=== PATIENT | male | born 1960 ===

== ENCOUNTER 2020-01-15 10:21 | Outpatient (REF) | payer OTHER, SELFPAY ==
[2020-01-15 12:02] LABS: MANUAL DIFF FLAG NO
[2020-01-15 12:10] LABS: Basophils Percent Auto 0.6 % (0-2); Eosinophils Absolute Auto 0.3 X10*3/uL (0.0-0.4); Eosinophils Percent Auto 5.3 % (0-4); Hemoglobin 13.4 g/dl (14.0-18.0); Imm Gran Abs Auto 0.03 X10*3/uL (0.00-0.03); Imm Gran Pct Auto 0.6 % (0.0-0.4); Lymphocytes Absolute Auto 1.5 X10*3/uL (1.2-4.9); Lymphocytes Percent Auto 27.9 % (20-40); Mean Corpuscular HGB Conc 32.7 g/dl (31.0-36.0); Mean Corpuscular Hemoglobin 28.9 pg (27.0-33.0); Mean Corpuscular Volume 88.6 fL (80-98); Mean Platelet Volume 10.5 fL (9.4-12.4); Monocytes Absolute Auto 0.5 X10*3/uL (0.1-1.2); Monocytes Percent Auto 8.5 % (2-11); Neutrophils Absolute Auto 3.1 X10*3/uL (2.0-8.3); Neutrophils Percent Auto 57.1 % (45-73); Platelet Count 284 X10*3/uL (160-400); Red Blood Count 4.63 X10*6/uL (4.60-5.80); Red Cell Distribution Width 12.4 % (11.0-16.0); White Blood Count 5.4 X10*3/uL (4.8-10.8)
[2020-01-15 12:42] LABS: Microalbum/Creatinine Ratio Ur 20.2 ug/mg cr
[2020-01-15 13:37] LABS: Alanine Aminotransferase 22 U/L (0-40); Albumin Level 4.4 g/dL (3.5-5.0); Alkaline Phosphatase 95 U/L (39-117); Anion Gap 14 (12-20); Aspartate Amino Transferase 18 U/L (5-37); Bilirubin Total 0.5 mg/dL (0.0-1.0); Blood Urea Nitrogen 11 mg/dL (9-16); Carbon Dioxide 28 mmol/L (22-29); Chloride 101 mmol/L (96-108); Cholesterol 245 mg/dL; Estimated Glomerular Filt Rate > 60; Glucose Random 254 mg/dL (60-115); HDL Cholesterol 49 mg/dL; LDL Cholesterol Calculated 159 mg/dl; Potassium 4.3 mmol/l (3.3-5.1); Sodium 139 mmol/L (135-145); Total Protein 7.4 g/dL (6.5-8.0); Triglycerides 189 mg/dL
[2020-01-15 13:58] LABS: Thyroid Stimulating Hormone 1.32 mIU/mL (0.32-4.0)
== END 2020-01-15 10:22 | disposition home or self-care (01) ==
LOC: HO.LAB 10:21
PROVIDERS: Visit Provider Internal Medicine
DX: E11.65 Type 2 diabetes mellitus with hyperglycemia (principal); E78.00 Pure hypercholesterolemia, unspecified; I10 Essential (primary) hypertension; Z91.14 Patient's other noncompliance with medication regimen
CPT/HCPCS: 36415; 80053; 80061; 82043; 84443; 85025

== ENCOUNTER 2020-04-14 09:43 | Outpatient (REF) | payer OTHER, SELFPAY ==
[2020-04-14 10:34] LABS: Estimated Average Glucose 246 mg/dL; Hemoglobin A1c % 10.2 %
[2020-04-14 10:58] LABS: Alanine Aminotransferase 23 U/L (0-40); Albumin Level 4.5 g/dL (3.5-5.0); Alkaline Phosphatase 93 U/L (39-117); Anion Gap 13 (12-20); Aspartate Amino Transferase 20 U/L (5-37); Bilirubin Total 0.5 mg/dL (0.0-1.0); Blood Urea Nitrogen 12 mg/dL (9-16); Calcium 9.1 mg/dL (8.4-10.2); Carbon Dioxide 30 mmol/L (22-29); Chloride 100 mmol/L (96-108); Cholesterol 189 mg/dL; Estimated Glomerular Filt Rate > 60; Glucose Random 250 mg/dL (60-115); HDL Cholesterol 47 mg/dL; LDL Cholesterol Calculated 89 mg/dl; Potassium 4.3 mmol/L (3.3-5.1); Sodium 139 mmol/L (135-145); Total Protein 7.6 g/dL (6.5-8.0); Triglycerides 266 mg/dL
== END 2020-04-14 09:44 | disposition home or self-care (01) ==
LOC: HO.LAB 09:43
PROVIDERS: PCP Internal Medicine; Visit Provider Internal Medicine
DX: Z00.01 Encounter for general adult medical examination with abnormal findings (principal); E11.65 Type 2 diabetes mellitus with hyperglycemia; E78.00 Pure hypercholesterolemia, unspecified; I10 Essential (primary) hypertension; Z91.14 Patient's other noncompliance with medication regimen
CPT/HCPCS: 36415; 80053; 80061; 83036

== ENCOUNTER 2020-11-18 11:13 | Outpatient (REF) | payer OTHER, SELFPAY ==
[2020-11-18 12:42] LABS: Estimated Average Glucose 232 mg/dL; Hemoglobin A1c % 9.7 %
[2020-11-18 13:17] LABS: Creatinine Urine 169.31 mg/dL
[2020-11-18 13:31] LABS: Alanine Aminotransferase 12 U/L (0-40); Albumin Level 4.4 g/dL (3.5-5.0); Alkaline Phosphatase 86 U/L (39-117); Anion Gap 13 (12-20); Aspartate Amino Transferase 15 U/L (5-37); Bilirubin Total 0.7 mg/dL (0.0-1.0); Blood Urea Nitrogen 18 mg/dL (9-16); Calcium 10.1 mg/dL (8.4-10.2); Carbon Dioxide 28 mmol/L (22-29); Chloride 100 mmol/L (96-108); Cholesterol 252 mg/dL; Estimated Glomerular Filt Rate > 60; Glucose Random 239 mg/dL (60-115); HDL Cholesterol 45 mg/dL; LDL Cholesterol Calculated 134 mg/dl; Potassium 4.7 mmol/L (3.3-5.1); Sodium 136 mmol/L (135-145); Total Protein 7.4 g/dL (6.5-8.0); Triglycerides 369 mg/dL
== END 2020-11-18 11:14 | disposition home or self-care (01) ==
LOC: HO.LAB 11:13
PROVIDERS: PCP Internal Medicine; Visit Provider Internal Medicine
DX: E11.65 Type 2 diabetes mellitus with hyperglycemia (principal); E78.2 Mixed hyperlipidemia; I10 Essential (primary) hypertension
CPT/HCPCS: 36415; 80053; 80061; 82043; 83036

== ENCOUNTER 2021-05-03 08:35 | Outpatient (REF) | payer OTHER, SELFPAY ==
[2021-05-03 10:02] LABS: Estimated Average Glucose 252 mg/dL; Hemoglobin A1c % 10.4 %
[2021-05-03 10:19] LABS: Alanine Aminotransferase 18 U/L (0-40); Albumin Level 4.4 g/dL (3.5-5.0); Alkaline Phosphatase 86 U/L (39-117); Anion Gap 10 (12-20); Aspartate Amino Transferase 15 U/L (5-37); Bilirubin Total 0.9 mg/dL (0.0-1.0); Blood Urea Nitrogen 11 mg/dL (9-16); Calcium 9.8 mg/dL (8.4-10.2); Carbon Dioxide 32 mmol/L (22-29); Chloride 100 mmol/L (96-108); Cholesterol 236 mg/dL; Estimated Glomerular Filt Rate > 60; Glucose Random 235 mg/dL (60-115); HDL Cholesterol 54 mg/dL; LDL Cholesterol Calculated 159 mg/dl; Potassium 4.7 mmol/L (3.3-5.1); Sodium 137 mmol/L (135-145); Total Protein 7.6 g/dL (6.5-8.0); Triglycerides 117 mg/dL
== END 2021-05-03 08:36 | disposition home or self-care (01) ==
LOC: HO.LAB 08:35
PROVIDERS: PCP Internal Medicine; Visit Provider Internal Medicine
DX: E11.65 Type 2 diabetes mellitus with hyperglycemia (principal); I10 Essential (primary) hypertension; E78.2 Mixed hyperlipidemia
CPT/HCPCS: 36415; 80053; 80061; 83036

== ENCOUNTER 2021-08-16 09:40 | Outpatient (REF) | payer OTHER, SELFPAY ==
[2021-08-16 10:39] LABS: Estimated Average Glucose 235 mg/dL; Hemoglobin A1c % 9.8 %
[2021-08-16 10:42] LABS: Alanine Aminotransferase 16 U/L (0-40); Albumin Level 4.5 g/dL (3.5-5.0); Alkaline Phosphatase 72 U/L (39-117); Anion Gap 14 (12-20); Aspartate Amino Transferase 17 U/L (5-37); Bilirubin Total 0.7 mg/dL (0.0-1.0); Blood Urea Nitrogen 17 mg/dL (9-16); Calcium 9.3 mg/dL (8.4-10.2); Carbon Dioxide 28 mmol/L (22-29); Chloride 102 mmol/L (96-108); Cholesterol 179 mg/dL; Estimated Glomerular Filt Rate > 60; Glucose Random 130 mg/dL (60-115); HDL Cholesterol 46 mg/dL; LDL Cholesterol Calculated 113 mg/dl; Potassium 4.5 mmol/L (3.3-5.1); Sodium 139 mmol/L (135-145); Total Protein 7.6 g/dL (6.5-8.0); Triglycerides 103 mg/dL
== END 2021-08-16 09:41 | disposition home or self-care (01) ==
LOC: HO.LAB 09:40
PROVIDERS: PCP Internal Medicine; Visit Provider Internal Medicine
DX: E11.65 Type 2 diabetes mellitus with hyperglycemia (principal); E78.00 Pure hypercholesterolemia, unspecified; I10 Essential (primary) hypertension; Z91.14 Patient's other noncompliance with medication regimen
CPT/HCPCS: 36415; 80053; 80061; 83036

== ENCOUNTER 2021-11-24 10:23 | Outpatient (REF) | payer OTHER, SELFPAY ==
[2021-11-24 11:44] LABS: Estimated Average Glucose 203 mg/dL; Hemoglobin A1c % 8.7 %
[2021-11-24 11:58] LABS: Alanine Aminotransferase 23 U/L (0-40); Albumin Level 4.4 g/dL (3.5-5.0); Alkaline Phosphatase 72 U/L (39-117); Anion Gap 14 (12-20); Aspartate Amino Transferase 19 U/L (5-37); Bilirubin Total 0.5 mg/dL (0.0-1.0); Blood Urea Nitrogen 14 mg/dL (9-16); Calcium 9.5 mg/dL (8.4-10.2); Carbon Dioxide 29 mmol/L (22-29); Chloride 102 mmol/L (96-108); Estimated Glomerular Filt Rate > 60; Glucose Random 190 mg/dL (60-115); Potassium 4.7 mmol/L (3.3-5.1); Sodium 140 mmol/L (135-145); Total Protein 7.5 g/dL (6.5-8.0)
== END 2021-11-24 10:24 | disposition home or self-care (01) ==
LOC: HO.LAB 10:23
PROVIDERS: PCP Internal Medicine; Visit Provider Internal Medicine
DX: E11.9 Type 2 diabetes mellitus without complications (principal); E78.00 Pure hypercholesterolemia, unspecified; I10 Essential (primary) hypertension
CPT/HCPCS: 36415; 80053; 83036

== ENCOUNTER 2022-02-23 10:34 | Outpatient (REF) | payer MEDICAID, SELFPAY ==
[2022-02-23 10:50] LABS: MANUAL DIFF FLAG NO
[2022-02-23 11:49] LABS: Basophils Percent Auto 0.7 % (0-2); Eosinophils Absolute Auto 0.2 X10*3/uL (0.0-0.4); Eosinophils Percent Auto 3.8 % (0-4); Hematocrit 42.9 % (42.0-52.0); Hemoglobin 13.9 g/dl (14.0-18.0); Imm Gran Abs Auto 0.02 X10*3/uL (0.00-0.03); Imm Gran Pct Auto 0.3 % (0.0-0.4); Lymphocytes Absolute Auto 1.4 X10*3/uL (1.2-4.9); Lymphocytes Percent Auto 23.8 % (20-40); Mean Corpuscular HGB Conc 32.4 g/dl (31.0-36.0); Mean Corpuscular Hemoglobin 29.3 pg (27.0-33.0); Mean Corpuscular Volume 90.3 fL (80.0-98.0); Mean Platelet Volume 10.2 fL (9.4-12.4); Monocytes Absolute Auto 0.4 X10*3/uL (0.1-1.2); Monocytes Percent Auto 7.5 % (2-11); Neutrophils Absolute Auto 3.7 x10*3/uL (2.0-8.3); Neutrophils Percent Auto 63.9 % (45-73); Platelet Count 284 X10*3/uL (160-400); Red Blood Count 4.75 X10*6/uL (4.60-5.80); White Blood Count 5.8 X10*3/uL (4.8-10.8)
[2022-02-23 12:05] LABS: Estimated Average Glucose 229 mg/dL; Hemoglobin A1c % 9.6 %
[2022-02-23 12:43] LABS: Creatinine Urine 109.03 mg/dL; Microalbum/Creatinine Ratio Ur 24.7 ug/mg cr
[2022-02-23 14:00] LABS: Alanine Aminotransferase 22 U/L (0-40); Albumin Level 4.5 g/dL (3.5-5.0); Alkaline Phosphatase 77 U/L (39-117); Anion Gap 12 (12-20); Aspartate Amino Transferase 20 U/L (5-37); Bilirubin Total 0.4 mg/dL (0.0-1.0); Blood Urea Nitrogen 9 mg/dL (9-16); Calcium 9.6 mg/dL (8.4-10.2); Carbon Dioxide 30 mmol/L (22-29); Chloride 104 mmol/L (96-108); Cholesterol 174 mg/dL; Estimated Glomerular Filt Rate > 60; Glucose Random 155 mg/dL (60-115); HDL Cholesterol 49 mg/dL; LDL Cholesterol Calculated 88 mg/dl; Potassium 4.6 mmol/L (3.3-5.1); Prostate Specific Antigen Scr 1.35 ng/mL (<0.05-4.0); Sodium 141 mmol/L (135-145); Thyroid Stimulating Hormone 1.78 uIU/mL (0.32-4.0); Total Protein 7.3 g/dL (6.5-8.0); Triglycerides 187 mg/dL
== END 2022-02-23 10:35 | disposition home or self-care (01) ==
LOC: HO.LAB 10:34
PROVIDERS: PCP Internal Medicine; Visit Provider Internal Medicine
DX: Z12.5 Encounter for screening for malignant neoplasm of prostate (principal); E11.65 Type 2 diabetes mellitus with hyperglycemia; E78.00 Pure hypercholesterolemia, unspecified; I10 Essential (primary) hypertension
CPT/HCPCS: 36415; 80053; 80061; 82043; 83036; 84153; 84443; 85025

== ENCOUNTER 2022-06-29 08:32 | Outpatient (REF) | payer MEDICAID, SELFPAY ==
[2022-06-29 09:40] LABS: Estimated Average Glucose 226 mg/dL; Hemoglobin A1c % 9.5 %
== END 2022-06-29 08:33 | disposition home or self-care (01) ==
LOC: HO.LAB 08:32
PROVIDERS: PCP Internal Medicine; Visit Provider Internal Medicine
DX: Z00.00 Encounter for general adult medical examination without abnormal findings (principal); E11.65 Type 2 diabetes mellitus with hyperglycemia; E78.00 Pure hypercholesterolemia, unspecified; I10 Essential (primary) hypertension
CPT/HCPCS: 36415; 83036

== ENCOUNTER 2022-09-28 09:23 | Outpatient (REF) | payer MEDICAID, SELFPAY ==
[2022-09-28 10:55] LABS: Estimated Average Glucose 214 mg/dL; Hemoglobin A1c % 9.1 %
[2022-09-28 11:19] LABS: Alanine Aminotransferase 13 U/L (0-40); Albumin Level 4.4 g/dL (3.5-5.0); Alkaline Phosphatase 72 U/L (39-117); Anion Gap 11 (12-20); Aspartate Amino Transferase 13 U/L (5-37); Bilirubin Total 0.5 mg/dL (0.0-1.0); Blood Urea Nitrogen 12 mg/dL (9-16); Calcium 9.4 mg/dL (8.4-10.2); Carbon Dioxide 27 mmol/L (22-29); Chloride 104 mmol/L (96-108); Estimated Glomerular Filt Rate > 60; Glucose Random 146 mg/dL (60-115); Potassium 3.9 mmol/L (3.3-5.1); Sodium 138 mmol/L (135-145); Total Protein 7.7 g/dL (6.5-8.0)
== END 2022-09-28 09:24 | disposition home or self-care (01) ==
LOC: HO.LAB 09:23
PROVIDERS: PCP Internal Medicine; Visit Provider Internal Medicine
DX: E11.65 Type 2 diabetes mellitus with hyperglycemia (principal); E78.00 Pure hypercholesterolemia, unspecified; I10 Essential (primary) hypertension
CPT/HCPCS: 36415; 80053; 83036

== ENCOUNTER 2022-12-21 10:33 | Outpatient (REF) | payer MEDICAID, SELFPAY ==
[2022-12-21 14:05] LABS: Estimated Average Glucose 186 mg/dL; Hemoglobin A1c % 8.1 % (<6.0)
[2022-12-21 14:11] LABS: Alanine Aminotransferase 14 U/L (0-40); Albumin Level 4.4 g/dL (3.5-5.0); Alkaline Phosphatase 91 U/L (39-117); Anion Gap 14 (12-20); Aspartate Amino Transferase 14 U/L (5-37); Bilirubin Total 0.6 mg/dL (0.0-1.0); Blood Urea Nitrogen 17 mg/dL (9-16); Calcium 9.3 mg/dL (8.4-10.2); Carbon Dioxide 27 mmol/L (22-29); Chloride 103 mmol/L (96-108); Estimated Glomerular Filt Rate > 60; Glucose Random 216 mg/dL (60-115); Potassium 4.3 mmol/L (3.3-5.1); Sodium 140 mmol/L (135-145); Total Protein 7.6 g/dL (6.5-8.0)
== END 2022-12-21 10:34 | disposition home or self-care (01) ==
LOC: HO.10HDL 10:33
PROVIDERS: Visit Provider Internal Medicine
DX: E11.65 Type 2 diabetes mellitus with hyperglycemia (principal); I10 Essential (primary) hypertension
CPT/HCPCS: 36415; 80053; 83036

== ENCOUNTER 2023-04-12 09:08 | Outpatient (REF) | payer MEDICAID, SELFPAY ==
[2023-04-12 10:47] LABS: Estimated Average Glucose 223 mg/dL; Hemoglobin A1c % 9.4 % (<6.0)
[2023-04-12 11:09] LABS: Alanine Aminotransferase 17 U/L (0-40); Albumin Level 4.4 g/dL (3.5-5.0); Alkaline Phosphatase 95 U/L (39-117); Anion Gap 12 (12-20); Aspartate Amino Transferase 13 U/L (5-37); Bilirubin Total 0.4 mg/dL (0.0-1.0); Blood Urea Nitrogen 17 mg/dL (9-16); Carbon Dioxide 29 mmol/L (22-29); Chloride 103 mmol/L (96-108); Cholesterol 257 mg/dL (<200); Estimated Glomerular Filt Rate > 60; Glucose Random 247 mg/dL (60-115); HDL Cholesterol 50 mg/dL (>40); LDL Cholesterol Calculated 155 mg/dL (<100); Potassium 4.2 mmol/L (3.3-5.1); Sodium 140 mmol/L (135-145); Total Protein 7.6 g/dL (6.5-8.0); Triglycerides 263 mg/dL (<150)
[2023-04-12 11:27] LABS: Prostate Specific Antigen Scr 1.79 ng/mL (<0.05-4.0)
[2023-04-12 12:40] LABS: Creatinine Urine 134.74 mg/dL; Microalbum/Creatinine Ratio Ur 107.6 ug/mg cr (<30)
== END 2023-04-12 09:09 | disposition home or self-care (01) ==
LOC: HO.LAB 09:08
PROVIDERS: PCP Internal Medicine; Visit Provider Internal Medicine
DX: Z12.5 Encounter for screening for malignant neoplasm of prostate (principal); E11.65 Type 2 diabetes mellitus with hyperglycemia; E78.2 Mixed hyperlipidemia; I10 Essential (primary) hypertension
CPT/HCPCS: 36415; 80053; 80061; 82043; 82570; 83036; 84153

== ENCOUNTER 2023-07-30 12:47 | Outpatient (REF) | payer MEDICARE, MEDICAID, SELFPAY ==
[2023-07-30 13:43] LABS: Estimated Average Glucose 235 mg/dL; Hemoglobin A1c % 9.8 % (<6.0)
[2023-07-30 14:23] LABS: Alanine Aminotransferase 16 U/L (0-40); Albumin Level 4.4 g/dL (3.5-5.0); Alkaline Phosphatase 75 U/L (39-117); Anion Gap 14 (12-20); Aspartate Amino Transferase 18 U/L (5-37); Bilirubin Total 0.5 mg/dL (0.0-1.0); Blood Urea Nitrogen 14 mg/dL (9-16); Calcium 10.1 mg/dL (8.4-10.2); Carbon Dioxide 29 mmol/L (22-29); Chloride 102 mmol/L (96-108); Cholesterol 231 mg/dL (<200); Estimated Glomerular Filt Rate > 60; Glucose Random 97 mg/dL (60-115); HDL Cholesterol 58 mg/dL (>40); LDL Cholesterol Calculated 148 mg/dL (<100); Potassium 4.3 mmol/L (3.3-5.1); Sodium 141 mmol/L (135-145); Total Protein 7.9 g/dL (6.5-8.0); Triglycerides 128 mg/dL (<150)
== END 2023-07-30 12:48 | disposition home or self-care (01) ==
LOC: HO.LAB 12:47
PROVIDERS: PCP Internal Medicine; Visit Provider Internal Medicine
DX: E11.65 Type 2 diabetes mellitus with hyperglycemia (principal); E78.00 Pure hypercholesterolemia, unspecified; I10 Essential (primary) hypertension; N52.1 Erectile dysfunction due to diseases classified elsewhere
CPT/HCPCS: 36415; 80053; 80061; 83036

== ENCOUNTER 2024-01-15 11:49 | Inpatient (IN) | payer MEDICARE, SELFPAY ==
--- NOTE | ~2024-01-15 | CT_ITS ---
EXAMINATION: CTA NECK WITH CONTRAST (STROKE) CTA BRAIN WITH CONTRAST (STROKE) CLINICAL INFORMATION: Suspect acute stroke. Assess for major vessel occlusion. COMPARISON: None available. TECHNIQUE: CTA of the head and neck was performed in the axial plane from the mediastinum to the skull vertex using 70 mL Omnipaque 350 intravenous contrast. Additional reformatted multiplanar images including maximum intensity projection MIP images are generated on the CT workstation. This CT examination was performed using dose optimization techniques as appropriate, variously including the following: *Automated exposure control *Adjustment of mA and/or kV according to patient size (this includes techniques or standardized protocols for targeted exams where dose is matched to indication/reason for exam; i.e. extremities or head) *Use of iterative reconstruction technique DLP: 1586 mGy-cm FINDINGS: The degree of stenosis determined by criteria similar to NASCET. CTA NECK: Common origin of the innominate and left common carotid artery, normal variant. The innominate and bilateral subclavian arteries are patent. The origins and cervical segments of the common carotid arteries as well as the common carotid artery bifurcations are patent bilaterally. The cervical segments of the internal carotid arteries are also patent bilaterally. The origins and cervical segments of the vertebral arteries are patent bilaterally. No hemodynamically significant stenosis, dissection, or aneurysm. The visualized branches of the external carotid arteries are unremarkable. CTA HEAD: Mild atherosclerotic calcifications of the bilateral carotid siphons. Anterior circulation: The petrous, cavernous, and supraclinoid segments of the internal carotid arteries are patent bilaterally. Severe short segment stenosis of the distal left M1. The remaining major branches of the anterior and middle cerebral arteries as well as anterior communicating artery complex are patent. No large vessel occlusion, saccular aneurysm, or dissection. Posterior circulation: The intracranial vertebral arteries are patent bilaterally. The basilar artery is normal in course and caliber. The posterior cerebral and superior cerebellar arteries arise normally from the basilar summit. There is moderate focal stenosis of the distal left P3. No aneurysm. On delayed imaging, the venous structures demonstrate normal contrast opacification. No filling defect. No abnormal intracranial enhancement. Soft tissues: No suspicious neck mass or cervical adenopathy. Lungs: Clear. Bones: No acute osseous abnormality. No lytic or blastic osseous lesions. Multilevel degenerative changes of the visualized spine. CT/CT angio head neck stroke IMPRESSION: 1. CTA head demonstrates no large vessel occlusion. Severe short segment stenosis of the distal left M1. Moderate focal stenosis of the distal left P3. 2. CTA neck demonstrates no hemodynamically significant stenosis, dissection, or aneurysm. Electronically signed by: Oralia Berry MD 01/15/2024 01:18 PM EST
--- NOTE | ~2024-01-15 | MR_ITS ---
EXAMINATION: MR BRAIN WITHOUT CONTRAST CLINICAL INFORMATION: Left arm numbness COMPARISON: None available. TECHNIQUE: MRI of the brain was obtained using routine sequences without contrast. FINDINGS: Several foci of restricted diffusion involving the right frontal operculum and the right parietal lobe cortices. No hemorrhagic transformation. Scattered and confluent periventricular and deep white matter T2/FLAIR hyperintensities, nonspecific however commonly seen with small vessel ischemic disease. No midline shift or hydrocephalus. No acute extra-axial fluid collections. The osseous structures are unremarkable. The pituitary gland, pineal gland and remaining midline structures are unremarkable. Sequelae of right lens replacement. Otherwise, no acute orbital pathology. Mucous retention cysts in the left greater than right maxillary sinuses. The mastoid air cells are clear. MR/MR head/brain wo con IMPRESSION: 1. Several foci of acute infarcts involving the right frontal operculum and right parietal lobe cortices. No hemorrhagic transformation. 2. Chronic microangiopathy. Electronically signed by: Oralia Berry MD 01/15/2024 05:02 PM [facility]
--- NOTE | ~2024-01-15 | CT_ITS ---
EXAMINATION: CT HEAD WITHOUT CONTRAST (STROKE PROTOCOL) CLINICAL INFORMATION: Stroke protocol. COMPARISON: None available. TECHNIQUE: Contiguous axial imaging was performed from the skull base to vertex without intravenous administration of contrast. This CT examination was performed using dose optimization techniques as appropriate, variously including the following: *Automated exposure control *Adjustment of mA and/or kV according to patient size (this includes techniques or standardized protocols for targeted exams where dose is matched to indication/reason for exam; i.e. extremities or head) *Use of iterative reconstruction technique DLP: 797 mGy-cm FINDINGS: There is a question of loss of escobar-white distinction in the left occipital region posterior medially, in the [employer] distribution, equivocal. Hypodensity in the bifrontal regions is felt more likely to represent artifact than ischemic change, although the latter cannot be excluded entirely. No intracranial hemorrhage or mass lesion is seen. Suspect mild bilateral chronic periventricular white matter ischemic change. No extra-axial collection is appreciated. The ventricles are normal in size and configuration without evidence of hydrocephalus. Mild bilateral maxillary sinus mucosal thickening. Approximately 2.5 cm left maxillary sinus retention cyst versus mucosal polyp. The mastoid air cells are clear. Right lens extraction. CT/CT head for stroke IMPRESSION: Question of loss of escobar-white distinction in the left occipital region posterior medially, in the [employer] distribution, equivocal. Cannot exclude ischemic change. Hypodensity in the bifrontal regions is felt more likely to represent artifact than ischemic change, although the latter cannot be excluded entirely. MRI may be of use for further evaluation if clinically indicated. DEVANG Mark was directly informed of the findings by telephone at approximately 12:45 PM on 01/30/2024. Electronically signed by: Frederick Munguia MD 01/15/2024 12:46 PM [facility]
[2024-01-15 11:55] VITALS: BP 162/86; PULSE 79; RESP 18; TEMP 36.9; O2SAT 98; BMI 26.5
--- NOTE | 2024-01-15 11:58 | ECG_ITS ---
Test Reason : STROKE PROTOCOL Blood Pressure : / mmHG Vent. Rate : 102 BPM Atrial Rate : 102 BPM P-R Int : 170 ms QRS Dur : 092 ms QT Int : 342 ms P-R-T Axes : 067 004 163 degrees QTc Int : 445 ms Sinus tachycardia Septal infarct , age undetermined T wave abnormality, consider lateral ischemia Abnormal ECG When compared with ECG of 26-MAY-2007 17:27, Septal infarct is now Present Nonspecific T wave abnormality, worse in Inferior leads T wave inversion now evident in Anterolateral leads Referred By: Tanya Mark Electronically Signed By:ENMA PERDOMO MD
--- NOTE | 2024-01-15 11:58 | ED.GENADULT ---
HPI - General Adult General Chief complaint: Neuro Symptoms/Deficit Stated complaint: Facial drooping, numbness L side Time Seen by Provider: 01/15/24 12:05 Related Data Home Medications ?Medication ?Instructions ?Recorded ?Confirmed insulin glargine 100 unit/mL (3 60 unit subcut BEDTIME 01/15/24 01/15/24 mL) subcutaneous pen (Lantus Solostar U-100 Insulin) sitagliptin phosphate 100 mg 100 mg PO DAILY 01/15/24 01/15/24 tablet (Januvia) Previous Rx's ?Medication ?Instructions ?Recorded apixaban 5 mg tablet (Eliquis) 5 mg PO BID 90 days #180 tabs 01/17/24 atorvastatin 80 mg tablet 80 mg PO BEDTIME 90 days #90 tabs 01/17/24 carvedilol 6.25 mg tablet 6.25 mg PO BID 90 days #180 tabs 01/17/24 valsartan 40 mg tablet 20 mg PO BID 90 days #90 tabs 01/17/24 Allergies Allergy/AdvReac Type Severity Reaction Status Date / Time clams Allergy Mild RASH, Verified 01/15/24 11:58 WEAKNESS penicillin G [Penicillin G] Allergy Mild RASH Verified 01/15/24 11:58 PMFSH Past Medical History Medical History Hyperlipidemia Diabetes mellitus H/O: HTN (hypertension) Family History Family History Mother Stroke Father Stroke Social History Social History Household Members: Spouse Housing: House Do you presently have visiting nurse or other home services: No Patient Tobacco Use Status: Former Tobacco user Tobacco use type: Cigarette Cigarette Packs Per Day: 1.5 Cigarettes Per Day: 30.0 Second Hand Smoke Exposure: No Substance Use Type: Crack/Cocaine Physical Exam ED Vital Signs: BMI result Body Mass Index 26.5 Course Course Course Narrative: This is a rapid medical exam performed by Manuel Mark NP: Additional HPI, ROS, PE not included below will be deferred to primary provider. Patient is a 63-year-old Peruvian speaking male with history of DM presenting to ED with who report that patient woke this morning and seemed normal. A short time later he had slurred speech, right facial droop, and difficulty holding items in his left hand. Patient feels symptoms have since resolved. 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 PO 81 mg DAILY MILE Administration Atorvastatin Calcium 80 mg 01/15/24 21:00 01/16/24 20:14 Atorvastatin Calcium 80 Mg Tablet PO 80 mg BEDTIME MILE Administration Insulin Glargine 60 unit 01/15/24 21:00 01/16/24 20:14 Insulin Glargine,Hum.Rec.Anlog 100 Unit/Ml 10 Ml Vial SUBCUT 60 unit BEDTIME MILE Administration Insulin Human Lispro 0 unit 01/15/24 16:30 01/17/24 11:49 Insulin Lispro 100 Unit/Ml 3 Ml Vial SUBCUT 2 unit QIDACHS [facility] Administration Protocol Iohexol 100 ml 01/15/24 12:33 01/15/24 12:36 Iohexol 350 Mg/Ml 100 Ml Infus..Btl IV 01/15/24 12:34 70 ml ONCE ONE Administration Lisinopril 5 mg 01/16/24 09:00 01/17/24 09:32 Lisinopril 5 Mg Tablet PO 5 mg DAILY [facility] Administration Protocol Metoprolol Succinate 100 mg 01/16/24 09:00 01/17/24 09:31 Metoprolol Succinate Er 100 Mg Tab.Er.24h PO 100 mg DAILY [facility] Administration Protocol Oxycodone HCl 5 mg 01/16/24 09:18 01/16/24 09:45 Oxycodone Hcl Immed Release 5 Mg Tablet PO 01/16/24 09:19 5 mg ONCE ONE Administration Medical Decision Making Lab Data 01/16/24 05:08 01/16/24 05:08 Labs: Lab Results 01/15/24 01/15/24 01/15/24 Range/Units 12:03 12:10 12:17 WBC 5.6 (4.8-10.8) X10*3/uL RBC 4.68 (4.60-5.80) X10*6/uL Hgb 14.4 (14.0-18.0) g/dl Hct 41.7 L (42.0-52.0) % MCV 89.1 (80.0-98.0) fL MCH 30.8 (27.0-33.0) pg MCHC 34.5 (31.0-36.0) g/dl RDW 12.1 (11.0-16.0) % Plt Count 281 (160-400) X10*3/uL MPV 9.2 L (9.4-12.4) fL Immature Gran % (Auto) 0.5 H (0.0-0.4) % Neut % (Auto) 66.1 (45-73) % Lymph % (Auto) 22.9 (20-40) % [place] % (Auto) 7.2 (2-11) % Eos % (Auto) 2.9 (0-4) % Baso % (Auto) 0.4 (0-2) % Lymph # (Auto) 1.3 (1.2-4.9) X10*3/uL [place] # (Auto) 0.4 (0.1-1.2) X10*3/uL Eos # (Auto) 0.2 (0.0-0.4) X10*3/uL Baso # (Auto) 0.0 (0.0-0.2) X10*3/uL Abs Immat Gran (auto) 0.03 (0.00-0.03) X10*3/uL Absolute Neuts (auto) 3.7 (2.0-8.3) x10*3/uL Absolute Nucleated RBC 0.000 (0.0-0.012) X10*3/uL Nucleated RBC % (auto) 0.0 (0.0-0.2) /100WBC PT 10.8 L (10.9-12.4) SEC Whole Blood PT 11.7 (11.1-13.5) sec INR 0.9 (0.9-1.1) Whole Blood INR 1.0 (0.9-1.1) APTT 29.0 (26.0-36.8) SEC Sodium 136 (135-145) mmol/L Potassium 4.1 (3.3-5.1) mmol/L Chloride 97 (96-108) mmol/L Carbon Dioxide 26 (22-29) mmol/L Anion Gap 17 (12-20) BUN 13 (9-16) mg/dL Creatinine 0.86 (0.5-1.4) mg/dL Estim Creat Clear Calc 96.7 Estimated GFR > 60 POC Glucose 305 H (60-115) mg/dL Random Glucose 325 H (60-115) mg/dL Calcium 10.1 (8.4-10.2) mg/dL Troponin I High Sens 11.5 (<3.5-35.0) ng/L Triglycerides 133 (<150) mg/dL Cholesterol 242 H (<200) mg/dL LDL Cholesterol, Calc 155 H (<100) mg/dL HDL Cholesterol 61 (>40) mg/dL Discharge Plan Discharge Clinical Impression: Cerebrovascular accident Patient Disposition: Admitted As Inpatient Interventions: Admission Worksheet (ED) Last Done: 01/15/24 19:47 Discharge Date/Time: 01/15/24 20:32
[2024-01-15 12:07] LABS: Glucose, Whole Blood 305 mg/dL (60-115)
--- NOTE | 2024-01-15 12:08 | ED.NEUROSD ---
HPI - Neuro Symptoms/Deficit General Chief Complaint: Neuro Symptoms/Deficit Stated Complaint: Facial drooping, numbness L side Time Seen by Provider: 01/15/24 12:05 Source: patient Mode of arrival: ambulatory Limitations: no limitations History of Present Illness HPI Narrative: THIS IS A 63 YEARS OLD THE PATIENT PRESENTED TO THE EMERGENCY DEPARTMENT WITH THE SHE COMPLAINING OF LEFT UPPER EXTREMITY WEAKNESS AND NUMBNESS SINCE ABOUT 10:45. HE WAS ABLE TO AMBULATE TO THE EMERGENCY ROOM HE HAS HISTORY OF DIABETES AND HYPERTENSION. AT THIS TIME THE SYMPTOMS ARE IMPROVING Onset (ago): hour(s) (2) Timing confirmed by: spouse Severity: mild Exacerbating factors: none Context: sudden onset On Anticoagulants: No Associated symptoms: denies other symptoms Related Data Home Medications ?Medication ?Instructions ?Recorded ?Confirmed aspirin 81 mg tablet,delayed 81 mg DAILY 01/15/24 01/15/24 release ezetimibe 10 mg tablet 10 mg DAILY 01/15/24 01/15/24 insulin glargine 100 unit/mL (3 60 unit subcut BEDTIME 01/15/24 01/15/24 mL) subcutaneous pen (Lantus Solostar U-100 Insulin) lisinopril 20 1 tab DAILY 01/15/24 01/15/24 mg-hydrochlorothiazide 25 mg tablet metoprolol succinate 100 mg 100 mg PO DAILY 01/15/24 01/15/24 tablet,extended release 24 hr rosuvastatin 40 mg tablet 40 mg DAILY 01/15/24 01/15/24 sitagliptin phosphate 100 mg 100 mg PO DAILY 01/15/24 01/15/24 tablet (Januvia) Allergies Allergy/AdvReac Type Severity Reaction Status Date / Time clams Allergy Mild RASH, Verified 01/15/24 11:58 WEAKNESS penicillin G [Penicillin G] Allergy Mild RASH Verified 01/15/24 11:58 Review of Systems Constitutional: Constitutional: Reports no additional constitutional complaints ENT: Reports system reviewed and no additional complaints, except as documented [facility] Past Medical History Attestation statement: The following information was validated with the patient. [facility] Narrative: DIABETES AND HYPERTENSION Social History Social History Smoked in Last 30 Days: No Substance Use Type: Crack/Cocaine Substance Use Frequency: Occasionally Advance Directives: No Physical Exam Vital Signs: Vital Signs: Last Vital Signs Temp 99.2 F 01/15/24 12:11 Pulse 102 H 01/15/24 15:28 Resp 16 01/15/24 15:28 BP 155/102 H 01/15/24 15:28 Pulse Ox 95 01/15/24 15:28 O2 Del Method Room Air 01/15/24 15:28 BMI result Body Mass Index 26.5 HE LOOKS WELL IS NOT TOXIC-APPEARING COMFORTABLE IN THE STRETCHER Const: General: cooperative Nutritional Appearance: well nourished Orientation/consciousness: patient oriented x3 Limitations: no limitations HEENT: Head: Yes normal to inspection General nose exam: Normal external nose present Face and sinus: Yes normal facial exam Neck: Neck: Yes normal visual inspection Chest: Chest palpation & inspection: normal inspection of the chest Resp: Effort & Inspection: normal respiratory effort Auscultation: clear to auscultation bilaterally Cardio: Jugular venous distension: no JVD Rate: regular rate Rhythm: regular rhythm GI: Inspection: Yes normal to inspection Palpation (GI): Soft to palpation, not firm and nontender Skin: General skin exam: no rashes or lesions noted and elasticity normal Rashes: no rashes Neuro: Other: PRONATOR DRIFT NEGATIVE, STRENGTH 5/5 UPPER AND LOWER EXTREMITY. MILD DECREASED SENSATION LEFT ARM , STROKE SCALE IS 1 General: patient oriented x3 Cranial nerves: Yes CN's II-XII intact bilaterally and Yes Normal facial strength present Cognition (Neuro): normal cognition Gait exam (Neuro): Normal gait present Motor exam (neuro): 5/5 motor strength present throughout Coordination: [id number] test normal Course Reevaluation(s) Reevaluation #1: On re-examination doing better at this time is stroke scale is 0 CT scan was read as a possible left occipital infarct, at this point we will admit the patient MRI cardiac monitoring, I discussed the case with the neurologist on duty Time: 13:43 Medications Administered Discontinued Medications Generic Name Dose Route Start Last Admin Trade Name Freq PRN Reason Stop Dose Admin Iohexol 100 ml 01/15/24 12:33 01/15/24 12:36 Iohexol 350 Mg/Ml 100 Ml Infus..Btl IV 01/15/24 12:34 70 ml ONCE ONE Administration Medical Decision Making Medical Decision Making MDM Narrative: PATIENT PRESENTED WITH LEFT UPPER EXTREMITY NUMBNESS WE WILL GIVE IMAGING Differential Diagnosis Differential Diagnoses: The differential diagnosis associated with the presentation includes CVA/PARESTHESIA/PERIPHERAL NEUROPATHY Admission/Observation Consideration of admission/observation: Escalation of care including admission/observation considered Consult Healthcare Provider Management of the patient was discussed with: Hospitalist and Astronomy Teacher Lab Data MDM Lab Attestation statement: I reviewed the patient's lab results. 01/15/24 12:10 01/15/24 12:10 Labs: Lab Results 01/15/24 01/15/24 01/15/24 Range/Units 12:03 12:10 12:17 WBC 5.6 (4.8-10.8) X10*3/uL RBC 4.68 (4.60-5.80) X10*6/uL Hgb 14.4 (14.0-18.0) g/dl Hct 41.7 L (42.0-52.0) % MCV 89.1 (80.0-98.0) fL MCH 30.8 (27.0-33.0) pg MCHC 34.5 (31.0-36.0) g/dl RDW 12.1 (11.0-16.0) % Plt Count 281 (160-400) X10*3/uL MPV 9.2 L (9.4-12.4) fL Immature Gran % (Auto) 0.5 H (0.0-0.4) % Neut % (Auto) 66.1 (45-73) % Lymph % (Auto) 22.9 (20-40) % [place] % (Auto) 7.2 (2-11) % Eos % (Auto) 2.9 (0-4) % Baso % (Auto) 0.4 (0-2) % Lymph # (Auto) 1.3 (1.2-4.9) X10*3/uL [place] # (Auto) 0.4 (0.1-1.2) X10*3/uL Eos # (Auto) 0.2 (0.0-0.4) X10*3/uL Baso # (Auto) 0.0 (0.0-0.2) X10*3/uL Abs Immat Gran (auto) 0.03 (0.00-0.03) X10*3/uL Absolute Neuts (auto) 3.7 (2.0-8.3) x10*3/uL Absolute Nucleated RBC 0.000 (0.0-0.012) X10*3/uL Nucleated RBC % (auto) 0.0 (0.0-0.2) /100WBC PT 10.8 L (10.9-12.4) SEC Whole Blood PT 11.7 (11.1-13.5) sec INR 0.9 (0.9-1.1) Whole Blood INR 1.0 (0.9-1.1) APTT 29.0 (26.0-36.8) SEC Sodium 136 (135-145) mmol/L Potassium 4.1 (3.3-5.1) mmol/L Chloride 97 (96-108) mmol/L Carbon Dioxide 26 (22-29) mmol/L Anion Gap 17 (12-20) BUN 13 (9-16) mg/dL Creatinine 0.86 (0.5-1.4) mg/dL Estim Creat Clear Calc 96.7 Estimated GFR > 60 POC Glucose 305 H (60-115) mg/dL Random Glucose 325 H (60-115) mg/dL Calcium 10.1 (8.4-10.2) mg/dL Troponin I High Sens 11.5 (<3.5-35.0) ng/L Triglycerides 133 (<150) mg/dL Cholesterol 242 H (<200) mg/dL LDL Cholesterol, Calc 155 H (<100) mg/dL HDL Cholesterol 61 (>40) mg/dL Independent Interpretation I performed an independent interpretation of an: EKG and CT Scan Radiology Impression Discussion of test interpretation with radiology: I have reviewed the radiologist's reading. Independent Historian Clinical information obtained from an independent historian. History obtained from or confirmed by: Other () Chronic Conditions Patient?s care impacted by: Diabetes Critical Care Time Critical Care Time Critical Care Time: Yes Total Critical Care Time: 60 Attestation: taking care of the pt/speaking with neurologist/family/consideration for TPA (not given) Discharge Plan Discharge Clinical Impression: Cerebrovascular accident Qualifiers: CVA mechanism: unspecified Qualified Code(s): I63.9 - Cerebral infarction, unspecified Patient Disposition: Admitted As Inpatient
[2024-01-15 12:11] VITALS: BP 151/98; PULSE 97; RESP 16; TEMP 37.3; O2SAT 97
[2024-01-15 12:13] LABS: MANUAL DIFF FLAG NO
--- NOTE | 2024-01-15 12:13 | PC.NURSE ---
Labs sent as ordered
--- NOTE | 2024-01-15 12:13 | PC.NURSE ---
18G peripheral IV inserted to pt.'s LAC. Tolerated well. Good blood return and flushes easily without discomfort.
[2024-01-15 12:16] LABS: Basophils Percent Auto 0.4 % (0-2); Eosinophils Absolute Auto 0.2 X10*3/uL (0.0-0.4); Eosinophils Percent Auto 2.9 % (0-4); Hematocrit 41.7 % (42.0-52.0); Hemoglobin 14.4 g/dl (14.0-18.0); Imm Gran Abs Auto 0.03 X10*3/uL (0.00-0.03); Imm Gran Pct Auto 0.5 % (0.0-0.4); Lymphocytes Absolute Auto 1.3 X10*3/uL (1.2-4.9); Lymphocytes Percent Auto 22.9 % (20-40); Mean Corpuscular HGB Conc 34.5 g/dl (31.0-36.0); Mean Corpuscular Hemoglobin 30.8 pg (27.0-33.0); Mean Corpuscular Volume 89.1 fL (80.0-98.0); Mean Platelet Volume 9.2 fL (9.4-12.4); Monocytes Absolute Auto 0.4 X10*3/uL (0.1-1.2); Monocytes Percent Auto 7.2 % (2-11); Neutrophils Absolute Auto 3.7 x10*3/uL (2.0-8.3); Neutrophils Percent Auto 66.1 % (45-73); Platelet Count 281 X10*3/uL (160-400); Red Blood Count 4.68 X10*6/uL (4.60-5.80); Red Cell Distribution Width 12.1 % (11.0-16.0); White Blood Count 5.6 X10*3/uL (4.8-10.8)
[2024-01-15 12:21] LABS: Prothrombin Time Whole Bld POC 11.7 sec (11.1-13.5)
[2024-01-15 12:25] LABS: INTERNATIONAL NORM RATIO 0.9 (0.9-1.1); Prothrombin Time 10.8 SEC (10.9-12.4)
[2024-01-15] MEDS: iohexoL 350 MG/ML 100 ML INFUS..BTL IV (12:36)
[2024-01-15 12:39] LABS: Anion Gap 17 (12-20); Blood Urea Nitrogen 13 mg/dL (9-16); Calcium 10.1 mg/dL (8.4-10.2); Carbon Dioxide 26 mmol/L (22-29); Chloride 97 mmol/L (96-108); Cholesterol 242 mg/dL (<200); Creatinine Clr Calc Pharmacy 96.7; Estimated Glomerular Filt Rate > 60; Glucose Random 325 mg/dL (60-115); HDL Cholesterol 61 mg/dL (>40); LDL Cholesterol Calculated 155 mg/dL (<100); Potassium 4.1 mmol/L (3.3-5.1); Sodium 136 mmol/L (135-145); Triglycerides 133 mg/dL (<150)
[2024-01-15 12:46] LABS: Troponin-I High Sensitivity 11.5 ng/L (<3.5-35.0)
--- NOTE | 2024-01-15 12:59 | MHC.EDTECH ---
late ekg documentation due to pt being in ct scan
[2024-01-15 13:25] VITALS: BP 148/106; PULSE 98; RESP 17; O2SAT 96
--- NOTE | 2024-01-15 13:25 | PC.NURSE ---
Beena Day RN to pt.'s bedside to discuss stroke packet
[2024-01-15 14:06] LABS: Stroke Lab Use COMPLETE
[2024-01-15 14:29] VITALS: BP 148/106; PULSE 98; O2SAT 96
--- NOTE | 2024-01-15 14:33 | PM.IMHP ---
History of Present Illness Date of Service: 01/15/24 Chief Complaint: Stroke 63-year-old man presenting to the ER with left upper extremity weakness and numbness since 1045 this morning. His reported that his speech seemed ?heavy? and he had a facial droop. Patient denied any alcohol or tobacco use. No headaches, visual changes, recent trauma, chest pain, shortness breath, nausea, vomiting, diarrhea. Patient's symptoms resolved while in the ER and therefore patient was not given TNK. In the ER, head CT showed loss of escobar white matter distinction in the left occipital region, Head CTA showing no large vessel occlusion, significant stenosis, dissection or aneurysm. LDL 155, total cholesterol 242. No other significant lab abnormalities noted. Blood pressure mildly elevated with highest reading of 162/86. Plan is for patient to be admitted for further management and treatment of stroke. Review of Systems Review of Systems: Denies any recent fever chills or decrease in appetite respiratory denies any shortness of breath or cough cardiovascular denied chest pain gastrointestinal denies any dysphagia abdominal pain nausea vomiting or diarrhea genitourinary denies any dysuria frequency or hematuria musculoskeletal denies any joint pain or swelling neuropsych denies any weakness or seizures all other systems reviewed are negative [facility] Medical History (Updated 01/15/24 @ 17:29 by Cyndee Landers NP) Hyperlipidemia Diabetes mellitus H/O: HTN (hypertension) Family History (Updated 01/15/24 @ 17:29 by Cyndee Landers NP) Mother Stroke Father Stroke Social History Smoked in Last 30 Days: No Substance Use Type: Crack/Cocaine Substance Use Frequency: Occasionally Advance Directives: No Meds Allergies Allergy/AdvReac Type Severity Reaction Status Date / Time clams Allergy Mild RASH, Verified 01/15/24 11:58 WEAKNESS penicillin G [Penicillin G] Allergy Mild RASH Verified 01/15/24 11:58 Active Medications: Current Medications Acetaminophen (Acetaminophen 325 Mg Tablet) 650 mg PO Q6H PRN PRN Reason: Pain, Mild (Pain Scale 1-3), fever or headache Aspirin (Aspirin Enteric Coated 81 Mg Tablet.Dr) 81 mg PO DAILY MILE Calcium Carbonate (Calcium Carbonate 750 Mg Tab.Chew) 750 mg PO Q4H PRN PRN Reason: Heartburn Glucose (Glucose Gel 15 Gm Gel..Gram.) 15 gm PO Q15M PRN; Protocol PRN Reason: per Hypoglycemia Standing Ord. Dextrose (D10) 250 mls @ 750 mls/hr IV Q15M PRN; Protocol PRN Reason: per Hypoglycemia Standing Ord. Insulin Human Lispro (Insulin Lispro 100 Unit/Ml 3 Ml Vial) 0 unit SUBCUT QIDACHS ON LICENSE OF [facility]; Protocol Magnesium Hydroxide (Milk Of Magnesia 30 Ml Oral.Susp) 30 ml PO DAILY PRN PRN Reason: Constipation Melatonin (Melatonin 3 Mg Tablet) 6 mg PO BEDTIME PRN PRN Reason: Insomnia Ondansetron HCl (Ondansetron Hcl 4 Mg/2 Ml Vial) 4 mg IVPUSH Q8H PRN PRN Reason: Nausea and Vomiting Home Medications ?Medication ?Instructions ?Recorded ?Confirmed ?Last Taken ?Type aspirin 81 mg tablet,delayed 81 mg DAILY 01/15/24 01/15/24 Unknown History release ezetimibe 10 mg tablet 10 mg DAILY 01/15/24 01/15/24 Unknown History insulin glargine 100 unit/mL (3 60 unit subcut BEDTIME 01/15/24 01/15/24 Unknown History mL) subcutaneous pen (Lantus Solostar U-100 Insulin) lisinopril 20 1 tab DAILY 01/15/24 01/15/24 Unknown History mg-hydrochlorothiazide 25 mg tablet metoprolol succinate 100 mg 100 mg PO DAILY 01/15/24 01/15/24 Unknown History tablet,extended release 24 hr rosuvastatin 40 mg tablet 40 mg DAILY 01/15/24 01/15/24 Unknown History sitagliptin phosphate 100 mg 100 mg PO DAILY 01/15/24 01/15/24 Unknown History tablet (Januvia) Physical Exam Vital Signs and Narrative: Vital Signs: Last Vital Signs Temp 99.2 F 01/15/24 12:11 Pulse 98 01/15/24 13:25 Resp 17 01/15/24 13:25 BP 148/106 H 01/15/24 13:25 Pulse Ox 96 01/15/24 13:25 O2 Del Method Room Air 01/15/24 13:25 BMI result Body Mass Index 26.5 Appearing in no acute distress head is normocephalic atraumatic eyes pupils are PERRLA sclera is anicteric mouth throat mucous membranes are intact and moist neck is supple no lymphadenopathy, no JVD noted lung sounds are clear to auscultation heart regular rate rhythm, clear S1, S2 positive bowel sounds, abdomen is soft, nontender neuro patient is alert x3, no focal deficits mild weakness to LUE 4/5, mild facial droop noted Results Labs 01/15/24 12:10 01/15/24 12:10 Labs: Laboratory Results - last 24 hr 01/15/24 01/15/24 01/15/24 12:03 12:10 12:17 MCV 89.1 MCH 30.8 MCHC 34.5 RDW 12.1 Plt Count 281 MPV 9.2 L Immature Gran % (Auto) 0.5 H Neut % (Auto) 66.1 Lymph % (Auto) 22.9 [place] % (Auto) 7.2 Eos % (Auto) 2.9 Baso % (Auto) 0.4 Lymph # (Auto) 1.3 [place] # (Auto) 0.4 Eos # (Auto) 0.2 Baso # (Auto) 0.0 Abs Immat Gran (auto) 0.03 Absolute Neuts (auto) 3.7 Absolute Nucleated RBC 0.000 Nucleated RBC % (auto) 0.0 PT 10.8 L Whole Blood PT 11.7 INR 0.9 Whole Blood INR 1.0 APTT 29.0 Anion Gap 17 Estim Creat Clear Calc 96.7 Estimated GFR > 60 POC Glucose 305 H Random Glucose 325 H Calcium 10.1 Troponin I High Sens 11.5 Triglycerides 133 Cholesterol 242 H LDL Cholesterol, Calc 155 H HDL Cholesterol 61 Imaging Radiologist's Impressions: Impressions Head CT 01/15/24 12:27 IMPRESSION: Question of loss of escobar-white distinction in the left occipital region posterior medially, in the [employer] distribution, equivocal. Cannot exclude ischemic change. Hypodensity in the bifrontal regions is felt more likely to represent artifact than ischemic change, although the latter cannot be excluded entirely. MRI may be of use for further evaluation if clinically indicated. DEVANG Mark was directly informed of the findings by telephone at approximately 12:45 PM on 01/30/2024. Electronically signed by: Frederick Munguia MD 01/15/2024 12:46 PM [facility] [place]Neck [place]A 01/15/24 12:30 IMPRESSION: 1. CTA head demonstrates no large vessel occlusion. Severe short segment stenosis of the distal left M1. Moderate focal stenosis of the distal left P3. 2. CTA neck demonstrates no hemodynamically significant stenosis, dissection, or aneurysm. Electronically signed by: Oralia Berry MD 01/15/2024 01:18 PM [facility] [place] and Plan (1) Cerebrovascular accident: Qualifiers: CVA mechanism: unspecified Qualified Code(s): I63.9 - Cerebral infarction, unspecified Status: Acute Plan 63-year-old man admitted with left upper and lower extremity weakness, facial droop and heavy speech. Stroke Head CT shows a question of loss of escobar/white distinction in the left occipital region Head CTA not showing any large vessel occlusion or stenosis MRI ordered Neurology consultation Aspirin and statin Neuro checks PT/OT Passed swallow eval Hypertension Blood pressure mildly elevated Continue metoprolol and lisinopril Diabetes mellitus type 2 Sliding scale, ADA diet, Lantus last A1C 9.8 DVT prophylaxis with heparin Full code Quality Stroke Does the patient have a stroke diagnosis?: No VTE Prior VTE?: No VTE Risk Level:: Medical - moderate - high VTE Device Contraindication: Treatment Not Indicated VTE Drug Contraindication: N/A - Med Ordered
--- NOTE | 2024-01-15 14:46 | PHA.MEDREC ---
Addendum entered by Chance Lepe RPh 01/15/24 15:41: Pharmacy claims from August were used for med rec. Provider (Oziel Landers) was notified that pt is non compliant and doesn't know what meds or when he last took them. Original Note: Pharmacy Consult ? Medication Reconciliation Pharmacy has completed the medication reconciliation. Spoke to patient and family at bedside. They state he is still taking some medications due to him having an over abundance of some medications at home and he lost his insurance. The patient and family both were confused when he last took his medications, the patient stated he took it about a month ago and family at bedside is stating 3 days. I asked them if they new any of the names of the medications and the patient and family were not able to name any or recognize the meds we have from claims. Family at bedside confirmed he is filling everything at [facility] on [address] I called [facility] and they confirmed she has not filled anything since August of this year for 30 day supplies, they had filled Metoprolol 100mg, Lisionpril 20mg-HCTZ 25mg, Ezetimibe 10mg, Januvia 100mg and Lantus Solostar were all filled 08/20 for 30 days. They also brought up that he had an Aspirin 81mg tab filled 07/31 for 90 days and Rosuvastatin 40mg filled 06/29 for 90 days.
--- NOTE | 2024-01-15 15:08 | PC.NURSE ---
MRI screening form completed with pt.
--- NOTE | 2024-01-15 15:24 | PC.NURSE ---
Pt. down to MRI accompanied by Beena Austin RN
[2024-01-15 15:28] VITALS: BP 155/102; PULSE 102; RESP 16; O2SAT 95
--- NOTE | 2024-01-15 17:30 | PM.NEUROCN ---
History of Present Illness Data of Consult Service Date: 01/15/24 Primary Care Provider: Steffi Gonzales MD [facility] Reason for consult: Stroke This is a 63-year-old man who presented to the ER with left upper extremity weakness and numbness since 1045 this morning. His reported that his speech seemed ?heavy? and he had a facial droop. Patient denied any alcohol or tobacco use. No headaches, visual changes, recent trauma, chest pain, shortness breath, nausea, vomiting, diarrhea. Patient's symptoms resolved while in the ER and therefore patient was not given TNK. In the ER, head CT showed loss of escobar white matter distinction in the left occipital region, Head CTA showing no large vessel occlusion, significant stenosis, dissection or aneurysm. There was stenosis of the left MCA. MRI showed multiple acute small cortical infarcts in the right parietal and temporal regions suggestive of embolic events. LDL 155, total cholesterol 242. No other significant lab abnormalities noted. Blood pressure mildly elevated with highest reading of 162/86. [facility] Past Medical History Medical History (Updated 01/15/24 @ 17:29 by Cyndee Landers NP) Hyperlipidemia Diabetes mellitus H/O: HTN (hypertension) Family History Family History (Updated 01/15/24 @ 17:29 by Cyndee Landers NP) Mother Stroke Father Stroke Social History Social History Smoked in Last 30 Days: No Substance Use Type: Crack/Cocaine Substance Use Frequency: Occasionally Advance Directives: No Meds Allergies Allergy/AdvReac Type Severity Reaction Status Date / Time clams Allergy Mild RASH, Verified 01/15/24 11:58 WEAKNESS penicillin G [Penicillin G] Allergy Mild RASH Verified 01/15/24 11:58 Active Medications: Current Medications Acetaminophen (Acetaminophen 325 Mg Tablet) 650 mg PO Q6H PRN PRN Reason: Pain, Mild (Pain Scale 1-3), fever or headache Aspirin (Aspirin Enteric Coated 81 Mg Tablet.) 81 mg PO DAILY MILE Atorvastatin Calcium (Atorvastatin Calcium 80 Mg Tablet) 80 mg PO BEDTIME MILE Calcium Carbonate (Calcium Carbonate 750 Mg Tab.Chew) 750 mg PO Q4H PRN PRN Reason: Heartburn Glucose (Glucose Gel 15 Gm Gel..Gram.) 15 gm PO Q15M PRN; Protocol PRN Reason: per Hypoglycemia Standing Ord. Dextrose (D10) 250 mls @ 750 mls/hr IV Q15M PRN; Protocol PRN Reason: per Hypoglycemia Standing Ord. Insulin Glargine (Insulin Glargine,Hum.Rec.Anlog 100 Unit/Ml 10 Ml Vial) 60 unit SUBCUT BEDTIME MILE Insulin Human Lispro (Insulin Lispro 100 Unit/Ml 3 Ml Vial) 0 unit SUBCUT QIDACHS MILE; Protocol Lisinopril (Lisinopril 5 Mg Tablet) 5 mg PO DAILY MILE; Protocol Magnesium Hydroxide (Milk Of Magnesia 30 Ml Oral.Susp) 30 ml PO DAILY PRN PRN Reason: Constipation Melatonin (Melatonin 3 Mg Tablet) 6 mg PO BEDTIME PRN PRN Reason: Insomnia Metoprolol Succinate (Metoprolol Succinate Er 100 Mg Tab.Er.24h) 100 mg PO DAILY MILE; Protocol Ondansetron HCl (Ondansetron Hcl 4 Mg/2 Ml Vial) 4 mg IVPUSH Q8H PRN PRN Reason: Nausea and Vomiting Home Medications ?Medication ?Instructions ?Recorded ?Confirmed ?Last Taken ?Type aspirin 81 mg tablet,delayed 81 mg DAILY 01/15/24 01/15/24 Unknown History release ezetimibe 10 mg tablet 10 mg DAILY 01/15/24 01/15/24 Unknown History insulin glargine 100 unit/mL (3 60 unit subcut BEDTIME 01/15/24 01/15/24 Unknown History mL) subcutaneous pen (Lantus Solostar U-100 Insulin) lisinopril 20 1 tab DAILY 01/15/24 01/15/24 Unknown History mg-hydrochlorothiazide 25 mg tablet metoprolol succinate 100 mg 100 mg PO DAILY 01/15/24 01/15/24 Unknown History tablet,extended release 24 hr rosuvastatin 40 mg tablet 40 mg DAILY 01/15/24 01/15/24 Unknown History sitagliptin phosphate 100 mg 100 mg PO DAILY 01/15/24 01/15/24 Unknown History tablet (Januvia) Physical Exam Vital Signs: Vital Signs: Last Vital Signs Temp 99.2 F 01/15/24 12:11 Pulse 102 H 01/15/24 15:28 Resp 16 01/15/24 15:28 BP 155/102 H 01/15/24 15:28 Pulse Ox 95 01/15/24 15:28 O2 Del Method Room Air 01/15/24 15:28 BMI result Body Mass Index 26.5 Neuro: Other: Normal non focal exam. Results Labs 01/15/24 12:10 01/15/24 12:10 Labs: Short CBC 01/15/24 Range/Units 12:10 WBC 5.6 (4.8-10.8) X10*3/uL Hgb 14.4 (14.0-18.0) g/dl Hct 41.7 L (42.0-52.0) % Plt Count 281 (160-400) X10*3/uL BMP 01/15/24 12:10 Sodium 136 Potassium 4.1 Chloride 97 Carbon Dioxide 26 BUN 13 Creatinine 0.86 Calcium 10.1 Assessment and Plan (1) Cerebrovascular accident: Qualifiers: CVA mechanism: unspecified Qualified Code(s): I63.9 - Cerebral infarction, unspecified Status: Acute Multiple acute cortical infarcts in right temporal and parietal regions suggestive of embolization. Recom. Echo with bubble study , Cardiac event monitor for 30 days for paroxysmal A fib. ASA 81mg qd. Procedures Date of Service Date of Service: 01/15/24
[2024-01-15 18:29] LABS: Glucose, Whole Blood 261 mg/dL (60-115)
[2024-01-15 21:04] VITALS: BP 151/95; PULSE 102; RESP 18; TEMP 37.4; O2SAT 97
[2024-01-15 21:14] LABS: Glucose, Whole Blood 389 mg/dL (60-115)
[2024-01-15] MEDS: Insulin Glargine,Hum.rec.anlog 100 UNIT/ML 10 ML VIAL 60 UNIT SUBCUT (21:20)
[2024-01-15] MEDS: Atorvastatin Calcium 80 MG TABLET PO (21:22)
[2024-01-15] MEDS: Insulin Lispro 100 UNIT/ML 3 ML VIAL SUBCUT (21:22)
[2024-01-16] VITALS (7 sets, daily range): BP systolic 111–159; BP diastolic 60–93; PULSE 59–102; RESP 16–20; TEMP 36.2–37.6; O2SAT 94–100
--- NOTE | 2024-01-16 03:59 | PC.ADMIT ---
Patient is Albanian speaking mainly, at beside to interpret. Alert/oriented x4, Perrl, equal strength throughout upper and lower extremities. No facial droop noted or pronator drift. Patient denies numbness/tingling. Endorses right side headache. No issues swallowing, sitting patient in high fowlers d/t aspiration precautions. His skin is intact, NSR on tele. VSS, lungs cta. Abdomen soft, non tender, LBM 11-5. No issues voiding in bedside urinal. No acute events tonight. Will continue to monitor.
[2024-01-16 05:36] LABS: MANUAL DIFF FLAG NO
[2024-01-16 05:42] LABS: Basophils Percent Auto 0.6 % (0-2); Eosinophils Absolute Auto 0.2 X10*3/uL (0.0-0.4); Eosinophils Percent Auto 3.3 % (0-4); Hematocrit 42.2 % (42.0-52.0); Hemoglobin 14.8 g/dl (14.0-18.0); Imm Gran Abs Auto 0.04 X10*3/uL (0.00-0.03); Imm Gran Pct Auto 0.7 % (0.0-0.4); Lymphocytes Absolute Auto 1.4 X10*3/uL (1.2-4.9); Lymphocytes Percent Auto 25.4 % (20-40); Mean Corpuscular HGB Conc 35.1 g/dl (31.0-36.0); Mean Corpuscular Hemoglobin 30.8 pg (27.0-33.0); Mean Corpuscular Volume 87.7 fL (80.0-98.0); Mean Platelet Volume 9.3 fL (9.4-12.4); Monocytes Absolute Auto 0.4 X10*3/uL (0.1-1.2); Monocytes Percent Auto 7.5 % (2-11); Neutrophils Absolute Auto 3.4 x10*3/uL (2.0-8.3); Neutrophils Percent Auto 62.5 % (45-73); Platelet Count 296 X10*3/uL (160-400); Red Blood Count 4.81 X10*6/uL (4.60-5.80); Red Cell Distribution Width 12.2 % (11.0-16.0); White Blood Count 5.4 X10*3/uL (4.8-10.8)
[2024-01-16 05:55] LABS: Anion Gap 14 (12-20); Blood Urea Nitrogen 13 mg/dL (9-16); Calcium 9.7 mg/dL (8.4-10.2); Carbon Dioxide 26 mmol/L (22-29); Chloride 103 mmol/L (96-108); Creatinine Clr Calc Pharmacy 115.5; Estimated Glomerular Filt Rate > 60; Glucose Random 109 mg/dL (60-115); Potassium 3.5 mmol/L (3.3-5.1); Sodium 139 mmol/L (135-145)
--- NOTE | 2024-01-16 07:00 | CA_ITS ---
Transthoracic Echocardiogram Patient (Last, First, Middle): Mega Gtz, Gender: Male Date of : 1960 Age: 63 Procedure Date: 01/16/2024 Procedure Type: Transthoracic Echocardiogram [place] [facility] [place] Height: 185.42 cm Weight: 90.72 kg BSA: 2.15 m2 Heart Rate: bpm BP: 148 / 106 mmHg Employment Program Representative: DANIEL Referring MD: Cyndee Landers NP Maintenance Worker: Winston Hernandez MD Symptoms: stroke, With Bubble used Study Quality: Adequate ECG Rhythm: Sinus Conclusions: - 1. Mildly dilated left ventricle with severely reduced LV ejection fraction 15-20% with impaired relaxation filling pattern 2. Normal cardiac valvular Dopplers 3. Normal RV systolic pressure 4. No gross pericardial effusion 5. No clear evidence of intracardiac shunting noted on this study Findings Procedure Information Contrast agent, definity, is being given per protocol without apparent complications. Left Ventricle Mildly increased left ventricular cavity size. There is normal left ventricular wall thickness. The left ventricular systolic function is severely decreased. The visually estimated ejection fraction is between 15 20%. There is severe global hypokinesis. Spectral Doppler is indicative of an impaired relaxation filling pattern. E/E prime ratio is between 8 and 15 consistent with indeterminate filling pressures. There is no evidence of a thrombus in the left ventricle. Right Ventricle Normal right ventricular cavity size. There is normal right ventricular systolic function. Atria The left atrium is mildly dilated. There is no evidence of interatrial shunt. The right atrium is normal in size. Aortic Valve Normal aortic valve structure and function. There is no aortic valve stenosis. There is no aortic valve regurgitation. Mitral Valve Normal mitral valve structure and function. There is trace mitral valve regurgitation. There is no mitral valve stenosis. Pulmonic Valve The pulmonic valve is likely normal. There is trace pulmonic valve regurgitation. Tricuspid Valve Normal tricuspid valve structure. There is trace tricuspid valve regurgitation. The right ventricular systolic pressure is normal. The right ventricular systolic pressure is 20 mmHg. Normal right atrial pressure. There is no evidence of pulmonary hypertension. Venous The inferior vena cava is normal in size and collapses greater than 50% with inspiration. Pericardium/Pleural There is no evidence of pericardial effusion. Measurements 2D Linear Measurements IVSd: 1.13 0.6-0.9/0.6-1.0 cm LVIDd: 5.74 3.9-5.3/4.2-5.9 cm LVIDd Index: 2.67 2.4-3.2/2.2-3.1 cm/m2 LVIDs: 5.23 2.0-3.6 cm LVPWd: 1.10 0.7-1.1 cm Ao Root: 3.50 2.1-3.5 cm LA Diam: 4.30 2.7-3.8/3.0-4.0 cm LAIDs Index: 2.00 1.5-2.3 cm/m2 LV Mass: 329.83 67-162/88-224 g LV Mass Index: 153.41 43-95/49-115 g/m2 LVOT Diam: 2.40 3.0+(-)1.3 cm 2D Systolic Function EF 4C: 14.20 >55% EF 2C: 18.30 >55% EF BiP: 15.40 >55% Mitral Valve MV Pk E: 0.68 MV PK A: 0.93 MV Decel Time: 85.00 E/A: 0.70 E'Lateral: 6.42 E'Medial: 4.90 E/E' Med: 13.80 E/E' Lat: 10.50 PHT: 25.00 MVA PHT: 8.80 Decel Gilchrist: 7.96 Aortic Valve AoV Pk Ozzy: 1.00 AoV Mn Ozzy: 0.71 AoV VTI: 0.20 AoV Pk Grad: 4.00 Aov Mn Grad: 2.00 FE Cont.VTI: 2.53 LVOT LVOT Pk Ozzy: 0.58 LVOT Mn Ozzy: 0.42 LVOT VTI: 0.11 LVOT Pk Grad: 1.00 LVOT Mn Grad: 1.00 LVOT Diam: 2.40 LVOT Area: 4.52 Diastolic Function MV Pk E: 0.68 MV Pk A: 0.93 E/A: 0.70 E'Medial: 4.90 E/E' Med: 13.80 E' Laterial: 6.42 E/E' Lat: 10.50 Right Ventricle TAPSE (mm): 20.00 TVS' Ozzy: 13.00 Tricuspid Valve TR Pk Ozzy: 2.05 TR Pk Grad: 17.00 RA Press: 3.00 RVSP: 20.00 Great Vessels Aorta Ao Root-2D: 3.50 2.0-3.7 cm Ao Asc: 3.40 2.1-3.4 cm Pulmonary Valve PV Pk Ozzy: 0.75 Peak PV Grad: 2.00 Updated in Other Vendor System with Status of Final Winston Hernandez MD electronically signed on 01/16/2024 12:14:25 PM with status of Final
[2024-01-16 07:12] LABS: Glucose, Whole Blood 96 mg/dL (60-115)
[2024-01-16] MEDS: Acetaminophen 325 MG TABLET 650 MG PO (07:34)
--- NOTE | 2024-01-16 08:20 | MHC.STROKE ---
Met with patient in ED on 01/14 at 1255. Pt reports that he went to bed around 0100 and felt well. Upon waking in the morning around 0830, pt reports speech seemed off and had some weakness to the left side. He reports that he stayed in bed until approx 1030. He was then urged by family to come to the ED for evaluation. Upon my arrival, patient was alert and oriented x 3. Speech clear. Moving all extremities, no drift, no weakness noted. NIH 0 per ED provider. Pt had completed both CT scans. Stroke Education provided to patient and family member at the bedside. Risk factors discussed Stroke/TIA booklet provided. All questions answered. Will continue to assist as needed.
[2024-01-16] MEDS: Aspirin Enteric Coated 81 MG TABLET.DR PO (09:01)
[2024-01-16] MEDS: Metoprolol Succinate ER 100 MG TAB.ER.24H PO (09:01)
[2024-01-16] MEDS: lisinopriL 5 MG TABLET PO (09:01)
[2024-01-16] MEDS: oxyCODONE HCl Immed Release 5 MG TABLET PO (09:45)
[2024-01-16 11:05] LABS: Glucose, Whole Blood 214 mg/dL (60-115)
[2024-01-16] MEDS: Insulin Lispro 100 UNIT/ML 3 ML VIAL SUBCUT ×3 (11:53→20:14)
--- NOTE | 2024-01-16 12:45 | HO.PM.IMPN ---
Subjective Subjective Date of Service: 01/16/24 Review of Systems Follow up stroke, CMP headache Physical Exam Vital Signs: Vital Signs: Last Vital Signs Temp 97.9 F 01/16/24 11:19 Pulse 88 01/16/24 11:19 Resp 18 01/16/24 11:19 BP 159/93 H 01/16/24 11:19 Pulse Ox 100 01/16/24 11:19 O2 Del Method Room Air 01/16/24 11:19 BMI result Body Mass Index 26.5 Appearing in no acute distress lung sounds are clear to auscultation heart regular rate rhythm, clear S1, S2 positive bowel sounds, abdomen is soft, nontender neuro patient is alert x3, no focal deficits Objective Data Active Medications Acetaminophen (Acetaminophen 325 Mg Tablet) 650 mg PO Q6H PRN PRN Reason: Pain, Mild (Pain Scale 1-3), fever or headache Last Admin: 01/16/24 07:34 Dose: 650 mg Documented By: LUCY Aspirin (Aspirin Enteric Coated 81 Mg Tablet.) 81 mg PO DAILY [facility] Last Admin: 01/16/24 09:01 Dose: 81 mg Documented By: LUCY Atorvastatin Calcium (Atorvastatin Calcium 80 Mg Tablet) 80 mg PO BEDTIME [facility] Last Admin: 01/15/24 21:22 Dose: 80 mg Documented By: NIDA Calcium Carbonate (Calcium Carbonate 750 Mg Tab.Chew) 750 mg PO Q4H PRN PRN Reason: Heartburn Glucose (Glucose Gel 15 Gm Gel..Gram.) 15 gm PO Q15M PRN; Protocol PRN Reason: per Hypoglycemia Standing Ord. Dextrose (D10) 250 mls @ 750 mls/hr IV Q15M PRN; Protocol PRN Reason: per Hypoglycemia Standing Ord. Insulin Glargine (Insulin Glargine,Hum.Rec.Anlog 100 Unit/Ml 10 Ml Vial) 60 unit SUBCUT BEDTIME [facility] Last Admin: 01/15/24 21:20 Dose: 60 unit Documented By: NIDA Insulin Human Lispro (Insulin Lispro 100 Unit/Ml 3 Ml Vial) 0 unit SUBCUT QIDACHS [facility]; Protocol Last Admin: 01/16/24 11:53 Dose: 4 unit Documented By: LUCY Lisinopril (Lisinopril 5 Mg Tablet) 5 mg PO DAILY [facility]; Protocol Last Admin: 01/16/24 09:01 Dose: 5 mg Documented By: LUCY Magnesium Hydroxide (Milk Of Magnesia 30 Ml Oral.Susp) 30 ml PO DAILY PRN PRN Reason: Constipation Melatonin (Melatonin 3 Mg Tablet) 6 mg PO BEDTIME PRN PRN Reason: Insomnia Metoprolol Succinate (Metoprolol Succinate Er 100 Mg Tab.Er.24h) 100 mg PO DAILY [facility]; Protocol Last Admin: 01/16/24 09:01 Dose: 100 mg Documented By: LUCY Ondansetron HCl (Ondansetron Hcl 4 Mg/2 Ml Vial) 4 mg IVPUSH Q8H PRN PRN Reason: Nausea and Vomiting Labs 01/16/24 05:08 01/16/24 05:08 Labs: Laboratory Results - last 24 hr 01/15/24 01/15/24 01/15/24 12:10 18:24 20:44 MCV MCH MCHC RDW Plt Count MPV Immature Gran % (Auto) Neut % (Auto) Lymph % (Auto) [place] % (Auto) Eos % (Auto) Baso % (Auto) Lymph # (Auto) [place] # (Auto) Eos # (Auto) Baso # (Auto) Abs Immat Gran (auto) Absolute Neuts (auto) Absolute Nucleated RBC Nucleated RBC % (auto) Anion Gap Estim Creat Clear Calc Estimated GFR POC Glucose 261 H 389 H* Random Glucose Calcium Troponin I High Sens 11.5 01/16/24 01/16/24 01/16/24 05:08 07:09 11:02 MCV 87.7 MCH 30.8 MCHC 35.1 RDW 12.2 Plt Count 296 MPV 9.3 L Immature Gran % (Auto) 0.7 H Neut % (Auto) 62.5 Lymph % (Auto) 25.4 [place] % (Auto) 7.5 Eos % (Auto) 3.3 Baso % (Auto) 0.6 Lymph # (Auto) 1.4 [place] # (Auto) 0.4 Eos # (Auto) 0.2 Baso # (Auto) 0.0 Abs Immat Gran (auto) 0.04 H Absolute Neuts (auto) 3.4 Absolute Nucleated RBC 0.000 Nucleated RBC % (auto) 0.0 Anion Gap 14 Estim Creat Clear Calc 115.5 Estimated GFR > 60 POC Glucose 96 214 H Random Glucose 109 Calcium 9.7 Troponin I High Sens Assessment and Plan (1) Cerebrovascular accident: Status: Acute Plan 63-year-old man admitted with left upper and lower extremity weakness, facial droop and heavy speech. Stroke Head CTA not showing any large vessel occlusion or stenosis MRI showed several foci of acute infarcts involving the right frontal operculum and right parietal lobe Neurology following>rec echo with bubble study, Holter monitor to assess for atrial fibrillation Aspirin and statin Neuro checks PT/OT Acute cardiomyopathy echo showing EF of 15-20% No signs of heart failure Cardiology consultation for further recommendation Hypertension Blood pressure mildly elevated Continue metoprolol and lisinopril Diabetes mellitus type 2 Sliding scale, ADA diet, Lantus last A1C 9.8 DVT prophylaxis with heparin Attending Dr. Osei Full code Quality Stroke Does the patient have a stroke diagnosis?: No VTE Prior VTE?: No VTE Risk Level:: Medical - moderate - high VTE Device Contraindication: Treatment Not Indicated VTE Drug Contraindication: N/A - Med Ordered
--- NOTE | 2024-01-16 13:51 | MHC.CM.PN ---
IMM 01/16/24, Pt is staying with family, no home health services or DME. HCP to be completed here and added to chart. PCP confirmed: Steffi Gonzales. Family to transport home at DC, DCP: home with family support. CM to follow for DC needs.
[2024-01-16 16:18] LABS: Glucose, Whole Blood 257 mg/dL (60-115)
--- NOTE | 2024-01-16 17:28 | PC.NURSE ---
Addendum entered by Jing Ochoa RN 01/16/24 17:30: that he has a difficulties to hold the object in his left hand. BP 122/73 hr 71 , Neuro : alert and oriented x 4 , ANGELA ,no headache , symmetrical smile , no vision problem, equal hand grasp , alicia lower extremities equal strength. Cyndee LandersMANAGER IMAGING was notified and provider stated to continue to monitor, provider stated that pt had this symptoms on and off . changer fixer was present with the assessment Original Note: Pt stated that when he was using utensils to eat dinner ,he noticed that his left thumb and 2nd finger is numb and he has a difficulties to hold the uti
[2024-01-16 20:13] LABS: Glucose, Whole Blood 178 mg/dL (60-115)
[2024-01-16] MEDS: Insulin Glargine,Hum.rec.anlog 100 UNIT/ML 10 ML VIAL 60 UNIT SUBCUT (20:14)
[2024-01-16] MEDS: Atorvastatin Calcium 80 MG TABLET PO (20:14)
[2024-01-17] VITALS: BP 120/75; PULSE 82; RESP 20; TEMP 36.4; O2SAT 97
[2024-01-17 04:00] VITALS: BP 125/75; PULSE 72; RESP 20; TEMP 36.6; O2SAT 95
[2024-01-17 07:00] LABS: Glucose, Whole Blood 156 mg/dL (60-115)
[2024-01-17 07:26] VITALS: BP 124/73; PULSE 65; RESP 20; TEMP 36.6; O2SAT 96
[2024-01-17] MEDS: Metoprolol Succinate ER 100 MG TAB.ER.24H PO (09:31)
[2024-01-17] MEDS: Insulin Lispro 100 UNIT/ML 3 ML VIAL SUBCUT ×2 (09:32→11:49)
[2024-01-17] MEDS: lisinopriL 5 MG TABLET PO (09:32)
[2024-01-17] MEDS: Aspirin Enteric Coated 81 MG TABLET.DR PO (09:32)
--- NOTE | 2024-01-17 10:12 | PM.CNCAR ---
History of Present Illness History of Present Illness Date of Service: 01/17/24 Requesting physician: Cyndee Landers Consult reason: other (Cardiomyopathy) Chief complaint: Stroke Narrative: I was consulted to see Mega in cardiology consultation today for newly detected severe LV systolic dysfunction patient is a pleasant 63-year-old male with prior history of hypertension diabetes with no prior cardiovascular issue came to the hospital with acute left-sided upper extremity weakness and numbness along with facial droop as well as difficulty with speech. Therefore came to the hospital and subsequent imaging was suggestive of CVA in the left occipital lobe. Neurology was consulted and he was noted to have multiple different embolic event on the imaging. He subsequently had an echocardiogram as per Neurology recommendation. There was no clear evidence of PFO by saline contrast although showed severe LV systolic dysfunction with dilated LV. He said he has never had any prior cardiac issues although has strong family history with brother dying of cardiomyopathy, younger than him as well as mother having history of cardiomyopathy and sudden cardiac that. Father also has history of coronary artery disease as per him, details unknown. He has prior history of hypertension diabetes as mentioned. Never had myocardial infarction. Currently he said his neurologic symptoms have improved. He has not had any significant symptoms of shortness of breath, orthopnea, PND. Review of Systems Constitutional: Constitutional: Reports no additional constitutional complaints Eyes: Eyes: Reports no additional eye complaints Cardiovascular: Cardiovascular: Denies chest pain, Denies rapid heart rate, Denies leg edema, Denies lightheadedness, Denies Loss of Consciousness, Denies palpitations and Denies dyspnea Respiratory: Respiratory: Reports no additional respiratory complaints and Denies dyspnea Gastrointestinal: Gastrointestinal: Reports no additional gastrointestinal complaints Musculoskeletal: Musculoskeletal: Reports no additional musculoskeletal complaints Neurologic: Reports Abnormal speech present, Reports focal weakness, Reports Sensory deficit (Neuro) and Reports other (Facial droop) Psychiatric: Psychiatric: Reports no additional psychiatric complaints Endocrine: Endocrine: Denies palpitations PMFSH Past Medical History Medical History Hyperlipidemia Diabetes mellitus H/O: HTN (hypertension) Family History Family History Mother Stroke Father Stroke Social History Social History Household Members: Spouse Housing: House Do you presently have visiting nurse or other home services: No Patient Tobacco Use Status: Former Tobacco user Tobacco use type: Cigarette Cigarette Packs Per Day: 1.5 Cigarettes Per Day: 30.0 Second Hand Smoke Exposure: No Substance Use Type: Crack/Cocaine Meds Allergies Allergy/AdvReac Type Severity Reaction Status Date / Time clams Allergy Mild RASH, Verified 01/15/24 11:58 WEAKNESS penicillin G [Penicillin G] Allergy Mild RASH Verified 01/15/24 11:58 Active Medications: Current Medications Acetaminophen (Acetaminophen 325 Mg Tablet) 650 mg PO Q6H PRN PRN Reason: Pain, Mild (Pain Scale 1-3), fever or headache Last Admin: 01/16/24 07:34 Dose: 650 mg Aspirin (Aspirin Enteric Coated 81 Mg Tablet.Dr) 81 mg PO DAILY [facility] Last Admin: 01/17/24 09:32 Dose: 81 mg Atorvastatin Calcium (Atorvastatin Calcium 80 Mg Tablet) 80 mg PO BEDTIME MILE Last Admin: 01/16/24 20:14 Dose: 80 mg Calcium Carbonate (Calcium Carbonate 750 Mg Tab.Chew) 750 mg PO Q4H PRN PRN Reason: Heartburn Glucose (Glucose Gel 15 Gm Gel..Gram.) 15 gm PO Q15M PRN; Protocol PRN Reason: per Hypoglycemia Standing Ord. Dextrose (D10) 250 mls @ 750 mls/hr IV Q15M PRN; Protocol PRN Reason: per Hypoglycemia Standing Ord. Insulin Glargine (Insulin Glargine,Hum.Rec.Anlog 100 Unit/Ml 10 Ml Vial) 60 unit SUBCUT BEDTIME [facility] Last Admin: 01/16/24 20:14 Dose: 60 unit Insulin Human Lispro (Insulin Lispro 100 Unit/Ml 3 Ml Vial) 0 unit SUBCUT QIDACHS [facility]; Protocol Last Admin: 01/17/24 09:32 Dose: 2 unit Lisinopril (Lisinopril 5 Mg Tablet) 5 mg PO DAILY [facility]; Protocol Last Admin: 01/17/24 09:32 Dose: 5 mg Magnesium Hydroxide (Milk Of Magnesia 30 Ml Oral.Susp) 30 ml PO DAILY PRN PRN Reason: Constipation Melatonin (Melatonin 3 Mg Tablet) 6 mg PO BEDTIME PRN PRN Reason: Insomnia Metoprolol Succinate (Metoprolol Succinate Er 100 Mg Tab.Er.24h) 100 mg PO DAILY [facility]; Protocol Last Admin: 01/17/24 09:31 Dose: 100 mg Ondansetron HCl (Ondansetron Hcl 4 Mg/2 Ml Vial) 4 mg IVPUSH Q8H PRN PRN Reason: Nausea and Vomiting Home Medications ?Medication ?Instructions ?Recorded ?Confirmed ?Last Taken ?Type aspirin 81 mg tablet,delayed 81 mg DAILY 01/15/24 01/15/24 Unknown History release ezetimibe 10 mg tablet 10 mg DAILY 01/15/24 01/15/24 Unknown History insulin glargine 100 unit/mL (3 60 unit subcut BEDTIME 01/15/24 01/15/24 Unknown History mL) subcutaneous pen (Lantus Solostar U-100 Insulin) lisinopril 20 1 tab DAILY 01/15/24 01/15/24 Unknown History mg-hydrochlorothiazide 25 mg tablet metoprolol succinate 100 mg 100 mg PO DAILY 01/15/24 01/15/24 Unknown History tablet,extended release 24 hr rosuvastatin 40 mg tablet 40 mg DAILY 01/15/24 01/15/24 Unknown History sitagliptin phosphate 100 mg 100 mg PO DAILY 01/15/24 01/15/24 Unknown History tablet (Januvia) Physical Exam Vital Signs: Vital Signs: Last Vital Signs Temp 97.8 F 01/17/24 07:26 Pulse 65 01/17/24 07:26 Resp 20 01/17/24 07:26 BP 124/73 01/17/24 07:26 Pulse Ox 96 01/17/24 07:26 O2 Del Method Room Air 01/17/24 07:26 BMI result Body Mass Index 26.5 Const: General: cooperative, comfortable, no acute distress, well developed, alert and awake Nutritional Appearance: average body habitus and well nourished Orientation/consciousness: patient oriented x3 Limitations: no limitations HEENT: Head: Yes normocephalic and Yes atraumatic Neck: Neck: Yes trachea midline, Yes supple and Yes no JVD Resp: Effort & Inspection: normal respiratory effort Auscultation: clear to auscultation bilaterally Cardio: Jugular venous distension: no JVD Palpation: abnormal PMI displaced PMI Rate: regular rate Rhythm: regular rhythm Heart sounds: S1 normal heart sound present, S2 normal heart sound present, no click, no gallops, no murmurs and no rubs GI: Auscultation: normal bowel sounds Skin: General skin exam: no rashes or lesions noted Neuro: General: patient oriented x3 and no focal motor deficits Speech: Abnormal speech present Sensory Exam: Sensory deficit (Neuro) Extrem: General: Yes no clubbing, cyanosis or edema Psych: Appearance: grossly normal Objective Labs and Meds 01/16/24 05:08 01/16/24 05:08 Lab results: Laboratory Results - last 24 hr 01/16/24 01/16/24 01/16/24 11:02 16:14 20:10 POC Glucose 214 H 257 H 178 H 01/17/24 06:56 POC Glucose 156 H MR/MR head/brain wo con IMPRESSION: 1. Several foci of acute infarcts involving the right frontal operculum and right parietal lobe cortices. No hemorrhagic transformation. 2. Chronic microangiopathy. EKG shows normal sinus rhythm with nonspecific T-wave changes. Assessment and Plan (1) Cardiomyopathy: Status: Acute Patient with newly detected severe LV systolic dysfunction consistent with cardiomyopathy most likely familial given the family history of mother as well as brother. However given his risk factors and age ischemic etiology needs to be ruled out. Will need a cardiac catheterization which will be scheduled 4-6 weeks out given his recent CVA. I would strongly recommend given his embolic looking CVA possible that the thrombus arises from the LV cavity. Will suggest oral anticoagulation therapy with Eliquis for neuro protection. Will perform cardiac event monitor as an outpatient to evaluate for atrial fibrillation. I would strongly suggest to start neurohormonal modulation will switch lisinopril for now to valsartan 20 mg b.i.d. and eventually as outpatient switch him to Entresto therapy. Also suggest to switch his Toprol to carvedilol therapy. Management of LV systolic dysfunction was discussed with him in details. Will most likely require cardiac MRI as well as an outpatient to evaluate for noncompaction. Will follow with him as outpatient. Thank you for involving in his care Procedures Date of Service Date of Service: 01/17/24
--- NOTE | 2024-01-17 10:44 | P.DS_ITS ---
DS: Providers Provider Date of Service: 01/17/24 Date of admission: 01/15/24 14:10 Date of discharge: 01/17/24 Primary care physician: Steffi Gonzales MD Consults: 01/15/24 14:10 Consult to Neurology Routine Consulting Provider: [facility] Reason for consultation: stroke 01/16/24 12:44 Consult to Cardiology Routine Consulting Provider: [facility] Reason for consultation: CMP Attending physician on discharge: Riccardo Kim Discharging clinician: Abril Oliva DS: Diagnosis Discharge Diagnosis (1) Cardiomyopathy: Status: Acute (2) Cerebrovascular accident: Status: Acute DS: Summary Hospital Course Hospital Course: From H&P on the day of admission 63-year-old man presenting to the ER with left upper extremity weakness and numbness since 1045 this morning. His reported that his speech seemed ?heavy? and he had a facial droop. Patient denied any alcohol or tobacco use. No headaches, visual changes, recent trauma, chest pain, shortness breath, nausea, vomiting, diarrhea. Patient's symptoms resolved while in the ER and therefore patient was not given TNK. In the ER, head CT showed loss of escobar white matter distinction in the left occipital region, Head CTA showing no large vessel occlusion, significant stenosis, dissection or aneurysm. LDL 155, total cholesterol 242. No other significant lab abnormalities noted. Blood pressure mildly elevated with highest reading of 162/86. Plan is for patient to be admitted for further management and treatment of stroke. Acute Stroke Head CTA not showing any large vessel occlusion or stenosis. MRI showed several foci of acute infarcts involving the right frontal operculum and right parietal lobe. Patient was seen by Neurology who recommended echo with bubble study, Holter monitor to assess for atrial fibrillation. He was started on Aspirin and statin, all symptoms resolved. He was evaluated by PT/OT and did not require any outpatient services upon discharge. Echocardiogram was obtained showing severely reduced ejection fraction of 15-20%. Patient has no symptoms of acute heart failure. He was seen in consultation by Cardiology who recommended adjustments to his medications. Metoprolol will be discontinued and replaced with Coreg, lisinopril will be discontinued and will be replaced with valsartan. We will stop aspirin and start anticoagulation with Eliquis due to concern for atrial fibrillation. Plan for outpatient follow-up with cardiology for cardiac event monitor and ischemic workup. This was discussed with the patient in detail and he is in agreement. Time Attestation Discharge Coordination Time (in mins): 40 Quality: Safe Use of Opioids Does Pt have an Active Cancer Diagnosis on the Problem List?: No Quality: Stroke Does the patient have a stroke diagnosis?: Yes Reason for No Anti-thrombotic at DC: Drug treatment not indicated (changing to AC with Eliquis ) Reason for No Anticoagulant at DC: N/A - Med Ordered Reason Not Initiating IV-Tpa: Not indicated Reason for No Anti-thrombotic by Day Two: N/A - Med Ordered Reason for No Statin at DC: N/A - Med Ordered Physical Exam Vital Signs: Vital Signs: Last Vital Signs Temp 97.8 F 01/17/24 07:26 Pulse 65 01/17/24 07:26 Resp 20 01/17/24 07:26 BP 124/73 01/17/24 07:26 Pulse Ox 96 01/17/24 07:26 O2 Del Method Room Air 01/17/24 07:26 BMI result Body Mass Index 26.5 Const: General: cooperative, comfortable, no acute distress, alert and awake Nutritional Appearance: average body habitus Orientation/consciousness: patient oriented x3 Resp: Effort & Inspection: normal respiratory effort, able to speak in complete sentences, no respiratory distress and no use of accessory muscles Cardio: Rate: regular rate GI: Inspection: No distended Palpation (GI): Soft to palpation and nontend er Neuro: General: patient oriented x3, moves all extremities and CN's II-XI intact bilaterally Cranial nerves: Yes CN's II-XII intact bilaterally Extrem: General: Yes no pedal edema DS: Data Data Completed and Pending Labs on day of discharge: Laboratory Results - last 24 hr 01/16/24 01/16/24 01/16/24 11:02 16:14 20:10 POC Glucose 214 H 257 H 178 H 01/17/24 06:56 POC Glucose 156 H Discharge Plan Discharge Anticipated Discharge Date/Time: 01/17/24 10:56 Patient Disposition: Home Health Service Discharge Diagnosis: acute stroke cardiomyopathy Referrals: Steffi Gonzales MD [Primary Care Provider] - 1 Week Winston Hernandez MD [Physician] - 1 Week Discharge Medications: New Eliquis 5 mg Tablet 5 mg PO BID 90 Days Qty: 180 0RF atorvastatin 80 mg Tablet 80 mg PO BEDTIME 90 Days Qty: 90 0RF carvedilol 6.25 mg Tablet 6.25 mg PO BID 90 Days Qty: 180 0RF Protocol: Hold for SBP/HR < HOLD for SBP < : 90 HOLD for HR < : 60 valsartan 40 mg Tablet 20 mg PO BID 90 Days Qty: 90 0RF Protocol: Hold for SBP< HOLD for SBP < : 90 Continued Januvia 100 mg tablet 100 mg PO DAILY insulin glargine [Lantus Solostar U-100 Insulin] 100 unit/mL (3 mL) insulin pen 60 unit subcut BEDTIME Discontinued metoprolol succinate 100 mg tablet extended release 24 hr 100 mg PO DAILY aspirin 81 mg tablet,delayed release (DR/EC) 81 mg DAILY lisinopril-hydrochlorothiazide 20-25 mg tablet 1 tab DAILY ezetimibe 10 mg tablet 10 mg DAILY rosuvastatin 40 mg tablet 40 mg DAILY Discharge Orders: Discharge Order (Routine); Ordered 01/17/24 Ordered By: Abril Oliva Activity on Discharge: As tolerated Stand Alone Forms: Patient Portal Discharge page Print Language: Ukrainian Care Plan Goals: See below Health Concerns: Acute stroke Cardiomyopathy Plan of Treatment: Start taking Eliquis for anticoagulation. Monitor for signs of bleeding Stop lisinopril/HCTZ, start taking valsartan Start taking atorvastatin 80 mg daily Stopped taking metoprolol, start taking Coreg He will need further outpatient workup with Cardiology including manager monitoring and possible cardiac catheterization. Call to schedule follow-up appointment with the office Call to schedule follow-up appointment with PCP Assessment: See discharge summary
[2024-01-17 10:56] LABS: Glucose, Whole Blood 218 mg/dL (60-115)
[2024-01-17 11:15] VITALS: BP 122/80; PULSE 79; RESP 18; TEMP 36.2; O2SAT 96
--- NOTE | 2024-01-17 11:28 | P.F2F_ITS ---
Service Date Service Date: 01/17/24 Encounter Date of encounter: 01/17/24 Reasons for Services Signs and symptoms assessed: Needs correction due to medication reconciliation for multiple medication changes, close blood pressure monitoring for new diagnosis of cardiomyopathy and changes in medication; acute stroke Reason for correction: CV/CP assess and/or care MD Overseeing Care: Steffi Gonzales Homebound: Leaving the home is medically contraindicated at this time without the asist of a device and/or another person due th the listed conditions above and below. Reason homebound: other Certification: Based on the above findings, I certify that this patient is confined to the home and needs intermittent correction care, physical therapy and/or speech therapy, or continues to need occupational therapy. The patient is under my care, and I have initiated the establishment of the plan of care. The patient will be followed by a physician who will periodically review the plan of care. Time Spent With Patient Time: Total time managing care of this patient today ____ minutes.
--- NOTE | 2024-01-17 11:41 | MHC.CM.PN ---
Pt has been medically cleared, he completed HCP and it was added to the chart, referral submitted for financial counselors because pt and asked CM how they can get him on [facility]. to transport home, plan is self care. Coupons for Eliquis given to pt.
== END 2024-01-17 12:29 | disposition home health service (06) | DRG 65 ==
LOC: HO.ED 13:45 → HO.EDOVER 14:15 → HO.IMC 19:27
PROVIDERS: Registered Nurse Emergency; Admitting Provider Nurse Practitioner Acute Care; Emergency Provider Emergency Medicine; PCP Internal Medicine; Visit Provider Physician Assistant Medical
DX: I63.9 Cerebral infarction, unspecified (principal); I42.9 Cardiomyopathy, unspecified; R29.810 Facial weakness; G83.24 Monoplegia of upper limb affecting left nondominant side; E11.9 Type 2 diabetes mellitus without complications; I10 Essential (primary) hypertension; Z87.891 Personal history of nicotine dependence; Z79.4 Long term (current) use of insulin; Z79.899 Other long term (current) drug therapy
CPT/HCPCS: 36415; 70450; 70496; 70498; 70551; 80048; 80061; 82947; 84484; 85025; 85610; 85730; 93005; 93306; 97116; 97162; 97165; 99285; Q9967

== ENCOUNTER → 2024-01-15 11:58 | Outpatient (BNV) | payer MEDICARE, SELFPAY | PROVIDERS: Admitting Provider Nurse Practitioner Acute Care; Emergency Provider Emergency Medicine; PCP Internal Medicine; Visit Provider Internal Medicine Cardiovascular Disease | DX: R00.0 Tachycardia, unspecified (principal) | CPT/HCPCS: 93010 ==

== ENCOUNTER 2024-01-15 14:10 | Outpatient (BNV) | payer MEDICARE, SELFPAY | END 2024-01-16 07:00 | PROVIDERS: Admitting Provider Nurse Practitioner Acute Care; Emergency Provider Emergency Medicine; PCP Internal Medicine; Visit Provider Internal Medicine Cardiovascular Disease | DX: I63.9 Cerebral infarction, unspecified (principal) | CPT/HCPCS: 93306 ==

== ENCOUNTER → 2024-01-15 14:10 | Outpatient (BNV) | payer MEDICARE, SELFPAY | PROVIDERS: Admitting Provider Nurse Practitioner Acute Care; Emergency Provider Emergency Medicine; PCP Internal Medicine; Visit Provider Nurse Practitioner Acute Care | DX: I42.9 Cardiomyopathy, unspecified (principal); I63.9 Cerebral infarction, unspecified | CPT/HCPCS: 99223; 99232; 99239; G0180 ==

== ENCOUNTER → 2024-01-15 14:10 | Outpatient (BNV) | payer MEDICARE, SELFPAY | PROVIDERS: Admitting Provider Nurse Practitioner Acute Care; Emergency Provider Emergency Medicine; PCP Internal Medicine; Visit Provider Psychiatry & Neurology Neurology | DX: I63.9 Cerebral infarction, unspecified (principal) | CPT/HCPCS: 99222 ==

== ENCOUNTER → 2024-01-15 14:10 | Outpatient (BNV) | payer MEDICARE, SELFPAY | PROVIDERS: Admitting Provider Nurse Practitioner Acute Care; Emergency Provider Emergency Medicine; PCP Internal Medicine; Visit Provider Internal Medicine Cardiovascular Disease | DX: I42.9 Cardiomyopathy, unspecified (principal) | CPT/HCPCS: 99222 ==

== ENCOUNTER → 2024-01-22 13:40 | Outpatient (REF) | payer MEDICARE, SELFPAY | LOC: HO.CARD 13:40 | PROVIDERS: PCP Internal Medicine; Visit Provider Internal Medicine Cardiovascular Disease | DX: I42.9 Cardiomyopathy, unspecified (principal); I63.9 Cerebral infarction, unspecified; I48.91 Unspecified atrial fibrillation | CPT/HCPCS: 93270 ==

== ENCOUNTER → 2024-01-22 13:44 | Outpatient (BNV) | payer MEDICARE, SELFPAY | PROVIDERS: PCP Internal Medicine; Visit Provider Internal Medicine | DX: I47.10 Supraventricular tachycardia, unspecified (principal) | CPT/HCPCS: 93272 ==

== ENCOUNTER 2024-02-01 10:42 | Emergency (ER) | payer MEDICARE, SELFPAY ==
[2024-02-01] VITALS (7 sets, daily range): BP systolic 128–140; BP diastolic 76–90; PULSE 85–93; RESP 16–20; TEMP 36.6–36.8; O2SAT 95–98; BMI 27.5
--- NOTE | ~2024-02-01 | XR_ITS ---
EXAMINATION: XR CHEST CLINICAL INFORMATION: sob COMPARISON: May 26, 2007. TECHNIQUE: Portable AP view of the chest was obtained. FINDINGS: The study is quite limited by portable technique and low lung volumes. Electronic device overlies the periphery of the left midlung field. Mild diffuse interstitial prominence. It is uncertain whether this represents artifactual crowding of the interstitium related to suboptimal inspiration versus true infiltrate. Suspect superimposed left upper lobe and bibasilar patchy densities, raising suspicion for superimposed focal infiltrates/pneumonia and/or atelectasis. No effusion or pneumothorax is seen. The cardiac silhouette is suboptimally evaluated. The mediastinum, diaphragm, bones, and soft tissues appear unremarkable. XR/XR chest 1V IMPRESSION: Findings as above. Electronically signed by: Frederick Munguia MD 02/01/2024 02:29 PM [facility]
--- NOTE | 2024-02-01 11:02 | ECG_ITS ---
Test Reason : SOB Blood Pressure : / mmHG Vent. Rate : 089 BPM Atrial Rate : 089 BPM P-R Int : 188 ms QRS Dur : 094 ms QT Int : 376 ms P-R-T Axes : 056 009 141 degrees QTc Int : 457 ms Normal sinus rhythm with sinus arrhythmia Nonspecific T wave abnormality Abnormal ECG When compared with ECG of 15-JAN-2024 12:46, Criteria for Septal infarct are no longer Present Referred By: Hermelinda Nair Electronically Signed By:ENMA PERDOMO MD
--- NOTE | 2024-02-01 11:03 | ED.GENADULT ---
HPI - General Adult General Chief complaint: Dyspnea Stated complaint: SOB Time Seen by Provider: 02/01/24 11:02 Source: patient Mode of arrival: ambulatory Limitations: no limitations and language barrier ( Tuvaluan-speaking showroom consultant utilized) History of Present Illness ED Provider: Hermelinda Nair NP HPI narrative: patient is a 63-year-old male who presents emergency department with his for evaluation. Reports recent hospital admission was discharged 01/21/2024. States that since discharge he has continued to feel short of breath particularly with exertion. He was feeling this way during his hospital stay. However over the past 2 days he feels as though his symptoms are worsening, he is experiencing increasing shortness of breath and fatigue with minimal exertion. he has been experiencing a cough that is intermittently productive. Endorses associated orthopnea. he is currently wearing a 30 day cardiac event monitor. Denies trauma, fevers, chills, additional URI symptoms, sore throat, difficulty swallowing, neck pain, chest pain, palpitations, nausea, vomiting, abdominal pain, numbness or tingling of the extremities, recent lower extremity pain or swelling. Denies alcohol use, recreational drugs, or smoking tobacco. Related Data Home Medications ?Medication ?Instructions ?Recorded ?Confirmed insulin glargine 100 unit/mL (3 60 unit subcut BEDTIME 01/15/24 01/15/24 mL) subcutaneous pen (Lantus Solostar U-100 Insulin) sitagliptin phosphate 100 mg 100 mg PO DAILY 01/15/24 01/15/24 tablet (Januvia) Previous Rx's ?Medication ?Instructions ?Recorded apixaban 5 mg tablet (Eliquis) 5 mg PO BID 90 days #180 tabs 01/17/24 atorvastatin 80 mg tablet 80 mg PO BEDTIME 90 days #90 tabs 01/17/24 carvedilol 6.25 mg tablet 6.25 mg PO BID 90 days #180 tabs 01/17/24 valsartan 40 mg tablet 20 mg PO BID 90 days #90 tabs 01/17/24 carvedilol 6.25 mg tablet 6.25 mg PO BID 90 days #180 tabs 02/01/24 furosemide 20 mg tablet 20 mg PO QAM #20 tabs 02/01/24 Allergies Allergy/AdvReac Type Severity Reaction Status Date / Time clams Allergy Mild RASH, Verified 02/01/24 10:48 WEAKNESS penicillin G [Penicillin G] Allergy Mild RASH Verified 02/01/24 10:48 Review of Systems Review of Systems: Yes all other systems are reviewed and are negative [facility] Past Medical History Attestation statement: The following information was validated with the patient. Source: old records reviewed Medical History Hyperlipidemia Diabetes mellitus H/O: HTN (hypertension) Family History Family History Mother Stroke Father Stroke Social History Social History Household Members: Spouse Housing: House Do you presently have visiting nurse or other home services: No Patient Tobacco Use Status: Former Tobacco user Tobacco use type: Cigarette Cigarette Packs Per Day: 1.5 Cigarettes Per Day: 30.0 Smoked in Last 30 Days: No Second Hand Smoke Exposure: No Use of substances other than those prescribed or required for medical reasons: No Substance Use Type: Crack/Cocaine Advance Directives: No Advance Directives Information Provided: Yes Do you have a plan to hurt others: No Plan Physical Exam ED Vital Signs: Vital Signs - 24 hr 02/01/24 10:46 02/01/24 11:28 02/01/24 12:00 Temperature 98.2 F 97.8 F Pulse Rate 85 93 87 Respiratory Rate 18 20 16 Blood Pressure 130/76 128/77 Pulse Oximetry 98 97 95 Oxygen Delivery Method Room Air Room Air Room Air 02/01/24 13:52 02/01/24 14:00 02/01/24 15:21 Temperature 98.3 F 98.0 F Pulse Rate 86 90 Respiratory Rate 18 20 Blood Pressure 128/77 140/90 H 139/85 Pulse Oximetry 96 96 Oxygen Delivery Method Room Air Room Air 02/01/24 15:31 Temperature 98.0 F Pulse Rate 90 Respiratory Rate 20 Blood Pressure 139/85 Pulse Oximetry 96 Oxygen Delivery Method Room Air BMI result Body Mass Index 27.5 Appearance: Alert.?Oriented to person, place and time. No acute distress.?Normal affect. Eyes: Pupils equal, round and reactive to light.? ENT: Pharynx normal.?? Neck: Normal inspection.? Neck supple.?? No JVD. CVS: Heart sounds normal. Normal heart rate and rhythm.? Pulses normal.?? Respiratory: No respiratory distress at rest. Dyspnea on exertion with ambulation..? Lung sounds clear to auscultation at the apices, rales to the bilateral bases. Abdomen: Soft and non-tender. Normoactive bowel sounds. Skin: Skin warm and dry.? Normal skin color.? Extremities: No lower extremity edema.? No calf ttp? Neuro: Moves all extremities spontaneously. Sensation intact bilaterally. No focal neuro deficits. Ambulates with Mildly unsteady gait, notably dyspneic. Course Reevaluation(s) Reevaluation #1: CBC is without leukocytosis, has a normocytic anemia that currently does not meet transfusion criteria, however hemoglobin has dropped 3 points since 01/16/24, and he was initiated on Eliquis, reports no active bleeding, I reviewed these findings with patient and his . I discussed having digital rectal examination performed so that occult stool testing may be obtained he adamantly declines to have this done. He would like to try and have a bowel movement for sampling to be sent in this fashion. He denies any hematochezia or melena. No electrolyte derangement. No IFONA. LFTs within normal range. BNP elevated; 320, chest x-ray concerning for pulmonary congestion, plan to diurese with Lasix 40 mg IV. viral serologies are negative. ambulatory O2 trials without hypoxia though he is notably dyspneic on exertion. pending re-evaluation Time: 13:43 Reevaluation #2: occult stool was negative, And urinalysis is without evidence of microscopic hematuria. Chest x-ray revealing mild diffuse interstitial prominence, concern for superimposed left upper lobe and bibasilar patchy densities who presenting superimposed infiltrate/ pneumonia or atelectasis, No evidence of Pleural effusion. he has not been experiencing any fevers associated with this, has no leukocytosis, I do not suspect acute pneumonia in this patient would defer initiation of antibiotics. I did discuss this case with my attending, Dr. Colón loss evaluated patient at bedside. At this time he has had good results from the Lasix, has urinated a significant amount, he reports notable improvement on his breathing when he was up and walking around to the bathroom. Requesting discharge home. Feel this is appropriate. Will send prescription for his carvedilol which was never picked up from pharmacy as well as Lasix 20 mg. Discussed strict return precautions. Outpatient follow-up with PCP/ cardiology. Medications Administered Discontinued Medications Generic Name Dose Route Start Last Admin Trade Name Ramezq PRN Reason Stop Dose Admin Furosemide 40 mg 02/01/24 13:42 02/01/24 13:52 Furosemide 40 Mg/4 Ml Vial IVPUSH 02/01/24 13:43 40 mg ONCE ONE Administration Protocol Medical Decision Making Medical Decision Making [facility] Narrative: Patient is a 63-year-old male with past medical history of hypertension, type 2 diabetes, CVA, cardiomyopathy presents emergency department for evaluation of shortness of breath, dyspnea on exertion and fatigue as per HPI. He was recently admitted to this hospital 01/15/2024-01/17/2024 - for acute CVA and cardiomyopathy, MRI showing several foci of acute infarcts following the right frontal upper operculum and right parietal lobe, Neurology recommended echo with bubble study; showed severely reduced EF 15-20% without signs of acute heart failure, per cardiology recommendations metoprolol was discontinued and replaced with Coreg/ lisinopril was discontinued and replaced with valsartan, atorvastatin was initiated, Eliquis was initiated due to concern for possible atrial fibrillation, advised for further outpatient workup with Cardiology for cardiac event monitoring an ischemic workup. - unfortunately on review of his medication since discharge he has only been taking valsartan, Eliquis, atorvastatin. patient's reports he only received 3 prescriptions from the pharmacy when they picked up his medications this did not include the carvedilol; 6.25 mg p.o. b.i.d. - plan to obtain serum labs, CXR, viral serologies as well as ECG And ambulatory O2 trial for further evaluation. Differential Diagnosis Differential Diagnoses: The differential diagnosis associated with the presentation includes Overall well-appearing, nontoxic, afebrile, no respiratory distress. No rash or lesions, urticaria, or evidence of angioedema to suggest allergic reaction/anaphylaxis. No swallowing difficulties to suggest aspiration. No associated chest pain, lower extremity redness pain or swelling, history of VTE/malignancy; lower suspiction for ACS, pericardial effusion, or pulmonary embolism as he is anticoagulated on Eliquis. No palpitations or history of known arrhythmias, though he is currently wearing an event monitor for 30 days. No recent trauma or injury, no tracheal deviation, unlikely tension pneumothorax. aside from an intermittent nonproductive cough, no recent URI symptoms or known sick contacts, may possibly be viral illness, or pneumonia. No history of asthma or COPD to suggest acute exacerbation. Admission/Observation Consideration of admission/observation: Escalation of care including admission/observation considered Lab Data MDM Lab Attestation statement: I reviewed the patient's lab results. ( see course narrative) 02/01/24 11:03 02/01/24 11:03 Labs: Lab Results 02/01/24 02/01/24 02/01/24 Range/Units 11:03 11:04 13:14 WBC 5.9 (4.8-10.8) X10*3/uL RBC 3.87 L (4.60-5.80) X10*6/uL Hgb 11.7 L D (14.0-18.0) g/dl Hct 36.0 L (42.0-52.0) % MCV 93.0 (80.0-98.0) fL MCH 30.2 (27.0-33.0) pg MCHC 32.5 (31.0-36.0) g/dl RDW 12.5 (11.0-16.0) % Plt Count 266 (160-400) X10*3/uL MPV 9.3 L (9.4-12.4) fL Immature Gran % (Auto) 0.7 H (0.0-0.4) % Neut % (Auto) 77.0 H (45-73) % Lymph % (Auto) 13.0 L (20-40) % [place] % (Auto) 6.7 (2-11) % Eos % (Auto) 2.1 (0-4) % Baso % (Auto) 0.5 (0-2) % Lymph # (Auto) 0.8 L (1.2-4.9) X10*3/uL [place] # (Auto) 0.4 (0.1-1.2) X10*3/uL Eos # (Auto) 0.1 (0.0-0.4) X10*3/uL Baso # (Auto) 0.0 (0.0-0.2) X10*3/uL Abs Immat Gran (auto) 0.04 H (0.00-0.03) X10*3/uL Absolute Neuts (auto) 4.5 (2.0-8.3) x10*3/uL Absolute Nucleated RBC 0.000 (0.0-0.012) X10*3/uL Nucleated RBC % (auto) 0.0 (0.0-0.2) /100WBC Sodium 141 (135-145) mmol/L Potassium 4.0 (3.3-5.1) mmol/L Chloride 106 (96-108) mmol/L Carbon Dioxide 30 H (22-29) mmol/L Anion Gap 9 L (12-20) BUN 15 (9-16) mg/dL Creatinine 0.75 (0.5-1.4) mg/dL Estim Creat Clear Calc 114.1 Estimated GFR > 60 Random Glucose 141 H (60-115) mg/dL Calcium 9.4 (8.4-10.2) mg/dL Total Bilirubin 0.9 (0.0-1.0) mg/dL AST 21 (5-37) U/L ALT 25 (0-40) U/L Alkaline Phosphatase 100 (39-117) U/L B-Natriuretic Peptide 320 H (<100) pg/mL Total Protein 6.7 (6.5-8.0) g/dL Albumin 4.0 (3.5-5.0) g/dL Urine Color Urine Appearance Urine pH (5.0-9.0) Ur Specific [place] (1.005-1.025) Urine Protein (Neg-Trace) mg/dL Urine Glucose (UA) (Negative) mg/dL Urine Ketones (Negative) mg/dL Urine Blood (Negative) Urine Nitrite (Negative) Ur Leukocyte Esterase (Negative) Urine RBC (0-2) /HPF Urine WBC (0-5) /HPF Ur Squamous Epith Cells (0-2) /HPF Urine Bacteria (None Seen) Hyaline Casts (0-2) /LPF Stool Occult Blood NEGATIVE (NEGATIVE) Influenza Type A (PCR) NEGATIVE (Negative) Influenza Type B (PCR) NEGATIVE (Negative) RSV RNA Qual (PCR) NEGATIVE (Negative) SARS-CoV-2 RNA (RT-PCR) NEGATIVE (Negative) 02/01/24 Range/Units 13:31 WBC (4.8-10.8) X10*3/uL RBC (4.60-5.80) X10*6/uL Hgb (14.0-18.0) g/dl Hct (42.0-52.0) % MCV (80.0-98.0) fL MCH (27.0-33.0) pg MCHC (31.0-36.0) g/dl RDW (11.0-16.0) % Plt Count (160-400) X10*3/uL MPV (9.4-12.4) fL Immature Gran % (Auto) (0.0-0.4) % Neut % (Auto) (45-73) % Lymph % (Auto) (20-40) % [place] % (Auto) (2-11) % Eos % (Auto) (0-4) % Baso % (Auto) (0-2) % Lymph # (Auto) (1.2-4.9) X10*3/uL [place] # (Auto) (0.1-1.2) X10*3/uL Eos # (Auto) (0.0-0.4) X10*3/uL Baso # (Auto) (0.0-0.2) X10*3/uL Abs Immat Gran (auto) (0.00-0.03) X10*3/uL Absolute Neuts (auto) (2.0-8.3) x10*3/uL Absolute Nucleated RBC (0.0-0.012) X10*3/uL Nucleated RBC % (auto) (0.0-0.2) /100WBC Sodium (135-145) mmol/L Potassium (3.3-5.1) mmol/L Chloride (96-108) mmol/L Carbon Dioxide (22-29) mmol/L Anion Gap (12-20) BUN (9-16) mg/dL Creatinine (0.5-1.4) mg/dL Estim Creat Clear Calc Estimated GFR Random Glucose (60-115) mg/dL Calcium (8.4-10.2) mg/dL Total Bilirubin (0.0-1.0) mg/dL AST (5-37) U/L ALT (0-40) U/L Alkaline Phosphatase (39-117) U/L B-Natriuretic Peptide (<100) pg/mL Total Protein (6.5-8.0) g/dL Albumin (3.5-5.0) g/dL Urine Color Yellow Urine Appearance Clear Urine pH 6.5 (5.0-9.0) Ur Specific [place] >= 1.030 H (1.005-1.025) Urine Protein 30 (1+) H (Neg-Trace) mg/dL Urine Glucose (UA) Negative (Negative) mg/dL Urine Ketones Trace (Negative) mg/dL Urine Blood Negative (Negative) Urine Nitrite Negative (Negative) Ur Leukocyte Esterase Trace H (Negative) Urine RBC 0-2 (0-2) /HPF Urine WBC 11-20 H (0-5) /HPF Ur Squamous Epith Cells 0-2 (0-2) /HPF Urine Bacteria None Seen (None Seen) Hyaline Casts 0-2 (0-2) /LPF Stool Occult Blood (NEGATIVE) Influenza Type A (PCR) (Negative) Influenza Type B (PCR) (Negative) RSV RNA Qual (PCR) (Negative) SARS-CoV-2 RNA (RT-PCR) (Negative) Independent Interpretation I performed an independent interpretation of an: EKG and Plain X-Ray ( See course narrative) Interpretation: Rate: 89 Rhythm:? normal sinus rhythm Normal P waves.? Normal MARI.?? Normal QRS complex.?? ST T wave :?? no ST elevation, no ST depression, T-wave inversions V3-V6 as seen on prior qTC: 457 prior studies:? January 2024 The study has been interpreted contemporaneously by me. Radiology Impression Discussion of test interpretation with radiology: I have reviewed the radiologist's reading. Radiologist Impression: FINDINGS: The study is quite limited by portable technique and low lung volumes. Electronic device overlies the periphery of the left midlung field. Mild diffuse interstitial prominence. It is uncertain whether this represents artifactual crowding of the interstitium related to suboptimal inspiration versus true infiltrate. Suspect superimposed left upper lobe and bibasilar patchy densities, raising suspicion for superimposed focal infiltrates/pneumonia and/or atelectasis. No effusion or pneumothorax is seen. The cardiac silhouette is suboptimally evaluated. The mediastinum, diaphragm, bones, and soft tissues appear unremarkable. XR/XR chest 1V IMPRESSION: Findings as above. Independent Historian Clinical information obtained from an independent historian. History obtained from or confirmed by: Spouse External Record Review External record reviewed: Inpatient record and Outpatient record Critical Care Time Critical Care Time Critical Care Time: Yes Total Critical Care Time: 45 Attestation: I personally attest to this critical care time spent taking care of the patient exclusive of all other billable procedures was approximately 45 minutes including initial evaluation of patient, ordering tests, x-ray interpretation, EKG interpretation, Lasix IV and re-evaluation, medical consultation, documentation, re-evaluation. Discharge Plan Discharge Clinical Impression: Congestive heart failure, Cardiomyopathy Patient Disposition: Home, Self-Care Instructions: Heart Failure (ED), Heart Healthy Diet (ED), Low-Sodium Diet (ED) Additional Instructions: Continue taking your medications as prescribed since your recent hospital visit. As discussed, 1 of the prescription she were meant to be taking carvedilol it appears as though a prescription was sent to your pharmacy but you have not been taking this medication. I have sent a prescription for the carvedilol to the pharmacy 6.25 mg to take twice daily. I have also sent a prescription for Lasix 20 mg daily which is a water pill/diuretic. follow the instructions regarding appropriate diet choices. Please contact the technical services representative office to arrange for an outpatient follow-up appointment, additionally follow-up with your primary care doctor. You should return to emergency department any new or worsening symptoms or concerns which include but is not limited to worsening shortness of breath, difficulty breathing, chest pain, cough, fevers, chills, dizziness, lightheadedness, near passing out/ passing out episodes, any active bleeding. Prescriptions: New carvedilol 6.25 mg tablet 6.25 mg PO BID 90 Days Qty: 180 0RF Rx Instructions: must administer with a meal/food furosemide 20 mg tablet 20 mg PO QAM Qty: 20 0RF No Action Januvia 100 mg tablet 100 mg PO DAILY insulin glargine [Lantus Solostar U-100 Insulin] 100 unit/mL (3 mL) insulin pen 60 unit subcut BEDTIME Eliquis 5 mg Tablet 5 mg PO BID 90 Days Qty: 180 0RF atorvastatin 80 mg Tablet 80 mg PO BEDTIME 90 Days Qty: 90 0RF carvedilol 6.25 mg Tablet 6.25 mg PO BID 90 Days Qty: 180 0RF Protocol: Hold for SBP/HR < HOLD for SBP < : 90 HOLD for HR < : 60 valsartan 40 mg Tablet 20 mg PO BID 90 Days Qty: 90 0RF Protocol: Hold for SBP< HOLD for SBP < : 90 Referrals: Steffi Gonzales MD [Primary Care Provider] - Winston Hernandez MD [Physician] - Interventions: ED Discharge Assessment Last Done: 02/01/24 15:31 Discharge Date/Time: 02/01/24 15:31 Print Language: Tuvaluan
[2024-02-01 11:07] LABS: MANUAL DIFF FLAG NO
[2024-02-01 11:15] LABS: Basophils Percent Auto 0.5 % (0-2); Eosinophils Absolute Auto 0.1 X10*3/uL (0.0-0.4); Eosinophils Percent Auto 2.1 % (0-4); Hemoglobin 11.7 g/dl (14.0-18.0); Imm Gran Abs Auto 0.04 X10*3/uL (0.00-0.03); Imm Gran Pct Auto 0.7 % (0.0-0.4); Lymphocytes Absolute Auto 0.8 X10*3/uL (1.2-4.9); Mean Corpuscular HGB Conc 32.5 g/dl (31.0-36.0); Mean Corpuscular Hemoglobin 30.2 pg (27.0-33.0); Mean Platelet Volume 9.3 fL (9.4-12.4); Monocytes Absolute Auto 0.4 X10*3/uL (0.1-1.2); Monocytes Percent Auto 6.7 % (2-11); Neutrophils Absolute Auto 4.5 x10*3/uL (2.0-8.3); Platelet Count 266 X10*3/uL (160-400); Red Blood Count 3.87 X10*6/uL (4.60-5.80); Red Cell Distribution Width 12.5 % (11.0-16.0); White Blood Count 5.9 X10*3/uL (4.8-10.8)
--- NOTE | 2024-02-01 11:19 | MHC.EDTECH ---
Spoke with Maddy in the chemistry department. BNP can be added on to previously ordered/drawn blood work. Provider made aware to enter an add on test.
[2024-02-01 11:21] LABS: Alanine Aminotransferase 25 U/L (0-40); Alkaline Phosphatase 100 U/L (39-117); Anion Gap 9 (12-20); Aspartate Amino Transferase 21 U/L (5-37); Bilirubin Total 0.9 mg/dL (0.0-1.0); Blood Urea Nitrogen 15 mg/dL (9-16); Calcium 9.4 mg/dL (8.4-10.2); Carbon Dioxide 30 mmol/L (22-29); Chloride 106 mmol/L (96-108); Creatinine Clr Calc Pharmacy 114.1; Estimated Glomerular Filt Rate > 60; Glucose Random 141 mg/dL (60-115); Sodium 141 mmol/L (135-145); Total Protein 6.7 g/dL (6.5-8.0)
--- NOTE | 2024-02-01 11:30 | PC.NURSE ---
pt is alert and oriented, skin appropriate for ethnicity, respirations even and unlabored, ls clear, pt reports feeling sob for a little while but worse for the last 3 days, pt states that the sob occurs at rest and with exertion, but worse when laying flat down, on peding edema noticed , pt is wearing a holter monitor since 01/22/24, did a walking ambulation trial and the pt did well oxygen saturation stayed between 97-98% on room air
[2024-02-01 11:52] LABS: Influenza A PCR NEGATIVE (Negative); Influenza B PCR NEGATIVE (Negative); Resp Syncy Virus RNA Qual PCR NEGATIVE (Negative); SARS COV2 PCR INHOUSE NEGATIVE (Negative)
[2024-02-01 12:00] LABS: B Type Natriuretic Peptide 320 pg/mL (<100)
[2024-02-01 13:20] LABS: OBS Int Ctl Valid YES
[2024-02-01 13:21] LABS: OBS1 NEGATIVE (NEGATIVE)
[2024-02-01 13:37] LABS: Appearance Urine Clear; Color Urine Yellow; Glucose Urine UA Negative (Negative); Leukocyte Esterase Urine Trace (Negative); Nitrite Urine Negative (Negative); PH 6.5 (5.0-9.0); Specific Gravity - Urine >= 1.030 (1.005-1.025); UMIC TRIGGER UACC YES; Urine Blood Negative (Negative); Urine Ketones Trace mg/dL (Negative); Urine Protein 30 (1+) mg/dL (Neg-Trace)
[2024-02-01 13:39] LABS: Bacteria Urine None Seen (None Seen); Hyaline Casts Urine 0-2 /LPF (0-2); RBC Urine 0-2 /HPF (0-2); Squamous Epithelial Cell Urine 0-2 /HPF (0-2); UACC Culture Trigger YES
[2024-02-01] MEDS: Furosemide 40 MG/4 ML VIAL IVPUSH (13:52)
== END 2024-02-01 15:31 | disposition home or self-care (01) ==
PROVIDERS: Nurse Practitioner Family; Emergency Provider Emergency Medicine; PCP Internal Medicine
DX: I11.0 Hypertensive heart disease with heart failure (principal); I50.9 Heart failure, unspecified; I42.9 Cardiomyopathy, unspecified; R06.02 Shortness of breath; R05.9 Cough, unspecified; Z03.818 Encounter for observation for suspected exposure to other biological agents ruled out; E11.9 Type 2 diabetes mellitus without complications; E78.5 Hyperlipidemia, unspecified; Z87.891 Personal history of nicotine dependence; Z79.4 Long term (current) use of insulin; Z79.01 Long term (current) use of anticoagulants; Z79.02 Long term (current) use of antithrombotics/antiplatelets; Z79.899 Other long term (current) drug therapy
CPT/HCPCS: 0241U; 71045; 80053; 81001; 82272; 83880; 85025; 87086; 93005; 96374; 99283; 99284; 99285; J1940

== ENCOUNTER → 2024-02-01 11:02 | Outpatient (BNV) | payer MEDICARE, SELFPAY | PROVIDERS: Emergency Provider Emergency Medicine; PCP Internal Medicine; Visit Provider Internal Medicine Cardiovascular Disease | DX: R06.02 Shortness of breath (principal); R94.31 Abnormal electrocardiogram [ECG] [EKG] | CPT/HCPCS: 93010 ==

== ENCOUNTER → 2024-02-28 23:59 | Outpatient (BNV) | payer MEDICARE, SELFPAY | PROVIDERS: PCP Internal Medicine; Visit Provider Internal Medicine Cardiovascular Disease | DX: I50.20 Unspecified systolic (congestive) heart failure (principal); R06.02 Shortness of breath | CPT/HCPCS: 93458; 99152 ==

== ENCOUNTER 2024-06-13 12:58 | Outpatient (AMB) | payer MEDICARE, MEDICAID, SELFPAY ==
[2024-06-13 13:05] VITALS: BP 150/80; PULSE 103; BMI 27.2
--- NOTE | 2024-06-13 13:05 | MHC.OFFVIS ---
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 During his admission he had echocardiogram showing EF 15-20%. He was started on Eliquis for anticoagulation and GDMT. He had an outpatient cardiac catheterization done on 02/27 to the syndrome for the. He did not follow-up in he will let you until today. Today he reports that following his hospital discharge in January he did not take any of the medications that were prescribed. He has not had any recurrent neurological events. He continues to have left arm weakness and pain in the left shoulder when he raises his left arm with his right arm. He is able to ambulate steady and denies left leg weakness. His speech is clear and appropriate. 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 No chest discomfort at rest or during activity. He denies shortness of breath, PND, orthopnea or edema. No heart palpitations, lightheadedness, presyncope, syncope. He has an upcoming appointment with a new PCP. He does not give a clear answer as to why he did not take his medications. Significant other is present and she is assisting with Gabonese translation at their request. FORMERLY [facility], [facility]1983 Medical History (Updated 06/13/24 @ 15:17 by Farrah Lopez, NEHA-C) Hyperlipidemia Diabetes mellitus H/O: HTN (hypertension) Family History Mother Stroke Father Stroke Social History Household Members: Spouse Housing: House Do you presently have visiting nurse or other home services: No Patient Tobacco Use Status: Former Tobacco user Tobacco use type: Cigarette Cigarette Packs Per Day: 1.5 Cigarettes Per Day: 30.0 Second Hand Smoke Exposure: No Substance Use Type: Crack/Cocaine Review of Systems Const All systems reviewed & are unremarkable except as noted in HPI and below ENT Denies dizziness Card Denies chest pain, Denies chest pain at rest, Denies chest pain with activity, Denies rapid heart rate, Denies pedal edema, Denies edema, Denies leg edema, Denies lightheadedness, Denies palpitations, Denies dyspnea, Denies dyspnea on exertion and Denies orthopnea Resp Denies cough, Denies dyspnea and Denies dyspnea on exertion GI Denies hematochezia and Denies change in stool character Musc Details: Left arm weakness Denies abnormal gait, Reports limited range of motion (Left shoulder), Denies muscle cramps, Reports muscle weakness, Denies numbness, Denies radiating pain into limb, Denies stiffness and Denies tingling Neuro Denies abnormal gait, Denies dizziness, Denies numbness and Denies tingling Endo Denies palpitations Physical Exam Vital Signs: Last Vital Signs Pulse 103 H 06/13/24 13:05 BP 150/80 H 06/13/24 13:05 BMI result Body Mass Index 27.2 Const General: cooperative, healthy appearing, comfortable and no acute distress Orientation/consciousness: patient oriented x3 Neck Neck: Yes normal visual inspection Resp Effort & Inspection: normal respiratory effort Auscultation: clear to auscultation bilaterally, no rales, no rhonchi and no wheezes Cardio Rate: regular rate Rhythm: regular rhythm Heart sounds: S1 normal heart sound present, S2 normal heart sound present, no murmurs and no rubs Neuro General: patient oriented x3 Extrem General: Yes normal to inspection and No no pedal edema Psych Appearance: grossly normal Mental Status: mental status grossly normal Speech and movement: Normal speech and movement present Office Procedures EKG Details: Today, read by me Sinus tachycardia, ST/ T wave abn inferolateral leads, PAC, rate 103, Qtc 492ms. [id number], Complete Assessment & Plan Assessment & Plan (1) Cardiomyopathy: Code(s): I42.9 - Cardiomyopathy, unspecified Category: Medical Plan: New finding of cardiomyopathy at time of hospital admission for acute CVA. Echocardiogram showed EF 15-20%, global hypokinesis. No prior known cardiac history. He did undergo cardiac catheterization as outpatient showing right PDA 80% stenosis, otherwise no significant CAD. His degree of CAD was out of proportion with his degree of cardiomyopathy. He was thought to have nonischemic cardiomyopathy and he was ordered to continued on guideline directed medical therapy however he tells me he never took his medications. EKG today shows sinus tachycardia, nonspecific ST and T-wave abnormalities in the inferior lateral leads, rate 103. Blood pressure elevated 150/80. Will have him restart carvedilol and valsartan for neurohormonal modulation. He does not appear fluid overloaded. Will start on atorvastatin 80 mg daily for LDL less than 70. The importance of medication use reviewed with him. Cardiology follow-up in 1 month to assess med compliance and tolerance. (2) Cerebrovascular accident: Code(s): I63.9 - Cerebral infarction, unspecified Category: Medical Qualifiers: CVA mechanism: unspecified Qualified Code(s): I63.9 - Cerebral infarction, unspecified Plan: CVA with left-sided weakness 01/17/2024. MRI showed several foci of acute infarcts in the right frontal and parietal region. He was seen by Neurology and thought to have an embolic source. Echocardiogram showed normal valves and no intracardiac shunting. Holter monitor done 01/22/2024 for 27 days showed sinus rhythm with average heart rate 92, 42% of the time heart rate greater than 100, rare VE and SVE. EKG done today showing sinus tachycardia rate 103. No AFib has been seen on him. Will check with his primary employment supervisor regarding loop recorder placement. Will be restarting Eliquis for anticoagulation while his cardiac evaluation continues. (3) S/P cardiac cath: Comment: 02/28/2024 left main normal, lad mild irregularities less than 30% stenosis, left circumflex mild irregularities less than 30% stenosis, right PDA 80% stenosis. Code(s): Z98.890 - Other specified postprocedural states Category: Surgical Plan: As above (4) H/O: HTN (hypertension): Code(s): Z86.79 - Personal history of other diseases of the circulatory system Category: Medical Plan: Barco goal less than 130/80. Elevated today. Restarting carvedilol and valsartan. (5) Noncompliance: Code(s): Z91.199 - Patient's noncompliance with other medical treatment and regimen due to unspecified reason Category: Medical Plan: As above Plan Time spent on chart review, documentation, interview and assessment Medications: Changed From apixaban (Eliquis) 5 mg PO BID 90 days 180 tabs 0RF To apixaban (Eliquis) Blood thinner 5 mg PO BID 90 days 180 tabs 3RF From atorvastatin 80 mg PO BEDTIME 90 days 90 tabs 0RF To atorvastatin Cholesterol lowering medication 80 mg PO BEDTIME 90 days 90 tabs 3RF Refilled carvedilol must administer with a meal/food 6.25 mg PO BID 90 days 180 tabs 3RF valsartan 20 mg See Protocol PO BID 90 days 90 tabs 1RF Discontinued apixaban (Eliquis) Discontinued Reason: Patient no longer taking 5 mg PO BID 90 days 180 tabs 0RF carvedilol Discontinued Reason: Patient no longer taking 6.25 mg See Protocol PO BID 90 days 180 tabs 0RF carvedilol must administer with a meal/food Discontinued Reason: Patient no longer taking 6.25 mg PO BID 90 days 180 tabs 0RF atorvastatin Discontinued Reason: Patient no longer taking 80 mg PO BEDTIME 90 days 90 tabs 0RF valsartan Discontinued Reason: Patient no longer taking 20 mg See Protocol PO BID 90 days 90 tabs 0RF furosemide Discontinued Reason: Patient no longer taking 20 mg PO QAM 20 tabs 0RF Coding Level of Care Code Tele Est Pt Level 4 (45239) Complex EM visit Add On G2211 Diagnoses Cardiomyopathy I42.9 Cerebrovascular accident I63.9 CVA mechanism: unspecified S/P cardiac cath Z98.890 H/O: HTN (hypertension) Z86.79 Noncompliance Z91.199 CPT Codes EKG - CPT: 66558-[id number], Complete ([id number])
== END 2024-06-13 13:40 | disposition home or self-care (01) ==
LOC: HO.HCS 12:59
PROVIDERS: PCP Internal Medicine; Visit Provider Nurse Practitioner Family
DX: I42.9 Cardiomyopathy, unspecified (principal); I63.9 Cerebral infarction, unspecified; Z98.890 Other specified postprocedural states; Z86.79 Personal history of other diseases of the circulatory system; Z91.199 Patient's noncompliance with other medical treatment and regimen due to unspecified reason; R00.0 Tachycardia, unspecified
CPT/HCPCS: 93010; 99214; G2211

== ENCOUNTER → 2024-06-13 12:58 | Outpatient (BNVA) | payer MEDICARE, MEDICAID, SELFPAY | PROVIDERS: PCP Internal Medicine; Visit Provider Nurse Practitioner Family | DX: I42.9 Cardiomyopathy, unspecified (principal); Z87.891 Personal history of nicotine dependence; Z86.73 Personal history of transient ischemic attack (TIA), and cerebral infarction without residual deficits; Z98.890 Other specified postprocedural states; Z86.79 Personal history of other diseases of the circulatory system; Z91.199 Patient's noncompliance with other medical treatment and regimen due to unspecified reason | CPT/HCPCS: 93005; 99212 ==

== ENCOUNTER 2024-06-18 11:07 | Outpatient (AMB) | payer MEDICARE, MEDICAID, SELFPAY ==
--- NOTE | 2024-06-18 11:37 | A.OFFPC_ITS ---
Vital Signs 06/18/24 11:41 Height 5 ft 11.26 in Weight 208 lb 4 oz BMI 28.8 BP 110/70 Blood Pressure Location Lt brachial Position Sitting Pulse 98 Pulse Source Pulse Oximeter Temp 97.3 F Temp Source Temporal Artery Scan Pulse Oximetry (%) 98 Oxygen Delivery Method Room Air Intake Visit Reasons: establish care Intake Note: Patient is a new patient here to establish care for DM, HTN, Cholesterol, Cardiac issues, Left shoulder pain, Hx stroke (12/2023). Transferring care from Dr Armstrong. Medical records have been requested and have not received. Labor Contractor Required: Yes Labor Contractor Language: Registered Dietician Name: Glenis (spouse) Information Interpreted: non-clinical & clinical (pt decline chimney supervisor brick service prefer spouse to translate for him) Communications Electrician Supervisor: Present Accompanied by: Spouse Allergies No Known Allergies Allergy (Verified 06/18/24 11:49) Medication List - Last Reconciled 06/18/24 by Dotty Hernandez PA-C apixaban (Eliquis) 5 mg PO BID 90 days atorvastatin 80 mg PO BEDTIME 90 days carvedilol 6.25 mg PO ONCE carvedilol 6.25 mg PO DAILY insulin glargine (Lantus Solostar U-100 Insulin) 70 units subcut BEDTIME insulin lispro (Humalog KwikPen (U-100) Insulin) 6 - 10 units subcut BID valsartan 20 mg See Protocol PO ONCE valsartan 20 mg See Protocol PO DAILY Tobacco use date assessed: 06/18/24 Fall risk assessment: No Falls in past year Last assessed Fall Risk: 06/18/24 Dental Screening Dental Screen Date: 06/18/24 Did you have a dental visit in the last 12 months?: No Did you have a dental problem in the last 6 months where you did not have access to dental care?: No Was dental information given to patient?: Patient has dentist HPI establish care HPI Details 63-year-old male coming to the office fo r the 1st time. In review of the notes, patient was seen by Cardiology 06/2024 after hospital admission [facility] Ed 01/2024 for left-sided weakness found to have acute small cortical infarcts suggestive of embolic events. During his admission he had echocardiogram showing EF 15-20% and started on Eliquis for anticoagulation and GDMT. He had outpatient cardiac catheterization done on 02/2024 which showed right PDA 80% stenosis. His plumber's assistant noted poor med compliance and continued left arm weakness and pain. Patient was restarted on carvedilol and valsartan, atorvastatin 80 mg and restarted on Eliquis for anticoagulation. Spouse provided translation for the duration of this visit. Formal interpretation was declined today. Presenting with shoulder pain, diabetes management concerns, and medication adjustments. The shoulder pain has worsened, especially at night, and the patient finds it challenging to use, possibly linked to rotator cuff conditions. 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 Cardiomyopathy requires medication adjustments, recently changed by the plumber's assistant to better address cardiac function. Type 2 Diabetes Mellitus management is suboptimal, with a recent A1c of 10.7% raising concerns. The patient admits to dietary indiscretion and reports inconsistencies in short-acting insulin administration. Blood glucose management is inconsistent, reported varied levels including spikes of up to 400 mg/dL caused by non-compliance with dietary recommendations and medication regimens. [facility] Medical History Hyperlipidemia Diabetes mellitus Surgical History History of cardiac cath Family History Mother Stroke Father Stroke Social History Household Members: Spouse Housing: Apartment Do you presently have visiting nurse or other home services: No Patient Tobacco Use Status: Former Tobacco user Tobacco use type: Cigarette Cigarette Packs Per Day: 1.5 Cigarettes Per Day: 30.0 e-Cigarette/Vaping Use: Never Used Second Hand Smoke Exposure: Yes Substance Use Type: Crack/Cocaine service: No Current occupational status: employed Cognitive needs: No Hearing needs: No Vision needs: No Questionnaire PHQ-9 Over the last 2 weeks, how often have you been bothered by any of the following problems? 1. Little interest or pleasure in doing things: not at all 2. Feeling down, depressed, or hopeless: not at all 3. Trouble falling or staying asleep, or sleeping too much: not at all 4. Feeling tired or having little energy: not at all 5. Poor appetite or overeating: not at all 6. Feeling bad about yourself - or that you are a failure or have let yourself or your family down: not at all 7. Trouble concentrating on things, such as reading the newspaper or watching television: not at all 8. Moving or speaking so slowly that other people could have noticed. Or the opposite - being so fidgety or restless that you have been moving around a lot more than usual: not at all 9. Thoughts that you would be better off or of hurting yourself in some way: not at all Total score: 0 Depression Screening Interpretation: Negative Depression Screening Done: Yes Source: Developed by Drs. Alin Slaughter, Shalini Samuel, Wilder Cody and colleagues, with an educational alan from [employer] ([place]). Thrive Questionnaire Date Thrive assessed: 06/18/24 I am a: Patient What is your living situation today?: I have a steady place to live Within the past 12 months, did the food you bought not last and you didn't have the money to get more?: Never true Within the past 12 months, did you worry whether your food would run out before you got money to buy more?: Never true Do you have trouble paying for medicines?: No Do you have trouble getting transportation to medical appointments?: No Do you have trouble paying your heating and electricity bill?: No Do you have trouble taking care of your child, family member or friend?: No Do you have trouble with day-to-day activities such as bathing, preparing meals, shopping, managing finances, etc.?: No Are you currently unemployed and looking for a job?: No Are you interested in more education?: No Please select the resources that you would like help with: None Currently or been in a relationship where the following occur: No concerns reported THRIVE Score: 0 AUDIT C Alcohol Use Questionnaire (AUDIT-C) 1. How often do you have a drink containing alcohol?: Never Total Score: 0 JUANITO-7 AMB Questionnaire JUANITO-7 Date JAUNITO - 7 assessed: 06/18/24 Feeling nervous, anxious, or on edge: 0 = Not at all Not being able to stop or control worryin = Not at all Worrying too much about different things: 0 = Not at all Trouble relaxin = Not at all Being so restless that it is hard to sit still: 0 = Not at all Becoming easily annoyed or irritable: 0 = Not at all Feeling afraid as if something awful might happen: 0 = Not at all Total JUANITO-7 score (0-4 normal; 5-9 mild; 10-14 moderate; 15-21 severe): 0 Source: Developed by Drs. Alin Slaughter, Shalini Samuel, Wilder Cody and colleagues, with an educational alan from [employer] ([place]). JUANITO-7 Assessment Billing JUANITO-7 Assessment Tool: JUANITO-7 Assessment 12893 Review of Systems Const Denies body aches, Denies chills, Denies fever(s), Denies headache(s) and Denies poor appetite Eyes Reports no additional complaints ENT Denies dysphagia, Denies dizziness, Denies headache(s) and Denies odynophagia Card Denies chest pain, Denies syncope, Denies edema, Denies irregular heart rhythm, Denies lightheadedness and Denies dyspnea Resp Denies cough and Denies dyspnea GI Denies dysphagia, Denies diarrhea, Denies nausea, Denies odynophagia and Denies vomiting Reports no additional complaints Musc Details: left shoulder pain and weakness Reports no additional complaints and Denies abnormal gait Skin/Breast Reports system reviewed and no additional complaints, except as documented Neuro Denies abnormal gait, Denies dizziness, Denies syncope and Denies headache(s) Psych Reports no additional complaints Physical exam (Primary Care) Vital Signs: Last Vital Signs Temp 97.3 F 06/18/24 11:41 Pulse 98 06/18/24 11:41 BP 110/70 06/18/24 11:41 Pulse Ox 98 06/18/24 11:41 Oxygen Delivery Method Room Air 06/18/24 11:41 BMI result Body Mass Index 28.8 Tobacco/Smoking Status: Tobacco use Status Tobacco use date assessed 06/18/24 06/18/24 11:42 Patient Tobacco Use Status Former Tobacco user 06/18/24 11:38 Tobacco use type Cigarette 06/18/24 11:38 e-Cigarette/Vaping Use Never Used 06/18/24 11:42 PHQ-9: PHQ-9 Score PHQ-9: Total score 0 06/18/24 13:33 Depression Screening Interpretation: Negative Thrive Assessment: Date of Thrive Assessment Date Thrive assessed 06/18/24 06/18/24 11:39 Currently or been in a relationship where the following occur: No concerns reported Const General: cooperative, healthy appearing, comfortable and no acute distress Orientation/consciousness: patient oriented x3 [facility] Head: Yes normocephalic Ears: hearing grossly normal bilaterally General nose exam: Normal external nose present Eyes General: appearance normal, both eyes and all related structures Conjunctivae: conjunctivae normal Neck Neck: Yes full ROM and Yes no lymphadenopathy Resp Effort & Inspection: normal respiratory effort Auscultation: clear to auscultation bilaterally, no crackles, no rales, no rhonchi and no wheezes Cardio Rate: regular rate Rhythm: regular rhythm Skin General skin exam: no rashes or lesions noted Neuro General: patient oriented x3 Gait exam (Neuro): Normal gait present Extrem Other: Pain to palpation over entirety of left shoulder. Pain with extension and flexion and internal rotation of left shoulder General: Yes normal to inspection, Yes full ROM and No edema Psych Affect: normal affect Attitude: cooperative Insight: Good insight present (Psych) Judgement: Good judgement present (Psych) Results AMB Hemoglobin A1c AMB Hemoglobin A1c 10.7 % Last Edit by THOMAS Franco on 06/18/24 13:2 4 Results Reviewed Results Reviewed: Laboratory Last Values Hgb A1c (Clinic) 10.7 % (4.0-6.0) H 06/18/24 11:59 Coding Level of Care Code New Pt Level 4 (37619) Diagnoses Noncompliance Z91.199 Hypertension I10 S/P cardiac cath Z98.890 Cardiomyopathy I42.9 Cerebrovascular accident I63.9 CVA mechanism: unspecified Hyperlipidemia E78.5 Diabetes mellitus E11.9 Weakness of left shoulder R29.898 Left shoulder pain M25.512 Additional Codes JUANITO-7 Assessment Billing - JUANITO-7 Assessment Tool: JUANITO-7 Assessment 06008 ([id number]) Assessment & Plan Assessment & Plan (1) Noncompliance: Code(s): Z91.199 - Patient's noncompliance with other medical treatment and regimen due to unspecified reason Category: Medical Plan: Patient exhibits medication noncompliance referral was placed to community navigation today to establish with the patient. (2) Hypertension: Code(s): I10 - Essential (primary) hypertension Category: Medical Plan: Continue on current blood pressure medication. Avoid salt intake and encourage healthy diet and regular exercise. Patient on carvedilol 6.25 twice daily and valsartan. Discussed appropriate dosing of medication and advised to follow up with Cardiology as well. (3) S/P cardiac cath: Comment: 02/28/2024 left main normal, lad mild irregularities less than 30% stenosis, left circumflex mild irregularities less than 30% stenosis, right PDA 80% stenosis. Code(s): Z98.890 - Other specified postprocedural states Category: Surgical Plan: Strongly advised patient to remain compliant with current medication regimen and follow up with Cardiology. (4) Cardiomyopathy: Code(s): I42.9 - Cardiomyopathy, unspecified Category: Medical Plan: Currently undergoing workup with cardiology strongly advised med compliance. (5) Cerebrovascular accident: Code(s): I63.9 - Cerebral infarction, unspecified Category: Medical Qualifiers: CVA mechanism: unspecified Qualified Code(s): I63.9 - Cerebral infarction, unspecified Plan: CVA thought to be caused by possible embolic source. Remain on Eliquis for anticoagulation while his cardiac evaluation continues. Advised good control of cholesterol, blood sugar and blood pressure. (6) Hyperlipidemia: Code(s): E78.5 - Hyperlipidemia, unspecified Category: Medical Plan: Avoid foods that are high in cholesterol such as red meat, fried foods, eggs and baked goods. Triglyceride goal of less than 150 and LDL goal of less than 70. Continue on atorvastatin 80. Ordered for repeat cholesterol labs (7) Diabetes mellitus: Code(s): E11.9 - Type 2 diabetes mellitus without complications Category: Medical Plan: Decrease the amount of carbohydrates such as pasta, bread, rice, and potatoes and limit the amount of sweets. Although fruits are generally healthy they sh ould be eaten in moderation as they are still high in sugar. Hemoglobin A1c goal of less than 7%. Last A1c was completed 07/2023 with a value of 9.8%. A1c in the clinic today over 10%. Due to medication noncompliance concern for the use of short-acting insulin as patient does not routinely check blood sugars and does not appropriately use his short-acting insulin. Plan to discontinue short-acting insulin, continue on long-acting insulin and start on Ozempic once weekly. I also placed a referral to endocrinology for further evaluation. Patient was counseled today on the risks and benefits of GLP-1 injections as well as the dosing schedule. She has no family history or personal history of thyroid disease and no gallbladder disease. Discussed with the patient the potential GI side effects of this medication. Plan to have repeat blood work after one month of therapy to monitor kidney and liver function before increasing the dose of this medication. Follow up in 2 months for a weight niru ck. 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 Recent CVA worsened symptoms of weakness in the left shoulder. Plan for physical therapy, x-ray for further evaluation and muscle relaxer given for nighttime pain. Recommend the use of Tylenol as needed as well as heating pad. (9) Left shoulder pain: Code(s): M25.512 - Pain in left shoulder Category: Medical Plan: See above plan Plan Regarding the shoulder pain, potentially due to a rotator cuff injury, a course of physical therapy is recommended, and a shoulder x-ray has been ordered to check for possible arthritis or bone spurs. In terms of diabetes, it was decided to stop short-acting insulin given concerns with proper administration, instead prescribing a weekly injection of Ozempic paired with nighttime long-acting insulin for better overall glucose control. Endocrinology referral is planned for additional diabetes management. Emphasis will be on dietary changes to limit carbohydrates, aiming for improved glycemic stability and encouraging weight reduction, with consistent blood sugar checks being essential. Education was provided on the importance of managing blood sugar to reduce risks of further cardiovascular issues. The importance of a regular annual eye examination to monitor diabetes-related complications was emphasized. This note was constructed using voice recognition software. While every effort has been made to ensure accuracy and vault person, still areas may have been included sometimes these areas may affect the content or meeting of the given symptoms. Total time spent caring for the patient today was 30 minutes. This includes time spent before the visit reviewing the chart, time spent during the visit, and time spent after the visit and documentation. Patient was informed and verbally consented to the use of an ambient scribe for clinic note documentation during this visit. Orders: Orders AMB Hemoglobin A1c Today E11.9 - Type 2 diabetes mellitus without complications PT Evaluation and Treatment Today M25.512 - Pain in left shoulder, R29.898 - Other symptoms and signs involving the musculoskeletal system TSH reflex Free T4 Today Z00.00 - Encounter for general adult medical examination without abnormal findings XR shoulder LT min 2V Today M25.512 - Pain in left shoulder Comprehensive Met. Panel Today Z00.00 - Encounter for general adult medical examination without abnormal findings Complete Blood Count Auto Diff Today Z00.00 - Encounter for general adult medical examination without abnormal findings Lipid Panel Today E78.00 - Pure hypercholesterolemia, unspecified Vitamin B12 and Folate Today Z00.00 - Encounter for general adult medical examination without abnormal findings Vitamin D 25-OH Total Today Z00.00 - Encounter for general adult medical examination without abnormal findings Free T4 (Free Thyroxine) Today Z00.00 - Encounter for general adult medical examination without abnormal findings PSA, Ultra Sensitive Today Z00.00 - Encounter for general adult medical examination without abnormal findings Referrals Endocrinology Referral E11.9 - Type 2 diabetes mellitus without complications Ophthalmology Referral E11.9 - Type 2 diabetes mellitus without complications Medications: New cyclobenzaprine 5 mg PO BEDTIME PRN 30 tabs 0RF muscle spasm flash glucose sensor (FreeStyle Noe 14 Day Sensor kit) As directed 1 ea 0RF E11.9 - Type 2 diabetes mellitus without complications, Z79.4 - watermelon inspector (current) use of insulin cyclobenzaprine 5 mg PO BEDTIME 30 tabs 0RF semaglutide (Ozempic) for 4 weeks 0.25 mg (0.368 mL) subcut QWEEK 3 mL 0RF flash glucose scanning reader (FreeStyle Noe 14 Day [place]) As directed 1 ea 0RF E11.9 - Type 2 diabetes mellitus without complications, Z79.4 - halfway (current) use of insulin Changed From valsartan 20 mg See Protocol PO DAILY To valsartan 20 mg See Protocol PO BID From carvedilol must administer with a meal/food 6.25 mg PO DAILY To carvedilol must administer with a meal/food 6.25 mg PO BID
[2024-06-18 11:41] VITALS: BP 110/70; PULSE 98; TEMP 36.3; O2SAT 98; BMI 28.8
== END 2024-06-18 12:34 | disposition home or self-care (01) ==
LOC: HO.HMCH 11:08
DX: I10 Essential (primary) hypertension (principal); I42.9 Cardiomyopathy, unspecified; I63.9 Cerebral infarction, unspecified; E11.69 Type 2 diabetes mellitus with other specified complication; Z91.199 Patient's noncompliance with other medical treatment and regimen due to unspecified reason; Z98.890 Other specified postprocedural states; E78.5 Hyperlipidemia, unspecified; R29.898 Other symptoms and signs involving the musculoskeletal system; M25.512 Pain in left shoulder

== ENCOUNTER → 2024-06-18 11:07 | Outpatient (BNVA) | payer MEDICARE, MEDICAID, SELFPAY | DX: E11.9 Type 2 diabetes mellitus without complications (principal); I10 Essential (primary) hypertension; E78.00 Pure hypercholesterolemia, unspecified; M25.512 Pain in left shoulder; I42.9 Cardiomyopathy, unspecified; E78.5 Hyperlipidemia, unspecified; R29.898 Other symptoms and signs involving the musculoskeletal system; Z86.73 Personal history of transient ischemic attack (TIA), and cerebral infarction without residual deficits; Z79.01 Long term (current) use of anticoagulants; Z91.199 Patient's noncompliance with other medical treatment and regimen due to unspecified reason; Z98.890 Other specified postprocedural states | CPT/HCPCS: 83036; 96127; 99202 ==

== ENCOUNTER 2024-06-23 17:02 | Emergency (ER) | payer MEDICARE, MEDICAID, SELFPAY ==
--- NOTE | ~2024-06-23 | XR_ITS ---
CLINICAL HISTORY: sob, cough 2 view chest x-ray Comparison: CR/SR - XR CHEST 1V - 02/01/24 11:06 EST Findings: Eventration of the right hemidiaphragm without change. No consolidation or pleural effusion. Heart size is normal. No acute fracture. IMPRESSION: 1. No acute findings. This document has been electronically signed by: Vera Connor MD on 06/23/2024 18:06:24
[2024-06-23 17:16] VITALS: BP 138/96; PULSE 106; RESP 19; TEMP 36.9; O2SAT 96; BMI 29.2
--- NOTE | 2024-06-23 17:18 | ECG_ITS ---
Test Reason : sob Blood Pressure : */* mmHG Vent. Rate : 108 BPM Atrial Rate : 108 BPM P-R Int : 166 ms QRS Dur : 96 ms QT Int : 358 ms P-R-T Axes : 61 2 108 degrees QTcB Int : 479 ms Sinus tachycardia Voltage criteria for left ventricular hypertrophy ( R in aVL , Sokolow-Bartlett , Immaculata product ) Nonspecific T wave abnormality Abnormal ECG When compared with ECG of 01-Feb-2024 11:06, No significant change was found Referred By: Lindsay Starkey Electronically Signed By: ENMA PERDOMO MD
--- NOTE | 2024-06-23 17:19 | ED.GENADULT ---
HPI - General Adult General Chief complaint: Upper Respiratory Symptoms Stated complaint: SOB Time Seen by Provider: 06/24/24 04:48 Source: patient Mode of arrival: ambulatory Limitations: no limitations History of Present Illness ED Provider: HPI narrative: 63 yo male with PMH of HTN, DM, HLD who [place] [facility] [place] with left sided weakness and found to have acutes small coritcal infarcts suggestive of embolic events. During his admission he had echocardiogram showing EF 15-20%. He was started on Eliquis for anticoagulation patient's used to be on furosemide 20 mg in the past but not taking lately comes here for increased shortness a breath for last 3 days in the PCP 3 days ago for same supposed to see the transportation maintenance specialist next month denies any chest pain Related Data Home Medications ?Medication ?Instructions ?Recorded ?Confirmed carvedilol 6.25 mg tablet 6.25 mg PO BID 06/18/24 06/18/24 insulin glargine 100 unit/mL (3 70 unit subcut BEDTIME 06/18/24 06/18/24 mL) subcutaneous pen (Lantus Solostar U-100 Insulin) valsartan 40 mg tablet 20 mg PO BID 06/18/24 06/18/24 Previous Rx's ?Medication ?Instructions ?Recorded apixaban 5 mg tablet (Eliquis) 5 mg PO BID 90 days #180 tabs 06/13/24 atorvastatin 80 mg tablet 80 mg PO BEDTIME 90 days #90 tabs 06/13/24 cyclobenzaprine 5 mg tablet 5 mg PO BEDTIME PRN muscle spasm 06/18/24 #30 tabs semaglutide 0.25 mg or 0.5 mg (2 0.25 mg (0.368 mL) subcut QWEEK #3 06/18/24 mg/3 mL) subcutaneous pen injector mL (Ozempic) flash glucose sensor (FreeStyle #1 ea 06/20/24 Noe 2 Sensor kit) blood-glucose,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 service 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,cont See Rx Instructions .Route 06/24/24 (FreeStyle Noe 3 Deep Gap) .COMPLEX #1 ea furosemide 20 mg tablet (Lasix) 20 mg PO QAM #30 tabs 06/24/24 Allergies Allergy/AdvReac Type Severity Reaction Status Date / Time No Known Allergies Allergy Verified 06/23/24 17:17 Review of Systems Review of Systems: Yes all other systems are reviewed and are negative [facility] Past Medical History Medical History Hyperlipidemia Diabetes mellitus Surgical History History of cardiac cath Family History Family History Mother Stroke Father Stroke Social History Social History Household Members: Spouse Housing: Apartment Do you presently have visiting nurse or other home services: No Patient Tobacco Use Status: Former Tobacco user Tobacco use type: Cigarette Cigarette Packs Per Day: 1.5 Cigarettes Per Day: 30.0 e-Cigarette/Vaping Use: Never Used Second Hand Smoke Exposure: Yes Substance Use Type: Crack/Cocaine Advance Directives Date on File: 01/18/24 service: No Current occupational status: employed Cognitive needs: No Hearing needs: No Vision needs: No Physical Exam ED Vital Signs: Vital Signs - 24 hr 06/24/24 02:26 06/24/24 05:43 06/24/24 05:48 Temperature 98.0 F 98.0 F 98.0 F Pulse Rate 104 H 98 98 Respiratory Rate 19 20 20 Blood Pressure 144/101 H 131/89 131/89 Pulse Oximetry 96 98 98 Oxygen Delivery Method Room Air Room Air Room Air BMI result Body Mass Index 29.2 Appearance: Alert. Oriented X3. No acute distress. Eyes: No pallor or icterus ENT: Pharynx normal. Oral Mucosa moist Neck: Normal inspection. Neck supple. CVS: Normal heart rate and rhythm. Pulses normal. Respiratory: No respiratory distress. Equal air entry bilateral, no wheezing/rales/rhonchi Abdomen: Soft and nontender. Bowel sounds are present, no mass palpable, no CVA tenderness Skin: Skin warm and dry. Normal skin color. Normal skin turgor. Extremities: No lower extremity edema. No calf tenderness Neuro: Oriented X 3. No motor deficit. No sensory deficit.No cerebellar signs , cranial nerves II-XII intact Course Course Course Narrative: This is a Rapid Medical Examination (RME) performed by Kalina Starkey PA-C in triage. Full HPI, ROS, assessment and treatment plan per primary provider in the Main ED. 06/23/24 1720 DEVANG Narayan Hx: 63 yo male hx of DM, HLD, HTN, cardiomyopathy, CVA here for eval of shortness of breath x3 days with cough that began last night. no fever. no known sick contacts. no hx asthma/copd. PE/vitals: well appearing, lungs clear, no respiratory distress. Plan: labs, viral swabs, ekg, cxr Medications Administered Discontinued Medications Generic Name Dose Route Start Last Admin Trade Name Freq PRN Reason Stop Dose Admin Furosemide 20 mg 06/24/24 05:32 06/24/24 05:44 Furosemide 20 Mg Tablet PO 06/24/24 05:33 20 mg ONCE ONE Administration Protocol Medical Decision Making Medical Decision Making [facility] Narrative: 63 yo male with PMH of HTN, DM, HLD who was [place] [facility] [place] with left sided weakness and found to have acutes small coritcal infarcts suggestive of embolic events. During his admission he had echocardiogram showing EF 15-20%. He was started on Eliquis for anticoagulation comes here for increased shortness a breath with low ejection fraction likely patient has CHF with elevated BNP will start patient on diuretics furosemide advised to follow up with transportation maintenance specialist Differential Diagnosis Differential Diagnoses: The differential diagnosis associated with the presentation includes Lab Data [facility] Lab Attestation statement: I reviewed the patient's lab results. 06/23/24 17:25 06/23/24 17:25 Labs: Lab Results 06/23/24 06/24/24 Range/Units 17:25 01:35 WBC 6.7 (4.8-10.8) X10*3/uL RBC 4.09 L (4.60-5.80) X10*6/uL Hgb 12.3 L (14.0-18.0) g/dl Hct 36.7 L (42.0-52.0) % MCV 89.7 (80.0-98.0) fL MCH 30.1 (27.0-33.0) pg MCHC 33.5 (31.0-36.0) g/dl RDW 14.2 (11.0-16.0) % Plt Count 250 (160-400) X10*3/uL MPV 9.7 (9.4-12.4) fL Immature Gran % (Auto) 0.8 H (0.0-0.4) % Neut % (Auto) 78.4 H (45-73) % Lymph % (Auto) 13.1 L (20-40) % [place] % (Auto) 5.4 (2-11) % Eos % (Auto) 1.8 (0-4) % Baso % (Auto) 0.5 (0-2) % Lymph # (Auto) 0.9 L (1.2-4.9) X10*3/uL [place] # (Auto) 0.4 (0.1-1.2) X10*3/uL Eos # (Auto) 0.1 (0.0-0.4) X10*3/uL Baso # (Auto) 0.0 (0.0-0.2) X10*3/uL Abs Immat Gran (auto) 0.05 H (0.00-0.03) X10*3/uL Absolute Neuts (auto) 5.2 (2.0-8.3) x10*3/uL Absolute Nucleated RBC 0.000 (0.0-0.012) X10*3/uL Nucleated RBC % (auto) 0.0 (0.0-0.2) /100WBC Sodium 139 (135-145) mmol/L Potassium 4.1 (3.3-5.1) mmol/L Chloride 106 (96-108) mmol/L Carbon Dioxide 26 (22-29) mmol/L Anion Gap 11 L (12-20) BUN 11 (9-16) mg/dL Creatinine 0.88 (0.5-1.4) mg/dL Estim Creat Clear Calc 98.4 Estimated GFR > 60 Random Glucose 210 H (60-115) mg/dL Calcium 9.3 (8.4-10.2) mg/dL Magnesium 1.7 (1.6-2.6) mg/dL Total Bilirubin 1.3 H (0.0-1.0) mg/dL AST 22 (5-37) U/L ALT 26 (0-40) U/L Alkaline Phosphatase 115 (39-117) U/L Troponin I High Sens 12.4 12.3 (<3.5-35.0) ng/L B-Natriuretic Peptide 337 H (<100) pg/mL Total Protein 7.3 (6.5-8.0) g/dL Albumin 4.1 (3.5-5.0) g/dL Influenza Type A (PCR) NEGATIVE (Negative) Influenza Type B (PCR) NEGATIVE (Negative) RSV RNA Qual (PCR) NEGATIVE (Negative) SARS-CoV-2 RNA (RT-PCR) NEGATIVE (Negative) Independent Interpretation I performed an independent interpretation of an: EKG Interpretation: Sinus tachycardia heart rate 108 LVH nonspecific STT wave changes no acute ischemia Radiology Impression Discussion of test interpretation with radiology: I have reviewed the radiologist's reading. Radiologist Impression: [address] [address] XRay Report Signed Patient: Mega Gtz MR#: [id number] : 1960 Acct:[id number] Age/Sex: 63 / M ADM Date: 06/23/24 Loc: .ED Attending Dr: Ordering Physician: Lindsay Starkey Date of Service: 06/23/24 Procedure(s): XR chest 2V Accession Number(s): [id number] cc: Dotty Hernandez PA-C; Lindsay Starkey~ CLINICAL HISTORY: sob, cough 2 view chest x-ray Comparison: CR/SR - XR CHEST 1V - 02/01/24 11:06 EST Findings: Eventration of the right hemidiaphragm without change. No consolidation or pleural effusion. Heart size is normal. No acute fracture. IMPRESSION: 1. No acute findings. This document has been electronically signed by: Vera Connor MD on 06/23/2024 18:06:24 Discharge Plan Discharge Clinical Impression: Chronic congestive heart failure Patient Disposition: Home, Self-Care Instructions: Heart Failure (ED) Additional Instructions: Continue take your medication as prescribed by your PCP Will add furosemide 20 mg daily Follow up with your transportation maintenance specialist as scheduled Prescriptions: New furosemide [Lasix] 20 mg tablet 20 mg PO QAM Qty: 30 0RF No Action (DME) FreeStyle Noe 2 Sensor Kit See Rx Instructions .Route Qty: 1 0RF Rx Instructions: As directed FreeStyle Noe 3 Deep Gap Misc See Rx Instructions .ROUTE .COMPLEX Qty: 1 0RF Dose Instruction: Please specify directions, refills and quantity Rx Instructions: Please specify directions, refills and quantity insulin glargine [Lantus Solostar U-100 Insulin] 100 unit/mL (3 mL) insulin pen 70 unit subcut BEDTIME carvedilol 6.25 mg tablet 6.25 mg PO BID Rx Instructions: must administer with a meal/food valsartan 40 mg tablet 20 mg PO BID Protocol: Hold for SBP< HOLD for SBP < : 90 Ozempic 0.25 mg or 0.5 mg (2 mg/3 mL) pen injector 0.25 mg subcut QWEEK Qty: 3 0RF Rx Instructions: for 4 weeks cyclobenzaprine 5 mg tablet 5 mg PO BEDTIME PRN (Reason: muscle spasm) Qty: 30 0RF Eliquis 5 mg tablet 5 mg PO BID 90 Days Qty: 180 3RF Rx Instructions: Blood thinner atorvastatin 80 mg tablet 80 mg PO BEDTIME 90 Days Qty: 90 3RF Rx Instructions: Cholesterol lowering medication Interventions: ED Discharge Assessment Last Done: 06/24/24 05:48 Discharge Date/Time: 06/24/24 05:49 Print Language: English
[2024-06-23 17:33] LABS: Basophils Percent Auto 0.5 % (0-2); Eosinophils Absolute Auto 0.1 X10*3/uL (0.0-0.4); Eosinophils Percent Auto 1.8 % (0-4); Hematocrit 36.7 % (42.0-52.0); Hemoglobin 12.3 g/dl (14.0-18.0); Imm Gran Abs Auto 0.05 X10*3/uL (0.00-0.03); Imm Gran Pct Auto 0.8 % (0.0-0.4); Lymphocytes Absolute Auto 0.9 X10*3/uL (1.2-4.9); Lymphocytes Percent Auto 13.1 % (20-40); MANUAL DIFF FLAG NO; Mean Corpuscular HGB Conc 33.5 g/dl (31.0-36.0); Mean Corpuscular Hemoglobin 30.1 pg (27.0-33.0); Mean Corpuscular Volume 89.7 fL (80.0-98.0); Mean Platelet Volume 9.7 fL (9.4-12.4); Monocytes Absolute Auto 0.4 X10*3/uL (0.1-1.2); Monocytes Percent Auto 5.4 % (2-11); Neutrophils Absolute Auto 5.2 x10*3/uL (2.0-8.3); Neutrophils Percent Auto 78.4 % (45-73); Platelet Count 250 X10*3/uL (160-400); Red Blood Count 4.09 X10*6/uL (4.60-5.80); Red Cell Distribution Width 14.2 % (11.0-16.0); White Blood Count 6.7 X10*3/uL (4.8-10.8)
[2024-06-23 17:55] LABS: Alanine Aminotransferase 26 U/L (0-40); Albumin Level 4.1 g/dL (3.5-5.0); Alkaline Phosphatase 115 U/L (39-117); Anion Gap 11 (12-20); Aspartate Amino Transferase 22 U/L (5-37); B Type Natriuretic Peptide 337 pg/mL (<100); Bilirubin Total 1.3 mg/dL (0.0-1.0); Blood Urea Nitrogen 11 mg/dL (9-16); Calcium 9.3 mg/dL (8.4-10.2); Carbon Dioxide 26 mmol/L (22-29); Chloride 106 mmol/L (96-108); Creatinine Clr Calc Pharmacy 98.4; Estimated Glomerular Filt Rate > 60; Glucose Random 210 mg/dL (60-115); Magnesium 1.7 mg/dL (1.6-2.6); Potassium 4.1 mmol/L (3.3-5.1); Sodium 139 mmol/L (135-145); Total Protein 7.3 g/dL (6.5-8.0); Troponin-I High Sensitivity 12.4 ng/L (<3.5-35.0)
[2024-06-23 18:13] LABS: Influenza A PCR NEGATIVE (Negative); Influenza B PCR NEGATIVE (Negative); Resp Syncy Virus RNA Qual PCR NEGATIVE (Negative); SARS COV2 PCR INHOUSE NEGATIVE (Negative)
[2024-06-24 01:59] LABS: Troponin-I High Sensitivity 12.3 ng/L (<3.5-35.0)
[2024-06-24 02:26] VITALS: BP 144/101; PULSE 104; RESP 19; TEMP 36.7; O2SAT 96
[2024-06-24 05:43] VITALS: BP 131/89; PULSE 98; RESP 20; TEMP 36.7; O2SAT 98
[2024-06-24] MEDS: Furosemide 20 MG TABLET PO (05:44)
[2024-06-24 05:48] VITALS: BP 131/89; PULSE 98; RESP 20; TEMP 36.7; O2SAT 98
== END 2024-06-24 05:49 | disposition home or self-care (01) ==
PROVIDERS: Physician Assistant Medical; Emergency Provider Internal Medicine
DX: I11.0 Hypertensive heart disease with heart failure (principal); I50.9 Heart failure, unspecified; E11.9 Type 2 diabetes mellitus without complications; Z79.01 Long term (current) use of anticoagulants; Z03.818 Encounter for observation for suspected exposure to other biological agents ruled out
CPT/HCPCS: 0241U; 36415; 71046; 80053; 83735; 83880; 84484; 85025; 93005; 99283; 99284

== ENCOUNTER → 2024-06-23 17:18 | Outpatient (BNV) | payer MEDICARE, MEDICAID, SELFPAY | PROVIDERS: Visit Provider Radiology Diagnostic Radiology | DX: R06.02 Shortness of breath (principal); R05.9 Cough, unspecified | CPT/HCPCS: 71046 ==

== ENCOUNTER → 2024-06-23 17:18 | Outpatient (BNV) | payer MEDICARE, MEDICAID, SELFPAY | PROVIDERS: Emergency Provider Internal Medicine; Visit Provider Internal Medicine Cardiovascular Disease | DX: I51.7 Cardiomegaly (principal); R00.0 Tachycardia, unspecified | CPT/HCPCS: 93010 ==

== ENCOUNTER 2024-06-25 10:41 | Outpatient (REF) | payer MEDICARE, MEDICAID, SELFPAY ==
--- NOTE | ~2024-06-25 | XR_ITS ---
EXAMINATION: XR SHOULDER, LEFT CLINICAL INFORMATION: M25.512 - Pain in left shoulder COMPARISON: None available. TECHNIQUE: AP external rotation, Grashey, scapular Y, and axillary views of the left shoulder. FINDINGS: Normal bone mineralization. No fracture, dislocation, or suspicious bone lesion. Normal alignment. The glenohumeral demonstrates mild to moderate osteoarthrosis. Normal alignment. The AC joint demonstrates mild spurring, predominantly superior surface. There is a type III acromion. No undersurface spurring. The subacromial space is preserved. Remainder of the soft tissue and bony structures appear normal. XR/XR shoulder LT min 2V IMPRESSION: 1. Degenerative changes as discussed. No acute bony findings. Electronically signed by: Neeraj Heaton MD 06/26/2024 09:07 AM EDT
[2024-06-25 10:56] LABS: MANUAL DIFF FLAG NO
[2024-06-25 11:38] LABS: Basophils Percent Auto 0.6 % (0-2); Eosinophils Absolute Auto 0.2 X10*3/uL (0.0-0.4); Eosinophils Percent Auto 4.3 % (0-4); Hemoglobin 13.4 g/dl (14.0-18.0); Imm Gran Abs Auto 0.05 X10*3/uL (0.00-0.03); Lymphocytes Percent Auto 18.8 % (20-40); Mean Corpuscular HGB Conc 32.7 g/dl (31.0-36.0); Mean Corpuscular Hemoglobin 29.7 pg (27.0-33.0); Mean Corpuscular Volume 90.9 fL (80.0-98.0); Mean Platelet Volume 9.8 fL (9.4-12.4); Monocytes Absolute Auto 0.3 X10*3/uL (0.1-1.2); Monocytes Percent Auto 5.1 % (2-11); Neutrophils Absolute Auto 3.6 x10*3/uL (2.0-8.3); Neutrophils Percent Auto 70.2 % (45-73); Platelet Count 297 X10*3/uL (160-400); Red Blood Count 4.51 X10*6/uL (4.60-5.80); White Blood Count 5.1 X10*3/uL (4.8-10.8)
[2024-06-25 12:43] LABS: Alanine Aminotransferase 23 U/L (0-40); Albumin Level 4.2 g/dL (3.5-5.0); Alkaline Phosphatase 111 U/L (39-117); Anion Gap 12 (12-20); Aspartate Amino Transferase 15 U/L (5-37); Bilirubin Total 1.2 mg/dL (0.0-1.0); Blood Urea Nitrogen 9 mg/dL (9-16); Calcium 9.5 mg/dL (8.4-10.2); Carbon Dioxide 30 mmol/L (22-29); Chloride 103 mmol/L (96-108); Cholesterol 193 mg/dL (<200); Estimated Glomerular Filt Rate > 60; Free T4 (Free Thyroxine) 0.99 ng/dL (0.71-1.85); Glucose Random 207 mg/dL (60-115); HDL Cholesterol 45 mg/dL (>40); LDL Cholesterol Calculated 122 mg/dL (<100); Potassium 4.7 mmol/L (3.3-5.1); Sodium 140 mmol/L (135-145); TSH reflex Free T4 1.56 uIU/mL (0.32-4.0); Total Protein 7.5 g/dL (6.5-8.0); Triglycerides 132 mg/dL (<150); Vitamin D 25-OH Total 11.3 ng/mL (>30)
[2024-06-25 12:57] LABS: Folate 13.4 ng/mL (> or = 4.0); Vitamin B12 < 148 pg/mL (200-900)
== END 2024-06-25 10:42 | disposition home or self-care (01) ==
LOC: HO.XRAY 10:41
DX: Z00.00 Encounter for general adult medical examination without abnormal findings (principal); E78.00 Pure hypercholesterolemia, unspecified; M24.112 Other articular cartilage disorders, left shoulder; Z12.5 Encounter for screening for malignant neoplasm of prostate
CPT/HCPCS: 33285; 36415; 73030; 80053; 80061; 82306; 82607; 82746; 84153; 84439; 84443; 85025; C1764

== ENCOUNTER → 2024-06-25 10:57 | Outpatient (BNV) | payer MEDICARE, MEDICAID, SELFPAY | PROVIDERS: Visit Provider Radiology Diagnostic Radiology | DX: M25.512 Pain in left shoulder (principal) | CPT/HCPCS: 73030 ==

== ENCOUNTER 2024-06-25 12:37 | Outpatient (AMB) | payer MEDICARE, MEDICAID, SELFPAY ==
--- NOTE | 2024-06-25 14:46 | A.OFFVIS_ITS ---
Intake Visit Reasons: ILR insertion- Medtr[employer] - room 19 MOB Allergies No Known Allergies Allergy (Verified 06/23/24 17:17) PFSH Medical History Hyperlipidemia Diabetes mellitus Surgical History History of cardiac cath Family History (Reviewed 06/24/24 @ 05: by Griffin Dahl MD) Mother Stroke Father Stroke Social History Household Members: Spouse Housing: Apartment Do you presently have visiting nurse or other home services: No Patient Tobacco Use Status: Former Tobacco user Tobacco use type: Cigarette Cigarette Packs Per Day: 1.5 Cigarettes Per Day: 30.0 e-Cigarette/Vaping Use: Never Used Second Hand Smoke Exposure: Yes Substance Use Type: Crack/Cocaine Advance Directives Date on File: 01/18/24 service: No Current occupational status: employed Cognitive needs: No Hearing needs: No Vision needs: No Office Procedures Office Procedure Office Procedure Documentation Office Procedure Documentation: Indication: Cerebral infarct Procedure date: 06/25/2024 Referring provider: Farrah Lopez Technique: After obtaining informed consent patient was brought to the office minor surgery room. Patient was then laid on the operating table in supine position. The precordial area was then shaved. Precordial area was then prepped and draped in a sterile fashion. Patient was then given 1% lidocaine with epinephrine intradermally and subcutaneously in the 4th intercostal space. A small incision was then made and a [employer] LINQ 2 implantable loop recorder with serial number [id number] was implanted using modified Seldinger technique in the subcutaneous space. Measured R-waves were 0.78-1 mV. The wound was then closed with Steri-Strips and pressure dressing was applied. Blood loss: Less than 5 mL Patient tolerated the procedure well and was discharged home Assessment & Plan Assessment & Plan (1) Cerebrovascular accident: Code(s): I63.9 - Cerebral infarction, unspecified Category: Medical Qualifiers: CVA mechanism: unspecified Qualified Code(s): I63.9 - Cerebral infarction, unspecified Plan: See above Medications: Discontinued semaglutide (Ozempic) for 4 weeks Discontinued Reason: Patient no longer taking 0.25 mg (0.368 mL) subcut QWEEK 3 mL 0RF Coding Level of Care Code Procedure Only Diagnoses Cerebrovascular accident I63.9 CVA mechanism: unspecified
== END 2024-06-25 13:17 | disposition home or self-care (01) ==
LOC: HO.HCS 12:37
PROVIDERS: Visit Provider Internal Medicine Cardiovascular Disease
DX: I63.9 Cerebral infarction, unspecified (principal)
CPT/HCPCS: 33285

== ENCOUNTER → 2024-07-02 13:29 | Outpatient (BNVA) | payer MEDICARE, MEDICAID, SELFPAY | DX: Z13.89 Encounter for screening for other disorder (principal) ==

== ENCOUNTER 2024-07-08 08:54 | Outpatient (AMB) | payer MEDICARE, MEDICAID, SELFPAY ==
[2024-07-08 09:06] VITALS: BP 138/80; PULSE 102; BMI 29.5
--- NOTE | 2024-07-08 09:06 | A.OFFVIS_ITS ---
Vital Signs 07/08/24 09:06 Height 5 ft 11 in Weight 211 lb 10.3 oz BMI 29.5 BP 138/80 Blood Pressure Location Lt brachial Position Sitting Pulse 102 H Pulse Source Pulse Oximeter Intake Visit Reasons: wound check Supervisor Sewer System Required: No Pack Puller: Pack Puller Present Allergies No Known Allergies Allergy (Verified 07/08/24 09:08) Medication List - Last Reconciled 07/08/24 by RUPERTO Landrum apixaban (Eliquis) 5 mg PO BID 90 days atorvastatin 80 mg PO BEDTIME 90 days blood-glucose,backup sawyer,cont (FreeStyle Noe 3 [place]) Please specify directions, refills and quantity carvedilol 6.25 mg PO BID cholecalciferol (vitamin D3) 25 mcg PO DAILY cyanocobalamin (vitamin B-12) 1,000 mcg PO DAILY cyclobenzaprine 5 mg PO BEDTIME PRN dulaglutide (Trulicity) 0.75 mg (0.5 mL) subcut QWEEK flash glucose sensor ([employer] Noe 2 Sensor kit) As directed furosemide (Lasix) 20 mg PO QAM insulin glargine (Lantus Solostar U-100 Insulin) 70 units subcut BEDTIME mecobalamin (vitamin B12) 1,000 mcg PO DAILY valsartan 20 mg See Protocol PO BID HPI HPI wound check: Details: Mega is a 63 yo male with PMH of HTN, DM, HLD who was admitted to [facility] [place] 01/[place]24 with left sided weakness and found to have acutes small coritcal infarcts suggestive of embolic events. During his admission he had echocardiogram showing EF 15-20%. He was started on Eliquis for anticoagulation and GDMT. He had an outpatient cardiac catheterization done on 02/27 showing right PDA 80% stenosis, no significant disease elsewhere and was determined to have nonischemic cardiomyopathy. On last visit he reported not taking home medications and they were reordered for him. He underwent ILR placement on 06/25/24 and now presents for follow up. Today he reports that he has been taking his medications bid since last visit. His ILR site has mild soreness. He continues to have left arm weakness and pain in the left shoulder when he raises his left arm with his right arm. He is able to ambulate steady and denies left leg weakness. His speech is clear and appropriate. 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 No new neurological symptoms. No chest discomfort at rest or during activity. No shortness of breath, PND, orthopnea or edema. No heart palpitations, lightheadedness, presyncope, syncope. Significant other is present and she is assisting with Taiwanese will slation at their request. She confirms med compliance. [facility] Medical History Hyperlipidemia Diabetes mellitus Surgical History History of cardiac cath Family History Mother Stroke Father Stroke Social History Household Members: Spouse Housing: Apartment Do you presently have visiting nurse or other home services: No Patient Tobacco Use Status: Former Tobacco user Tobacco use type: Cigarette Cigarette Packs Per Day: 1.5 Cigarettes Per Day: 30.0 e-Cigarette/Vaping Use: Never Used Second Hand Smoke Exposure: Yes Substance Use Type: Crack/Cocaine Advance Directives Date on File: 01/18/24 service: No Current occupational status: employed Cognitive needs: No Hearing needs: No Vision needs: No Review of Systems Const All systems reviewed & are unremarkable except as noted in HPI and below ENT Denies dizziness Card Denies chest pain, Denies chest pain at rest, Denies chest pain with activity, Denies rapid heart rate, Denies pedal edema, Denies edema, Denies leg edema, Denies lightheadedness, Denies palpitations, Denies dyspnea, Denies dyspnea on exertion and Denies orthopnea Resp Denies cough, Denies dyspnea and Denies dyspnea on exertion GI Denies hematochezia and Denies change in stool character Musc Denies abnormal gait, Denies limited range of motion, Denies muscle cramps, Denies muscle weakness, Denies numbness, Denies radiating pain into limb, Denies stiffness and Denies tingling Neuro Denies abnormal gait, Denies dizziness, Denies numbness and Denies tingling Endo Denies palpitations Physical Exam Vital Signs: Last Vital Signs BP 138/80 07/08/24 09:06 BMI result Body Mass Index 29.5 Const General: cooperative, healthy appearing, comfortable and no acute distress Orientation/consciousness: patient oriented x3 Neck Neck: Yes normal visual inspection Chest Other: ILR site: dressing and steri strips removed - site well approximated, no redness, swelling or drainage, left open to air. Resp Effort & Inspection: normal respiratory effort Auscultation: clear to auscultation bilaterally, no rales, no rhonchi and no wheezes Cardio Rate: regular rate Rhythm: regular rhythm Heart sounds: S1 normal heart sound present, S2 normal heart sound present, no murmurs and no rubs Neuro General: patient oriented x3 Extrem General: Yes normal to inspection and No no pedal edema Psych Appearance: grossly normal Mental Status: mental status grossly normal Speech and movement: Normal speech and movement present Assessment & Plan Assessment & Plan (1) Cardiomyopathy: Code(s): I42.9 - Cardiomyopathy, unspecified Category: Medical Plan: New finding of Nonischemic cardiomyopathy, 01/2024. Echocardiogram showed EF 15-20%, global hypokinesis. He did undergo cardiac catheterization as outpatient showing right PDA 80% stenosis, otherwise no significant CAD. His degree of CAD was out of proportion with his degree of cardiomyopathy. On follow up visit 06/13/24 He reported not taking medications. GDMT was reordered at that time and he now reports compliance. He does not appear fluid overloaded on exam. Pulse is elevated today. BP 138/80. Will increase Carvedilol to 12.5mg bid. Continue valsartan for neurohormonal modulation. Continue lasix. The ongoing importance of medication use reviewed with him. Cardiology follow-up in 1 month to assess med compliance and for further med titration. Instructed on obtaining labs prior to that visit. Plan for limited echo after 3 months med management. (2) Cerebrovascular accident: Code(s): I63.9 - Cerebral infarction, unspecified Category: Medical Qualifiers: CVA mechanism: unspecified Qualified Code(s): I63.9 - Cerebral infarction, unspecified Plan: CVA with left-sided weakness 01/17/2024. MRI showed several foci of acute infarcts in the right frontal and parietal region. He was seen by Neurology and thought to have an embolic source. Echocardiogram showed normal valves and no intracardiac shunting. Holter monitor done 01/22/2024 for 27 days showed sinus rhythm with average heart rate 92, 42% of the time heart rate greater than 100, rare VE and SVE. EKG done last visit showed sinus tachycardia rate 103. No AFib has been seen on him. An ILR was inserted 06/25/[address] Hernandez. Interrogation today showed no alerts/ arrythmia. Will continue to monitor for atrial fibrillation. Continue Eliquis for anticoagulation. (3) S/P cardiac cath: Comment: 02/28/2024 left main normal, lad mild irregularities less than 30% stenosis, left circumflex mild irregularities less than 30% stenosis, right PDA 80% stenosis. Code(s): Z98.890 - Other specified postprocedural states Category: Surgical Plan: As above (4) H/O: HTN (hypertension): Code(s): Z86.79 - Personal history of other diseases of the circulatory system Category: Medical Plan: [place] goal less than 130/80. Near goal Increasing carvedilol and continue valsartan. Next visit, planning to change to entresto. (5) Visit for wound check: Code(s): Z51.89 - Encounter for other specified aftercare Category: Medical Plan: ILR site healing without issues, well approximated. (6) Implantable loop recorder present: Comment: 06/25/[address] Hernandez Code(s): Z95.818 - Presence of other cardiac implants and grafts Category: Medical Plan: Medtronic ILR in place. Interrogation today - no alerts. He has home monitor, currently not connecting. He will go home and check that it is plugged in and working. Plan to follow remotely. Plan Time spent on chart review, documentation, interview and assessment Orders: Orders Complete Blood Count no Diff Today I42.9 - Cardiomyopathy, unspecified, I63.9 - Cerebral infarction, unspecified B Type Natriuretic Peptide Today I42.9 - Cardiomyopathy, unspecified, I63.9 - Cerebral infarction, unspecified Basic Metabolic Panel Today I42.9 - Cardiomyopathy, unspecified, I63.9 - Cerebral infarction, unspecified Medications: New carvedilol must administer with a meal/food 12.5 mg PO BID 60 tabs 5RF Coding Level of Care Code Est Pt Level 4 (79392) Complex EM visit Add On G2211 Diagnoses Cardiomyopathy I42.9 Cerebrovascular accident I63.9 CVA mechanism: unspecified S/P cardiac cath Z98.890 H/O: HTN (hypertension) Z86.79 Visit for wound check Z51.89 Implantable loop recorder present Z95.818
== END 2024-07-08 09:34 | disposition home or self-care (01) ==
LOC: HO.HCS 08:55
PROVIDERS: Visit Provider Nurse Practitioner Family
DX: I42.9 Cardiomyopathy, unspecified (principal); I63.9 Cerebral infarction, unspecified; Z98.890 Other specified postprocedural states; Z86.79 Personal history of other diseases of the circulatory system; Z51.89 Encounter for other specified aftercare; Z95.818 Presence of other cardiac implants and grafts
CPT/HCPCS: 99214; G2211

== ENCOUNTER → 2024-07-08 08:54 | Outpatient (BNVA) | payer MEDICARE, MEDICAID, SELFPAY | PROVIDERS: Visit Provider Nurse Practitioner Family | DX: I10 Essential (primary) hypertension (principal); I42.9 Cardiomyopathy, unspecified; Z86.73 Personal history of transient ischemic attack (TIA), and cerebral infarction without residual deficits; Z98.890 Other specified postprocedural states; Z86.79 Personal history of other diseases of the circulatory system; Z51.89 Encounter for other specified aftercare; Z95.818 Presence of other cardiac implants and grafts | CPT/HCPCS: 99212 ==

== ENCOUNTER 2024-07-14 09:48 | Outpatient (AMB) | payer MEDICARE, MEDICAID, SELFPAY ==
[2024-07-14 09:51] VITALS: BP 138/88; PULSE 97; O2SAT 94; BMI 31.0
--- NOTE | 2024-07-14 09:51 | MHC.OFFVIS ---
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 Required: No Accompanied by: girlfriend Allergies No Known Allergies Allergy (Verified 07/14/24 09:56) Medication List - Last Reconciled 07/14/24 by Es Hager PA-C apixaban (Eliquis) 5 mg PO BID 90 days atorvastatin 80 mg PO BEDTIME 90 days blood-glucose sensor (FreeStyle Noe 3 Plus Sensor device) Use daily As directed to monitor glucose blood-glucose,anesthesiology medical doctor,cont (FreeStyle Noe 3 [place]) Please specify directions, refills and quantity carvedilol 12.5 mg PO BID cholecalciferol (vitamin D3) 25 mcg PO DAILY cyanocobalamin (vitamin B-12) 1,000 mcg PO DAILY cyclobenzaprine 5 mg PO BEDTIME PRN flash glucose sensor (FreeStyle Noe 2 Sensor kit) As directed furosemide (Lasix) 20 mg PO QAM insulin glargine (Lantus Solostar U-100 Insulin) 40 units subcut BID mecobalamin (vitamin B12) 1,000 mcg PO DAILY metformin 1,000 mg PO DAILY valsartan 20 mg See Protocol PO BID HPI HPI Type 2 diabetes mellitus without complications: Details: Patient is a 63-year-old male with a significant past medical history of uncontrolled type 2 diabetes, prior CVA, cardiomyopathy, hypertension, hyperlipidemia, CAD presenting today for initial visit regarding type 2 diabetes. Radha here to help with translation. Endo: Dm-last A1c was 10.7. He was diagnosed with diabetes around [id number]. His current regimen is Lantus 70 units at bedtime, Trulicity 0.75 mg weekly and metformin 1000 mg twice a day. He is accompanied today by his girlfriend who has been with him for the last 3 years. She states that his short term memory is not as good as his long-term memory following his stroke. She often finds that she has to repeat things. He has only been on insulin as he was told he was a type 1 diabetic. He states some years ago he was put on metformin and has been on this along with the insulin. His pcp recently started him on trulicity but he has not States that his brother is a diabetic and he believes also a type 1. After a very long discussion, it is clear to me that he does not actually know for sure that he is a type 1 diabetic. He has never had diabetic Education. He has not met with a abrasives sales representative. CGM-states that he had 1 awhile ago but has not used 1 recently. Denies any hypoglycemic events. CV: Blood pressure today in the office is 138/88. He is currently on carvedilol 12.5 mg twice a day, furosemide 20 mg daily, valsartan 20 mg b.i.d.. He is on atorvastatin 80 mg at bedtime. Last LDL was 122. He is anticoagulated with Eliquis 5 mg twice a day. [facility] Medical History (Updated 07/14/24 @ 09:59 by Es Hager PA-C) Hyperlipidemia Diabetes mellitus Surgical History History of cardiac cath Family History Mother Stroke Father Stroke Social History Household Members: Spouse Housing: Apartment Do you presently have visiting nurse or other home services: No Patient Tobacco Use Status: Former Tobacco user Tobacco use type: Cigarette Cigarette Packs Per Day: 1.5 Cigarettes Per Day: 30.0 e-Cigarette/Vaping Use: Never Used Second Hand Smoke Exposure: Yes Substance Use Type: Crack/Cocaine Advance Directives Date on File: 01/18/24 service: No Current occupational status: employed Cognitive needs: No Hearing needs: No Vision needs: No Physical Exam Const Orientation/consciousness: patient oriented x3 Neck Neck: Yes no lymphadenopathy Thyroid: Thyroid normal Carotids: no bruits Resp Auscultation: clear to auscultation bilaterally Cardio Rate: regular rate Rhythm: regular rhythm Heart sounds: S1 normal heart sound present and S2 normal heart sound present Peripheral pulses: dorsalis pedis present Neuro General: patient oriented x3, gait normal and no focal motor deficits Extrem Other: Skin intact. General: Yes normal to inspection Results Reviewed Results Reviewed: Laboratory Tests 04/12/23 06/18/24 06/25/24 09:34 11:59 10:51 Sodium 140 Potassium 4.7 Chloride 103 Carbon Dioxide 30 H Anion Gap 12 BUN 9 Creatinine 0.81 Estimated GFR > 60 Random Glucose 207 H Hgb A1c (Clinic) 10.7 H Calcium 9.5 AST 15 ALT 23 Triglycerides 132 Cholesterol 193 LDL Cholesterol, Calc 122 H HDL Cholesterol 45 Urine Creatinine 134.74 Urine Microalbumin 145.0 Microalb/Creat Ratio 107.6 H Assessment & Plan Assessment & Plan (1) Uncontrolled type 2 diabetes mellitus with hyperglycemia, with long-term current use of insulin: Code(s): E11.65 - Type 2 diabetes mellitus with hyperglycemia; Z79.4 - technical sales representative (current) use of insulin Category: Medical Plan: 75 minutes today is spent in brjg-oq-enis time discussing the pathophysiology of diabetes, the differences between type 1 and type 2 diabetes and complications associated with diabetes. adamant he is a t1dm. -we will hold Trulicity until labs return. Did discuss that if he is a type 2 diabetic I would recommend initiating this. labs ordered today start lantus 40 units BID start humalog 3 units sensor applied to arm today downloaded the yolie reviewed signs and symptoms of hyper and hypoglycemia that would require emergent medical treatment rule of 15s reviewed glucose tabs ordered and glucagon nasal spray. (2) Microalbuminuria due to type 2 diabetes mellitus: Code(s): E11.29 - Type 2 diabetes mellitus with other diabetic kidney complication; R80.9 - Proteinuria, unspecified Category: Medical Plan: will monitor (3) Hyperlipidemia: Code(s): E78.5 - Hyperlipidemia, unspecified Category: Medical Plan: not at goal, his goal is <70 recently on lipitor 80 mg and reports recent compliance (4) Hypertension: Code(s): I10 - Essential (primary) hypertension Category: Medical Plan: continue current plan (5) Noncompliance: Code(s): Z91.199 - Patient's noncompliance with other medical treatment and regimen due to unspecified reason Category: Medical Plan: discussed importance of medication compliance and risks associated with noncompliance including but no limited to stroke, heart attacks, early , amputations, infections, blindness, kidney disease, etc Orders: Orders Glutamic acid decarboxylase Ab Today E11.29 - Type 2 diabetes mellitus with other diabetic kidney complication, E11.65 - Type 2 diabetes mellitus with hyperglycemia, R80.9 - Proteinuria, unspecified, Z79.4 - penitentiary (current) use of insulin C Peptide Today E11.29 - Type 2 diabetes mellitus with other diabetic kidney complication, E11.65 - Type 2 diabetes mellitus with hyperglycemia, R80.9 - Proteinuria, unspecified, Z79.4 - technical sales representative (current) use of insulin Islet Cell Antibody Scrn/Titer Today E11.29 - Type 2 diabetes mellitus with other diabetic kidney complication, E11.65 - Type 2 diabetes mellitus with hyperglycemia, R80.9 - Proteinuria, unspecified, Z79.4 - technical sales representative (current) use of insulin Medications: New glucose (Dex4 Glucose) until symptoms of low blood sugar are controlled 16 grams (4 x 4 gram) PO Q15M PRN 100 tabs 0RF hypoglycemia glucagon 3 mg/actuation 3 mg intranasal ONCE PRN 2 ea 0RF hypoglycemia blood-glucose sensor (FreeStyle Noe 3 Plus Sensor device) Use daily As directed to monitor glucose 2 ea 5RF E08.29 - Diabetes mellitus due to underlying condition with other diabetic kidney complication, R80.9 - Proteinuria, unspecified, Z79.4 - technical sales representative (current) use of insulin insulin lispro (Humalog KwikPen (U-100) Insulin) with breakfast, lunch and supper 3 units (0.03 mL) subcut TID 15 mL 0RF Patient Instructions: labs prior to me seeing you- try to do this week in the morning watch the sensor start lantus 40 units twice a day start humalog 3 units with meals HOLD trulicity until we confirm diabetes type. Coding Level of Care Code New Pt Level 5 (48717) Complex EM visit Add On G2211 Diagnoses Uncontrolled type 2 diabetes mellitus with hyperglycemia, with long-term current use of insulin E11.65; Z79.4 Microalbuminuria due to type 2 diabetes mellitus E11.29; R80.9 Hyperlipidemia E78.5 Hypertension I10 Noncompliance Z91.199
[2024-07-14 10:04] LABS: Glucose, Whole Blood 123 mg/dL (60-115)
== END 2024-07-14 10:47 | disposition home or self-care (01) ==
LOC: HO.ENCR 09:49
PROVIDERS: Visit Provider Physician Assistant
DX: E11.65 Type 2 diabetes mellitus with hyperglycemia (principal); Z79.4 Long term (current) use of insulin; E11.29 Type 2 diabetes mellitus with other diabetic kidney complication; R80.9 Proteinuria, unspecified; E78.5 Hyperlipidemia, unspecified; I10 Essential (primary) hypertension; Z91.199 Patient's noncompliance with other medical treatment and regimen due to unspecified reason

== ENCOUNTER → 2024-07-14 09:48 | Outpatient (BNVA) | payer OTHER, SELFPAY | PROVIDERS: Visit Provider Physician Assistant | DX: E11.65 Type 2 diabetes mellitus with hyperglycemia (principal); E11.29 Type 2 diabetes mellitus with other diabetic kidney complication; R80.9 Proteinuria, unspecified; E78.5 Hyperlipidemia, unspecified; I10 Essential (primary) hypertension; Z91.199 Patient's noncompliance with other medical treatment and regimen due to unspecified reason | CPT/HCPCS: 82947; 99202 ==

== ENCOUNTER 2024-07-15 16:21 | Emergency (ER) | payer OTHER, SELFPAY ==
--- NOTE | ~2024-07-15 | XR_ITS ---
CLINICAL HISTORY: CHest pain Single view of the chest. COMPARISON: XR chest dated 06/23/24 at 17:31 EDT FINDINGS: Cardiac monitoring device overlies the heart. Low lung volumes. Borderline cardiomegaly, likely exaggerated secondary to low lung volumes. Prominence of the central pulmonary vasculature. Hazy airspace opacities within the mid to lower lungs bilaterally. No definite pleural effusion. No pneumothorax. No acute fracture. IMPRESSION: 1. Hazy bilateral pulmonary opacities suggestive of pulmonary edema and/or multifocal infection. 2. Low lung volumes. This document has been electronically signed by: Mono Aguilar MD on 07/15/2024 17:02:57
[2024-07-15 16:32] VITALS: BP 160/104; PULSE 115; RESP 18; TEMP 36.6; O2SAT 97; BMI 28.6
--- NOTE | 2024-07-15 16:39 | ECG_ITS ---
Test Reason : SOB Blood Pressure : */* mmHG Vent. Rate : 113 BPM Atrial Rate : 113 BPM P-R Int : 168 ms QRS Dur : 94 ms QT Int : 366 ms P-R-T Axes : 57 7 86 degrees QTcB Int : 502 ms Sinus tachycardia with frequent Premature ventricular complexes Possible Left atrial enlargement Nonspecific T wave abnormality Abnormal ECG When compared with ECG of 23-Jun-2024 17:37, Premature ventricular complexes are now Present Referred By: Luis Spangler Electronically Signed By: EMILIANO TAM
--- NOTE | 2024-07-15 16:47 | MHC.EDTECH ---
EKG DELAYED PATIENT IN X-RAY AT 1647
[2024-07-15 17:08] LABS: MANUAL DIFF FLAG NO
[2024-07-15 17:15] LABS: Prothrombin Time 11.5 SEC (10.9-12.4)
[2024-07-15 17:18] LABS: Partial Thromboplastin Time 34.4 SEC (26.0-36.8)
[2024-07-15 17:26] LABS: Basophils Percent Auto 0.4 % (0-2); Eosinophils Absolute Auto 0.1 X10*3/uL (0.0-0.4); Eosinophils Percent Auto 1.5 % (0-4); Hematocrit 38.2 % (42.0-52.0); Hemoglobin 12.8 g/dl (14.0-18.0); Imm Gran Abs Auto 0.08 X10*3/uL (0.00-0.03); Lymphocytes Absolute Auto 0.7 X10*3/uL (1.2-4.9); Lymphocytes Percent Auto 8.7 % (20-40); Mean Corpuscular HGB Conc 33.5 g/dl (31.0-36.0); Mean Corpuscular Hemoglobin 30.3 pg (27.0-33.0); Mean Corpuscular Volume 90.5 fL (80.0-98.0); Mean Platelet Volume 10.1 fL (9.4-12.4); Monocytes Absolute Auto 0.3 X10*3/uL (0.1-1.2); Monocytes Percent Auto 4.1 % (2-11); Neutrophils Absolute Auto 6.7 x10*3/uL (2.0-8.3); Neutrophils Percent Auto 84.3 % (45-73); Platelet Count 251 X10*3/uL (160-400); Red Blood Count 4.22 X10*6/uL (4.60-5.80); Red Cell Distribution Width 13.2 % (11.0-16.0)
[2024-07-15 17:41] LABS: B Type Natriuretic Peptide 727 pg/mL (<100)
[2024-07-15 17:42] LABS: Troponin-I High Sensitivity 8.1 ng/L (<3.5-35.0)
--- NOTE | 2024-07-15 17:59 | ED_ITS ---
HPI - General Adult General Chief complaint: Dyspnea Stated complaint: SOB Time Seen by Provider: 07/15/24 21:15 History of Present Illness ED Provider: Eldon GOMEZ narrative: The patient is a 63-year-old male who was found to have what was thought to be a nonischemic cardiomyopathy with global hypokinesis in January of 2024. At that time he had a stroke and was found to have an ejection fraction of 15-20%. He is on medications for congestive heart failure including furosemide 20 mg daily. He also has an implanted loop rub quarter. The patient was last seen at the cardiology office a little over a week ago. At that time he reported that he had not been taking his medications. He is supposed to be taking 20 mg of furosemide daily. The patient comes to the emergency room today because of a 2-3 day history of worsening dyspnea on exertion. No fevers. Related Data Home Medications ?Medication ?Instructions ?Recorded ?Confirmed valsartan 40 mg tablet 20 mg PO BID 06/18/24 07/14/24 cyanocobalamin (vitamin B-12) 1,000 mcg PO DAILY 07/08/24 07/14/24 1,000 mcg sublingual tablet insulin glargine 100 unit/mL (3 40 unit subcut BID 07/14/24 07/14/24 mL) subcutaneous pen (Lantus Solostar U-100 Insulin) metformin 1,000 mg tablet 1,000 mg PO DAILY 07/14/24 07/14/24 Previous Rx's ?Medication ?Instructions ?Recorded apixaban 5 mg tablet (Eliquis) 5 mg PO BID 90 days #180 tabs 06/13/24 atorvastatin 80 mg tablet 80 mg PO BEDTIME 90 days #90 tabs 06/13/24 cyclobenzaprine 5 mg tablet 5 mg PO BEDTIME PRN muscle spasm 06/18/24 #30 tabs flash glucose sensor (FreeStyle #1 ea 06/20/24 Noe 2 Sensor kit) blood-glucose,glaze supervisor,cont See Rx Instructions .Route 06/24/24 (FreeStyle Noe 3 [place]) .COMPLEX #1 ea furosemide 20 mg tablet (Lasix) 20 mg PO QAM #30 tabs 06/24/24 cholecalciferol (vitamin D3) 25 25 mcg PO DAILY #90 caps 06/25/24 mcg (1,000 unit) capsule mecobalamin (vitamin B12) 1,000 1,000 mcg PO DAILY #30 tabs 06/26/24 mcg chewable tablet carvedilol 12.5 mg tablet 12.5 mg PO BID #60 tabs 07/08/24 blood-glucose sensor (FreeStyle #2 ea 07/14/24 Noe 3 Plus Sensor device) glucagon 3 mg/actuation nasal spray 3 mg intranasal ONCE PRN 07/14/24 hypoglycemia #2 ea glucose 4 gram chewable tablet 16 g (4 x 4 gram) PO Q15M PRN 07/14/24 (Dex4 Glucose) hypoglycemia #100 tabs insulin lispro 100 unit/mL 3 unit (0.03 mL) subcut TID #15 mL 07/14/24 subcutaneous pen (Humalog KwikPen (U-100) Insulin) furosemide 40 mg tablet 40 mg PO DAILY #30 tabs 07/15/24 Allergies Allergy/AdvReac Type Severity Reaction Status Date / Time No Known Allergies Allergy Verified 07/15/24 16:32 Review of Systems 2 Review of Systems: Yes all other systems are reviewed and are negative FORMERLY [facility], [facility] Past Medical History Medical History (Updated 07/16/24 @ 00:00 by Trev Perdue) Hyperlipidemia Diabetes mellitus Surgical History History of cardiac cath Family History Family History Mother Stroke Father Stroke Social History Social History Household Members: Spouse Housing: Apartment Do you presently have visiting nurse or other home services: No Patient Tobacco Use Status: Former Tobacco user Tobacco use type: Cigarette Cigarette Packs Per Day: 1.5 Cigarettes Per Day: 30.0 Smoked in Last 30 Days: No e-Cigarette/Vaping Use: Never Used Second Hand Smoke Exposure: Yes Use of substances other than those prescribed or required for medical reasons: No Substance Use Type: Crack/Cocaine Advance Directives: Yes Advance Directives on File: Yes Advance Directives Date on File: 01/18/24 service: No Current occupational status: employed Cognitive needs: No Hearing needs: No Vision needs: No Physical Exam ED Vital Signs: Vital Signs - 24 hr 07/15/24 23:53 Temperature 98.6 F Pulse Rate 76 Respiratory Rate 16 Blood Pressure 131/91 H Pulse Oximetry 99 Oxygen Delivery Method Room Air BMI result Body Mass Index 28.6 Const Other: The patient is a 63-year-old male who was awake and alert. He did not seem in acute distress or look obviously acutely ill. At rest he seemed comfortable. HENMT Other: Face is symmetrical, mucous membranes moist. Eyes General: appearance normal, both eyes and all related structures Neck Neck: Yes full ROM Resp Other: No increased work of breathing, he had crackles at the bases. Cardio Rate: regular rate Rhythm: regular rhythm Heart sounds: S1 normal heart sound present and S2 normal heart sound present GI Other: Abdomen is soft and nontender Skin Other: Skin is dry and unremarkable Neuro Other: The patient is awake and alert with a normal mental status. Cranial nerves are grossly intact. He moves his extremities symmetrically and appropriately. He has a steady gait. Extrem Other: Mild peripheral edema of the lower extremities Course Course Course Narrative: RME: 63 year old male presents to ED for shortness of breath patient states left-sided chest pain. Patient denies any leg swelling calf pain or coughing up blood. Lungs are clear. EKG labs chest x-ray ordered Medications Administered Discontinued Medications Generic Name Dose Route Start Last Admin Trade Name Freq PRN Reason Stop Dose Admin Furosemide 60 mg 07/15/24 21:25 07/15/24 21:41 Furosemide 100 Mg/10 Ml Vial IVPUSH 07/15/24 21:26 60 mg ONCE ONE Administration Protocol Medical Decision Making Medical Decision Making [facility] Narrative: The patient is a 63-year-old male with a history of a nonischemic cardiomyopathy. An echocardiogram done in January of 2024 showed an ejection fraction of 15-20% with the an impaired relaxation filling pattern. The patient presents with 2 days of worsening dyspnea on exertion. On exam he has crackles at the bases. Chest x-ray is consistent with congestive heart failure. His BNP today is 727. His BNP last month was 337. His BNP in January of 2024 was 320. The patient seems to have had an acute worsening of his chronic congestive heart failure. She does not describe any episodes of chest pain and he has a normal troponin. EKG shows sinus rhythm with frequent PVCs. As far as I can tell the patient is supposed to be on furosemide 20 mg daily but it was not clear that the patient understands this is a diuretic. The patient was not hypoxic on room air and looked comfortable at rest. The patient claims he has been taking his medications appropriately and consistently. The patient was given 60 mg of IV furosemide. He had a significant urine output and felt better. He was able to ambulate easily around the emergency department while maintaining a good oxygen saturation on room air. Given the elevated BNP in the findings on x-ray the patient was offered hospitalization for additional diuresis but the patient felt sufficiently improved after the IV furosemide that he preferred to go home. I will advise him to increase his furosemide to 40 mg daily and have written a prescription for this. He should follow up with the cardiology office soon or return to the ER if worse. Lab Data 07/15/24 17:02 07/15/24 17:02 Labs: Lab Results 07/15/24 Range/Units 17:02 WBC 8.0 (4.8-10.8) X10*3/uL RBC 4.22 L (4.60-5.80) X10*6/uL Hgb 12.8 L (14.0-18.0) g/dl Hct 38.2 L (42.0-52.0) % MCV 90.5 (80.0-98.0) fL MCH 30.3 (27.0-33.0) pg MCHC 33.5 (31.0-36.0) g/dl RDW 13.2 (11.0-16.0) % Plt Count 251 (160-400) X10*3/uL MPV 10.1 (9.4-12.4) fL Immature Gran % (Auto) 1.0 H (0.0-0.4) % Neut % (Auto) 84.3 H (45-73) % Lymph % (Auto) 8.7 L (20-40) % [place] % (Auto) 4.1 (2-11) % Eos % (Auto) 1.5 (0-4) % Baso % (Auto) 0.4 (0-2) % Lymph # (Auto) 0.7 L (1.2-4.9) X10*3/uL [place] # (Auto) 0.3 (0.1-1.2) X10*3/uL Eos # (Auto) 0.1 (0.0-0.4) X10*3/uL Baso # (Auto) 0.0 (0.0-0.2) X10*3/uL Abs Immat Gran (auto) 0.08 H (0.00-0.03) X10*3/uL Absolute Neuts (auto) 6.7 (2.0-8.3) x10*3/uL Absolute Nucleated RBC 0.000 (0.0-0.012) X10*3/uL Nucleated RBC % (auto) 0.0 (0.0-0.2) /100WBC PT 11.5 (10.9-12.4) SEC INR 1.0 (0.9-1.1) APTT 34.4 (26.0-36.8) SEC Sodium 141 (135-145) mmol/L Potassium 4.1 (3.3-5.1) mmol/L Chloride 102 (96-108) mmol/L Carbon Dioxide 30 H (22-29) mmol/L Anion Gap 13 (12-20) BUN 12 (9-16) mg/dL Creatinine 0.73 (0.5-1.4) mg/dL Estim Creat Clear Calc 124.5 Estimated GFR > 60 Random Glucose 210 H (60-115) mg/dL Calcium 9.5 (8.4-10.2) mg/dL Total Bilirubin 1.2 H (0.0-1.0) mg/dL AST 25 (5-37) U/L ALT 25 (0-40) U/L Alkaline Phosphatase 107 (39-117) U/L Troponin I High Sens 8.1 (<3.5-35.0) ng/L B-Natriuretic Peptide 727 H (<100) pg/mL Total Protein 7.5 (6.5-8.0) g/dL Albumin 4.3 (3.5-5.0) g/dL Influenza Type A (PCR) NEGATIVE (Negative) Influenza Type B (PCR) NEGATIVE (Negative) RSV RNA Qual (PCR) NEGATIVE (Negative) SARS-CoV-2 RNA (RT-PCR) NEGATIVE (Negative) Discharge Plan Discharge Clinical Impression: Acute exacerbation of chronic heart failure Patient Disposition: Home, Self-Care Instructions: Heart Failure (ED) Additional Instructions: Your testing today shows that you have some excess fluid on your lungs that is related to your heart problems. You received an intravenous dose of furosemide, a medication that makes you urinate a lot and helps get fluid off the lungs. Furosemide is one of your regular medications. Currently you has been prescribed furosemide 20 mg daily. Please increase this to 40 mg daily, double your current dose. I have sent a new prescription for this higher dose of furosemide. However in the morning you may simply take 2 of your current tablets of furosemide. In addition to increasing your furosemide dose please make sure that you take all of your additional regular medications every day. Also please call the cardiology office in the morning for a prompt follow up appointment for ongoing management of your breathing difficulty. If at any point you feel your breathing is significantly worse please return to the emergency room for further care. Prescriptions: New furosemide 40 mg tablet 40 mg PO DAILY Qty: 30 0RF No Action (DME) FreeStyle Noe 2 Sensor Kit See Rx Instructions .Route Qty: 1 0RF Rx Instructions: As directed FreeStyle Noe 3 [place] Misc See Rx Instructions .ROUTE .COMPLEX Qty: 1 0RF Dose Instruction: Please specify directions, refills and quantity Rx Instructions: Please specify directions, refills and quantity cholecalciferol (vitamin D3) 25 mcg (1,000 unit) capsule 25 mcg PO DAILY Qty: 90 3RF mecobalamin (vitamin B12) 1,000 mcg tablet,chewable 1,000 mcg PO DAILY Qty: 30 0RF furosemide [Lasix] 20 mg tablet 20 mg PO QAM Qty: 30 0RF valsartan 40 mg tablet 20 mg PO BID Protocol: Hold for SBP< HOLD for SBP < : 90 cyclobenzaprine 5 mg tablet 5 mg PO BEDTIME PRN (Reason: muscle spasm) Qty: 30 0RF Eliquis 5 mg tablet 5 mg PO BID 90 Days Qty: 180 3RF Rx Instructions: Blood thinner atorvastatin 80 mg tablet 80 mg PO BEDTIME 90 Days Qty: 90 3RF Rx Instructions: Cholesterol lowering medication cyanocobalamin (vitamin B-12) 1,000 mcg tablet, sublingual 1,000 mcg PO DAILY carvedilol 12.5 mg tablet 12.5 mg PO BID Qty: 60 5RF Rx Instructions: must administer with a meal/food metformin 1,000 mg tablet 1,000 mg PO DAILY (DME) FreeStyle Noe 3 Plus Sensor Device See Rx Instructions .ROUTE .MEDSUPPLY Qty: 2 5RF Rx Instructions: Use daily As directed to monitor glucose insulin glargine [Lantus Solostar U-100 Insulin] 100 unit/mL (3 mL) insulin pen 40 unit subcut BID insulin lispro [Humalog KwikPen Insulin] 100 unit/mL insulin pen 3 unit subcut TID Qty: 15 0RF Rx Instructions: with breakfast, lunch and supper glucose [Dex4 Glucose] 4 gram tablet,chewable 16 g PO Q15M PRN (Reason: hypoglycemia) Qty: 100 0RF Rx Instructions: until symptoms of low blood sugar are controlled glucagon 3 mg/actuation spray,non-aerosol 3 mg intranasal ONCE PRN (Reason: hypoglycemia) Qty: 2 0RF Referrals: Winston Hernandez MD [Physician] - (Acute exacerbation of chronic congestive heart failure) Interventions: ED Discharge Assessment Last Done: 07/15/24 23:53 Discharge Date/Time: 07/15/24 23:55 Print Language: Amharic
[2024-07-15 18:13] LABS: Influenza A PCR NEGATIVE (Negative); Influenza B PCR NEGATIVE (Negative); Resp Syncy Virus RNA Qual PCR NEGATIVE (Negative); SARS COV2 PCR INHOUSE NEGATIVE (Negative)
[2024-07-15 18:19] LABS: Alanine Aminotransferase 25 U/L (0-40); Albumin Level 4.3 g/dL (3.5-5.0); Alkaline Phosphatase 107 U/L (39-117); Anion Gap 13 (12-20); Aspartate Amino Transferase 25 U/L (5-37); Bilirubin Total 1.2 mg/dL (0.0-1.0); Blood Urea Nitrogen 12 mg/dL (9-16); Calcium 9.5 mg/dL (8.4-10.2); Carbon Dioxide 30 mmol/L (22-29); Chloride 102 mmol/L (96-108); Creatinine Clr Calc Pharmacy 124.5; Estimated Glomerular Filt Rate > 60; Glucose Random 210 mg/dL (60-115); Potassium 4.1 mmol/L (3.3-5.1); Sodium 141 mmol/L (135-145); Total Protein 7.5 g/dL (6.5-8.0)
[2024-07-15 20:00] VITALS: BP 156/98; PULSE 108; RESP 25; TEMP 36.6; O2SAT 99
--- NOTE | 2024-07-15 21:07 | PC.NURSE ---
pt a&ox4, respirations even and unlabored. pt reports onset of shortness of breath that worsens with ambulation. pt sating 97% on room air. pt denies cp, n/v/d. pt noted to be hypertensive, provider aware. pt ambulatory with steady gait.
[2024-07-15 21:41] VITALS: BP 140/88
[2024-07-15] MEDS: Furosemide 100 MG/10 ML VIAL 60 MG IVPUSH (21:41)
[2024-07-15 22:19] VITALS: BP 151/102; PULSE 111; RESP 20; TEMP 36.6; O2SAT 95
--- NOTE | 2024-07-15 22:39 | MHC.EDTECH ---
oxygen ambulation trial done by this tech stating between 92%-95% with no complaints made. MD made aware
--- NOTE | 2024-07-15 22:58 | PC.NURSE ---
provider aware of pt ambulation trial, pt tolerated well, able to ambulate with steady gait with no complaints.
[2024-07-15 23:53] VITALS: BP 131/91; PULSE 76; RESP 16; TEMP 37; O2SAT 99
== END 2024-07-15 23:55 | disposition home or self-care (01) ==
PROVIDERS: Physician Assistant; Emergency Provider Emergency Medicine
DX: I50.9 Heart failure, unspecified (principal); R06.02 Shortness of breath; E11.9 Type 2 diabetes mellitus without complications; E78.5 Hyperlipidemia, unspecified; Z95.818 Presence of other cardiac implants and grafts; Z86.73 Personal history of transient ischemic attack (TIA), and cerebral infarction without residual deficits; Z87.891 Personal history of nicotine dependence; Z79.4 Long term (current) use of insulin; Z79.84 Long term (current) use of oral hypoglycemic drugs; Z79.01 Long term (current) use of anticoagulants; Z79.02 Long term (current) use of antithrombotics/antiplatelets; Z79.899 Other long term (current) drug therapy; Z03.818 Encounter for observation for suspected exposure to other biological agents ruled out
CPT/HCPCS: 0241U; 71045; 80053; 83880; 84484; 85025; 85610; 85730; 93005; 99284; 99285; J1938

== ENCOUNTER → 2024-07-15 16:39 | Outpatient (BNV) | payer OTHER, SELFPAY | PROVIDERS: Emergency Provider Emergency Medicine; Visit Provider Internal Medicine | DX: I49.3 Ventricular premature depolarization (principal); R00.0 Tachycardia, unspecified | CPT/HCPCS: 93010 ==

== ENCOUNTER → 2024-07-15 16:39 | Outpatient (BNV) | payer OTHER, SELFPAY | PROVIDERS: Visit Provider Radiology Diagnostic Radiology | DX: R91.8 Other nonspecific abnormal finding of lung field (principal) | CPT/HCPCS: 71045 ==

== ENCOUNTER 2024-07-28 09:50 | Outpatient (REF) | payer OTHER, SELFPAY ==
[2024-07-28 10:53] LABS: Hematocrit 40.6 % (42.0-52.0); Hemoglobin 13.2 g/dl (14.0-18.0); Mean Corpuscular HGB Conc 32.5 g/dl (31.0-36.0); Mean Corpuscular Volume 92.3 fL (80.0-98.0); Mean Platelet Volume 9.9 fL (9.4-12.4); Platelet Count 286 X10*3/uL (160-400); Red Cell Distribution Width 12.6 % (11.0-16.0); White Blood Count 6.8 X10*3/uL (4.8-10.8)
[2024-07-28 11:28] LABS: B Type Natriuretic Peptide 337 pg/mL (<100)
[2024-07-28 11:42] LABS: Anion Gap 12 (12-20); Blood Urea Nitrogen 11 mg/dL (9-16); Calcium 9.6 mg/dL (8.4-10.2); Carbon Dioxide 29 mmol/L (22-29); Chloride 102 mmol/L (96-108); Estimated Glomerular Filt Rate > 60; Glucose Random 240 mg/dL (60-115); Potassium 4.6 mmol/L (3.3-5.1); Sodium 138 mmol/L (135-145)
[2024-07-28 12:02] LABS: Folate 10.6 ng/mL (> or = 4.0); Vitamin B12 538 pg/mL (200-900)
[2024-07-29 17:19] LABS: C Peptide 2.13 ng/mL (0.80-3.85)
[2024-07-31 19:13] LABS: Intrinsic Factor Antibodies Negative (Negative)
[2024-07-31 19:23] LABS: Parietal Cell Antibody 69.1 Unit (<=20.0)
[2024-08-04 23:29] LABS: Islet Cell Antibody Screen NEGATIVE (NEGATIVE)
[2024-08-05 20:13] LABS: Glutamic acid decarboxylase Ab <5 IU/mL (<5)
== END 2024-07-28 09:51 | disposition home or self-care (01) ==
LOC: HO.LAB 09:50
PROVIDERS: Nurse Practitioner Family; Absent Provider Physician Assistant
DX: I42.9 Cardiomyopathy, unspecified (principal); I63.9 Cerebral infarction, unspecified; E11.65 Type 2 diabetes mellitus with hyperglycemia; Z79.4 Long term (current) use of insulin; E11.29 Type 2 diabetes mellitus with other diabetic kidney complication; R80.9 Proteinuria, unspecified; R79.89 Other specified abnormal findings of blood chemistry
CPT/HCPCS: 36415; 80048; 82607; 82746; 82947; 83516; 83880; 84681; 85027; 86340; 86341; 99212

== ENCOUNTER 2024-07-28 11:14 | Outpatient (AMB) | payer MEDICARE, MEDICAID, SELFPAY ==
--- NOTE | 2024-07-28 11:15 | A.OFFVIS_ITS ---
Vital Signs 07/28/24 11:16 Height 6 ft 1 in Weight 213 lb 13.574 oz BMI 28.2 BP 136/74 Blood Pressure Location Rt brachial Position Sitting Pulse 79 Pulse Source Pulse Oximeter Pulse Oximetry (%) 97 Oxygen Delivery Method Room Air Intake Visit Reasons: Type 2 diabetes Intake Note: Patient presents today for a follow-up on Type 2 Diabetes Mellitus: Last Diabetic eye exam was on: OVER DUE Last Podiatry exam was on: Patient does not see a Blowing Weasand Most recent HbA1c: 10.7%, 06/19/2023 Random Glucose- 249 mg/dL, Today Aqueduct And Reservoir Keeper Required: Yes Aqueduct And Reservoir Keeper Language: Silver Solution Mixer Services: Aqueduct And Reservoir Keeper Offered & Declined Accompanied by: Significant Other Allergies No Known Allergies Allergy (Verified 07/15/24 16:32) Medication List - Last Reconciled 07/28/24 by Es Hager PA-C apixaban (Eliquis) 5 mg PO BID 90 days atorvastatin 80 mg PO BEDTIME 90 days blood-glucose sensor (FreeStyle Noe 3 Plus Sensor device) Use daily As directed to monitor glucose blood-glucose,artificial plastic eye maker,cont (FreeStyle Noe 3 [place]) Please specify directions, refills and quantity carvedilol 12.5 mg PO BID cholecalciferol (vitamin D3) 25 mcg PO DAILY cyanocobalamin (vitamin B-12) 1,000 mcg PO DAILY cyanocobalamin (vitamin B-12) 1,000 mcg PO DAILY cyclobenzaprine 5 mg PO BEDTIME PRN flash glucose sensor (FreeStyle Noe 2 Sensor kit) As directed furosemide 40 mg PO DAILY furosemide (Lasix) 20 mg PO QAM glucagon 3 mg/actuation 3 mg intranasal ONCE PRN glucose (Dex4 Glucose) 16 grams (4 x 4 gram) PO Q15M PRN insulin glargine U-300 conc (Toujeo Max U-300 SoloStar) 80 units (0.2667 mL) subcut DAILY insulin lispro (Humalog KwikPen (U-100) Insulin) 5 units (0.05 mL) subcut TID metformin 1,000 mg PO DAILY valsartan 20 mg See Protocol PO BID HPI HPI Type 2 diabetes: Details: Patient is a 63-year-old male with a significant past medical history of unc ontrolled type 2 diabetes, prior CVA, cardiomyopathy, hypertension, hyperlipidemia, CAD presenting today for initial visit regarding type 2 diabetes. Significant other here to help with translation. He was supposed to do labs today prior to our appointment but forgot Endo: Dm-last A1c was 10.7. He was diagnosed with diabetes around 4500-2012. His current regimen is Lantus 40 units twice a day, Humalog 3 units with meals (he has not use this), Trulicity 0.75 mg weekly and metformin 1000 mg twice a day. -he states that taking 2 different colored insulin pens has been confusing for him so he has not taken the dark escobar/black 1. He states that he is using the light escobar/white pen he states it also does not appear to be very effective. cgm- 1 week of data. hyperglycemic 75 %, in range 25%, 0% hypoglycemic -has not yet picked up the new sensor from the pharmacy He has only been on insulin as he was told he was a type 1 diabetic. He states some years ago he was put on metformin and has been on this along with the insulin in the more recently started on Trulicity which he does not think he is taking. There is a lot of medication confusion with what he is actually taking and has been prescribed. States that his brother is a diabetic and he believes also a type 1. After a very long discussion, it is clear to me that he does not actually know for sure that he is a type 1 diabetic. He has never had diabetic Education. He has not met with a display fabricator. Denies any hypoglycemic events. CV: Blood pressure today in the office is 136/74. He is currently on carvedilol 12.5 mg twice a day, furosemide 60 mg daily, valsartan 20 mg b.i.d.. He is on atorvastatin 80 mg at bedtime. Last LDL was 122. He is anticoagulated with Eliquis 5 mg twice a day. [facility] Medical History (Updated 07/16/24 @ 00:00 by Background Daemon) Hyperlipidemia Diabetes mellitus Surgical History History of cardiac cath Family History Mother Stroke Father Stroke Social History Household Members: Spouse Housing: Apartment Do you presently have visiting nurse or other home services: No Patient Tobacco Use Status: Former Tobacco user Tobacco use type: Cigarette Cigarette Packs Per Day: 1.5 Cigarettes Per Day: 30.0 e-Cigarette/Vaping Use: Never Used Second Hand Smoke Exposure: Yes Substance Use Type: Crack/Cocaine Advance Directives Date on File: 01/18/24 service: No Current occupational status: employed Cognitive needs: No Hearing needs: No Vision needs: No Physical Exam Const Orientation/consciousness: patient oriented x3 HEENT Ears: hearing grossly normal bilaterally Neck Thyroid: Thyroid normal Lymphatic: no lymphadenopathy noted Resp Auscultation: clear to auscultation bilaterally Cardio Rate: regular rate Rhythm: regular rhythm Skin General skin exam: no rashes or lesions noted Neuro General: patient oriented x3, gait normal and no focal motor deficits Assessment & Plan Assessment & Plan (1) Uncontrolled type 2 diabetes mellitus with hyperglycemia, with long-term current use of insulin: Code(s): E11.65 - Type 2 diabetes mellitus with hyperglycemia; Z79.4 - shelter (current) use of insulin Category: Medical Plan: I provided him a new sensor today and put it on for him. We reviewed the insulin dosages and pen colors as available on Google images We will switch to Toujeo for once a day dosing to see if this is more effective. We will start 80 units. He will start using Humalog 5 units before meals. Continue with the metformin. He will let me know if he is taking Trulicity Labs are pending. We will follow up pending test results. I did offer him an appointment on Sunday to be reassessed but he would like to wait 1-2 weeks. We will follow up at that time. He will let me know if anything changes in contact me through the phone. (2) Hypertension: Code(s): I10 - Essential (primary) hypertension Category: Medical Plan: wnl continue current plan Medications: New insulin glargine U-300 conc (Toujeo Max U-300 SoloStar) 80 units (0.2667 mL) subcut DAILY 12 mL 4RF Changed From insulin lispro (Humalog KwikPen (U-100) Insulin) with breakfast, lunch and supper 3 units (0.03 mL) subcut TID 15 mL 0RF To insulin lispro (Humalog KwikPen (U-100) Insulin) with breakfast, lunch and supper 5 units (0.05 mL) subcut TID 15 mL 0RF Discontinued flash glucose sensor (FreeStyle Noe 2 Sensor kit) Discontinued Reason: Doctor's Order As directed 1 ea 0RF Patient Instructions: stop the lantus (long acting insulin [place]/white pen) and start toujeo [address]'s [address] (green/white pen) start using the humalog (black/dark [place] pen) with your meals continue other medications as previously ordered start new sensor today bring in your medications to next appointment on Sunday Coding Level of Care Code Est Pt Level 4 (90819) Complex EM visit Add On G2211 Diagnoses Uncontrolled type 2 diabetes mellitus with hyperglycemia, with long-term current use of insulin E11.65; Z79.4 Hypertension I10
[2024-07-28 11:16] VITALS: BP 136/74; PULSE 79; O2SAT 97; BMI 28.2
[2024-07-28 11:35] LABS: Glucose, Whole Blood 249 mg/dL (60-115)
== END 2024-07-28 12:02 | disposition home or self-care (01) ==
LOC: HO.ENCR 11:14
PROVIDERS: Visit Provider Physician Assistant
DX: E11.65 Type 2 diabetes mellitus with hyperglycemia (principal); Z79.4 Long term (current) use of insulin; I10 Essential (primary) hypertension

== ENCOUNTER 2024-07-30 13:42 | Outpatient (AMB) | payer MEDICARE, MEDICAID, SELFPAY ==
--- NOTE | 2024-07-30 13:57 | A.OFFPC_ITS ---
Vital Signs 07/30/24 13:58 Height 6 ft 1 in Weight 212 lb 2 oz BMI 28.0 BP 132/70 Blood Pressure Location Lt brachial Position Sitting Pulse 78 Pulse Source Pulse Oximeter Temp 97.1 F Temp Source Temporal Artery Scan Pulse Oximetry (%) 94 Oxygen Delivery Method Room Air Intake Visit Reasons: f/u DM and blood work Intake Note: Patient is here to follow up on DM, Lab results. RMV form to be filled. Chemical Dependency Nurse Required: No Dredge Mate: Present Accompanied by: Spouse Allergies No Known Allergies Allergy (Verified 07/30/24 14:04) Medication List - Last Reconciled 07/30/24 by Dotty Hernandez PA-C apixaban (Eliquis) 5 mg PO BID 90 days atorvastatin 80 mg PO BEDTIME 90 days blood-glucose sensor (JiankongbaoStyle Noe 3 Plus Sensor device) Use daily As directed to monitor glucose blood-glucose,energy project engineer,cont (FreeStyle Noe 3 [place]) Please specify directions, refills and quantity carvedilol 12.5 mg PO BID cholecalciferol (vitamin D3) 25 mcg PO DAILY cyanocobalamin (vitamin B-12) 1,000 mcg PO DAILY cyanocobalamin (vitamin B-12) 1,000 mcg PO DAILY cyclobenzaprine 5 mg PO BEDTIME PRN furosemide 40 mg PO DAILY glucagon 3 mg/actuation 3 mg intranasal ONCE PRN glucose (Dex4 Glucose) 16 grams (4 x 4 gram) PO Q15M PRN insulin glargine U-300 conc (Toujeo Max U-300 SoloStar) 80 units (0.2667 mL) subcut DAILY insulin lispro (Humalog KwikPen (U-100) Insulin) 5 units (0.05 mL) subcut TID metformin 1,000 mg PO DAILY valsartan 20 mg See Protocol PO BID Tobacco use date assessed: 07/30/24 Fall risk assessment: No Falls in past year Last assessed Fall Risk: 07/30/24 Dental Screening Dental Screen Date: 06/18/24 HPI f/u DM and blood work HPI Details 64-year-old male with past medical histo ry of cardiomyopathy, CVA, hypertension, hyperlipidemia, coronary artery disease and uncontrolled diabetes mellitus last seen 06/2024 coming in for follow up.?In review of the notes, patient was recently seen by endocrinology 07/2024 plan to switch to Toujeo starting at 80 units, Humalog 5 units before meals and continue with metformin. He was recently seen in the ED 07/16/2024 for exacerbation of heart failure furosemide was increased to 40 mg daily and advised to follow up with Cardiology. He is also seen by Cardiology 07/08/2024 carvedilol was increased to 12.5 mg b.i.d. for better control of blood pressure, continue on Eliquis order blood work and follow up in 1 month. The patient is a 64-year-old male presenting with a follow-up for cardiomyopathy management and evaluation of fatigue. Fatigue has been ongoing since recent stroke and has been improving since discharge from the hospital. Denies any shortness of breath while lying flat but does have shortness of breath with walking long distances. His most recent BNP had decreased to 300 from 700. Diabetes management under brick chimney supervisor oversight has shown improvement in A1C levels following medication adjustments. [facility] Medical History Hyperlipidemia Diabetes mellitus Surgical History History of cardiac cath Family History Mother Stroke Father Stroke Social History Household Members: Spouse Housing: Apartment Do you presently have visiting nurse or other home services: No Patient Tobacco Use Status: Former Tobacco user Tobacco use type: Cigarette Cigarette Packs Per Day: 1.5 Cigarettes Per Day: 30.0 e-Cigarette/Vaping Use: Never Used Second Hand Smoke Exposure: Yes Substance Use Type: Crack/Cocaine Advance Directives Date on File: 01/18/24 service: No Current occupational status: employed Cognitive needs: No Hearing needs: No Vision needs: No Questionnaire Thrive Questionnaire Date Thrive assessed: 06/18/24 JUANITO-7 AMB Questionnaire JUANITO-7 Date JUANITO - 7 assessed: 06/18/24 Source: Developed by Drs. Alin Slaughter, Shalini Samuel, Wilder Cody and colleagues, with an educational alan from [employer]. Review of Systems Const Denies body aches, Denies chills, Denies fever(s), Denies headache(s) and Denies poor appetite Eyes Reports no additional complaints ENT Denies dysphagia, Denies dizziness, Denies headache(s) and Denies odynophagia Card Denies chest pain, Denies syncope, Denies edema, Denies irregular heart rhythm, Denies lightheadedness, Denies dyspnea and Reports dyspnea on exertion Resp Denies cough, Denies dyspnea and Reports dyspnea on exertion GI Denies abdominal pain, Denies constipation, Denies dysphagia, Denies diarrhea, Denies nausea, Denies odynophagia and Denies vomiting Reports no additional complaints Musc Reports no additional complaints and Denies abnormal gait Skin/Breast Reports system reviewed and no additional complaints, except as documented Neuro Denies abnormal gait, Denies dizziness, Denies syncope and Denies headache(s) Psych Reports no additional complaints Physical exam (Primary Care) Tobacco/Smoking Status: Tobacco use Status Tobacco use date assessed 06/18/24 07/04/24 11:41 Patient Tobacco Use Status Former Tobacco user 07/15/24 21:07 Tobacco use type Cigarette 07/04/24 11:41 e-Cigarette/Vaping Use Never Used 07/04/24 11:41 Thrive Assessment: Date of Thrive Assessment Date Thrive assessed 06/18/24 07/04/24 11:41 Const General: cooperative, healthy appearing, comfortable and no acute distress Orientation/consciousness: patient oriented x3 HENMT Head: Yes normocephalic Ears: hearing grossly normal bilaterally General nose exam: Normal external nose present Eyes General: appearance normal, both eyes and all related structures Conjunctivae: conjunctivae normal Neck Neck: Yes full ROM and Yes no lymphadenopathy Resp Effort & Inspection: normal respiratory effort Auscultation: clear to auscultation bilaterally, no crackles, no rales, no rhonchi and no wheezes Cardio Rate: regular rate Rhythm: regular rhythm Skin General skin exam: no rashes or lesions noted Neuro General: patient oriented x3 Gait exam (Neuro): Normal gait present Extrem General: Yes normal to inspection, Yes full ROM and No edema Psych Affect: normal affect Attitude: cooperative Insight: Good insight present (Psych) Judgement: Good judgement present (Psych) Results AMB Hemoglobin A1c AMB Hemoglobin A1c 9.3 % Last Edit by THOMAS Franco on 07/30/24 14:13 Coding Level of Care Code Est Pt Level 3 (96572) Diagnoses Uncontrolled type 2 diabetes mellitus with hyperglycemia, with long-term current use of insulin E11.65; Z79.4 Coronary artery disease I25.10 Hypertension I10 Hyperlipidemia E78.5 Cardiomyopathy I42.9 Assessment & Plan Assessment & Plan (1) Uncontrolled type 2 diabetes mellitus with hyperglycemia, with long-term current use of insulin: Code(s): E11.65 - Type 2 diabetes mellitus with hyperglycemia; Z79.4 - oil heaterman (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 Although fruits are generally healthy they should be eaten in moderation as they are still high in sugar. Hemoglobin A1c goal of less than 7%. Patient currently following with endocrinology and was recently started on a new regimen unlikely this had a large effect on his A1c as these are new changes. Plan to see endocrinology in the next few weeks. (2) Coronary artery disease: Comment: 02/28/2024 left main normal, lad mild irregularities less than 30% stenosis, left circumflex mild irregularities less than 30% stenosis, right PDA 80% stenosis. Code(s): I25.10 - Atherosclerotic heart disease of [place] coronary artery without angina pectoris Category: Medical Plan: Discussed with patient the importance of cholesterol management, control of diabetes and blood pressure. Currently on Eliquis 5 mg twice daily and atorvastatin 80 mg as well. Continue to follow with Cardiology next week (3) Hypertension: Code(s): I10 - Essential (primary) hypertension Category: Medical Plan: Continue on current blood pressure medication. Avoid salt intake and encourage healthy diet and regular exercise. (4) Hyperlipidemia: Code(s): E78.5 - Hyperlipidemia, unspecified Category: Medical Plan: Avoid foods that are high in cholesterol such as red meat, fried foods, eggs and baked goods. Triglyceride goal of less than 150 and LDL goal of less than 70. Continue on Atorvastatin 80 repeat blood work in 2 months. (5) Cardiomyopathy: Code(s): I42.9 - Cardiomyopathy, unspecified Category: Medical Plan: Discussed with patient the importance of monitoring daily weights and restricting excessive fluid intake. Avoid salt intake as well. Patient to follow up with Cardiology. Clinically euvolemic today and denies any symptoms of orthopnea. Plan Management will focus on controlling heart failure by ensuring proper functioning of the pacemaker, strict fluid, and salt intake monitoring, and regular weight checks to preempt fluid build-up. Our approach will integrate diabetes management through frequent blood tests, using results to work closely with endocrinology for treatment adjustments as needed. Follow-up appointments with both cardiology and endocrinology have been scheduled. Ensuring regular follow-ups will enable effective monitoring and management of comorbid conditions. This note was constructed using voice recognition software. While every effort has been made to ensure accuracy and bike assembler, still areas may have been included sometimes these areas may affect the content or meeting of the given symptoms. Total time spent caring for the patient today was 20 minutes. This includes time spent before the visit reviewing the chart, time spent during the visit, and time spent after the visit and documentation. Patient was informed and verbally consented to the use of an ambient scribe for clinic note documentation during this visit. Orders: Orders AMB Hemoglobin A1c Today E11.65 - Type 2 diabetes mellitus with hyperglycemia, Z79.4 - oil heaterman (current) use of insulin
[2024-07-30 13:58] VITALS: BP 132/70; PULSE 78; TEMP 36.2; O2SAT 94; BMI 28.0
== END 2024-07-30 14:45 | disposition home or self-care (01) ==
DX: E11.65 Type 2 diabetes mellitus with hyperglycemia (principal); Z79.4 Long term (current) use of insulin; I42.9 Cardiomyopathy, unspecified; I25.10 Atherosclerotic heart disease of native coronary artery without angina pectoris; I10 Essential (primary) hypertension; E78.5 Hyperlipidemia, unspecified

== ENCOUNTER → 2024-07-30 13:42 | Outpatient (BNVA) | payer OTHER, SELFPAY | DX: E11.65 Type 2 diabetes mellitus with hyperglycemia (principal); I42.9 Cardiomyopathy, unspecified; I10 Essential (primary) hypertension; E78.5 Hyperlipidemia, unspecified; I25.10 Atherosclerotic heart disease of native coronary artery without angina pectoris; Z79.4 Long term (current) use of insulin; Z86.73 Personal history of transient ischemic attack (TIA), and cerebral infarction without residual deficits | CPT/HCPCS: 83036; 99212 ==

== ENCOUNTER 2024-08-05 13:15 | Outpatient (AMB) | payer MEDICARE, MEDICAID, SELFPAY ==
[2024-08-05 13:26] VITALS: BP 148/78; PULSE 86; O2SAT 95; BMI 27.7
--- NOTE | 2024-08-05 13:26 | A.OFFVIS_ITS ---
Vital Signs 08/05/24 13:26 Height 6 ft 1 in Weight 210 lb 5.136 oz BMI 27.7 BP 148/78 H Blood Pressure Location Rt brachial Position Sitting Pulse 86 Pulse Source Pulse Oximeter Pulse Oximetry (%) 95 Oxygen Delivery Method Room Air Intake Visit Reasons: 1m follow up Intake Note: Patient presents for follow up Allergies No Known Allergies Allergy (Verified 08/05/24 13:28) Medication List - Last Reconciled 08/05/24 by RUPERTO Landrum apixaban (Eliquis) 5 mg PO BID 90 days atorvastatin 80 mg PO BEDTIME 90 days blood-glucose sensor (Binary Event NetworkStyle Noe 3 Plus Sensor device) Use daily As directed to monitor glucose blood-glucose,proposal review analyst,cont (FreeStyle Noe 3 [place]) Please specify directions, refills and quantity carvedilol 12.5 mg PO BID cholecalciferol (vitamin D3) 25 mcg PO DAILY cyanocobalamin (vitamin B-12) 1,000 mcg PO DAILY cyanocobalamin (vitamin B-12) 1,000 mcg PO DAILY cyclobenzaprine 5 mg PO BEDTIME PRN furosemide 40 mg PO DAILY glucagon 3 mg/actuation 3 mg intranasal ONCE PRN glucose (Dex4 Glucose) 16 grams (4 x 4 gram) PO Q15M PRN insulin glargine U-300 conc (Toujeo Max U-300 SoloStar) 80 units (0.2667 mL) subcut DAILY insulin lispro (Humalog KwikPen (U-100) Insulin) 5 units (0.05 mL) subcut TID metformin 1,000 mg PO DAILY valsartan 20 mg See Protocol PO BID HPI HPI 1m follow up: Details: Mega is a 64 yo male with PMH of HTN, DM, HLD who was admitted to [facility] [facility] 01/2024 with left sided weakness and found to have acute small coritcal infarcts suggestive of embolic events. During his admission he had echocardiogram showing EF 15-20%. He was started on Eliquis for anticoagulation and GDMT. He had an outpatient cardiac catheterization done on 02/27 showing right PDA 80% stenosis, no significant disease elsewhere and was determined to have nonischemic cardiomyopathy. On his first hospital followup he reported Not taking any home medications and they were reordered for him. He underwent ILR placement on 06/25/24. He was seen in the ED for sob, CHF and his last dose was increased. Today he reports that he has been doing well since his ER visit. He has been taking the Lasix at 40 mg daily. He reports compliance with his morning medications but does not take evening medications. This would include his 2nd dose of carvedilol and 2nd dose of valsartan. He still has some mild left arm weakness and does mention that he needs surgery on his shoulder. His speech is clear and appropriate. 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 No new neurological symptoms. No chest discomfort at rest or during activity. No shortness of breath, PND, orthopnea or edema. No heart palpitations, lightheadedness, presyncope, syncope. Significant other is present and she is assisting with Maltese translation at their request. [facility] Medical History Hyperlipidemia Diabetes mellitus Surgical History History of cardiac cath Family History Mother Stroke Father Stroke Social History Household Members: Spouse Housing: Apartment Do you presently have visiting nurse or other home services: No Patient Tobacco Use Status: Former Tobacco user Tobacco use type: Cigarette Cigarette Packs Per Day: 1.5 Cigarettes Per Day: 30.0 e-Cigarette/Vaping Use: Never Used Second Hand Smoke Exposure: Yes Substance Use Type: Crack/Cocaine Advance Directives Date on File: 01/18/24 service: No Current occupational status: employed Cognitive needs: No Hearing needs: No Vision needs: No Review of Systems Const All systems reviewed & are unremarkable except as noted in HPI and below Card Denies chest pain, Denies chest pain at rest, Denies chest pain with activity, Denies syncope, Denies rapid heart rate, Denies leg edema, Denies dyspnea, Denies dyspnea on exertion and Denies orthopnea Resp Denies no additional complaints, Denies dyspnea and Denies dyspnea on exertion GI Denies no additional complaints Musc Denies no additional complaints Neuro Denies syncope Physical Exam Vital Signs: BMI result Body Mass Index 27.7 Const General: cooperative, healthy appearing, comfortable and no acute distress Orientation/consciousness: patient oriented x3 Neck Neck: Yes normal visual inspection Chest Other: ILR site: dressing and steri strips removed - site well approximated, no redness, swelling or drainage, left open to air. Resp Effort & Inspection: normal respiratory effort Auscultation: clear to auscultation bilaterally, no rales, no rhonchi and no wheezes Cardio Rate: regular rate Rhythm: regular rhythm Heart sounds: S1 normal heart sound present, S2 normal heart sound present, no murmurs and no rubs Neuro General: patient oriented x3 Extrem General: Yes normal to inspection and No no pedal edema Psych Appearance: grossly normal Mental Status: mental status grossly normal Speech and movement: Normal speech and movement present Assessment & Plan Assessment & Plan (1) Cardiomyopathy: Code(s): I42.9 - Cardiomyopathy, unspecified Category: Medical Plan: New finding of Nonischemic cardiomyopathy, 01/2024. Echocardiogram showed EF 15-20%, global hypokinesis. He did undergo cardiac catheterization as outpatient showing right PDA 80% stenosis, otherwise no significant CAD. His degree of CAD was out of proportion with his degree of cardiomyopathy. On follow up visit 06/13/24 He reported not taking medications. GDMT was reordered at that time and today he reports only taking morning meds. He is missing his evening carvedilol and valsartan. The importance of strict medication compliance reviewed with him. At this time will stop valsartan and start on Entresto. He did have an episode of Congestive heart failure and was seen in the emergency room. 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 Continue current carvedilol, Lasix. Signs and symptoms of heart failure reviewed with him. Will check wilson ited echo to reassess EF prior to next visit. Cardiology follow-up 3 months, sooner if needed (2) Cerebrovascular accident: Code(s): I63.9 - Cerebral infarction, unspecified Category: Medical Qualifiers: CVA mechanism: unspecified Qualified Code(s): I63.9 - Cerebral infarction, unspecified Plan: CVA with left-sided weakness 01/17/2024. MRI showed several foci of acute infarcts in the right frontal and parietal region. He was seen by Neurology and thought to have an embolic source. Echocardiogram showed normal valves and no intracardiac shunting. Holter monitor done 01/22/2024 for 27 days showed sinus rhythm with average heart rate 92, 42% of the time heart rate greater than 100, rare VE and SVE. EKG done last visit showed sinus tachycardia rate 103. No AFib has been seen on him. An ILR was inserted 06/25/[address] Hernandez. Following monitor remotely -no AFib seen as of yet. Continue Eliquis for anticoagulation. (3) S/P cardiac cath: Comment: 02/28/2024 left main normal, lad mild irregularities less than 30% stenosis, left circumflex mild irregularities less than 30% stenosis, right PDA 80% stenosis. Code(s): Z98.890 - Other specified postprocedural states Category: Surgical Plan: As above (4) H/O: HTN (hypertension): Code(s): Z86.79 - Personal history of other diseases of the circulatory system Category: Medical Plan: [place] goal less than 130/80. Initially elevated at 148/78, recheck done by me 124/68. Changing Valsartan to entresto. Labs 07/28/2024 showed creatinine 0.81 (5) Implantable loop recorder present: Comment: 06/25/[address] Hernandez Code(s): Z95.818 - Presence of other cardiac implants and grafts Category: Medical Plan: Medtronic ILR in place. He has home monitor, currently not connecting. He will go home and check that it is plugged in and working. Plan to follow remotely. Plan Time spent on chart review, documentation, interview and assessment During the visit, detailed discussions centered around optimizing heart failure therapy through medication adjustments. The transition from Valsartan to Entresto was emphasized, providing benefits in terms of enhancing cardiac function. Carvedilol dosing was reinforced for twice-daily adherence. Additional benefits and considerations for Jardiance were discussed, intending to consult with the primary physician for comprehensive management. Risks related to anticoagulation in pending shoulder surgery were communicated, ensuring clearance aligns with treatment goals. I also addressed device technical issues, proposing solutions to maintain loop recorder efficacy. The patient was informed about cardiac performance re-evaluation through an upcoming ultrasound to monitor therapeutic response. All discussed interventions, adjustments, and rationales were explicitly communicated to the patient. Orders: Orders CA Echo Limited 2 Months I42.9 - Cardiomyopathy, unspecified Medications: New sacubitril-valsartan 24-26 mg (Entresto) STOP Valsartan Start Entresto 1 tab PO BID 60 tabs 5RF Patient Instructions: - Take Carvedilol twice a day. - Follow the new medication plan as discussed. - Obtain cardiac ultrasound prior to next visit - Monitor fluid status and report sudden weight changes or swelling. - Address home loop recorder electrical issue; ensure it remains functional. - Decrease physical activity that causes fatigue, while remaining safely active. - Report symptoms or new concerns promptly. - Follow instructions regarding anticoagulants before shoulder surgery. - Cardiac clearance needed before any planned surgery Patient was informed and verbally consented to the use of an ambient scribe for clinic note documentation during this visit. Coding Level of Care Code Est Pt Level 4 (71167) Complex EM visit Add On G2211 Diagnoses Cardiomyopathy I42.9 Cerebrovascular accident I63.9 CVA mechanism: unspecified S/P cardiac cath Z98.890 H/O: HTN (hypertension) Z86.79 Implantable loop recorder present Z95.818 Time Spent (min) 32
== END 2024-08-05 13:55 | disposition home or self-care (01) ==
LOC: HO.HCS 13:15
PROVIDERS: PCP Internal Medicine; Visit Provider Nurse Practitioner Family
DX: I42.9 Cardiomyopathy, unspecified (principal); I63.9 Cerebral infarction, unspecified; Z98.890 Other specified postprocedural states; Z86.79 Personal history of other diseases of the circulatory system; Z95.818 Presence of other cardiac implants and grafts
CPT/HCPCS: 99214; G2211

== ENCOUNTER → 2024-08-05 13:15 | Outpatient (BNVA) | payer OTHER, SELFPAY | PROVIDERS: PCP Internal Medicine; Visit Provider Nurse Practitioner Family | DX: I10 Essential (primary) hypertension (principal); E78.5 Hyperlipidemia, unspecified; I42.9 Cardiomyopathy, unspecified; Z86.73 Personal history of transient ischemic attack (TIA), and cerebral infarction without residual deficits; Z86.79 Personal history of other diseases of the circulatory system; Z95.818 Presence of other cardiac implants and grafts; Z98.890 Other specified postprocedural states; Z79.01 Long term (current) use of anticoagulants | CPT/HCPCS: 99212 ==

== ENCOUNTER → 2024-08-07 23:59 | Outpatient (BNV) | payer OTHER, SELFPAY ==
--- NOTE | 2024-08-09 12:22 | MHC.OFFVIS ---
Intake Visit Reasons: Remote ILR check- Medtronic Allergies No Known Allergies Allergy (Verified 08/08/24 11:16) PFSH Medical History Hyperlipidemia Diabetes mellitus Surgical History History of cardiac cath Family History Mother Stroke Father Stroke Social History Household Members: Spouse Housing: Apartment Do you presently have visiting nurse or other home services: No Patient Tobacco Use Status: Former Tobacco user Tobacco use type: Cigarette Cigarette Packs Per Day: 1.5 Cigarettes Per Day: 30.0 e-Cigarette/Vaping Use: Never Used Second Hand Smoke Exposure: Yes Substance Use Type: Crack/Cocaine Advance Directives Date on File: 01/18/24 service: No Current occupational status: employed Cognitive needs: No Hearing needs: No Vision needs: No Office Procedures Cardiac Device Check Cardiac Device Check Details: Remote implantable loop recorder report generated 08/08/2024. No atrial fibrillation or pauses noted. Frequent PVCs noted with total burden of 3.7% with episodes of tachycardia suggestive of sinus tachycardia [id number] Cardiac Interrogation, subcut cardiac rhythm monitor Procedure code (CPT) selection complete Assessment & Plan Assessment & Plan (1) Implantable loop recorder present: Comment: 06/25/[address] Hernandez Code(s): Z95.818 - Presence of other cardiac implants and grafts Category: Medical Plan: See above Coding Level of Care Code Procedure Only Diagnoses Implantable loop recorder present Z95.818 CPT Codes Cardiac Device Check - Cardiac Device 16: [id number] Cardiac Interrogation, subcut cardiac rhythm monitor ([id number])
== END ==
PROVIDERS: Visit Provider Internal Medicine Cardiovascular Disease
DX: R00.0 Tachycardia, unspecified (principal); Z95.818 Presence of other cardiac implants and grafts
CPT/HCPCS: 93298

== ENCOUNTER 2024-08-08 11:04 | Outpatient (AMB) | payer OTHER, SELFPAY ==
--- NOTE | 2024-08-08 11:07 | A.OFFVIS_ITS ---
Vital Signs 08/08/24 11:16 Height 6 ft 1 in Weight 210 lb 15.718 oz BMI 27.8 BP 130/80 Blood Pressure Location Rt brachial Position Sitting Pulse 92 Pulse Source Pulse Oximeter Pulse Oximetry (%) 94 Oxygen Delivery Method Room Air Intake Visit Reasons: T2DM Intake Note: Patient present today for Type 2 Diabetes Mellitus Last Diabetic eye exam:needs an appt. Last Podiatry Visit: doesn't have one needs referral Random Glucose: mg/dl HgA1C: 9.3% 07/30/24 Accompanied by: Spouse Allergies No Known Allergies Allergy (Verified 08/08/24 11:16) HPI HPI T2DM: Details: Patient is a 64-year-old male with a significant past medical history of uncontrolled type 2 diabetes, prior CVA, cardiomyopathy, hypertension, hyperlipidemia, CAD presenting today for a f/u visit regarding type 2 diabetes. Significant other here to help with translation. He did bring in all of his medications today to help him understand what they are all for and how to take. -he was never taking the atorvastatin or the trulicity. he has been out of metformin for a week or so. he was only injecting 40 units of toujeo nightly (he was supposed to be on 80). He was still taking the valsartan and entresto. Endo: Dm-last A1c 9.3. He was diagnosed with diabetes around [id number]. His current regimen is Toujeo 40 units a day, Humalog 5 units with meals, and metformin 1000 mg twice a day. -he states that taking 2 different colored insulin pens has been confusing for him so he has not taken the dark escobar/black 1. He states that he is using the light escobar/white pen he states it also does not appear to be very effective. cgm- 1 week of data. hyperglycemic 75 %, in range 25%, 0% hypoglycemic -never got new sensors. we resubmitted PA today. had recent labs confirming t2dm. He has never had diabetic Education. He has not met with a dross skimmer. He wants to wait on this. Denies any hypoglycemic events. CV: Blood pressure today in the office is 136/74. He is currently on carvedilol 12.5 mg twice a day, furosemide 40 mg daily, Entresto 24/26 mg mg b.i.d.. He is on atorvastatin 80 mg at bedtime. Last LDL was 122. He is anticoagulated with Eliquis 5 mg twice a day. [facility] Medical History Hyperlipidemia Diabetes mellitus Surgical History History of cardiac cath Family History Mother Stroke Father Stroke Social History Household Members: Spouse Housing: Apartment Do you presently have visiting nurse or other home services: No Patient Tobacco Use Status: Former Tobacco user Tobacco use type: Cigarette Cigarette Packs Per Day: 1.5 Cigarettes Per Day: 30.0 e-Cigarette/Vaping Use: Never Used Second Hand Smoke Exposure: Yes Substance Use Type: Crack/Cocaine Advance Directives Date on File: 01/18/24 service: No Current occupational status: employed Cognitive needs: No Hearing needs: No Vision needs: No Physical Exam Vital Signs: Last Vital Signs Pulse 92 08/08/24 11:16 BP 130/80 08/08/24 11:16 Pulse Ox 94 08/08/24 11:16 Oxygen Delivery Method Room Air 08/08/24 11:16 BMI result Body Mass Index 27.8 Const Orientation/consciousness: patient oriented x3 HEENT Ears: hearing grossly normal bilaterally Neck Thyroid: Thyroid normal Lymphatic: no lymphadenopathy noted Resp Auscultation: clear to auscultation bilaterally Cardio Rate: regular rate Rhythm: regular rhythm Heart sounds: S1 normal heart sound present and S2 normal heart sound present Skin General skin exam: no rashes or lesions noted Neuro General: patient oriented x3, gait normal and no focal motor deficits Results Reviewed Results Reviewed: Laboratory Last Values Glucose (Clinic) 192 mg/dL (60-115) H 08/08/24 11:22 Assessment & Plan Assessment & Plan (1) Uncontrolled type 2 diabetes mellitus with hyperglycemia, with long-term current use of insulin: Code(s): E11.65 - Type 2 diabetes mellitus with hyperglycemia; Z79.4 - USP (current) use of insulin Category: Medical Plan: We will increase the Toujeo to 50 units nightly Increase the Humalog to 10 units prior to eating. I have refilled the metformin 1000 mg twice a day. -it is also still a little unclear if he has been taking this pill once or twice a day despite the bottle stating twice a day I will start him on Jardiance 10 mg daily -we will wait on starting trulicity because there is a lot of confusion with the insulin pens as it is. I did offer to try to get nursing services to help him with medication administration however he refuses. His girlfriend states that she will be able to help him better after today. I printed out his medication list and wrote down what he is taking each drug 4. I also marked all of his pill bottles so he knows what he is taking. I did have his significant other remove the valsartan from the medication pile. They will bring this over to the pharmacy to dispose of it when they go there this afternoon to machine operator hop picker the pen needles and Jardiance. They will bring in their medication list to make sure it matches the pharmacist medication list. I will have him recheck his kidney function in a couple weeks after starting Jardiance. He will return for a follow up in 3-4 weeks. I provided him with to [employer] 3+ sensors today in the office. He has a yolie downloaded on his phone and understands how to work it. (2) Hypertension: Code(s): I10 - Essential (primary) hypertension Category: Medical Plan: Reviewed medications for hypertension with patient and removed valsartan from his pills. (3) Hyperlipidemia: Code(s): E78.5 - Hyperlipidemia, unspecified Category: Medical Plan: Reordered atorvastatin. He will start taking this. We will order labs for follow up with cholesterol at our next visit in 3-4 weeks. Orders: Orders Basic Metabolic Panel Today E11.29 - Type 2 diabetes mellitus with other diabetic kidney complication, E11.65 - Type 2 diabetes mellitus with hyperglycemia, R80.9 - Proteinuria, unspecified, Z79.4 - USP (current) use of insulin Medications: New metformin 1,000 mg PO BID 180 tabs 3RF empagliflozin (Jardiance) 10 mg PO QAM 90 tabs 0RF Changed From insulin lispro (Humalog KwikPen (U-100) Insulin) with breakfast, lunch and supper 5 units (0.05 mL) subcut TID 15 mL 0RF To insulin lispro (Humalog KwikPen (U-100) Insulin) with breakfast, lunch and supper 10 units (0.1 mL) subcut TID 15 mL 0RF From insulin glargine U-300 conc (Toujeo Max U-300 SoloStar) 80 units (0.2667 mL) subcut DAILY 12 mL 4RF To insulin glargine U-300 conc (Toujeo Max U-300 SoloStar) 50 units (0.1667 mL) subcut DAILY 12 mL 4RF Refilled atorvastatin Cholesterol lowering medication 80 mg PO BEDTIME 90 days 90 tabs 3RF pen needle, diabetic Use QID As directed 400 ea 3RF E11.65 - Type 2 diabetes mellitus with hyperglycemia, Z79.4 - USP (current) use of insulin pen needle, diabetic Use QID As directed 400 ea 3RF E11.65 - Type 2 diabetes mellitus with hyperglycemia, Z79.4 - intermediate accountant (current) use of insulin Coding Level of Care Code Est Pt Level 4 (34071) Complex EM visit Add On G2211 Diagnoses Uncontrolled type 2 diabetes mellitus with hyperglycemia, with long-term current use of insulin E11.65; Z79.4 Hypertension I10 Hyperlipidemia E78.5
[2024-08-08 11:16] VITALS: BP 130/80; PULSE 92; O2SAT 94; BMI 27.8
[2024-08-08 11:26] LABS: Glucose, Whole Blood 192 mg/dL (60-115)
== END 2024-08-08 12:11 | disposition home or self-care (01) ==
LOC: HO.ENCR 11:05
PROVIDERS: Visit Provider Physician Assistant
DX: E11.65 Type 2 diabetes mellitus with hyperglycemia (principal); Z79.4 Long term (current) use of insulin; I10 Essential (primary) hypertension; E78.5 Hyperlipidemia, unspecified

== ENCOUNTER → 2024-08-08 11:04 | Outpatient (BNVA) | payer OTHER, SELFPAY | PROVIDERS: Visit Provider Physician Assistant | DX: E11.65 Type 2 diabetes mellitus with hyperglycemia (principal); I10 Essential (primary) hypertension; E78.5 Hyperlipidemia, unspecified; Z79.4 Long term (current) use of insulin | CPT/HCPCS: 82947; 99212 ==

== ENCOUNTER 2024-08-20 08:28 | Outpatient (AMB) | payer OTHER, SELFPAY ==
[2024-08-20 08:33] VITALS: BMI 27.7
--- NOTE | 2024-08-20 08:33 | A.OFFVIS_ITS ---
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 The patient states that his symptoms have gotten worse over the last 5 years in spite of continued non operative treatments. He has difficulty lifting his left hand above shoulder height. He has tried Tylenol which gives him minimal relief. He is not able to take anti-inflammatory medicines because he is on Eliquis. He has done physical therapy exercises which aggravated his pain. Compressor Station Engineer Chief Required: Yes Compressor Station Engineer Chief Language: Boom Conveyor Operator Services: Compressor Station Engineer Chief Offered & Declined Allergies No Known Allergies Allergy (Verified 08/20/24 08:34) Medication List - Last Reconciled 08/20/24 by Rocael Payne MD alcohol swabs (Alcohol Prep Pads) 1 pad topical TID 30 days apixaban (Eliquis) 5 mg PO BID 90 days atorvastatin 80 mg PO BEDTIME 90 days blood sugar diagnostic (FreeStyle Lite Strips) Use daily As directed to check blood glucose blood-glucose meter (FreeStyle Lite Meter kit) Use daily As directed to check blood sugars blood-glucose sensor (FreeStyle Noe 3 Plus Sensor device) Use daily As directed to monitor glucose blood-glucose,multimedia developer,cont (FreeStyle Noe 3 [place]) Please specify directions, refills and quantity carvedilol 12.5 mg PO BID cholecalciferol (vitamin D3) 25 mcg PO DAILY cyanocobalamin (vitamin B-12) 1,000 mcg PO DAILY empagliflozin (Jardiance) 10 mg PO QAM furosemide 40 mg PO DAILY glucagon 3 mg/actuation 3 mg intranasal ONCE PRN glucose (Dex4 Glucose) 16 grams (4 x 4 gram) PO Q15M PRN insulin glargine U-300 conc (Toujeo Max U-300 SoloStar) 50 units (0.1667 mL) subcut DAILY insulin lispro (Humalog KwikPen (U-100) Insulin) 10 units (0.1 mL) subcut TID lancets (FreeStyle Lancets) use daily as directed to check blood glucose metformin 1,000 mg PO BID pen needle, diabetic Use QID As directed sacubitril-valsartan 24-26 mg (Entresto) 1 tab PO BID PFSH Medical History Hyperlipidemia Diabetes mellitus Surgical History History of cardiac cath Family History Mother Stroke Father Stroke Social History Household Members: Spouse Housing: Apartment Do you presently have visiting nurse or other home services: No Patient Tobacco Use Status: Former Tobacco user Tobacco use type: Cigarette Cigarette Packs Per Day: 1.5 Cigarettes Per Day: 30.0 e-Cigarette/Vaping Use: Never Used Second Hand Smoke Exposure: Yes Substance Use Type: Crack/Cocaine Advance Directives Date on File: 01/18/24 service: No Current occupational status: employed Cognitive needs: No Hearing needs: No Vision needs: No Physical Exam Vital Signs: BMI result Body Mass Index 27.7 Const Other: Well-nourished well-developed very friendly male awake alert and oriented x3 in no acute distress Extrem Other: Left shoulder examination shows decreased range of motion when compared to his right shoulder, 4+ out of 5 strength with supraspinatus testing, positive impingement signs, no instability Results Reviewed Results Reviewed: X-rays of the patient's left shoulder show severe acromioclavicular joint narrowing, a type 2 acromion, no acute bony abnormalities Assessment & Plan Assessment & Plan (1) Rotator cuff insufficiency of left shoulder: Code(s): M25.312 - Other instability, left shoulder Category: Medical Plan Mr. Gtz presents with progressively worsening left shoulder pain and weakness due to impingement syndrome and possible full-thickness rotator cuff tearing. Thus, I will send the patient for an MRI of his left shoulder for further evaluation. I will see him back once the MRI is completed to discuss the findings and treatment options. Feel free to call me at any time should questions regarding his orthopedic management arise. Thank you very much for asking me to see this very friendly gentleman. I spent 21 minutes in reviewing the patient's records and imaging studies, seeing the patient and documenting in the medical record. Orders: Orders MR shoulder LT wo con Today M25.312 - Other instability, left shoulder Coding Level of Care Code New Pt Level 3 (73670) Complex EM visit Add On G2211 Diagnoses Rotator cuff insufficiency of left shoulder M25.312
== END 2024-08-20 08:53 | disposition home or self-care (01) ==
LOC: HO.HOS 08:29
PROVIDERS: Visit Provider Orthopaedic Surgery
DX: M25.312 Other instability, left shoulder (principal)
CPT/HCPCS: 99203; G2211

== ENCOUNTER → 2024-08-20 08:28 | Outpatient (BNVA) | payer OTHER, SELFPAY | PROVIDERS: Visit Provider Orthopaedic Surgery | DX: M25.312 Other instability, left shoulder (principal) | CPT/HCPCS: 99202 ==

== ENCOUNTER → 2024-09-06 23:59 | Outpatient (BNV) | payer OTHER, SELFPAY ==
--- NOTE | 2024-09-15 13:11 | MHC.OFFVIS ---
Intake Visit Reasons: Remote ILR check- [employer] Allergies No Known Allergies Allergy (Verified 08/20/24 08:34) PFSH Medical History Hyperlipidemia Diabetes mellitus Surgical History History of cardiac cath Family History Mother Stroke Father Stroke Social History Household Members: Spouse Housing: Apartment Do you presently have visiting nurse or other home services: No Patient Tobacco Use Status: Former Tobacco user Tobacco use type: Cigarette Cigarette Packs Per Day: 1.5 Cigarettes Per Day: 30.0 e-Cigarette/Vaping Use: Never Used Second Hand Smoke Exposure: Yes Substance Use Type: Crack/Cocaine Advance Directives Date on File: 01/18/24 service: No Current occupational status: employed Cognitive needs: No Hearing needs: No Vision needs: No Office Procedures Cardiac Device Check Cardiac Device Check Details: Remote implantable loop recorder report generated 08/29/2024. Frequent PVCs noted at 2.8% burden. No pauses or atrial fibrillation noted [id number] Cardiac Interrogation, subcut cardiac rhythm monitor Procedure code (CPT) selection complete Assessment & Plan Assessment & Plan (1) Implantable loop recorder present: Comment: 06/25/[address] Hernandez Code(s): Z95.818 - Presence of other cardiac implants and grafts Category: Medical Plan: See above Coding Level of Care Code Procedure Only Diagnoses Implantable loop recorder present Z95.818 CPT Codes Cardiac Device Check - Cardiac Device 16: [id number] Cardiac Interrogation, subcut cardiac rhythm monitor ([id number])
== END ==
PROVIDERS: PCP Pediatrics; Visit Provider Internal Medicine Cardiovascular Disease
DX: I49.3 Ventricular premature depolarization (principal); Z95.818 Presence of other cardiac implants and grafts
CPT/HCPCS: 93298

== ENCOUNTER → 2024-09-13 09:39 | Outpatient (BNV) | payer OTHER, SELFPAY | PROVIDERS: PCP Pediatrics; Visit Provider Radiology Diagnostic Radiology | DX: M75.122 Complete rotator cuff tear or rupture of left shoulder, not specified as traumatic (principal); M67.814 Other specified disorders of tendon, left shoulder | CPT/HCPCS: 73221 ==

== ENCOUNTER 2024-09-13 09:42 | Outpatient (REF) | payer OTHER, SELFPAY ==
--- NOTE | ~2024-09-13 | MR_ITS ---
CLINICAL HISTORY: M25.312 - Other instability, left shoulder MR left shoulder Comparison: CR/SR - XR SHOULDER LT MIN 2V - 06/25/24 11:10 EDT Findings: No fracture or dislocation of the osseous structures. Marrow signal is within normal limits. The acromioclavicular joint is intact. There is mild acromioclavicular joint space narrowing and osteophytosis with a trace amount of fluid in the joint space, degenerative. Trace joint fluid. Moderate amount of fluid in the subacromial/subdeltoid bursa. There is increased signal in the supraspinatus tendon. There is a completetear of supraspinatus with retraction. Mild muscular atrophy. There is increased signal within the infraspinatus tendon with partial tear. No full-thickness tear, retraction or muscular atrophy. There is increased signal within the subscapularis tendon without tear, retraction or muscular atrophy. Teres minor is unremarkable. Intact labrum and cartilage. The biceps tendon and bicipital-labral anchor are preserved. There is a small amount of fluid within the tendon sheath. The coracoacromial and coracohumeral ligaments are intact. Cutaneous and subcutaneous tissues are normal. The quadrilateral space is unremarkable. Impression: Complete tear of supraspinatus with retraction and mild muscular atrophy. Partial tear of infraspinatus with tendinopathy. Subscapularis tendinopathy. Moderate amount of fluid in the subacromial/subdeltoid bursa. This document has been electronically signed by: Jessi Porras MD on 09/15/2024 22:07:30
== END 2024-09-13 09:43 | disposition home or self-care (01) ==
LOC: HO.MRI 09:42
PROVIDERS: PCP Pediatrics; Visit Provider Orthopaedic Surgery
DX: M25.312 Other instability, left shoulder (principal)
CPT/HCPCS: 73221

== ENCOUNTER 2024-09-23 13:31 | Outpatient (AMB) | payer OTHER, SELFPAY ==
--- NOTE | 2024-09-23 13:34 | MHC.OFFVIS ---
Vital Signs 09/23/24 13:38 Height 6 ft 1 in Weight 210 lb BMI 27.7 BP 142/92 H Blood Pressure Location Lt brachial Pulse 95 Pulse Source Pulse Oximeter Pulse Oximetry (%) 97 Oxygen Delivery Method Room Air Intake Visit Reasons: OV- Left shoulder MRI review Intake Note: Mega is a 64 year old male who presents with complaints of progressively worsening left shoulder pain and weakness. The patient describes his pain as sharp in nature. At this point his left shoulder pain and weakness or interfering with his activities of daily living and his ability to sleep well through the night. He has tried Tylenol and physical therapy exercises which gave him minimal relief. He is not able to take anti-inflammatory medicines because he is on Eliquis. 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,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 (FreeStyle Noe 3 [place]) Please specify directions, refills and quantity carvedilol 12.5 mg PO BID cholecalciferol (vitamin D3) 25 mcg PO DAILY cyanocobalamin (vitamin B-12) 1,000 mcg PO DAILY empagliflozin (Jardiance) 10 mg PO QAM furosemide 40 mg PO DAILY glucagon 3 mg/actuation 3 mg intranasal ONCE PRN glucose (Dex4 Glucose) 16 grams (4 x 4 gram) PO Q15M PRN insulin glargine U-300 conc (Toujeo Max U-300 SoloStar) 50 units (0.1667 mL) subcut DAILY insulin lispro (Humalog KwikPen (U-100) Insulin) 10 units (0.1 mL) subcut TID lancets (FreeStyle Lancets) use daily as directed to check blood glucose metformin 1,000 mg PO BID pen needle, diabetic Use QID As directed sacubitril-valsartan 24-26 mg (Entresto) 1 tab PO BID PFSH Medical History Hyperlipidemia Diabetes mellitus Surgical History History of cardiac cath Family History Mother Stroke Father Stroke Social History Household Members: Spouse Housing: Apartment Do you presently have visiting nurse or other home services: No Patient Tobacco Use Status: Former Tobacco user Tobacco use type: Cigarette Cigarette Packs Per Day: 1.5 Cigarettes Per Day: 30.0 e-Cigarette/Vaping Use: Never Used Second Hand Smoke Exposure: Yes Substance Use Type: Crack/Cocaine Advance Directives Date on File: 01/18/24 service: No Current occupational status: employed Cognitive needs: No Hearing needs: No Vision needs: No Physical Exam Vital Signs: Last Vital Signs Pulse 95 09/23/24 13:38 BP 142/92 H 09/23/24 13:38 Pulse Ox 97 09/23/24 13:38 Oxygen Delivery Method Room Air 09/23/24 13:38 BMI result Body Mass Index 27.7 Const Other: Well-nourished well-developed very friendly male awake alert and oriented x3 in no acute distress Extrem Other: Bilateral upper extremity examination shows good capillary refill, no skin lesions noted, normal sensation light touch Left shoulder examination shows decreased active range of motion but almost full passive range of motion when compared to his right shoulder, 4/5 strength with supraspinatus testing, positive impingement signs, tenderness over his acromioclavicular joint, no instability Results Reviewed Results Reviewed: MRI of the patient's left shoulder show severe acromioclavicular joint narrowing, a type 3 acromion, a full-thickness supraspinatus tendon tear Assessment & Plan Assessment & Plan (1) Rotator cuff insufficiency of left shoulder: Code(s): M25.312 - Other instability, left shoulder Category: Medical Plan Mr. Gtz presents with left shoulder pain and weakness due to impingement syndrome, acromioclavicular joint arthritis and a full-thickness rotator cuff tear. I had a lengthy discussion with the patient regarding the treatment options. At this point he appears to be failing continued non operative treatments. He is considering undergoing left shoulder surgery later this year if he is cleared medically to do so. He states that he has an appointment in your office over the next few weeks. Surgery would most likely involve left shoulder arthroscopic distal clavicle excision, left shoulder arthroscopic acromioplasty and left shoulder mini open rotator cuff repair. He will contact my office to pick a surgery date if he is cleared to do so. He will continue with his range of motion exercises in the meantime. Feel free to call me at any time should questions regarding his orthopedic management arise. I spent 20 minutes in reviewing the patient's records and imaging studies, seeing the patient and documenting in the medical record. Coding Level of Care Code Est Pt Level 3 (60853) Complex EM visit Add On G2211 Diagnoses Rotator cuff insufficiency of left shoulder M25.312
[2024-09-23 13:38] VITALS: BP 142/92; PULSE 95; O2SAT 97; BMI 27.7
== END 2024-09-23 13:50 | disposition home or self-care (01) ==
LOC: HO.HOS 13:32
PROVIDERS: PCP Pediatrics; Visit Provider Orthopaedic Surgery
DX: M25.312 Other instability, left shoulder (principal)
CPT/HCPCS: 99213; G2211

== ENCOUNTER → 2024-09-23 13:31 | Outpatient (BNVA) | payer OTHER, SELFPAY | PROVIDERS: PCP Pediatrics; Visit Provider Orthopaedic Surgery | DX: Z71.2 Person consulting for explanation of examination or test findings (principal); M25.512 Pain in left shoulder; M25.312 Other instability, left shoulder | CPT/HCPCS: 99212 ==

== ENCOUNTER 2024-10-06 14:25 | Outpatient (AMB) | payer OTHER, SELFPAY ==
--- NOTE | 2024-10-06 14:40 | A.OFFPC_ITS ---
Vital Signs 10/06/24 14:42 10/06/24 15:14 Height 6 ft 1 in Weight 212 lb 2 oz BMI 28.0 BP 152/80 H 136/82 Blood Pressure Location Lt brachial Lt brachial Position Sitting Sitting Pulse 65 Pulse Source Pulse Oximeter Temp 98.4 F Temp Source Temporal Artery Scan Pulse Oximetry (%) 98 Oxygen Delivery Method Room Air Intake Visit Reasons: 2 month f/u DM Weaver Needle Loom Required: Yes Weaver Needle Loom Language: Afghan Accompanied by: Spouse Allergies No Known Allergies Allergy (Verified 10/06/24 14:45) Medication List - Last Reconciled 10/06/24 by Dotty Hernandez PA-C alcohol swabs (Alcohol Prep Pads) 1 pad topical TID 30 days apixaban (Eliquis) 5 mg PO BID 90 days atorvastatin 80 mg PO BEDTIME 90 days blood sugar diagnostic (FreeStyle Lite Strips) Use daily As directed to check blood glucose blood-glucose meter (FingoorooStyle Lite Meter kit) Use daily As directed to check blood sugars blood-glucose sensor (FingoorooStyle Noe 3 Plus Sensor device) Use daily As directed to monitor glucose blood-glucose,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,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 (FreeStyle Noe 3 [place]) Please specify directions, refills and quantity carvedilol 12.5 mg PO BID cholecalciferol (vitamin D3) 25 mcg PO DAILY cyanocobalamin (vitamin B-12) 1,000 mcg PO DAILY empagliflozin (Jardiance) 10 mg PO DAILY furosemide 40 mg PO DAILY glucagon 3 mg/actuation 3 mg intranasal ONCE PRN glucose (Dex4 Glucose) 16 grams (4 x 4 gram) PO Q15M PRN insulin glargine U-300 conc (Toujeo Max U-300 SoloStar) 50 units (0.1667 mL) subcut DAILY insulin lispro (Humalog KwikPen (U-100) Insulin) 10 units (0.1 mL) subcut TID lancets (FreeStyle Lancets) use daily as directed to check blood glucose metformin 1,000 mg PO BID pen needle, diabetic Use QID As directed sacubitril-valsartan 24-26 mg (Entresto) 1 tab PO BID Tobacco use date assessed: 10/06/24 Fall risk assessment: No Falls in past year Last assessed Fall Risk: 10/06/24 Dental Screening Dental Screen Date: 06/18/24 Did you have a dental visit in the last 12 months?: No Did you have a dental problem in the last 6 months where you did not have access to dental care?: No Was dental information given to patient?: No HPI 2 month f/u DM HPI Details 64-year-old male with past medical histo ry of cardiomyopathy, CVA, hypertension, hyperlipidemia, coronary artery disease and uncontrolled diabetes mellitus last seen 07/2024 coming in for follow up. In review of the notes, patient was seen by Orthopedics 09/2024 for left shoulder MRI review consideration for left shoulder surgery if medically cleared to do so. He was seen by endocrinology 07/2024 for uncontrolled diabetes Toujeo was increased to 50 units nightly, increase the Humalog to 10 units prior to eating and continued on metformin as well as started on Jardiance. Seen by Cardiology 07/2024 continue on current medication regimen and follow up in 3 months. The patient's Hemoglobin A1c was previously 9.3% and has decreased to 8.7% with recent medication adjustments, although it remains above the target level. The patient missed an endocrinology appointment in August and has been advised to reschedule. The patient is currently on insulin therapy with adjustments made to the dosage of Humalog and Toujeo. The patient has been prescribed Jardiance but has concerns about potential kidney side effects, which has led to non- adherence. The patient has a history of hypertension, with current blood pressure management being monitored. The patient has chronic kidney disease, with kidney function being monitored due to diabetes and medication concerns. [facility] Medical History Hyperlipidemia Diabetes mellitus Surgical History History of cardiac cath Family History Mother Stroke Father Stroke Social History Household Members: Spouse Housing: Apartment Do you presently have visiting nurse or other home services: No Patient Tobacco Use Status: Former Tobacco user Tobacco use type: Cigarette Cigarette Packs Per Day: 1.5 Cigarettes Per Day: 30.0 e-Cigarette/Vaping Use: Never Used Second Hand Smoke Exposure: Yes Substance Use Type: Crack/Cocaine Advance Directives Date on File: 01/18/24 service: No Current occupational status: employed Cognitive needs: No Hearing needs: No Vision needs: No Questionnaire PHQ-9 Over the last 2 weeks, how often have you been bothered by any of the following problems? 1. Little interest or pleasure in doing things: not at all 2. Feeling down, depressed, or hopeless: not at all 3. Trouble falling or staying asleep, or sleeping too much: not at all 4. Feeling tired or having little energy: not at all 5. Poor appetite or overeating: not at all 6. Feeling bad about yourself - or that you are a failure or have let yourself or your family down: not at all 7. Trouble concentrating on things, such as reading the newspaper or watching television: not at all 8. Moving or speaking so slowly that other people could have noticed. Or the opposite - being so fidgety or restless that you have been moving around a lot more than usual: not at all 9. Thoughts that you would be better off or of hurting yourself in some way: not at all Total score: 0 43929 - PHQ-9 Billing: Yes Source: Developed by Drs. Alin Slaughter, Shalini Samuel, Wilder Cody and colleagues, with an educational alan from [employer]. Thrive Questionnaire Date Thrive assessed: 10/06/24 I am a: Patient What is your living situation today?: I choose not to answer this question Within the past 12 months, did the food you bought not last and you didn't have the money to get more?: I choose not to answer this question Within the past 12 months, did you worry whether your food would run out before you got money to buy more?: I choose not to answer this question Do you have trouble paying for medicines?: I choose not to answer this question Do you have trouble getting transportation to medical appointments?: I choose not to answer this question Do you have trouble paying your heating and electricity bill?: I choose not to answer this question Do you have trouble taking care of your child, family member or friend?: I choose not to answer this question Do you have trouble with day-to-day activities such as bathing, preparing meals, shopping, managing finances, etc.?: I choose not to answer this question Are you currently unemployed and looking for a job?: I choose not to answer this question Are you interested in more education?: I choose not to answer this question Please select the resources that you would like help with: None Currently or been in a relationship where the following occur: I choose not to answer THRIVE Score: 0 AUDIT C Alcohol Use Questionnaire (AUDIT-C) 1. How often do you have a drink containing alcohol?: Never Total Score: 0 JUANITO-7 AMB Questionnaire JUANITO-7 Date JUANITO - 7 assessed: 10/06/24 Feeling nervous, anxious, or on edge: 0 = Not at all Not being able to stop or control worryin = Not at all Worrying too much about different things: 0 = Not at all Trouble relaxin = Not at all Being so restless that it is hard to sit still: 0 = Not at all Becoming easily annoyed or irritable: 0 = Not at all Feeling afraid as if something awful might happen: 0 = Not at all Total JUANITO-7 score (0-4 normal; 5-9 mild; 10-14 moderate; 15-21 severe): 0 Source: Developed by Drs. Alin Slaughter, Shalini Samuel, Wilder Cody and colleagues, with an educational alan from [employer]. JUANITO-7 Assessment Billing JUANITO-7 Assessment Tool: JUANITO-7 Assessment 50193 Review of Systems Const Denies body aches, Denies chills, Denies fever(s), Denies headache(s) and Denies poor appetite Eyes Reports no additional complaints ENT Denies dizziness and Denies headache(s) Card Denies chest pain, Denies edema, Denies lightheadedness and Denies dyspnea Resp Denies cough and Denies dyspnea GI Denies nausea and Denies vomiting Reports no additional complaints Musc Reports no additional complaints and Denies abnormal gait Skin/Breast Reports system reviewed and no additional complaints, except as documented Neuro Denies abnormal gait, Denies dizziness and Denies headache(s) Psych Reports no additional complaints Physical exam (Primary Care) Vital Signs: Last Vital Signs Temp 98.4 F 10/06/24 14:42 Pulse 65 10/06/24 14:42 BP 136/82 10/06/24 15:14 Pulse Ox 98 10/06/24 14:42 Oxygen Delivery Method Room Air 10/06/24 14:42 BMI result Body Mass Index 28.0 Tobacco/Smoking Status: Tobacco use Status Tobacco use date assessed 10/06/24 10/06/24 14:43 Patient Tobacco Use Status Former Tobacco user 10/06/24 14:43 Tobacco use type Cigarette 10/06/24 14:43 e-Cigarette/Vaping Use Never Used 10/06/24 14:43 PHQ-9: PHQ-9 Score PHQ-9: Total score 0 10/06/24 14:52 Thrive Assessment: Date of Thrive Assessment Date Thrive assessed 10/06/24 10/06/24 14:43 Currently or been in a relationship where the following occur: I choose not to answer Const General: cooperative, healthy appearing, comfortable and no acute distress Orientation/consciousness: patient oriented x3 HENMT Head: Yes normocephalic Ears: hearing grossly normal bilaterally General nose exam: Normal external nose present Eyes General: appearance normal, both eyes and all related structures Conjunctivae: conjunctivae normal Neck Neck: Yes full ROM and Yes no lymphadenopathy Resp Effort & Inspection: normal respiratory effort Auscultation: clear to auscultation bilaterally, no crackles, no rales, no rhonchi and no wheezes Cardio Rate: regular rate Rhythm: regular rhythm Skin General skin exam: no rashes or lesions noted Neuro General: patient oriented x3 Gait exam (Neuro): Normal gait present Extrem General: Yes normal to inspection, Yes full ROM and No edema Psych Affect: normal affect Attitude: cooperative Insight: Good insight present (Psych) Judgement: Good judgement present (Psych) Results AMB Hemoglobin A1c AMB Hemoglobin A1c 8.7 % Last Edit by Isabel Mccoy MA on 10/06/24 14:52 Results Reviewed Results Reviewed: Laboratory Last Values Hgb A1c (Clinic) 8.7 % (4.0-6.0) H 10/06/24 14:41 Coding Level of Care Code Est Pt Level 3 (77709) Diagnoses Uncontrolled type 2 diabetes mellitus with hyperglycemia, with long-term current use of insulin E11.65; Z79.4 Coronary artery disease involving [place] coronary artery of [place] heart without angina pectoris I25.10 Associated angina: without angina Coronary Disease-Associated Artery/Lesion type: [place] artery [place] vs. transplanted heart: [place] heart Primary hypertension I10 Hypertension type: primary hypertension Mixed hyperlipidemia E78.2 Hyperlipidemia type: mixed hyperlipidemia Cardiomyopathy, unspecified type I42.9 Cardiomyopathy type: unspecified Additional Codes JUANITO-7 Assessment Billing - JUANITO-7 Assessment Tool: JUANITO-7 Assessment 11247 ([id number]) PHQ-9 - 39678 - PHQ-9 Billing: Yes ([id number]) Assessment & Plan Assessment & Plan (1) Uncontrolled type 2 diabetes mellitus with hyperglycemia, with long-term current use of insulin: Code(s): E11.65 - Type 2 diabetes mellitus with hyperglycemia; Z79.4 - 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 Although fruits are generally healthy they should be eaten in moderation as they are still high in sugar. Hemoglobin A1c goal of less than 7%. Patient currently following with endocrinology but did miss his last visit with them. Advised to reschedule. He also mentions he has not been taking his Jardiance due to fear of side effects. Did recommend patient start on this medication and follow up with endocrinology. (2) Coronary artery disease: Comment: 02/28/2024 left main normal, lad mild irregularities less than 30% stenosis, left circumflex mild irregularities less than 30% stenosis, right PDA 80% stenosis. Code(s): I25.10 - Atherosclerotic heart disease of [place] coronary artery without angina pectoris Category: Medical Qualifiers: Associated angina: without angina Coronary Disease-Associated Artery/Lesion type: [place] artery [place] vs. transplanted heart: [place] heart Qualified Code(s): I25.10 - Atherosclerotic heart disease of [place] coronary artery without angina pectoris Plan: Discussed with patient the importance of cholesterol management, control of diabetes and blood pressure. Currently on Eliquis 5 mg twice daily and atorvastatin 80 mg as well. Continue to follow with Cardiology next month (3) Hypertension: Code(s): I10 - Essential (primary) hypertension Category: Medical Qualifiers: Hypertension type: primary hypertension Qualified Code(s): I10 - Essential (primary) hypertension Plan: Continue on current blood pressure medication. Avoid salt intake and encourage healthy diet and regular exercise. (4) Hyperlipidemia: Code(s): E78.5 - Hyperlipidemia, unspecified Category: Medical Qualifiers: Hyperlipidemia type: mixed hyperlipidemia Qualified Code(s): E78.2 - Mixed hyperlipidemia Plan: Avoid foods that are high in cholesterol such as red meat, fried foods, eggs and baked goods. Triglyceride goal of less than 150 and LDL goal of less than 70. Continue on Atorvastatin 80 reminded patient about blood work. (5) Cardiomyopathy: Code(s): I42.9 - Cardiomyopathy, unspecified Category: Medical Qualifiers: Cardiomyopathy type: unspecified Qualified Code(s): I42.9 - Cardiomyopathy, unspecified Plan: Discussed with patient the importance of monitoring daily weights and restricting excessive fluid intake. Avoid salt intake as well. Patient to follow up with Cardiology. Clinically euvolemic today and denies any symptoms of orthopnea. Plan The patient will start on Jardiance at a dose of 10 mg, which is the lowest dose, to help manage blood sugar levels. The patient is advised to monitor kidney function closely due to concerns about potential side effects of Jardiance, as diabetes itself can impact kidney health. The patient is encouraged to reschedule the missed endocrinology appointment to ensure proper management of diabetes and to adjust medications as necessary. Blood pressure will be monitored, and adjustments to medication timing may be necessary to optimize control. This note was constructed using voice recognition software. While every effort has been made to ensure accuracy and athletic gear custodian, still areas may have been included sometimes these areas may affect the content or meeting of the given symptoms. Total time spent caring for the patient today was 20 minutes. This includes time spent before the visit reviewing the chart, time spent during the visit, and time spent after the visit and documentation. Patient was informed and verbally consented to the use of an ambient scribe for clinic note documentation during this visit. Orders: Orders AMB Hemoglobin A1c Today E11.65 - Type 2 diabetes mellitus with hyperglycemia, Z79.4 - half-way (current) use of insulin Medications: New empagliflozin (Jardiance) 10 mg PO DAILY 90 tabs 0RF Discontinued empagliflozin (Jardiance) Discontinued Reason: Patient no longer taking 10 mg PO QAM 90 tabs 0RF
[2024-10-06 14:42] VITALS: BP 152/80; PULSE 65; TEMP 36.9; O2SAT 98; BMI 28.0
--- OUTSIDE RECORDS SUMMARY | 2024-10-06 15:08 | XMS_ITS | Patient Health Record ---
Author Organization [facility] Address [address] [place] [address] Care Team Providers Care Industrial Commercial Groundskeeper Name Role Phone Apurvasherry Steffi Primary Care Provider Unavailab Alin Cortez Unavailable [phone] Reason For Referral No Information Medications Medication SIG (Take, Route, Frequency, Duration) Notes Start Date End Date Status Lisinopril-hydroCHLOROthiaz brenden 20-25 MG 1 tablet Orally Once a day Active Viagra 100 MG 1 tablet as needed O rally prn Active metFORMIN HCl 1000 MG 1 tablet with meal s Orally Once a day Active Atorvastatin Calcium 40 MG 1 tablet Oral ly Once a day Active Triamcinolone Acetonide 0.5 % 1 application to affected area Externally Once a day Active Invokana 100 MG 1 tablet Orally Once a day Active Glimepiride 4 MG 1 tablet with breakf ast or the first main meal of the day Orally Once a day Active amLODIPine Besylate 10 MG 1 tablet Orall y Once a day Active Social History Tobacco Use: Social History Observation Description Date Details (start date - stop date) Former Smoker NA - NA Tobacco Use/Smoking Question Answer Notes Patient is a former smoker How long has it been since you last smoked? > 10 years Alcohol Screen Question Answer Notes Did you have a drink contain ing alcohol in the past year? Yes How often did you have a dri nk containing alcohol in the past year? 2 to 3 times a week (3 points) How many drinks did you have on a typical day when you were drinking in the past year? 7 to 9 drinks (3 points) How often did you have 6 or more drinks on one occasion in the past year? Weekly (3 points) Points 9 Interpretation Positive Section Notes: Nonsmoker; occ. alcohol; occ . nasal cocaine--denies IVDA Problems Problem Type SNOMED Code ICD Code Onset Dates Problem Status W/U Status Risk Notes Problem [id number] Chronic hepatitis C without hepatic coma (B18.2) Active confirmed Plan Of Treatment Pending Test Test Name Order Date [facility] 10/11/2016 Insurance Providers Payer Name Payer Address Payer Phone Subscriber Number Group Number Insured Name Patient Relationship to Insured Coverage Start Date Coverage End Date [facility] [address] [address] [place], [place] [id number] CANDACE SILVA Self - patient is the insured Medical (General) History Medical History History ICD Code Denies [place],CVA,Lung disease,renal disease Diabetes HTN Hyperlipidemia Hepatitis C Surgical History Surgery Date(Month/Year) eye surgery-left--cataract 2013
[2024-10-06 15:14] VITALS: BP 136/82
== END 2024-10-06 15:18 | disposition home or self-care (01) ==
LOC: HO.HMCH 14:26
DX: E11.65 Type 2 diabetes mellitus with hyperglycemia (principal); Z79.4 Long term (current) use of insulin

== ENCOUNTER → 2024-10-06 14:25 | Outpatient (BNVA) | payer OTHER, SELFPAY | DX: E11.65 Type 2 diabetes mellitus with hyperglycemia (principal); I42.9 Cardiomyopathy, unspecified; I10 Essential (primary) hypertension; E78.5 Hyperlipidemia, unspecified; I25.10 Atherosclerotic heart disease of native coronary artery without angina pectoris; E78.2 Mixed hyperlipidemia; Z79.4 Long term (current) use of insulin; Z86.73 Personal history of transient ischemic attack (TIA), and cerebral infarction without residual deficits; Z79.899 Other long term (current) drug therapy | CPT/HCPCS: 83036; 96127; 99212 ==

== ENCOUNTER → 2024-10-06 23:59 | Outpatient (BNV) | payer OTHER, SELFPAY ==
--- NOTE | 2024-10-21 12:26 | MHC.OFFVIS ---
Intake Visit Reasons: Remote ILR check- Medtronic Allergies No Known Allergies Allergy (Verified 10/06/24 14:45) PFSH Medical History Hyperlipidemia Diabetes mellitus Surgical History History of cardiac cath Family History Mother Stroke Father Stroke Social History Household Members: Spouse Housing: Apartment Do you presently have visiting nurse or other home services: No Patient Tobacco Use Status: Former Tobacco user Tobacco use type: Cigarette Cigarette Packs Per Day: 1.5 Cigarettes Per Day: 30.0 e-Cigarette/Vaping Use: Never Used Second Hand Smoke Exposure: Yes Substance Use Type: Crack/Cocaine Advance Directives Date on File: 01/18/24 service: No Current occupational status: employed Cognitive needs: No Hearing needs: No Vision needs: No Office Procedures Cardiac Device Check Cardiac Device Check Details: Remote implantable loop recorder report generated 10/07/2024. Frequent isolated PVCs noted. No pauses or tachyarrhythmias noted [id number] Cardiac Interrogation, subcut cardiac rhythm monitor Procedure code (CPT) selection complete Results AMB Hemoglobin A1c AMB Hemoglobin A1c 8.7 % Last Edit by Isabel Mccoy MA on 10/06/24 14:52 Assessment & Plan Assessment & Plan (1) Implantable loop recorder present: Comment: 06/25/[address] Hernandez Code(s): Z95.818 - Presence of other cardiac implants and grafts Category: Medical Plan: See above Coding Level of Care Code Procedure Only Diagnoses Implantable loop recorder present Z95.818 CPT Codes Cardiac Device Check - Cardiac Device 16: [id number] Cardiac Interrogation, subcut cardiac rhythm monitor ([id number])
== END ==
PROVIDERS: Visit Provider Internal Medicine Cardiovascular Disease
DX: I49.3 Ventricular premature depolarization (principal); Z95.818 Presence of other cardiac implants and grafts
CPT/HCPCS: 93298

== ENCOUNTER 2024-11-03 10:54 | Outpatient (REF) | payer OTHER, SELFPAY ==
[2024-11-03 12:13] LABS: Cholesterol 248 mg/dL (<200); HDL Cholesterol 47 mg/dL (>40); Triglycerides 278 mg/dL (<150)
--- OUTSIDE RECORDS SUMMARY | 2024-11-03 12:13 | XMS_ITS | Patient Health Record ---
Author Organization [facility] Address [address] [place] [address] Care Team Providers Care Whale Trainer Name Role Phone Apurvasherry Steffi Primary Care Provider Unavailab Alin Cortez Unavailable [phone] Reason For Referral No Information Medications Medication [...] Problem Status W/U Status Risk Notes Problem [id number] Chronic hepatitis C without hepatic coma (B18.2) Active confirmed Plan Of Treatment Pending Test Test Name Order Date [facility] 10/11/2016 Insurance Providers Payer Name Payer Address Payer Phone Subscriber Number Group Number Insured Name Patient Relationship to Insured Coverage Start Date Coverage End Date [facility] [address] [address] [place], [place] [id number] CANDACE SILVA Self - patient is the insured Medical (General) History Medical History History ICD Code Denies [place],CVA,Lung disease,renal disease Diabetes HTN Hyperlipidemia Hepatitis C Surgical History Surgery Date(Month/Year) eye surgery-left--cataract 2013
== END 2024-11-03 10:55 | disposition home or self-care (01) ==
LOC: HO.LAB 10:54
DX: E78.00 Pure hypercholesterolemia, unspecified (principal)
CPT/HCPCS: 36415; 80061

== ENCOUNTER → 2024-11-05 23:59 | Outpatient (BNV) | payer OTHER, SELFPAY ==
--- NOTE | 2024-11-17 14:09 | MHC.OFFVIS ---
Intake Visit Reasons: Remote ILR check- Medtronic Allergies No Known Allergies Allergy (Verified 10/06/24 14:45) PFSH Medical History Hyperlipidemia Diabetes mellitus Surgical History History of cardiac cath Family History Mother Stroke Father Stroke Social History Household Members: Spouse Housing: Apartment Do you presently have visiting nurse or other home services: No Patient Tobacco Use Status: Former Tobacco user Tobacco use type: Cigarette Cigarette Packs Per Day: 1.5 Cigarettes Per Day: 30.0 e-Cigarette/Vaping Use: Never Used Second Hand Smoke Exposure: Yes Substance Use Type: Crack/Cocaine Advance Directives Date on File: 01/18/24 service: No Current occupational status: employed Cognitive needs: No Hearing needs: No Vision needs: No Office Procedures Cardiac Device Check Cardiac Device Check Details: Remote implantable loop recorder report generated 11/05/2024. No pauses or atrial fibrillation noted. Frequent isolated PVCs noted with total burden of 3.1% [id number]-Zipjdo Cardiac Interrogation, subcut cardiac rhythm monitor Procedure code (CPT) selection complete Assessment & Plan Assessment & Plan (1) Implantable loop recorder present: Comment: 06/25/[address] Hernandez Code(s): Z95.818 - Presence of other cardiac implants and grafts Category: Medical Plan: See above Coding Level of Care Code Procedure Only Diagnoses Implantable loop recorder present Z95.818 CPT Codes Cardiac Device Check - Cardiac Device 16: [id number] Cardiac Interrogation, subcut cardiac rhythm monitor ([id number])
== END ==
PROVIDERS: PCP Internal Medicine; Visit Provider Internal Medicine Cardiovascular Disease
DX: I49.3 Ventricular premature depolarization (principal); Z95.818 Presence of other cardiac implants and grafts
CPT/HCPCS: 93298

== ENCOUNTER 2024-11-06 14:16 | Outpatient (AMB) | payer OTHER, SELFPAY ==
--- NOTE | 2024-11-06 14:18 | MHC.OFFVIS ---
Vital Signs 11/06/24 14:19 Height 6 ft 1 in Weight 211 lb 10.3 oz BMI 27.9 BP 120/80 Blood Pressure Location Lt brachial Position Sitting Pulse 86 Intake Visit Reasons: 3 mth f/up wilson echo Intake Note: 3 month follow-up echo and IRL Keller Machine Operator Required: Yes Keller Machine Operator Services: Keller Machine Operator Offered & Declined Glass Etcher Helper: Glass Etcher Helper Present Accompanied by: Spouse Allergies No Known Allergies Allergy (Verified 10/06/24 14:45) Medication List - Last Reconciled 11/06/24 by Winston Hernandez MD alcohol swabs (Alcohol Prep Pads) 1 pad topical TID 30 days apixaban (Eliquis) 5 mg PO BID 90 days atorvastatin 80 mg PO BEDTIME 90 days blood sugar diagnostic (FreeStyle Lite Strips) Use daily As directed to check blood glucose blood-glucose meter (FreeStyle Lite Meter kit) Use daily As directed to check blood sugars blood-glucose sensor (NJVCStyle Noe 3 Plus Sensor device) Use daily As directed to monitor glucose blood-glucose,general car yard supervisor,cont (FreeStyle Noe 3 [place]) Please specify directions, refills and quantity carvedilol 12.5 mg PO BID cholecalciferol (vitamin D3) 25 mcg PO DAILY cyanocobalamin (vitamin B-12) 1,000 mcg PO DAILY empagliflozin (Jardiance) 10 mg PO DAILY furosemide 40 mg PO DAILY glucagon 3 mg/actuation 3 mg intranasal ONCE PRN glucose (Dex4 Glucose) 16 grams (4 x 4 gram) PO Q15M PRN insulin glargine U-300 conc (Toujeo Max U-300 SoloStar) 50 units (0.1667 mL) subcut DAILY insulin lispro (Humalog KwikPen (U-100) Insulin) 10 units (0.1 mL) subcut TID lancets (FreeStyle Lancets) use daily as directed to check blood glucose metformin 1,000 mg PO BID pen needle, diabetic Use QID As directed sacubitril-valsartan 24-26 mg (Entresto) 1 tab PO BID HPI Comments Details: Mega comes for follow-up accompanied by his significant other. He has not had any hospitalization related to heart failure however he continues to not take his medications appropriately. He says and history obtained with help of a the significant other and they declined technology manager. They said he takes medications only in the morning except for statin which she takes at nighttime. This has been discussed with him in the past and have discussed with him about importance of compliance with medications as this can lead to further complications related to cardiac issues. Comes for his ILR follow-up. He has not had any episodes of atrial fibrillation. Denies any lightheadedness, syncope. No prolonged palpitation irregular heartbeat. No orthopnea, PND, leg edema. 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 No syncopal episodes. [facility] Medical History Hyperlipidemia Diabetes mellitus Surgical History History of cardiac cath Family History Mother Stroke Father Stroke Social History Household Members: Spouse Housing: Apartment Do you presently have visiting nurse or other home services: No Patient Tobacco Use Status: Former Tobacco user Tobacco use type: Cigarette Cigarette Packs Per Day: 1.5 Cigarettes Per Day: 30.0 e-Cigarette/Vaping Use: Never Used Second Hand Smoke Exposure: Yes Substance Use Type: Crack/Cocaine Advance Directives Date on File: 01/18/24 service: No Current occupational status: employed Cognitive needs: No Hearing needs: No Vision needs: No Review of Systems Const Denies chills, Denies fatigue, Denies fever(s), Denies frequent falls, Denies weakness, Denies weight gain and Denies weight loss ENT Denies dizziness Card Denies chest pain, Denies leg edema, Denies lightheadedness, Denies palpitations, Denies dyspnea, Denies dyspnea on exertion, Denies orthopnea and Denies other (loss of consciousness) Resp Denies cough, Denies dyspnea and Denies dyspnea on exertion GI Denies hematochezia and Denies change in stool character Musc Denies abnormal gait, Denies muscle weakness, Denies numbness, Denies radiating pain into limb and Denies tingling Neuro Denies abnormal gait, Denies dizziness, Denies frequent falls, Denies numbness, Denies tingling and Denies weakness Endo Denies fatigue and Denies palpitations Physical Exam Vital Signs: Last Vital Signs Pulse 86 11/06/24 14:19 BP 120/80 11/06/24 14:19 BMI result Body Mass Index 27.9 Const General: cooperative, healthy appearing, comfortable and no acute distress Orientation/consciousness: patient oriented x3 Neck Neck: Yes normal visual inspection Chest Other: ILR site: dressing and steri strips removed - site well approximated, no redness, swelling or drainage, left open to air. Resp Effort & Inspection: normal respiratory effort Auscultation: clear to auscultation bilaterally, no rales, no rhonchi and no wheezes Cardio Rate: regular rate Rhythm: regular rhythm Heart sounds: S1 normal heart sound present, S2 normal heart sound present, no murmurs and no rubs Neuro General: patient oriented x3 Extrem General: Yes normal to inspection and No no pedal edema Psych Appearance: grossly normal Mental Status: mental status grossly normal Speech and movement: Normal speech and movement present Office Procedures Cardiac Device Check Cardiac Device Check Details: [employer] implantable loop recorder in place. No atrial fibrillation or pauses noted. Frequent PVCs noted with total burden of 3.1% without any sustained arrhythmias. [id number] Device Interrogation, subcut cardiac rhythm monitor Procedure code (CPT) selection complete Assessment & Plan Assessment & Plan (1) Heart failure with reduced ejection fraction: Code(s): I50.20 - Unspecified systolic (congestive) heart failure Category: Medical Plan: Heart failure with reduced ejection fraction with severe LV systolic dysfunction with poor compliance. Again discussed with him importance of compliance with his medications. Taking medications properly and twice a day was discussed with him. Without that he is going to have worse outcomes including possible recurrent heart failure and admissions as well as that is. He showed understanding. Advised him that if he is getting symptoms related to medication should call or office rather than not taking medications appropriately so we can give him appropriate dosing of medications. Clinically appears euvolemic and well compensated. Continue current diuretic dose. Daily weight monitoring avoidance salt loading was discussed. Follow-up echocardiogram in 3 months time. If he has persistent severe LV systolic dysfunction consider ICD placement if he is compliant with his guideline based medical therapy. Follow up in the clinic in 1 week's time for blood pressure check on proper dosing of medications. (2) Coronary artery disease: Comment: 02/28/2024 left main normal, lad mild irregularities less than 30% stenosis, left circumflex mild irregularities less than 30% stenosis, right PDA 80% stenosis. Code(s): I25.10 - Atherosclerotic heart disease of teller coronary artery without angina pectoris Category: Medical Qualifiers: Coronary Disease-Associated Artery/Lesion type: teller artery [place] vs. transplanted heart: teller heart Associated angina: without angina Qualified Code(s): I25.10 - Atherosclerotic heart disease of teller coronary artery without angina pectoris Plan: CAD with still RCA disease without symptoms of angina. Continue high-intensity statin therapy. Currently on full oral anticoagulation with Eliquis due to his stroke and would avoid aspirin therapy. Continue aggressive diabetes management. Goal LDL less than 70 mg/dL. Goal hemoglobin A1c less than 7%. 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 Currently on Eliquis therapy for suspected AFib. Implantable loop recorder does not show any evidence of atrial fibrillation. Will continue to monitor remotely. Will follow up in the clinic in 3 months time, sooner p.r.n.. Thank you for allowing me to partake in his care Orders: Orders CA echo transthoracic complete 3 Months I50.20 - Unspecified systolic (congestive) heart failure Coding Level of Care Code Est Pt Level 4 (88966) Complex EM visit Add On G2211 Diagnoses Heart failure with reduced ejection fraction I50.20 Coronary artery disease involving teller coronary artery of teller heart without angina pectoris I25.10 Coronary Disease-Associated Artery/Lesion type: teller artery [place] vs. transplanted heart: teller heart Associated angina: without angina Implantable loop recorder present Z95.818 CPT Codes Cardiac Device Check - Cardiac Device 11: [id number] Device Interrogation, subcut cardiac rhythm monitor ([id number])
[2024-11-06 14:19] VITALS: BP 120/80; PULSE 86; BMI 27.9
--- OUTSIDE RECORDS SUMMARY | 2024-11-06 15:06 | XMS_ITS | Patient Health Record ---
Author Organization [facility] Address [address] [place] [address] Care Team Providers Care Recovery Operator Name Role Phone Apurvasherry Steffi Primary Care Provider Unavailab Alin Cortez Unavailable [phone] Reason For Referral No Information Medications Medication [...] Problem Status W/U Status Risk Notes Problem [id number] Chronic hepatitis C without hepatic coma (B18.2) Active confirmed Plan Of Treatment Pending Test Test Name Order Date [facility] 10/11/2016 Insurance Providers Payer Name Payer Address Payer Phone Subscriber Number Group Number Insured Name Patient Relationship to Insured Coverage Start Date Coverage End Date [facility] [address] [address] [place], [place] [id number] CANDACE SILVA Self - patient is the insured Medical (General) History Medical History History ICD Code Denies [place],CVA,Lung disease,renal disease Diabetes HTN Hyperlipidemia Hepatitis C Surgical History Surgery Date(Month/Year) eye surgery-left--cataract 2013
== END 2024-11-06 14:50 | disposition home or self-care (01) ==
LOC: HO.HCS 14:16
PROVIDERS: PCP Internal Medicine; Visit Provider Internal Medicine Cardiovascular Disease
DX: I50.20 Unspecified systolic (congestive) heart failure (principal); I25.10 Atherosclerotic heart disease of native coronary artery without angina pectoris; Z95.818 Presence of other cardiac implants and grafts
CPT/HCPCS: 93291; 99214; G2211

== ENCOUNTER → 2024-11-06 14:16 | Outpatient (BNVA) | payer OTHER, SELFPAY | PROVIDERS: PCP Internal Medicine; Visit Provider Internal Medicine Cardiovascular Disease | DX: I25.10 Atherosclerotic heart disease of native coronary artery without angina pectoris (principal); I50.20 Unspecified systolic (congestive) heart failure | CPT/HCPCS: 99212 ==

== ENCOUNTER 2024-11-18 10:21 | Outpatient (REF) | payer OTHER, SELFPAY ==
[2024-11-18 11:42] LABS: Cholesterol 238 mg/dL (<200); HDL Cholesterol 43 mg/dL (>40); Triglycerides 428 mg/dL (<150)
--- OUTSIDE RECORDS SUMMARY | 2024-11-18 12:10 | XMS_ITS | Patient Health Record ---
Author Organization [facility] Address [address] [place] [address] Care Team Providers Care Coal Trimmer Machine Operator Name Role Phone Apurvasherry Steffi Primary Care Provider Unavailab Alin Cortez Unavailable [phone] Reason For Referral No Information Medications Medication [...] Problem Status W/U Status Risk Notes Problem [id number] Chronic hepatitis C without hepatic coma (B18.2) Active confirmed Plan Of Treatment Pending Test Test Name Order Date [facility] 10/11/2016 Insurance Providers Payer Name Payer Address Payer Phone Subscriber Number Group Number Insured Name Patient Relationship to Insured Coverage Start Date Coverage End Date [facility] [address] [address] [place], [place] [id number] CANDACE SILVA Self - patient is the insured Medical (General) History Medical History History ICD Code Denies [place],CVA,Lung disease,renal disease Diabetes HTN Hyperlipidemia Hepatitis C Surgical History Surgery Date(Month/Year) eye surgery-left--cataract 2013
== END 2024-11-18 10:22 | disposition home or self-care (01) ==
LOC: HO.LAB 10:21
DX: E78.00 Pure hypercholesterolemia, unspecified (principal)
CPT/HCPCS: 36415; 80061

== ENCOUNTER → 2024-12-05 23:59 | Outpatient (BNV) | payer OTHER, SELFPAY ==
--- NOTE | 2024-12-15 09:19 | MHC.OFFVIS ---
Intake Visit Reasons: Remote ILR check- [employer] Allergies No Known Allergies Allergy (Verified 12/12/24 13:43) [facility], [facility] Medical History Hyperlipidemia Diabetes mellitus Surgical History History of cardiac cath Family History Mother Stroke Father Stroke Social History Household Members: Spouse Housing: Apartment Do you presently have visiting nurse or other home services: No Patient Tobacco Use Status: Former Tobacco user Tobacco use type: Cigarette Cigarette Packs Per Day: 1.5 Cigarettes Per Day: 30.0 e-Cigarette/Vaping Use: Never Used Second Hand Smoke Exposure: Yes Substance Use Type: Crack/Cocaine Advance Directives Date on File: 01/18/24 service: No Current occupational status: employed Cognitive needs: No Hearing needs: No Vision needs: No Office Procedures Cardiac Device Check Cardiac Device Check Details: Remote implantable loop recorder report generated 12/05/2024. No significant tachyarrhythmias or pauses noted. Frequent PVCs noted, 3.3% of the time [id number] Cardiac Interrogation, subcut cardiac rhythm monitor Procedure code (CPT) selection complete Assessment & Plan Assessment & Plan (1) Implantable loop recorder present: Comment: 06/25/[address] Hernandez Code(s): Z95.818 - Presence of other cardiac implants and grafts Category: Medical Plan: See above Coding Level of Care Code Procedure Only Diagnoses Implantable loop recorder present Z95.818 CPT Codes Cardiac Device Check - Cardiac Device 16: [id number] Cardiac Interrogation, subcut cardiac rhythm monitor ([id number])
== END ==
PROVIDERS: Visit Provider Internal Medicine Cardiovascular Disease
DX: I49.3 Ventricular premature depolarization (principal); Z95.818 Presence of other cardiac implants and grafts
CPT/HCPCS: 93298

== ENCOUNTER 2024-12-12 13:35 | Outpatient (AMB) | payer OTHER, SELFPAY ==
[2024-12-12 13:37] VITALS: BP 146/86; PULSE 105; O2SAT 97; BMI 27.5
--- NOTE | 2024-12-12 13:37 | MHC.OFFVIS ---
Vital Signs 12/12/24 13:37 Height 6 ft 1 in Weight 208 lb 5.389 oz BMI 27.5 BP 146/86 H Blood Pressure Location Lt brachial Position Sitting Pulse 105 H Pulse Source Pulse Oximeter Pulse Oximetry (%) 97 Oxygen Delivery Method Room Air Intake Visit Reasons: T2DM Intake Note: Patient present today for Type 2 Diabetes Mellitus Last Diabetic eye exam: Last exam was about 3 years ago. Patient would like a referral to have one done. 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 Required: No Accompanied by: Spouse Allergies No Known Allergies Allergy (Verified 12/12/24 13:43) Medication List - Last Reconciled 12/12/24 by Es Hager PA-C alcohol swabs (Alcohol Prep Pads) 1 pad topical TID 30 days apixaban (Eliquis) 5 mg PO BID 90 days atorvastatin 80 mg PO BEDTIME 90 days blood sugar diagnostic (FreeStyle Lite Strips) Use daily As directed to check blood glucose blood-glucose meter (FreeStyle Lite Meter kit) Use daily As directed to check blood sugars blood-glucose sensor (FreeStyle Noe 3 Plus Sensor device) Use daily As directed to monitor glucose blood-glucose,spare fixer,cont (FreeStyle Noe 3 [place]) Please specify directions, refills and quantity carvedilol 12.5 mg PO BID cholecalciferol (vitamin D3) 25 mcg PO DAILY cyanocobalamin (vitamin B-12) 1,000 mcg PO DAILY empagliflozin (Jardiance) 25 mg PO QAM ezetimibe (Zetia) 10 mg PO DAILY furosemide 40 mg PO DAILY glucagon 3 mg/actuation 3 mg intranasal ONCE PRN glucose (Dex4 Glucose) 16 grams (4 x 4 gram) PO Q15M PRN insulin glargine U-300 conc (Toujeo Max U-300 SoloStar) 50 units (0.1667 mL) subcut DAILY insulin lispro (Humalog KwikPen (U-100) Insulin) 15 units (0.15 mL) subcut TID lancets (FreeStyle Lancets) use daily as directed to check blood glucose metformin 1,000 mg PO BID pen needle, diabetic Use QID As directed sacubitril-valsartan 24-26 mg (Entresto) 1 tab PO BID HPI HPI T2DM: Details: Patient is a 64-year-old male with a significant past medical history of uncontrolled type 2 diabetes, prior CVA, cardiomyopathy, hypertension, hyperlipidemia, CAD presenting today for a f/u visit regarding type 2 diabetes. Significant other here to help with translation. He did bring in all of his medications today to help him understand what they are all for and how to take. Endo: Dm-last A1c 8.7. He was diagnosed with diabetes around 8137-0808. His current regimen is Toujeo 50 units a day, Humalog 10-15 units with meals, jardiance 10 mg daily and metformin 1000 mg twice a day. -never got new sensors. PA was approved in July. He does check his blood sugars once a day sometimes twice a day. States that they are usually around 170. Denies any low blood sugars. Denies any adverse effects with these medications. had labs confirming t2dm. He has never had diabetic Education. He has not met with a director child development center. He wants to wait on this. Denies any hypoglycemic events. CV: Blood pressure today in the office is 146/86. He is currently on carvedilol 12.5 mg twice a day, furosemide 40 mg daily, Entresto 24/26 mg mg b.i.d.. He is on atorvastatin 80 mg at bedtime and Zetia 10 mg. He is anticoagulated with Eliquis 5 mg twice a day. [facility] Medical History Hyperlipidemia Diabetes mellitus Surgical History History of cardiac cath Family History Mother Stroke Father Stroke Social History Household Members: Spouse Housing: Apartment Do you presently have visiting nurse or other home services: No Patient Tobacco Use Status: Former Tobacco user Tobacco use type: Cigarette Cigarette Packs Per Day: 1.5 Cigarettes Per Day: 30.0 e-Cigarette/Vaping Use: Never Used Second Hand Smoke Exposure: Yes Substance Use Type: Crack/Cocaine Advance Directives Date on File: 01/18/24 service: No Current occupational status: employed Cognitive needs: No Hearing needs: No Vision needs: No Physical Exam Vital Signs: Last Vital Signs Pulse 105 H 12/12/24 13:37 BP 146/86 H 12/12/24 13:37 Pulse Ox 97 12/12/24 13:37 Oxygen Delivery Method Room Air 12/12/24 13:37 BMI result Body Mass Index 27.5 Const Orientation/consciousness: patient oriented x3 HEENT Ears: hearing grossly normal bilaterally Neck Thyroid: Thyroid normal Lymphatic: no lymphadenopathy noted Resp Auscultation: clear to auscultation bilaterally Cardio Rate: regular rate Rhythm: regular rhythm Heart sounds: S1 normal heart sound present and S2 normal heart sound present Skin General skin exam: no rashes or lesions noted Neuro General: patient oriented x3, gait normal and no focal motor deficits Results Reviewed Results Reviewed: Laboratory Tests 06/25/24 07/15/24 07/28/24 10:51 17:02 10:08 Sodium 138 Potassium 4.6 Chloride 102 Carbon Dioxide 29 Anion Gap 12 BUN 11 Creatinine 0.81 Estimated GFR > 60 Glucose (Clinic) Random Glucose 240 H Hgb A1c (Clinic) AST 25 ALT 25 Triglycerides 132 Cholesterol 193 LDL Cholesterol, Calc 122 H HDL Cholesterol 45 07/28/24 07/30/24 08/08/24 11:31 13:57 11:22 Sodium Potassium Chloride Carbon Dioxide Anion Gap BUN Creatinine Estimated GFR Glucose (Clinic) 249 H 192 H Random Glucose Hgb A1c (Clinic) 9.3 H AST ALT Triglycerides Cholesterol LDL Cholesterol, Calc HDL Cholesterol 10/06/24 11/03/24 11/18/24 14:41 11:14 10:23 Sodium Potassium Chloride Carbon Dioxide Anion Gap BUN Creatinine Estimated GFR Glucose (Clinic) Random Glucose Hgb A1c (Clinic) 8.7 H AST ALT Triglycerides 278 H 428 H Cholesterol 248 H LDL Cholesterol, Calc 146 H TNP HDL Cholesterol 47 43 Assessment & Plan Assessment & Plan (1) Uncontrolled type 2 diabetes mellitus with hyperglycemia, with long-term current use of insulin: Code(s): E11.65 - Type 2 diabetes mellitus with hyperglycemia; Z79.4 - long-term (current) use of insulin Category: Medical Plan: continue Toujeo to 50 units nightly Increase the Humalog to 15 units prior to eating meals tid. I have refilled the metformin 1000 mg twice a day. I will increase Jardiance 25 mg daily He will return for a follow up in 3-4 weeks. labs prior I provided him with to 2 Noe 3+ sensors today in the office. He has a yolie downloaded on his phone and understands how to work it. gave him the approved pa letter. reordered sensors to pharmacy. (2) Hypertension: Code(s): I10 - Essential (primary) hypertension Category: Medical Qualifiers: Hypertension type: primary hypertension Qualified Code(s): I10 - Essential (primary) hypertension Plan: continue current plan Medications: New empagliflozin (Jardiance) 25 mg PO QAM 90 tabs 2RF Changed From insulin lispro (Humalog KwikPen (U-100) Insulin) with breakfast, lunch and supper 10 units (0.1 mL) subcut TID 15 mL 0RF To insulin lispro (Humalog KwikPen (U-100) Insulin) with breakfast, lunch and supper 15 units (0.15 mL) subcut TID 15 mL 0RF Refilled blood-glucose sensor (ibeatyouStyle Noe 3 Plus Sensor device) Use daily As directed to monitor glucose 6 ea 3RF E08.29 - Diabetes mellitus due to underlying condition with other diabetic kidney complication, R80.9 - Proteinuria, unspecified, Z79.4 - ocean transportation intermediary (current) use of insulin blood-glucose,spare fixer,cont (FreeStyle Noe 3 [place]) Please specify directions, refills and quantity 1 ea 0RF E11.9 - Type 2 diabetes mellitus without complications, Z79.4 - long-term (current) use of insulin Discontinued empagliflozin (Jardiance) Discontinued Reason: Change Referral Type 10 mg PO DAILY 90 tabs 0RF Coding Level of Care Code Est Pt Level 4 (82991) Complex EM visit Add On G2211 Diagnoses Uncontrolled type 2 diabetes mellitus with hyperglycemia, with long-term current use of insulin E11.65; Z79.4 Primary hypertension I10 Hypertension type: primary hypertension
--- OUTSIDE RECORDS SUMMARY | 2024-12-12 13:50 | XMS_ITS | Patient Health Record ---
Author Organization [facility] Address [address] [place] [address] Care Team Providers Care Material Expeditor Name Role Phone Apurvasherry Steffi Primary Care Provider Unavailab Alin Cortez Unavailable [phone] Reason For Referral No Information Medications Medication [...] Problem Status W/U Status Risk Notes Problem [id number] Chronic hepatitis C without hepatic coma (B18.2) Active confirmed Plan Of Treatment Pending Test Test Name Order Date [facility] 10/11/2016 Insurance Providers Payer Name Payer Address Payer Phone Subscriber Number Group Number Insured Name Patient Relationship to Insured Coverage Start Date Coverage End Date [facility] [address] [address] [place], [place] [id number] CANDACE SILVA Self - patient is the insured Medical (General) History Medical History History ICD Code Denies [place],CVA,Lung disease,renal disease Diabetes HTN Hyperlipidemia Hepatitis C Surgical History Surgery Date(Month/Year) eye surgery-left--cataract 2013
[2024-12-12 13:51] LABS: Glucose, Whole Blood 170 mg/dL (60-115)
== END 2024-12-12 14:08 | disposition home or self-care (01) ==
LOC: HO.ENCR 13:36
PROVIDERS: Visit Provider Physician Assistant
DX: E11.65 Type 2 diabetes mellitus with hyperglycemia (principal); Z79.4 Long term (current) use of insulin; I10 Essential (primary) hypertension

== ENCOUNTER → 2024-12-12 13:35 | Outpatient (BNVA) | payer OTHER, SELFPAY | PROVIDERS: Visit Provider Physician Assistant | DX: E11.65 Type 2 diabetes mellitus with hyperglycemia (principal); E11.29 Type 2 diabetes mellitus with other diabetic kidney complication; I10 Essential (primary) hypertension; R80.9 Proteinuria, unspecified; Z86.73 Personal history of transient ischemic attack (TIA), and cerebral infarction without residual deficits; Z79.84 Long term (current) use of oral hypoglycemic drugs; Z79.4 Long term (current) use of insulin | CPT/HCPCS: 82947; 99212 ==

== ENCOUNTER → 2025-01-04 23:59 | Outpatient (BNV) | payer OTHER, SELFPAY ==
--- NOTE | 2025-01-05 15:46 | MHC.OFFVIS ---
Intake Visit Reasons: Remote ILR check- [employer] Allergies No Known Allergies Allergy (Verified 12/12/24 13:43) [facility] Medical History Hyperlipidemia Diabetes mellitus Surgical History History of cardiac cath Family History Mother Stroke Father Stroke Social History Household Members: Spouse Housing: Apartment Do you presently have visiting nurse or other home services: No Patient Tobacco Use Status: Former Tobacco user Tobacco use type: Cigarette Cigarette Packs Per Day: 1.5 Cigarettes Per Day: 30.0 e-Cigarette/Vaping Use: Never Used Second Hand Smoke Exposure: Yes Substance Use Type: Crack/Cocaine Advance Directives Date on File: 01/18/24 service: No Current occupational status: employed Cognitive needs: No Hearing needs: No Vision needs: No Office Procedures Cardiac Device Check Cardiac Device Check Details: Remote implantable loop recorder report generated 01/04/2025. One episode of narrow complex tachycardia consistent with SVT at 171 beats per minute noted lasting 16 seconds. No symptoms reported. No pauses or atrial fibrillation noted. Frequent PVCs noted with total burden of 3.3% [id number] Cardiac Interrogation, subcut cardiac rhythm monitor Procedure code (CPT) selection complete Assessment & Plan Assessment & Plan (1) Implantable loop recorder present: Comment: 06/25/[address] Hernandez Code(s): Z95.818 - Presence of other cardiac implants and grafts Category: Medical Plan: See above Coding Level of Care Code Procedure Only Diagnoses Implantable loop recorder present Z95.818 CPT Codes Cardiac Device Check - Cardiac Device 16: [id number] Cardiac Interrogation, subcut cardiac rhythm monitor ([id number])
== END ==
PROVIDERS: Visit Provider Internal Medicine Cardiovascular Disease
DX: R00.0 Tachycardia, unspecified (principal); Z95.818 Presence of other cardiac implants and grafts
CPT/HCPCS: 93298

== ENCOUNTER 2025-01-07 13:35 | Outpatient (AMB) | payer OTHER, SELFPAY ==
[2025-01-07 13:56] VITALS: BP 130/76; PULSE 89; TEMP 36.2; O2SAT 97; BMI 27.2
--- NOTE | 2025-01-07 13:56 | A.OFFPC_ITS ---
Vital Signs 01/07/25 13:56 Height 6 ft 1 in Weight 206 lb 2 oz BMI 27.2 BP 130/76 Blood Pressure Location Lt brachial Position Sitting Pulse 89 Pulse Source Pulse Oximeter Temp 97.1 F Temp Source Temporal Artery Scan Pulse Oximetry (%) 97 Oxygen Delivery Method Room Air Intake Visit Reasons: f/u DM and HLD Cashier And Waiter/Waitress Required: Yes Cashier And Waiter/Waitress Language: [place] Accompanied by: Spouse Allergies No Known Allergies Allergy (Verified 01/07/25 14:14) Medication List - Last Reconciled 01/07/25 by Dotty Hernandez PA-C alcohol swabs (Alcohol Prep Pads) 1 pad topical TID 30 days apixaban (Eliquis) 5 mg PO BID 90 days atorvastatin 80 mg PO BEDTIME 90 days blood sugar diagnostic (FreeStyle Lite Strips) Use daily As directed to check blood glucose blood-glucose meter (FreeStyle Lite Meter kit) Use daily As directed to check blood sugars blood-glucose sensor (ImpactStyle Noe 3 Plus Sensor device) Use daily As directed to monitor glucose blood-glucose,civil preparedness officer,cont (FreeStyle Noe 3 [place]) Please specify directions, refills and quantity carvedilol 12.5 mg PO BID cholecalciferol (vitamin D3) 25 mcg PO DAILY cyanocobalamin (vitamin B-12) 1,000 mcg PO DAILY empagliflozin (Jardiance) 25 mg PO QAM ezetimibe (Zetia) 10 mg PO DAILY furosemide 40 mg PO DAILY glucagon 3 mg/actuation 3 mg intranasal ONCE PRN glucose (Dex4 Glucose) 16 grams (4 x 4 gram) PO Q15M PRN insulin glargine U-300 conc (Toujeo Max U-300 SoloStar) 50 units (0.1667 mL) subcut DAILY insulin lispro (Humalog KwikPen (U-100) Insulin) 15 units (0.15 mL) subcut TID lancets (FreeStyle Lancets) use daily as directed to check blood glucose metformin 1,000 mg PO BID pen needle, diabetic Use QID As directed sacubitril-valsartan 24-26 mg (Entresto) 1 tab PO BID Tobacco use date assessed: 01/07/25 Fall risk assessment: No Falls in past year Last assessed Fall Risk: 01/07/25 Dental Screening Dental Screen Date: 01/07/25 Did you have a dental visit in the last 12 months?: No Did you have a dental problem in the last 6 months where you did not have access to dental care?: No Was dental information given to patient?: No HPI f/u DM and HLD HPI Details 64-year-old male with past medical histo ry of cardiomyopathy, CVA, hypertension, hyperlipidemia, coronary artery disease and uncontrolled diabetes mellitus last seen 09/2024 coming in for follow up. In review of the notes, patient was seen by endocrinology 12/12/2024 continued on Toujeo 50 units nightly, increase Humalog to 15 units prior to eating t.i.d. and increase Jardiance to 25 mg plan for follow up in 3-4 weeks. Seen by Cardiology 10/2024 recommended medication adherence, decrease salt intake and monitoring daily weights. Plan for repeat echocardiogram in 3 months and consider ICD placement and follow up in 3 months. Patient's family member provided interpretation for the duration of this visit. Formal interpretation was declined . Presenting for a follow-up visit for management of multiple chronic medical conditions, including diabetes, cardiac issues, and hyperlipidemia. His blood sugars are not well controlled at home with most readings above 200, few above 300 and one below 100. He does endorse high sugar intake with primarily soda. R egarding his lipids, his triglycerides recently increased significantly from 278 to 428 mg/dL in one month, which was too high to allow for a cholesterol measurement. [facility] Medical History Hyperlipidemia Diabetes mellitus Surgical History History of cardiac cath Family History Mother Stroke Father Stroke Social History Household Members: Spouse Housing: Apartment Do you presently have visiting nurse or other home services: No Patient Tobacco Use Status: Never used Tobacco Tobacco use type: Cigarette e-Cigarette/Vaping Use: Never Used Second Hand Smoke Exposure: No Substance Use Type: Crack/Cocaine Advance Directives Date on File: 01/18/24 service: No Current occupational status: employed Cognitive needs: No Hearing needs: No Vision needs: No Questionnaire PHQ-9 Over the last 2 weeks, how often have you been bothered by any of the following problems? 1. Little interest or pleasure in doing things: not at all 2. Feeling down, depressed, or hopeless: not at all 3. Trouble falling or staying asleep, or sleeping too much: not at all 4. Feeling tired or having little energy: not at all 5. Poor appetite or overeating: not at all 6. Feeling bad about yourself - or that you are a failure or have let yourself o r your family down: not at all 7. Trouble concentrating on things, such as reading the newspaper or watching television: not at all 8. Moving or speaking so slowly that other people could have noticed. Or the opposite - being so fidgety or restless that you have been moving around a lot more than usual: not at all 9. Thoughts that you would be better off or of hurting yourself in some way: not at all Total score: 0 Source: Developed by Drs. Alin Slaughter, Shalini Samuel, Wilder Cody and colleagues, with an educational alan from [employer]. Thrive Questionnaire Date Thrive assessed: 10/06/24 I am a: Patient What is your living situation today?: I choose not to answer this question Within the past 12 months, did the food you bought not last and you didn't have the money to get more?: I choose not to answer this question Within the past 12 months, did you worry whether your food would run out before you got money to buy more?: I choose not to answer this question Do you have trouble paying for medicines?: I choose not to answer this question Do you have trouble getting transportation to medical appointments?: I choose not to answer this question Do you have trouble paying your heating and electricity bill?: I choose not to answer this question Do you have trouble taking care of your child, family member or friend?: I choose not to answer this question Do you have trouble with day-to-day activities such as bathing, preparing meals, shopping, managing finances, etc.?: I choose not to answer this question Are you currently unemployed and looking for a job?: I choose not to answer this question Are you interested in more education?: I choose not to answer this question Please select the resources that you would like help with: None Currently or been in a relationship where the following occur: I choose not to answer THRIVE Score: 0 AUDIT C Alcohol Use Questionnaire (AUDIT-C) 1. How often do you have a drink containing alcohol?: Never Total Score: 0 JUANITO-7 AMB Questionnaire JUANITO-7 Date JUANITO - 7 assessed: 10/06/24 Feeling nervous, anxious, or on edge: 0 = Not at all Not being able to stop or control worryin = Not at all Worrying too much about different things: 0 = Not at all Trouble relaxin = Not at all Being so restless that it is hard to sit still: 0 = Not at all Becoming easily annoyed or irritable: 0 = Not at all Feeling afraid as if something awful might happen: 0 = Not at all Total JUANITO-7 score (0-4 normal; 5-9 mild; 10-14 moderate; 15-21 severe): 0 Source: Developed by Drs. Alin Slaughter, Shalini Samuel, Wilder Cody and colleagues, with an educational alan from [employer]. Review of Systems Const Denies body aches, Denies chills, Denies fever(s), Denies headache(s) and Denies poor appetite Eyes Reports no additional complaints ENT Denies dysphagia, Denies dizziness, Denies headache(s) and Denies odynophagia Card Denies chest pain, Denies syncope, Denies edema, Denies irregular heart rhythm, Denies lightheadedness and Denies dyspnea Resp Denies cough and Denies dyspnea GI Denies abdominal pain, Denies constipation, Denies dysphagia, Denies diarrhea, Denies nausea, Denies odynophagia and Denies vomiting Reports no additional complaints Musc Reports no additional complaints and Denies abnormal gait Skin/Breast Reports system reviewed and no additional complaints, except as documented Neuro Denies abnormal gait, Denies dizziness, Denies syncope and Denies headache(s) Psych Reports no additional complaints Physical exam (Primary Care) Vital Signs: Last Vital Signs Temp 97.1 F 01/07/25 13:56 Pulse 89 01/07/25 13:56 BP 130/76 01/07/25 13:56 Pulse Ox 97 01/07/25 13:56 Oxygen Delivery Method Room Air 01/07/25 13:56 BMI result Body Mass Index 27.2 Tobacco/Smoking Status: Tobacco use Status Tobacco use date assessed 01/07/25 01/07/25 13:58 Patient Tobacco Use Status Never used Tobacco 01/07/25 14:05 Tobacco use type Cigarette 01/07/25 13:58 e-Cigarette/Vaping Use Never Used 01/07/25 13:58 PHQ-9: PHQ-9 Score PHQ-9: Total score 0 01/07/25 13:58 Thrive Assessment: Date of Thrive Assessment Date Thrive assessed 10/06/24 01/07/25 13:58 Currently or been in a relationship where the following occur: I choose not to answer Const General: cooperative, healthy appearing, comfortable and no acute distress Orientation/consciousness: patient oriented x3 HENMT Head: Yes normocephalic Ears: hearing grossly normal bilaterally General nose exam: Normal external nose present Eyes General: appearance normal, both eyes and all related structures Conjunctivae: conjunctivae normal Neck Neck: Yes full ROM and Yes no lymphadenopathy Resp Effort & Inspection: normal respiratory effort Auscultation: clear to auscultation bilaterally, no crackles, no rales, no rhonchi and no wheezes Cardio Rate: regular rate Rhythm: regular rhythm Skin General skin exam: no rashes or lesions noted Neuro General: patient oriented x3 Gait exam (Neuro): Normal gait present Extrem General: Yes normal to inspection, Yes full ROM and No edema Psych Affect: normal affect Attitude: cooperative Insight: Good insight present (Psych) Judgement: Good judgement present (Psych) Coding Level of Care Code Est Pt Level 3 (69621) Diagnoses Uncontrolled type 2 diabetes mellitus with hyperglycemia, with long-term current use of insulin E11.65; Z79.4 Coronary artery disease involving [place] coronary artery of [place] heart without angina pectoris I25.10 Coronary Disease-Associated Artery/Lesion type: [place] artery [place] vs. transplanted heart: [place] heart Associated angina: without angina Primary hypertension I10 Hypertension type: primary hypertension Mixed hyperlipidemia E78.2 Hyperlipidemia type: mixed hyperlipidemia Cardiomyopathy, unspecified type I42.9 Cardiomyopathy type: unspecified Assessment & Plan Assessment & Plan (1) Uncontrolled type 2 diabetes mellitus with hyperglycemia, with long-term current use of insulin: Code(s): E11.65 - Type 2 diabetes mellitus with hyperglycemia; Z79.4 - custodial (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 Although fruits are generally healthy they should be eaten in moderation as they are still high in sugar. Hemoglobin A1c goal of less than 7%. Patient currently following with endocrinology he will continue on medication regimen and follow up with their office in 2 weeks. (2) Coronary artery disease: Comment: 02/28/2024 left main normal, lad mild irregularities less than 30% stenosis, left circumflex mild irregularities less than 30% stenosis, right PDA 80% stenosis. Code(s): I25.10 - Atherosclerotic heart disease of [place] coronary artery without angina pectoris Category: Medical Qualifiers: Coronary Disease-Associated Artery/Lesion type: [place] artery [place] vs. transplanted heart: [place] heart Associated angina: without angina Qualified Code(s): I25.10 - Atherosclerotic heart disease of [place] coronary artery without angina pectoris Plan: Discussed with patient the importance of cholesterol management, control of diabetes and blood pressure. Currently on Eliquis 5 mg twice daily and atorvastatin 80 mg as well. Continue to follow with Cardiology and consideration is being made for ICD placement. (3) Hypertension: Code(s): I10 - Essential (primary) hypertension Category: Medical Qualifiers: Hypertension type: primary hypertension Qualified Code(s): I10 - Essential (primary) hypertension Plan: Continue on current blood pressure medication. Avoid salt intake and encourage healthy diet and regular exercise. (4) Hyperlipidemia: Code(s): E78.5 - Hyperlipidemia, unspecified Category: Medical Qualifiers: Hyperlipidemia type: mixed hyperlipidemia Qualified Code(s): E78.2 - Mixed hyperlipidemia Plan: Avoid foods that are high in cholesterol such as red meat, fried foods, eggs and baked goods. Triglyceride goal of less than 150 and LDL goal of less than 70. Continue on Atorvastatin 80 reminded patient about blood work to be completed next week. (5) Cardiomyopathy: Code(s): I42.9 - Cardiomyopathy, unspecified Category: Medical Qualifiers: Cardiomyopathy type: unspecified Qualified Code(s): I42.9 - Cardiomyopathy, unspecified Plan: Discussed with patient the importance of monitoring daily weights and restricting excessive fluid intake. Avoid salt intake as well. Patient to follow up with Cardiology. Clinically euvolemic today and denies any symptoms of orthopnea. Consideration is being made by cardiology for ICD placement. Repeat ECHO is scheduled for 01/2025 with appointment to follow. Plan This note was constructed using voice recognition software. While every effort has been made to ensure accuracy and fiber drier operator, still areas may have been included sometimes these areas may affect the content or meeting of the given symptoms. Total time spent caring for the patient today was 20 minutes. This includes time spent before the visit reviewing the chart, time spent during the visit, and time spent after the visit and documentation. Patient was informed and verbally consented to the use of an ambient scribe for clinic note documentation during this visit. Orders: Orders Comprehensive Met. Panel Today E11.65 - Type 2 diabetes mellitus with hyperglycemia, Z00.00 - Encounter for general adult medical examination without abnormal findings, Z79.4 - custodial (current) use of insulin
--- OUTSIDE RECORDS SUMMARY | 2025-01-07 17:24 | XMS_ITS | Patient Health Record ---
Author Organization [facility] Address [address] [place] [address] Care Team Providers Care Data Quality Consultant Name Role Phone Apurvasherry Steffi Primary Care Provider Unavailab Alin Cortez Unavailable [phone] Reason For Referral No Information Medications Medication [...] Problem Status W/U Status Risk Notes Problem Chronic hepatitis C ([id number]) Chronic hepatitis C without hepatic coma (B18.2) Active confirmed Plan Of Treatment Pending Test Test Name Order Date [facility] 10/11/2016 Insurance Providers Payer Name Payer Address Payer Phone Subscriber Number Group Number Insured Name Patient Relationship to Insured Coverage Start Date Coverage End Date [facility] [address] [address] [place], [place] [id number] CANDACE SILVA Self - patient is the insured Medical (General) History Medical History History ICD Code Denies AR,CVA,Lung disease,renal disease Diabetes HTN Hyperlipidemia Hepatitis C Surgical History Surgery Date(Month/Year) eye surgery-left--cataract 2013
== END 2025-01-07 14:36 | disposition home or self-care (01) ==
LOC: HO.HMCH 13:37
DX: E11.65 Type 2 diabetes mellitus with hyperglycemia (principal); Z79.4 Long term (current) use of insulin; I42.9 Cardiomyopathy, unspecified; I25.10 Atherosclerotic heart disease of native coronary artery without angina pectoris; I10 Essential (primary) hypertension; E78.2 Mixed hyperlipidemia

== ENCOUNTER → 2025-01-07 13:35 | Outpatient (BNVA) | payer OTHER, SELFPAY | DX: E11.65 Type 2 diabetes mellitus with hyperglycemia (principal); E78.5 Hyperlipidemia, unspecified; I25.10 Atherosclerotic heart disease of native coronary artery without angina pectoris; I10 Essential (primary) hypertension; E78.2 Mixed hyperlipidemia; Z79.4 Long term (current) use of insulin | CPT/HCPCS: 96127; 99212 ==

== ENCOUNTER → 2025-01-12 13:53 | Outpatient (AMB) | payer OTHER, SELFPAY ==
--- NOTE | 2025-01-12 14:02 | A.OFFVIS_ITS ---
Vital Signs 01/12/25 14:03 Height 6 ft 1 in Weight 207 lb 0.225 oz BMI 27.3 BP 96/58 L Blood Pressure Location Lt brachial Position Sitting Pulse 90 Pulse Source Pulse Oximeter Pulse Oximetry (%) 99 Oxygen Delivery Method Room Air Intake Visit Reasons: med check Intake Note: Patient present today for Type 2 Diabetes Mellitus Last Diabetic eye exam: His last eye exam was over 4 years ago. Patient is still waiting for a call to schedule appt. Last Podiatry Visit: Doesn't have one Random Glucose: 103 mg/dl HgA1C: 8.9% Oracle Technical Architect Required: No Accompanied by: Spouse Allergies No Known Allergies Allergy (Verified 01/12/25 14:06) HPI HPI med check: Details: Patient is a 64-year-old male with a significant past medical history of uncontrolled type 2 diabetes, prior CVA, cardiomyopathy, hypertension, hyperlipidemia, CAD presenting today for a f/u visit regarding type 2 diabetes. Significant other here to help with translation.While he is here today in the office his significant other states that he sounds garbled to her. He tells me that he is having a hard time speaking in it feels like his tongue is heavy . He also endorses feeling lightheaded and like the room is intermittently going black. No chest pain, shortness on breath or headache. His blood pressure today is a bit on the softer side. He states that he is feeling lightheaded not like he is spinning. He is able to follow the conversation and responds appropriately. This started within the last few minutes, approximately around 14:25. significant other also states that he possibly took more than the directi on amount of medication today. He manages most of his medications but does have some med errors at times and they are working on coming up with a solution for this. He is not sure if he took too many medications but he is normally not supposed to take 10 pills and around 11:00 he took 10 pills of which he is not sure what he took. Blood sugar today in the office is 103. -hasn't completed labs Endo: Dm-last A1c 8.7 today it is 8.9. He was diagnosed with diabetes around 8064-6427. His current regimen is Toujeo 50 units a day, Humalog 15 units with meals, jardiance 25 mg daily and metformin 1000 mg twice a day. -cgm-25% very hyperglycemic, 35% hyperglycemic, 40% in range Denies any low blood sugars. Denies any adverse effects with these medications. had labs confirming t2dm. He has never had diabetic Education. He has not met with a animal pathology teacher. He wants to wait on this. CV: Blood pressure today in the office is 96/58. He is currently on carvedilol 12.5 mg twice a day, furosemide 40 mg daily, Entresto 24/26 mg mg b.i.d.. He is on atorvastatin 80 mg at bedtime and Zetia 10 mg. He is anticoagulated with Eliquis 5 mg twice a day. [facility] Medical History Hyperlipidemia Diabetes mellitus Surgical History History of cardiac cath Family History Mother Stroke Father Stroke Social History Household Members: Spouse Housing: Apartment Do you presently have visiting nurse or other home services: No Patient Tobacco Use Status: Never used Tobacco Tobacco use type: Cigarette e-Cigarette/Vaping Use: Never Used Second Hand Smoke Exposure: No Substance Use Type: Crack/Cocaine Advance Directives Date on File: 01/18/24 service: No Current occupational status: employed Cognitive needs: No Hearing needs: No Vision needs: No Review of Systems ENT Reports Normal hearing present Neuro Reports Normal hearing present and Reports Abnormal speech present Physical Exam Vital Signs: Last Vital Signs Pulse 90 01/12/25 14:03 BP 96/58 L 01/12/25 14:03 Pulse Ox 99 01/12/25 14:03 Oxygen Delivery Method Room Air 01/12/25 14:03 BMI result Body Mass Index 27.3 Const Orientation/consciousness: patient oriented x3 HEENT Ears: hearing grossly normal bilaterally Neck Thyroid: Thyroid normal Lymphatic: no lymphadenopathy noted Resp Auscultation: clear to auscultation bilaterally Cardio Rate: regular rate Rhythm: regular rhythm Heart sounds: S1 normal heart sound present and S2 normal heart sound present Skin General skin exam: no rashes or lesions noted Neuro Other: Strength of the upper and lower extremities is 5/5 and symmetrical. He does sway with Romberg test and unable to close eyes General: patient oriented x3, gait normal and no focal motor deficits Cranial nerves: Yes Normal facial strength present, Yes Midline tongue present, Yes Normal hearing present, Yes Ability to bilaterally rotate head present and Yes Ability to bilaterally elevate shoulders present Cognition (Neuro): normal cognition Speech: Abnormal speech present slurred Results AMB Hemoglobin A1c AMB Hemoglobin A1c 8.9 % Last Edit by THOMAS Villatoro on 01/12/25 14:18 Results Reviewed Results Reviewed: Laboratory Last Values Glucose (Clinic) 103 mg/dL (60-115) 01/12/25 14:08 Laboratory Tests 07/30/24 10/06/24 11/03/24 13:57 14:41 11:14 Glucose (Clinic) Hgb A1c (Clinic) 9.3 H 8.7 H Triglycerides 278 H Cholesterol 248 H LDL Cholesterol, Calc 146 H HDL Cholesterol 47 11/18/24 12/12/24 10:23 13:47 Glucose (Clinic) 170 H Hgb A1c (Clinic) Triglycerides 428 H Cholesterol 238 H LDL Cholesterol, Calc TNP HDL Cholesterol 43 Assessment & Plan Assessment & Plan (1) Uncontrolled type 2 diabetes mellitus with hyperglycemia, with long-term current use of insulin: Code(s): E11.65 - Type 2 diabetes mellitus with hyperglycemia; Z79.4 - ocean transportation intermediary (current) use of insulin Category: Medical Plan: continue treatment plan, follow up after ED/Hospital (2) Hypertension: Code(s): I10 - Essential (primary) hypertension Category: Medical Qualifiers: Hypertension type: primary hypertension Qualified Code(s): I10 - Essential (primary) hypertension Plan: continue current plan (3) Dizziness: Code(s): R42 - Dizziness and giddiness Category: Medical Plan: Advised that he does need to go to the ED for further workup and evaluation. as below (4) Alteration in speech: Code(s): R47.89 - Other speech disturbances Category: Medical Plan: pt transported by EMS to [facility] ED Orders: Orders AMB Hemoglobin A1c Today E11.65 - Type 2 diabetes mellitus with hyperglycemia, Z13.9 - Encounter for screening, unspecified, Z79.4 - custodial (current) use of insulin Coding Level of Care Code Est Pt Level 4 (96857) Complex EM visit Add On G2211 Diagnoses Uncontrolled type 2 diabetes mellitus with hyperglycemia, with long-term current use of insulin E11.65; Z79.4 Primary hypertension I10 Hypertension type: primary hypertension Dizziness R42 Alteration in speech R47.89
[2025-01-12 14:03] VITALS: BP 96/58; PULSE 90; O2SAT 99; BMI 27.3
[2025-01-12 14:12] LABS: Glucose, Whole Blood 103 mg/dL (60-115)
== END ==
LOC: HO.ENCR 13:54
PROVIDERS: Visit Provider Physician Assistant
DX: E11.65 Type 2 diabetes mellitus with hyperglycemia (principal); Z79.4 Long term (current) use of insulin; I10 Essential (primary) hypertension; R42 Dizziness and giddiness; R47.89 Other speech disturbances; Z13.9 Encounter for screening, unspecified

== ENCOUNTER 2025-01-12 14:47 | Inpatient (IN) | payer OTHER, SELFPAY ==
--- NOTE | ~2025-01-12 | CT_ITS ---
EXAMINATION: CT HEAD WITHOUT CONTRAST CLINICAL INFORMATION: Stroke protocol COMPARISON: 01/15/2024 TECHNIQUE: Contiguous axial imaging was performed from the skull base to vertex without intravenous administration of contrast. This CT examination was performed using dose optimization techniques as appropriate, variously including the following: *Automated exposure control *Adjustment of mA and/or kV according to patient size (this includes techniques or standardized protocols for targeted exams where dose is matched to indication/reason for exam; i.e. extremities or head) *Use of iterative reconstruction technique FINDINGS: There is loss of escobar-white matter differentiation in the left occipital lobe concerning for acute ischemic change. There is no intracranial hemorrhage. There is no mass-effect or midline shift. Basal cisterns and ventricles are within normal limits for age/cerebral volume. Orbits are symmetrical and unremarkable. Paranasal sinuses and mastoid air cells are pneumatized. There are no bony abnormalities. CT/CT head for STROKE IMPRESSION: Possible acute ischemic change in the posterior left occipital lobe. [place] text read by Briseyda Crane MD at 3:56 om ET Electronically signed by: Dexter Torres MD 01/12/2025 03:59 PM [facility]
--- NOTE | ~2025-01-12 | MR_ITS ---
CLINICAL HISTORY: stroke symptoms MR Brain without gadolinium Comparison: CT/REG/SR - CT HEAD NECK ANGIOGRAPHY WITH IV CONTRAST STROKE - 01/12/25 15:00 EST Findings: There is a tiny focus of restricted diffusion in the left midbrain. No intra-axial mass or hemorrhage. Scattered T2/FLAIR hyperintensities in the deep white matter, nonspecific, however may represent sequela of chronic microvascular ischemic disease. No midline shift. No hydrocephalus. Vascular flow voids are intact. The orbits are normal. The sinuses and mastoid air cells are clear. No focal bone lesion. IMPRESSION: Tiny focus of restricted diffusion in the left midbrain suggesting acute infarct. This document has been electronically signed by: Sandra Fu MD on 01/12/2025 22:14:57
--- NOTE | ~2025-01-12 | CT_ITS ---
EXAMINATION: CT ANGIOGRAM HEAD AND NECK CLINICAL INFORMATION: rule out stroke. COMPARISON: 01/15/2024. TECHNIQUE: Contrasted axial imaging of the head and neck was performed with intravenous bolus administration of 75mL of Omnipaque 350. Helical imaging was performed in the axial plane from the aortic arch to the skull vertex. The data was processed at the certified neurodiagnostic technologist's workstation for generation of MIP sequences. Angled MIPs and volume rendered reformatted images were also generated at an offline 3D workstation. Stenoses are assessed in accordance with NASCET criteria unless otherwise indicated. This CT examination was performed using dose optimization techniques as appropriate, variously including the following: *Automated exposure control *Adjustment of mA and/or kV according to patient size (this includes techniques or standardized protocols for targeted exams where dose is matched to indication/reason for exam; i.e. extremities or head) *Use of iterative reconstruction technique FINDINGS: NECK CTA: -AORTIC ARCH: Normal in caliber. 2-vessel branching pattern, Bovine arch. -GREAT VESSEL ORIGINS: Widely patent. No stenosis. -RIGHT COMMON CAROTID ARTERY: Normal in course and caliber to the level of the bifurcation there is mild atherosclerotic calcification. -CERVICAL RIGHT INTERNAL CAROTID ARTERY: Normal opacification without focal stenosis or occlusion. -LEFT COMMON CAROTID ARTERY: Normal in course and caliber to the level of the bifurcation where there is mild atherosclerotic calcification. -CERVICAL LEFT INTERNAL CAROTID ARTERY: No hemodynamically significant stenosis. -CERVICAL RIGHT VERTEBRAL ARTERY: Normal in course and caliber into the skull base. -CERVICAL LEFT VERTEBRAL ARTERY: Left dominant. Normal in course and caliber into the skull base. OTHER, SOFT TISSUES: -No lymphadenopathy or mass. No abnormal fluid collection or soft tissue swelling. -Normal thyroid. -Imaged superior mediastinal structures normal. -Imaged lung apices poorly demonstrated due to motion artifact CTA OF THE BRAIN: -INTRACRANIAL INTERNAL CAROTID ARTERIES: No focal stenosis or occlusion. -RIGHT ANTERIOR CEREBRAL ARTERY: Normal A1 segment.. Normal arborization of the distal segments. -LEFT ANTERIOR CEREBRAL ARTERY: Normal A1 segment.. Normal arborization of the distal segments. -ANTERIOR COMMUNICATING ARTERY: Normal. -RIGHT MIDDLE CEREBRAL ARTERY: Normal M1 segment of the MCA without focal stenosis or occlusion. Normal arborization of the distal segments. -LEFT MIDDLE CEREBRAL ARTERY: M1 segment of the MCA again demonstrates focal stenosis near the bifurcation. Normal arborization of the distal segments. -RIGHT VERTEBRAL ARTERY V4: Normal in course and caliber. -LEFT VERTEBRAL ARTERY V4: Normal in course and caliber. Normal PICA branch. -BASILAR ARTERY: Normal without focal stenosis or occlusion. Normal appearance of the proximal superior cerebellar arteries. Normal basilar tip. -RIGHT POSTERIOR CEREBRAL ARTERY: Normal P1 segment. Normal opacification of the distal WASHERY ENGINEER segments. -LEFT POSTERIOR CEREBRAL ARTERY: The P1 segment is patent. There is short focal stenosis at the junction of the P1 and P2 division. There is no occlusion. -POSTERIOR COMMUNICATING ARTERIES: Not well demonstrated. Normal opacification of the superior sagittal, straight, transverse, and sigmoid sinuses similar to the prior. CT/CT angio head neck STROKE IMPRESSION: CTA NECK: No hemodynamically significant stenosis. CTA HEAD: There is a short focal stenosis involving the left WASHERY ENGINEER at the junction of the P1 and P2 division that is new since the prior. There is short focal stenosis in the distal left M1 division of MCA that was present on the prior study January 2024. Result read by Briseyda Crane MD at 3:36pm ET via [place] Electronically signed by: Dexter Torres MD 01/12/2025 03:41 PM [facility]
--- NOTE | 2025-01-12 14:52 | ECG_ITS ---
Test Reason : STROKE PROTOCOL Blood Pressure : */* mmHG Vent. Rate : 83 BPM Atrial Rate : 83 BPM P-R Int : 176 ms QRS Dur : 102 ms QT Int : 412 ms P-R-T Axes : 63 7 207 degrees QTcB Int : 484 ms Sinus rhythm with marked sinus arrhythmia Moderate voltage criteria for LVH, may be normal variant ( Sokolow-Bartlett , [place]illa product ) T wave abnormality, consider inferolateral ischemia Prolonged QT Abnormal ECG When compared with ECG of 15-Jul-2024 16:52, Premature ventricular complexes are no longer Present Inverted T waves have replaced nonspecific T wave abnormality in Inferior leads T wave inversion now evident in Anterior leads Referred By: Briseyda Crane Electronically Signed By: Rakesh Thomas
[2025-01-12 15:03] LABS: Prothrombin Time Whole Bld POC 13.6 sec (11.1-13.5); ~PT, ~INR - Anti Coag Clinic 1.1 (0.9-1.1)
[2025-01-12] MEDS: iohexoL 350 MG/ML 100 ML INFUS..BTL IV (15:07)
[2025-01-12 15:10] VITALS: BP 126/72; BP 130/88; PULSE 78; PULSE 88; RESP 20; O2SAT 100; O2SAT 95; BMI 28.5
[2025-01-12 15:10] LABS: Glucose, Whole Blood 122 mg/dL (60-115)
--- NOTE | 2025-01-12 15:20 | ED_ITS ---
HPI - Neuro Symptoms/Deficit General Chief Complaint: Stroke Stated Complaint: SLURR/NOT SPEAKING NORMAL PER ,H/O STROKE Time Seen by Provider: 01/12/25 14:53 Source: patient, EMS, old records reviewed and door opener Mode of arrival: EMS Limitations: no limitations History of Present Illness ED Provider: DR. Crane HPI Narrative: 64-year-old male presented from PCP office for evaluation of stroke- like symptoms, patient was feeling well last night woke up this morning having difficulty expressing himself noted that he is slurred speech and she could not understand him patient stated that the only person could understand what he saying is only him, patient otherwise declined any weakness or numbness, reviewing patient history and medication patient is taking apixaban 5 mg tablet daily however patient himself declined using anticoagulation. On arrival patient stated that he feels back to his baseline and normal. Related Data Previous Rx's ?Medication ?Instructions ?Recorded apixaban 5 mg tablet (Eliquis) 5 mg PO BID 90 days #18 0 tabs 06/13/24 cholecalciferol (vitamin D3) 25 25 mcg PO DAILY #90 ca ps 06/25/24 mcg (1,000 unit) capsule carvedilol 12.5 mg tablet 12.5 mg PO BID #60 tabs 06/11 12/04 glucagon 3 mg/actuation nasal spray 3 mg intranasal ON CE PRN 07/14/24 hypoglycemia #2 ea glucose 4 gram chewable tablet 16 g (4 x 4 gram) PO Q1 5M PRN 07/14/24 (Dex4 Glucose) hypoglycemia #100 tabs furosemide 40 mg tablet 40 mg PO DAILY #30 tabs 05/0 09/03 cyanocobalamin (vitamin B-12) 1,000 mcg PO DAILY #90 t abs 07/18/24 1,000 mcg sublingual tablet sacubitril 24 mg-valsartan 26 mg 1 tab PO BID #60 tabs 08/05/24 tablet (Entresto) alcohol swabs (Alcohol Prep Pads) 1 pad topical TID 30 days #100 ea 08/06/24 blood sugar diagnostic (FreeStyle #100 ea 08/06/24 Lite Strips) blood-glucose meter (FreeStyle #1 ea 08/06/24 Lite Meter kit) lancets 28 gauge (FreeStyle #100 ea 08/06/24 Lancets) atorvastatin 80 mg tablet 80 mg PO BEDTIME 90 days #90 tabs 08/08/24 insulin glargine U-300 conc 300 50 unit (0.1667 mL) schwab bcut DAILY 08/08/24 unit/mL (3 mL) subcutaneous pen #12 mL (Toujeo Max U-300 SoloStar) metformin 1,000 mg tablet 1,000 mg PO BID #180 tabs pen needle, diabetic 32 gauge x #400 ea 08/08/24 ezetimibe 10 mg tablet (Zetia) 10 mg PO DAILY #90 tabs 11/14/24 blood-glucose sensor (FreeStyle #6 ea 12/12/24 Noe 3 Plus Sensor device) blood-glucose,guidance and control system engineer,cont See Rx Instructions .Route 12/12/24 (FreeStyle Noe 3 [place]) .COMPLEX #1 ea empagliflozin 25 mg tablet 25 mg PO QAM #90 tabs 12/12 (Jardiance) insulin lispro 100 unit/mL 15 unit (0.15 mL) subcut TI D #15 mL 12/12/24 subcutaneous pen (Humalog KwikPen (U-100) Insulin) Allergies Allergy/AdvReac Type Severity Reaction Status Date / Time No Known Allergies Allergy Verified 01/12/25 15:12 Review of Systems 2 Review of Systems: all other systems are reviewed and are negative Constitutional: Reports as per HPI and Reports no additional constitutional complaints Eyes: Reports as per HPI and Reports no additional eye complaints Reports system reviewed and no additional complaints, except as documented Cardiovascular: Reports as per HPI and Reports no additional cardiovascular complaints Respiratory: Reports as per HPI and Reports no additional respiratory complaints Gastrointestinal: Reports as per HPI and Reports no additional gastrointestinal complaints Genitourinary: Reports no additional female genitourinary complaints Musculoskeletal: Reports no additional musculoskeletal complaints Skin/Breast: Reports system reviewed and no additional complaints, except as docu Psychiatric: Reports no additional psychiatric complaints Endocrine: Reports no additional endocrine complaints Hematologic/Lymphatic: Reports no additional hematologic/lymphatic complaints Allergic/Immunologic: Reports no additional allergic/immunologic complaints Reports system reviewed and no additional complaints, except as documented and Reports Abnormal speech present PMFSH Past Medical History Medical History Hyperlipidemia Diabetes mellitus Surgical History History of cardiac cath Family History Family History Mother Stroke Father Stroke Social History Social History Household Members: Spouse Housing: Apartment Do you presently have visiting nurse or other home services: No Patient Tobacco Use Status: Never used Tobacco Tobacco use type: Cigarette e-Cigarette/Vaping Use: Never Used Second Hand Smoke Exposure: No Substance Use Type: Crack/Cocaine Advance Directives: Yes Advance Directives on File: Yes Advance Directives Date on File: 01/18/24 Do you have a plan to hurt others: No Plan service: No Current occupational status: employed Cognitive needs: No Hearing needs: No Vision needs: No Physical Exam 2 Vital Signs: Vital Signs: Last Vital Signs Temp 97.8 F 01/12/25 16:02 Pulse 84 01/12/25 16:02 Resp 20 01/12/25 16:02 BP 96/69 01/12/25 16:02 Pulse Ox 95 01/12/25 16:02 O2 Del Method Room Air 01/12/25 16:02 BMI result Body Mass Index 28.5 Vital signs have been reviewed and appear to be correct. Blood pressure elevated. Heart rate normal. Respiratory rate normal. Temperature normal. Oxygen saturation normal. Appearance: Alert. Oriented X3. No acute distress. Head: Normal external exam. Normocephalic. Atraumatic. No Barnard signs noted. No raccoon eyes noted Eyes: PERRLA. EOMI. Conjunctiva and sclera normal. Eyelids normal. ENT: TM's Normal. Pharynx normal. Uvula midline. Moist mucous membranes. No trismus noted. No drooling noted. No muffled voice noted. Neck: Normal inspection. Neck supple. FROM. No adenopathy. Thyroid Normal. No meningeal signs. No neck mass noted. CVS: Normal heart rate and rhythm. Heart sound normal. No murmurs noted. Pulses normal throughout. Respiratory: No respiratory distress. Painless inspiration. Breath sounds normal. No wheezes/rales/rhonchi noted. Chest nontender. No accessory muscle usage noted or decreased air movement noted. Abdomen: Soft and nontender. Bowel sounds normal in all 4 quadrants. No distention noted. No organomegaly noted. No visible injury noted. Back: No CVA tenderness. Full range of motion noted. Skin: Skin warm and dry. Normal skin color. Normal skin turgor. No rashes/lesions/lacerations noted. Extremities: No lower extremity edema. Extremities exhibit normal range of motion. Extremities nontender. Neuro: Mental status: Normal attention, orientation, memory, and affect. Cranial nerves: Pupils are equal, round and reactive to light, EOMI, visual robbins are fall, face is symmetric, facial sensations are normal. Motor examination normal muscle tone, strength to 4 extremities. DTR are +2, planter's are flexor. Sensory exam; normal coordination, no ataxia, gait stable. Cerebellar exam: Iocmhh-fy-ryts and njir-qq-[id number] is normal. Extrapyramidal system: No tremors, no rigidity with normal facial expressions. Pronator drift not present Course Reevaluation(s) Reevaluation #1: complete resolution of patient's symptoms, NIH score 0 now, unable to confirm if patient is on anticoagulation. Neurology consultation input is appreciated in the ED. Time: 16:17 Medications Administered Discontinued Medications Generic Name Dose Route Start Last Admin Trade Name Freq PRN Reason Stop Dose Admin Iohexol 100 ml 01/12/25 15:06 01/12/25 15:07 Iohexol 350 Mg/Ml 100 Ml Infus..Btl IV 01/12/25 15:07 75 ml ONCE ONE Administration Medical Decision Making Differential Diagnosis Differential Diagnoses: The differential diagnosis associated with the presentation includes (TIA, hemorrhagic stroke, ischemic stroke, electrolyte derangement, severe anemia.) Admission/Observation Consideration of admission/observation: Escalation of care including admission/observation considered Consult Healthcare Provider Management of the patient was discussed with: Hospitalist ( Dr. Layne) and Ict Support Engineer ( Dr. Mtz) Lab Data MDM Lab Attestation statement: I reviewed the patient's lab results. 01/12/25 15:18 01/12/25 15:18 Labs: Lab Results 01/12/25 01/12/25 01/12/25 Range/Units 15:00 15:06 15:18 WBC 6.1 (4.8-10.8) X10*3/uL RBC 4.30 L (4.60-5.80) X10*6/uL Hgb 12.9 L (14.0-18.0) g/dl Hct 38.9 L (42.0-52.0) % MCV 90.5 (80.0-98.0) fL MCH 30.0 (27.0-33.0) pg MCHC 33.2 (31.0-36.0) g/dl RDW 12.4 (11.0-16.0) % Plt Count 259 (160-400) X10*3/uL MPV 9.6 (9.4-12.4) fL Immature Gran % (Auto) 0.8 H (0.0-0.4) % Neut % (Auto) 65.9 (45-73) % Lymph % (Auto) 18.6 L (20-40) % [place] % (Auto) 10.9 (2-11) % Eos % (Auto) 3.1 (0-4) % Baso % (Auto) 0.7 (0-2) % Lymph # (Auto) 1.1 L (1.2-4.9) X10*3/uL [place] # (Auto) 0.7 (0.1-1.2) X10*3/uL Eos # (Auto) 0.2 (0.0-0.4) X10*3/uL Baso # (Auto) 0.0 (0.0-0.2) X10*3/uL Abs Immat Gran (auto) 0.05 H (0.00-0.03) X10*3/uL Absolute Neuts (auto) 4.0 (2.0-8.3) x10*3/uL Absolute Nucleated RBC 0.000 (0.0-0.012) X10*3/uL Nucleated RBC % (auto) 0.0 (0.0-0.2) /100WBC PT 13.7 H (10.9-12.4) SEC Whole Blood PT 13.6 H (11.1-13.5) sec INR 1.2 H (0.9-1.1) Whole Blood INR 1.1 (0.9-1.1) APTT 33.6 (26.7-34.1) SEC Sodium 137 (135-145) mmol/L Potassium 4.5 (3.3-5.1) mmol/L Chloride 105 (96-108) mmol/L Carbon Dioxide 27 (22-29) mmol/L Anion Gap 10 L (12-20) BUN 11 (9-16) mg/dL Creatinine 0.74 (0.5-1.4) mg/dL Estim Creat Clear Calc 124.4 Estimated GFR > 60 POC Glucose 122 H (60-115) mg/dL Random Glucose 102 (60-115) mg/dL Calcium 8.5 D (8.4-10.2) mg/dL Troponin I High Sens 9.5 (<3.5-35.0) ng/L Triglycerides 138 (<150) mg/dL Cholesterol 194 (<200) mg/dL LDL Cholesterol, Calc 115 H (<100) mg/dL HDL Cholesterol 52 (>40) mg/dL Independent Interpretation I performed an independent interpretation of an: CT Scan ( head/ CTA:TA NECK: No hemodynamically significant stenosis. CTA HEAD: There is a short focal stenosis involving the left DIRECTOR TALENT at the junction of the P1 and P2 division that is new since the prior. There is short focal stenosis in the distal left M1 division of MCA that was present on the prior) Radiology Impression Discussion of test interpretation with radiology: I have reviewed the radiologist's reading. NIH Stroke Scale Time: 15:21 Level of Consciousness: Alert Level of Consciousness Questions: Answers both questions correctly Level of Consciousness Commands: Performs both tasks correctly Best Gaze: Normal Visual: No visual loss Facial Palsy: Normal Motor Arm (Right): No drift Motor Arm (Left): No drift Motor Leg (Right): No drift Motor Leg (Left): No drift Limb Ataxia: Absent Sensory: Normal Best Language: No aphasia Dysarthia: Normal Extinction and Inattention: No abnormality Score: 0 Discharge Plan Discharge Clinical Impression: Brain TIA Patient Disposition: Admitted As Inpatient Print Language: Latvian
[2025-01-12 15:22] LABS: MANUAL DIFF FLAG NO
[2025-01-12 15:27] LABS: Hematocrit 38.9 % (42.0-52.0); Hemoglobin 12.9 g/dl (14.0-18.0); Imm Gran Abs Auto 0.05 X10*3/uL (0.00-0.03); Imm Gran Pct Auto 0.8 % (0.0-0.4); Lymphocytes Absolute Auto 1.1 X10*3/uL (1.2-4.9); Mean Corpuscular HGB Conc 33.2 g/dl (31.0-36.0); Mean Corpuscular Hemoglobin 30.0 pg (27.0-33.0); Mean Corpuscular Volume 90.5 fL (80.0-98.0); NRBC Abs Auto 0.000 X10*3/uL (0.0-0.012); NRBC Pct Auto 0.0 /100WBC (0.0-0.2); Platelet Count 259 X10*3/uL (160-400); Red Blood Count 4.30 X10*6/uL (4.60-5.80); White Blood Count 6.1 X10*3/uL (4.8-10.8)
[2025-01-12 15:31] LABS: INTERNATIONAL NORM RATIO 1.2 (0.9-1.1); Prothrombin Time 13.7 SEC (10.9-12.4)
[2025-01-12 15:33] LABS: Partial Thromboplastin Time 33.6 SEC (26.7-34.1)
[2025-01-12 15:36] LABS: Stroke Lab Use COMPLETE
[2025-01-12 15:44] LABS: Anion Gap 10 (12-20); Blood Urea Nitrogen 11 mg/dL (9-16); Calcium 8.5 mg/dL (8.4-10.2); Carbon Dioxide 27 mmol/L (22-29); Chloride 105 mmol/L (96-108); Cholesterol 194 mg/dL (<200); Creatinine Clr Calc Pharmacy 124.4; Estimated Glomerular Filt Rate > 60; HDL Cholesterol 52 mg/dL (>40); Potassium 4.5 mmol/L (3.3-5.1); Sodium 137 mmol/L (135-145); Triglycerides 138 mg/dL (<150)
[2025-01-12 15:50] LABS: Troponin-I High Sensitivity 9.5 ng/L (<3.5-35.0)
[2025-01-12 16:02] VITALS: BP 96/69; PULSE 84; RESP 20; TEMP 36.6; O2SAT 95
--- NOTE | 2025-01-12 16:06 | MHC.STROKE ---
Called to ED for stroke alert. Pt sent from MD office across the street. EMS reporting patient with difficulty speaking. Hx of stroke in the past Pt awake, alert and oriented x 4. Flooring Mechanic used for assessment Speech clear. No focal deficit noted. GRIFFIN equally Tongue midline Pt able to get himself off and on the stretcher. Pt reports that he felt well yesterday and this am. Today while at the MD office, he felt like his tongue was twisted and his vision dark. He also reported difficulty speaking. Symptoms resolved by the time he got to the ED. Pt evaluated by Dr. Mtz. NIH 0. TNK not indicated. Stroke Education provided to patient and family. Flooring Mechanic utilized. Pamphlet given/reviewed. Discussed patient's medical history, medications, activity, diet, and social hx. All questions answered.
--- NOTE | 2025-01-12 16:43 | HO.NURTONUR ---
Addendum entered by Nakia Lo RN 01/13/25 04:23: MRI showed : Tiny focus of restricted diffusion in the left midbrain suggesting acute infarct. patient still asymptomatic Original Note: Pt came from pcp office w/ c/o upon awakening this am noted pt was having diff expressing self and slurred speech. Pt arrived to ED as stroke protocol, CT neg, sx's resolved. NIH score 0. Pt admitted for provable TIA. Pt is danish speaking only an is independent w/ ADL's
--- OUTSIDE RECORDS SUMMARY | 2025-01-12 17:08 | XMS_ITS | Patient Health Record ---
Author Organization [facility] Address [address] [place] [address] Care Team Providers Care Elevator Repair Mechanic Name Role Phone Apurvasherry Steffi Primary Care Provider Unavailab Alin Cortez Unavailable [phone] Reason For Referral No Information Medications Medication [...] Status Risk Notes Problem Chronic hepatitis C ([id number]) Chronic hepatitis C without hepatic coma (B18.2) Active confirmed Plan Of Treatment Pending Test Test Name Order Date [facility] 10/11/2016 Insurance Providers Payer Name Payer Address Payer Phone Subscriber Number Group Number Insured Name Patient Relationship to Insured Coverage Start Date Coverage End Date [facility] [address] [address] [place], [place] [id number] CANDACE SILVA Self - patient is the insured Medical (General) History Medical History History ICD Code Denies MD,CVA,Lung disease,renal disease Diabetes HTN Hyperlipidemia Hepatitis C Surgical History Surgery Date(Month/Year) eye surgery-left--cataract 2013
--- NOTE | 2025-01-12 17:59 | PM.IMHP ---
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 He reported that his symptoms lasted approximately 15 minutes he was brought over to the ER. He denied any chest pain, shortness breath, nausea, vomiting, diarrhea, loss of consciousness. He reports history of stroke in the past and is currently wearing an implantable loop recorder likely to assess for atrial fibrillation. Head and neck CTA showed no hemodynamically significant stenosis, head CT showed possible acute ischemic change in the posterior left occipital lobe. Patient back to baseline at this point. He will be admitted for further management and treatment of possible stroke. Review of Systems Review of Systems: Denies any recent fever chills or decrease in appetite respiratory denies any shortness of breath or cough cardiovascular denied chest pain gastrointestinal denies any dysphagia abdominal pain nausea vomiting or diarrhea genitourinary denies any dysuria frequency or hematuria musculoskeletal denies any joint pain or swelling neuropsych denies any weakness or seizures all other systems reviewed are negative [facility] Medical History (Updated 01/12/25 @ 18:02 by Cyndee Landers NP) Stroke Hyperlipidemia Diabetes mellitus Family History Mother Stroke Father Stroke Surgical History History of cardiac cath Social History Household Members: Spouse Housing: Apartment Do you presently have visiting nurse or other home services: No Patient Tobacco Use Status: Never used Tobacco Tobacco use type: Cigarette e-Cigarette/Vaping Use: Never Used Second Hand Smoke Exposure: No Substance Use Type: Crack/Cocaine Advance Directives: Yes Advance Directives on File: Yes Advance Directives Date on File: 01/18/24 Do you have a plan to hurt others: No Plan service: No Current occupational status: employed Cognitive needs: No Hearing needs: No Vision needs: No Meds Allergies Allergy/AdvReac Type Severity Reaction Status Date / Time No Known Allergies Allergy Verified 01/12/25 15:12 Active Medications: Current Medications Acetaminophen (Acetaminophen 325 Mg Tablet) 650 mg PO Q6H PRN PRN Reason: Pain, Mild 1-3,fever,headache Apixaban (Apixaban 5 Mg Tablet) 5 mg PO BID [facility] Atorvastatin Calcium (Atorvastatin Calcium 80 Mg Tablet) 80 mg PO BEDTIME [facility] Calcium Carbonate (Calcium Carbonate 750 Mg Tab.Chew) 750 mg PO Q4H PRN PRN Reason: Heartburn Carvedilol (Carvedilol 12.5 Mg Tablet) 12.5 mg PO BID [facility]; Protocol Cyanocobalamin (Cyanocobalamin (Vitamin B-12) 1,000 Mcg Tablet) 1,000 mcg PO DAILY [facility] Ezetimibe (Ezetimibe 10 Mg Tablet) 10 mg PO DAILY [facility] Empagliflozin (Empagliflozin 25 Mg Tablet) 25 mg PO DAILY [facility] Enoxaparin Sodium (Enoxaparin Sodium 40 Mg/0.4 Ml Syringe) 40 mg SUBCUT Q24H [facility] Furosemide (Furosemide 40 Mg Tablet) 40 mg PO DAILY [facility]; Protocol Magnesium Hydroxide (Milk Of Magnesia 30 Ml Oral.Susp) 30 ml PO DAILY PRN PRN Reason: Constipation Melatonin (Melatonin 3 Mg Tablet) 6 mg PO BEDTIME PRN PRN Reason: Insomnia Metformin HCl (Metformin Hcl 1,000 Mg Tablet) 1,000 mg PO BID [facility] Non-Formulary Medication (Insulin Glargine U-300 Conc [Toujeo Max U-300 Solostar]) 50 unit SUBCUT DAILY [facility] Ondansetron HCl (Ondansetron Hcl 4 Mg/2 Ml Vial) 4 mg IVPUSH Q8H PRN PRN Reason: Nausea and Vomiting Sacubitril/Valsartan (Sacubitril/Valsartan 24/26 1 Tab Tablet) 1 tab PO BID [facility]; Protocol Sodium Chloride (0.9 % Sodium Chloride Flush 3 Ml Syringe) 3 ml IVFLUSH QSHIFT [facility] Vitamin D (Cholecalciferol (Vitamin D3) 25 Mcg Tablet) 25 mcg PO DAILY [facility] Home Medications ?Medication ?Instructions ?Recorded ?Confirmed ?Last Taken ?Type empagliflozin 25 mg tablet 25 mg PO DAILY 01/12/25 01/12/25 01/12/25 History (Jardiance) insulin glargine U-300 conc 300 50 unit subcut BEDTIME 01/12/25 01/12/25 01/11/25 History unit/mL (3 mL) subcutaneous pen Physical Exam Vital Signs and Narrative: Vital Signs: Last Vital Signs Temp 97.8 F 01/12/25 16:02 Pulse 84 01/12/25 16:02 Resp 20 01/12/25 16:02 BP 96/69 01/12/25 16:02 Pulse Ox 95 01/12/25 16:02 O2 Del Method Room Air 01/12/25 16:02 BMI result Body Mass Index 28.5 Appearing in no acute distress head is normocephalic atraumatic eyes pupils are PERRLA sclera is anicteric mouth throat mucous membranes are intact and moist neck is supple no lymphadenopathy, no JVD noted lung sounds are clear to auscultation heart regular rate rhythm, clear S1, S2 positive bowel sounds, abdomen is soft, nontender neuro patient is alert x3, no focal deficits Results Labs 01/12/25 15:18 01/12/25 15:18 Labs: Laboratory Results - last 24 hr 01/12/25 01/12/25 01/12/25 15:00 15:06 15:18 MCV 90.5 MCH 30.0 MCHC 33.2 RDW 12.4 Plt Count 259 MPV 9.6 Immature Gran % (Auto) 0.8 H Neut % (Auto) 65.9 Lymph % (Auto) 18.6 L [place] % (Auto) 10.9 Eos % (Auto) 3.1 Baso % (Auto) 0.7 Lymph # (Auto) 1.1 L [place] # (Auto) 0.7 Eos # (Auto) 0.2 Baso # (Auto) 0.0 Abs Immat Gran (auto) 0.05 H Absolute Neuts (auto) 4.0 Absolute Nucleated RBC 0.000 Nucleated RBC % (auto) 0.0 PT 13.7 H Whole Blood PT 13.6 H INR 1.2 H Whole Blood INR 1.1 APTT 33.6 Anion Gap 10 L Estim Creat Clear Calc 124.4 Estimated GFR > 60 POC Glucose 122 H Random Glucose 102 Calcium 8.5 D Troponin I High Sens 9.5 Triglycerides 138 Cholesterol 194 LDL Cholesterol, Calc 115 H HDL Cholesterol 52 Imaging Radiologist's Impressions: Impressions Head CT 01/12/25 14:56 IMPRESSION: Possible acute ischemic change in the posterior left occipital lobe. [place] text read by Briseyda Crane MD at 3:56 om ET Electronically signed by: Dexter Torres MD 01/12/2025 03:59 PM EST RP Head/Neck CTA 01/12/25 15:00 IMPRESSION: CTA NECK: No hemodynamically significant stenosis. CTA HEAD: There is a short focal stenosis involving the left REPRODUCTIVE HEALTHCARE ASSISTANT at the junction of the P1 and P2 division that is new since the prior. There is short focal stenosis in the distal left M1 division of MCA that was present on the prior study January 2024. Result read by Briseyda Crane MD at 3:36pm ET via [place] Electronically signed by: Dexter Torres MD 01/12/2025 03:41 PM EST RP Assessment and Plan (1) Hypertension: Qualifiers: Hypertension type: primary hypertension Qualified Code(s): I10 - Essential (primary) hypertension Status: Acute Plan 64-year-old man with a history of stroke currently wearing implantable loop recorder admitted for possible recurrent stroke with resolution of symptoms sign Possible stroke MRI ordered Neurology consultation Started aspirin, continue statin Monitor on telemetry Hold blood pressure lowering medications Neuro checks PT/OT Diabetes mellitus type 2 Sliding scale, long-acting insulin, metformin ADA diet History of heart failure with reduced ejection fraction No exacerbation Hold Lasix for now secondary to low blood pressure DVT prophylaxis with Eliquis Full code Quality Stroke Does the patient have a stroke diagnosis?: No VTE Prior VTE?: No VTE Risk Level:: Medical - moderate - high VTE Device Contraindication: Treatment Not Indicated VTE Drug Contraindication: N/A - Med Ordered
--- NOTE | 2025-01-12 18:00 | PHA.MEDREC ---
Pharmacy Consult ? Medication Reconciliation Pharmacy has completed the medication reconciliation. Spoke to patient at bedside to confirm med list. Patients had a list of patients medications. confirmed Insulin Glargine U-300 50 units at bedtime, Insulin lispro 15 units TID. states patient is still taking Eliquis 5 mg, however last fill date was 06/13/24 for 90 days, Carvedilol 12.5 mg , last fill date was 07/08/24 for 90 days, Furosemide 40 mg , last fill date was 07/16/24 for 30 days, Metformin 1,000 mg , last filled 08/08/24 for 90 days and entrsto 24 mg-26 mg, last filled 09/02/24 for 30 days. states patient had all his morning medications today.
[2025-01-12 20:00] VITALS: BP 122/68; PULSE 82; RESP 16; O2SAT 97
--- NOTE | 2025-01-12 20:57 | PC.NURSE ---
Pt to MRI via w/c
--- NOTE | 2025-01-12 21:27 | PC.NURSE ---
Pt returned from MRI, ambulate to BR w/ stand-by assist without diff
[2025-01-12 21:32] LABS: Glucose, Whole Blood 135 mg/dL (60-115)
[2025-01-12 22:05] VITALS: BP 123/72; PULSE 82
[2025-01-12 23:07] VITALS: BP 139/89
[2025-01-12] MEDS: 0.9 % Sodium Chloride Flush 3 ML SYRINGE IVFLUSH (23:07)
[2025-01-12] MEDS: Sacubitril/Valsartan 24/26 1 TAB TABLET PO (23:07)
[2025-01-13] VITALS (9 sets, daily range): BP systolic 103–170; BP diastolic 62–94; PULSE 67–90; RESP 13–20; TEMP 36.4–37.2; O2SAT 94–96; BMI 27.1
[2025-01-13 04:03] LABS: Hematocrit 40.2 % (42.0-52.0); Hemoglobin 13.2 g/dl (14.0-18.0); Mean Corpuscular HGB Conc 32.8 g/dl (31.0-36.0); Mean Corpuscular Hemoglobin 29.8 pg (27.0-33.0); Mean Corpuscular Volume 90.7 fL (80.0-98.0); NRBC Abs Auto 0.000 X10*3/uL (0.0-0.012); NRBC Pct Auto 0.0 /100WBC (0.0-0.2); Platelet Count 243 X10*3/uL (160-400); Red Blood Count 4.43 X10*6/uL (4.60-5.80); White Blood Count 5.7 X10*3/uL (4.8-10.8)
[2025-01-13 04:20] LABS: Alanine Aminotransferase 17 U/L (0-40); Albumin Level 4.1 g/dL (3.5-5.0); Alkaline Phosphatase 75 U/L (39-117); Anion Gap 13 (12-20); Aspartate Amino Transferase 20 U/L (5-37); Blood Urea Nitrogen 10 mg/dL (9-16); Calcium 8.9 mg/dL (8.4-10.2); Carbon Dioxide 26 mmol/L (22-29); Chloride 105 mmol/L (96-108); Cholesterol 215 mg/dL (<200); Creatinine Clr Calc Pharmacy 105.8; Estimated Glomerular Filt Rate > 60; HDL Cholesterol 49 mg/dL (>40); Potassium 4.1 mmol/L (3.3-5.1); Sodium 140 mmol/L (135-145); Total Protein 6.9 g/dL (6.5-8.0); Triglycerides 182 mg/dL (<150)
[2025-01-13 07:28] LABS: Glucose, Whole Blood 170 mg/dL (60-115)
--- NOTE | 2025-01-13 08:57 | PC.NURSE ---
Dr Hernandez made aware of pts Systolic BPs running 103-105 and states to hold Lasix and Carvedilol this am.
[2025-01-13] MEDS: 0.9 % Sodium Chloride Flush 3 ML SYRINGE IVFLUSH ×2 (09:12→21:04)
--- NOTE | 2025-01-13 09:14 | PC.NURSE ---
PT A&O X4 NAD No complaints- VSS except BP low as prev noted. Mona held er MD as well. Dr Hernandez in to eval pt and explain plan. Pt agrees with plan.
[2025-01-13] MEDS: Insulin Glargine,Hum.rec.anlog 100 UNIT/ML 10 ML VIAL 40 UNIT SUBCUT (09:41)
--- NOTE | 2025-01-13 10:42 | PC.NURSE ---
Pt has been A&) X4 through shift. VSS except BP low as prev reported and BP meds held as well as Lasix. Pt denies complaints. No neuro deficits at this time or through shift. Pt passed swallow eval o prev shift and has been janina PO well without difficulty.
--- NOTE | 2025-01-13 10:54 | MHC.CM.PN ---
Addendum entered by Cynthia Edmondson 01/13/25 12:12: Per PT, Patient is at baseline and no further PT needs are indicated. Original Note: CM met with Patient at bedside, in the ED, and addressed IMM with him, with the assist of a [facility] (original was given to Patient and a copy will be placed on the chart).Patient lives in an apartment with his Girlfriend, who will transport at time of dc.Patient may benefit from a PT eval to assist with disposition; CM has initiated and will follow for dc planning. PCP/PA is Dotty Hernandez.
[2025-01-13 11:33] LABS: Glucose, Whole Blood 136 mg/dL (60-115)
--- NOTE | 2025-01-13 16:38 | PC.NURSE ---
Pt has been resting quietly. NAD. no neuro deficits noted. missed lunch and was given food from patient fridge. not many DM Options. POC might be high b/f dinner. Awaits Neuro consult.
[2025-01-13 17:33] LABS: Glucose, Whole Blood 118 mg/dL (60-115)
--- NOTE | 2025-01-13 18:16 | P.PNIM_ITS ---
Subjective Subjective Date of Service: 01/13/25 Interval History: New CVA Review of Systems Symptoms seems to be symptoms seems to be improved. Review of Systems: Yes all other systems are reviewed and are negative Physical Exam 2 Exam: Exam: Appearance: Alert.? Oriented X3.? cvs: rrr, [id number] . res: clear to auscultation ,no rhonchii or wheezing abd: no rebound or guarding ,nt, bs present. ext pulses present , no cyanosis . neuro: move sallext Vital Signs: Vital Signs: Last Vital Signs Temp 98.9 F 01/13/25 17:30 Pulse 84 01/13/25 17:30 Resp 18 01/13/25 17:30 BP 170/82 H 01/13/25 17:30 Pulse Ox 95 01/13/25 17:30 O2 Del Method Room Air 01/13/25 17:30 BMI result Body Mass Index 28.5 Objective Data Active Medications Acetaminophen (Acetaminophen 325 Mg Tablet) 650 mg PO Q6H PRN PRN Reason: Pain, Mild 1-3,fever,headache Apixaban (Apixaban 5 Mg Tablet) 5 mg PO BID [facility] Last Admin: 01/13/25 09:11 Dose: 5 mg Documented By: SRIDEVI Aspirin (Aspirin 81 Mg Tab.Chew) 81 mg PO DAILY [facility] Last Admin: 01/13/25 09:11 Dose: 81 mg Documented By: SRIDEVI Atorvastatin Calcium (Atorvastatin Calcium 80 Mg Tablet) 80 mg PO BEDTIME [facility] Last Admin: 01/12/25 22:05 Dose: 80 mg Documented By: LIBRADO Calcium Carbonate (Calcium Carbonate 750 Mg Tab.Chew) 750 mg PO Q4H PRN PRN Reason: Heartburn Carvedilol (Carvedilol 12.5 Mg Tablet) 12.5 mg PO BID [facility]; Protocol Last Admin: 01/13/25 08:58 Dose: Not Given Documented By: SRIDEVI Non-Admin Reason: Physician Held Med Cyanocobalamin (Cyanocobalamin (Vitamin B-12) 1,000 Mcg Tablet) 1,000 mcg PO DAILY [facility] Last Admin: 01/13/25 09:11 Dose: 1,000 mcg Documented By: SRIDEVI Dextrose (Dextrose 50 % 25 Gm/50 Ml Syringe) 25 gm IVPUSH Q15M PRN; Protocol PRN Reason: per Hypoglycemia Standing Ord. Ezetimibe (Ezetimibe 10 Mg Tablet) 10 mg PO DAILY [facility] Last Admin: 01/13/25 09:11 Dose: 10 mg Documented By: SRIDEVI Empagliflozin (Empagliflozin 25 Mg Tablet) 25 mg PO DAILY [facility] Last Admin: 01/13/25 09:11 Dose: 25 mg Documented By: SRIDEVI Furosemide (Furosemide 40 Mg Tablet) 40 mg PO DAILY [facility]; Protocol Last Admin: 01/13/25 08:59 Dose: Not Given Documented By: SRIDEVI Non-Admin Reason: Physician Held Med Glucose (Glucose Gel 15 Gm Gel..Gram.) 15 gm PO Q15M PRN; Protocol PRN Reason: per Hypoglycemia Standing Ord. Insulin Glargine (Insulin Glargine,Hum.Rec.Anlog 100 Unit/Ml 10 Ml Vial) 40 unit SUBCUT DAILY [facility] Last Admin: 01/13/25 09:41 Dose: 40 unit Documented By: SRIDEVI Insulin Human Lispro (Insulin Lispro 100 Unit/Ml 3 Ml Vial) 0 unit SUBCUT QIDACHS [facility]; Protocol Last Admin: 01/13/25 17:29 Dose: Not Given Documented By: LENA Non-Admin Reason: No Insulin Coverage Magnesium Hydroxide (Milk Of Magnesia 30 Ml Oral.Susp) 30 ml PO DAILY PRN PRN Reason: Constipation Melatonin (Melatonin 3 Mg Tablet) 6 mg PO BEDTIME PRN PRN Reason: Insomnia Metformin HCl (Metformin Hcl 1,000 Mg Tablet) 1,000 mg PO BID [facility] Last Admin: 01/13/25 09:12 Dose: 1,000 mg Documented By: SRIDEVI Ondansetron HCl (Ondansetron Hcl 4 Mg/2 Ml Vial) 4 mg IVPUSH Q8H PRN PRN Reason: Nausea and Vomiting Sacubitril/Valsartan (Sacubitril/Valsartan 1 Tab Tablet) 1 tab PO BID [facility]; Protocol Last Admin: 01/13/25 09:10 Dose: Not Given Documented By: SRIDEVI Non-Admin Reason: Physician Held Med Sodium Chloride (0.9 % Sodium Chloride Flush 3 Ml Syringe) 3 ml IVFLUSH QSHIFT [facility] Last Admin: 01/13/25 17:29 Dose: Not Given Documented By: LENA Non-Admin Reason: IV Running Vitamin D (Cholecalciferol (Vitamin D3) 25 Mcg Tablet) 25 mcg PO DAILY [facility] Last Admin: 01/13/25 09:11 Dose: 25 mcg Documented By: SRIDEVI Labs 01/13/25 03:52 01/13/25 03:52 Labs: Laboratory Results - last 24 hr 01/12/25 01/13/25 01/13/25 21:29 03:52 07:24 MCV 90.7 MCH 29.8 MCHC 32.8 RDW 12.4 Plt Count 243 MPV 9.4 Absolute Nucleated RBC 0.000 Nucleated RBC % (auto) 0.0 Anion Gap 13 Estim Creat Clear Calc 105.8 Estimated GFR > 60 POC Glucose 135 H 170 H Random Glucose 181 H Calcium 8.9 Total Bilirubin 0.4 AST 20 ALT 17 Alkaline Phosphatase 75 Total Protein 6.9 Albumin 4.1 Triglycerides 182 H Cholesterol 215 H LDL Cholesterol, Calc 130 H HDL Cholesterol 49 01/13/25 01/13/25 11:28 17:25 MCV MCH MCHC RDW Plt Count MPV Absolute Nucleated RBC Nucleated RBC % (auto) Anion Gap Estim Creat Clear Calc Estimated GFR POC Glucose 136 H 118 H Random Glucose Calcium Total Bilirubin AST ALT Alkaline Phosphatase Total Protein Albumin Triglycerides Cholesterol LDL Cholesterol, Calc HDL Cholesterol Assessment and Plan (1) Brain TIA: Status: Acute Plan 64-year-old man with a history of stroke currently wearing implantable loop recorder admitted for possible recurrent stroke with resolution of symptoms sign Possible stroke MRI ordered -new CVA:Tiny focus of restricted diffusion in the left midbrain suggesting acute infarct. Neurology consultation Started aspirin, continue statin Monitor on telemetry Hold blood pressure lowering medications Neuro checks PT/OT Diabetes mellitus type 2 Sliding scale, long-acting insulin, metformin ADA diet History of heart failure with reduced ejection fraction No exacerbation Hold Lasix for now secondary to low blood pressure DVT prophylaxis with Eliquis Full code Ongoing need of stay: New CVA, neurological workup as well as neurological follow-up Quality Stroke Does the patient have a stroke diagnosis?: No VTE Prior VTE?: No VTE Risk Level:: Medical - moderate - high VTE Device Contraindication: Treatment Not Indicated VTE Drug Contraindication: N/A - Med Ordered
[2025-01-13 20:31] LABS: Glucose, Whole Blood 102 mg/dL (60-115)
[2025-01-13] MEDS: Flu Vacc TS2025-26(6mo up)/PF 0.5 ML SYRINGE IM (21:04)
[2025-01-14] VITALS: BP 155/95; PULSE 89; RESP 20; TEMP 36.8; O2SAT 97
[2025-01-14 04:00] VITALS: BP 120/70; PULSE 86; RESP 20; TEMP 37; O2SAT 94
[2025-01-14 07:23] LABS: Glucose, Whole Blood 128 mg/dL (60-115)
[2025-01-14 07:32] VITALS: BP 140/81; PULSE 64; RESP 18; TEMP 36.5; O2SAT 97
[2025-01-14 09:11] VITALS: BP 115/64
[2025-01-14] MEDS: Insulin Glargine,Hum.rec.anlog 100 UNIT/ML 10 ML VIAL 40 UNIT SUBCUT (09:15)
[2025-01-14] MEDS: 0.9 % Sodium Chloride Flush 3 ML SYRINGE IVFLUSH (09:17)
[2025-01-14 10:55] LABS: Glucose, Whole Blood 129 mg/dL (60-115)
[2025-01-14 10:58] VITALS: BP 146/84; PULSE 70; RESP 20; TEMP 36.9; O2SAT 94
--- NOTE | 2025-01-14 13:02 | P.DS_ITS ---
DS: Providers Provider Date of Service: 01/14/25 Date of admission: 01/12/25 18:16 Date of discharge: 01/14/25 Primary care physician: Dotty Hernandez PA-C Consults: 01/12/25 16:18 Consult to Neurology Stat Consulting Provider: Alesha Tamez Reason for consultation: TIA, slurred speech Has provider been notified: Yes 01/12/25 17:56 Consult to Neurology Routine Consulting Provider: Neurology Christen carmen [facility] Reason for consultation: stroke DS: Diagnosis Discharge Diagnosis (1) Brain TIA: Status: Acute DS: Summary Hospital Course Hospital Course: from initial hpi: 64-year-old man with a history of stroke 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 He reported that his symptoms lasted approximately 15 minutes he was brought over to the ER. He denied any chest pain, shortness breath, nausea, vomiting, diarrhea, loss of consciousness. He reports history of stroke in the past and is currently wearing an implantable loop recorder likely to assess for atrial fibrillation. Head and neck CTA showed no hemodynamically significant stenosis, head CT showed possible acute ischemic change in the posterior left occipital lobe. Patient back to baseline at this point. He will be admitted for further management and treatment of possible stroke. hospital course: Patient was admitted for slurred speech due to acute CVA. Pattern on MRI was consistent with cardioembolic. Recommendations were for echocardiogram with bubble study which can be done outpatient. Symptoms resolved. He will continue on apixaban and statin. For diabetes was continued on insulin sliding scale. For chronic systolic CHF he will continued on Lasix maintenance, carvedilol, entresto. For coronary artery disease was continued on apixaban and statin. patient back to baseline will be discharged home Time Attestation Discharge Coordination Time (in mins): 34 Quality: Safe Use of Opioids Does Pt have an Active Cancer Diagnosis on the Problem List?: No Quality: Stroke Does the patient have a stroke diagnosis?: Yes Reason for No Anti-thrombotic at DC: Drug treatment not indicated Reason for No Anticoagulant at DC: N/A - Med Ordered Reason Not Initiating IV-Tpa: Drug treatment not indicated Reason for No Anti-thrombotic by Day Two: Drug treatment not indicated Reason for No Statin at DC: N/A - Med Ordered Physical Exam Exam: Exam: General: AO X 3, no acute distress Resp: CTA bilateral, no accessory muscles used CVS: S1,S2,RRR GI: soft, non tender, non distended Neuro: motor grossly intact, alert Psych: appropriate affect, appropriate insight Vital Signs: Vital Signs: Last Vital Signs Temp 98.4 F 01/14/25 10:58 Pulse 70 01/14/25 10:58 Resp 20 01/14/25 10:58 BP 146/84 H 01/14/25 10:58 Pulse Ox 94 01/14/25 10:58 O2 Del Method Room Air 01/14/25 10:58 BMI result Body Mass Index 27.1 DS: Data Data Completed and Pending Labs on day of discharge: Laboratory Results - last 24 hr 01/13/25 01/13/25 01/14/25 17:25 20:26 07:12 POC Glucose 118 H 102 128 H 01/14/25 10:48 POC Glucose 129 H Discharge Plan Discharge Anticipated Discharge Date/Time: 01/14/25 12:59 Patient Disposition: Home, Self-Care Discharge Diagnosis: cva Referrals: Dotty Hernandez PA-C [Primary Care Provider, Internal Medicine] - 1 Week Discharge Medications: Continued cholecalciferol (vitamin D3) 25 mcg (1,000 unit) capsule 25 mcg PO DAILY Qty: 90 3RF cyanocobalamin (vitamin B-12) 1,000 mcg tablet, sublingual 1,000 mcg PO DAILY Qty: 90 1RF (DME) lancets [FreeStyle Lancets] 28 gauge misc See Rx Instructions .ROUTE .MEDSUPPLY Qty: 100 3RF Rx Instructions: use daily as directed to check blood glucose (DME) blood-glucose meter [FreeStyle Lite Meter] Kit See Rx Instructions .ROUTE .MEDSUPPLY Qty: 1 0RF Rx Instructions: Use daily As directed to check blood sugars (DME) FreeStyle Lite Strips Strip See Rx Instructions .ROUTE .MEDSUPPLY Qty: 100 3RF Rx Instructions: Use daily As directed to check blood glucose ezetimibe [Zetia] 10 mg tablet 10 mg PO DAILY Qty: 90 0RF furosemide 40 mg tablet 40 mg PO DAILY Qty: 30 0RF Jardiance 25 mg tablet 25 mg PO DAILY insulin glargine U-300 conc 300 unit/mL (3 mL) insulin pen 50 unit subcut BEDTIME Eliquis 5 mg tablet 5 mg PO BID 90 Days Qty: 180 3RF Rx Instructions: Blood thinner atorvastatin 80 mg tablet 80 mg PO BEDTIME 90 Days Qty: 90 3RF Rx Instructions: Cholesterol lowering medication metformin 1,000 mg tablet 1,000 mg PO BID Qty: 180 3RF (DME) pen needle, diabetic 32 gauge x 5/32 needle See Rx Instructions .ROUTE .MEDSUPPLY Qty: 400 3RF Rx Instructions: Use QID As directed Entresto 24-26 mg tablet 1 tab PO BID Qty: 60 5RF Rx Instructions: STOP Valsartan Start Entresto carvedilol 12.5 mg tablet 12.5 mg PO BID Qty: 60 5RF Rx Instructions: must administer with a meal/food glucose [Dex4 Glucose] 4 gram tablet,chewable 16 g PO Q15M PRN (Reason: hypoglycemia) Qty: 100 0RF Rx Instructions: until symptoms of low blood sugar are controlled glucagon 3 mg/actuation spray,non-aerosol 3 mg intranasal ONCE PRN (Reason: hypoglycemia) Qty: 2 0RF (DME) FreeStyle Noe 3 Plus Sensor Device See Rx Instructions .ROUTE .MEDSUPPLY Qty: 6 3RF Rx Instructions: Use daily As directed to monitor glucose insulin lispro [Humalog KwikPen Insulin] 100 unit/mL insulin pen 15 unit subcut TID Qty: 15 0RF Rx Instructions: with breakfast, lunch and supper Discharge Orders: Discharge Order (Routine); Ordered 01/14/25 Ordered By: Juno Osei Diet: Advance to usual diet Activity on Discharge: As tolerated Stand Alone Forms: Patient Portal Discharge page Print Language: Bengali Other Ambulatory Orders: CA echo transthoracic complete (Routine) Timeframe: 1 Week Facility: [facility] - Location: Cardiology Ordered By: Juno Osei Care Plan Goals: prevent strokes Health Concerns: stroke Plan of Treatment: apixaban, echo with bubble study Assessment: see above
--- NOTE | 2025-01-14 13:18 | MHC.CM.PN ---
Patient has been medically cleared for dc to home today, self care.
[2025-01-14 15:20] VITALS: BP 141/78; PULSE 93; RESP 18; TEMP 36.4; O2SAT 97
--- NOTE | 2025-01-14 16:00 | CA_ITS ---
Transthoracic Echocardiogram Patient (Last, First, Middle): Mega Gtz, Gender: M Date of : 1960 Age: 64 Procedure Date: 01/14/2025 Procedure Type: Transthoracic Echocardiogram Location: [facility] [place] Height: 187.96 cm Weight: 95.26 kg BSA: 2.22 m2 Heart Rate: 72 bpm BP: 140 / 81 mmHg Environmental Engineering Aide: SB Referring MD: Juno Osei MD Symptoms: with bubble study... embolic stroke Study Quality: Adequate ECG Rhythm: Sinus Conclusions: - Moderately increased left ventricular cavity size. There is mildly increased left ventricular wall thickness. The left ventricular systolic function is severely decreased. The visually estimated ejection fraction is between 20-25%. - Normal right ventricular cavity size and systolic function. - There is mild dilatation of the sinuses of Valsalva measuring 3.80 cm and mild dilatation of the ascending aorta measuring 3.60 cm. Findings Procedure Information Contrast agent, definity, is being given per protocol without apparent complications. Left Ventricle Moderately increased left ventricular cavity size. There is mildly increased left ventricular wall thickness. The left ventricular systolic function is severely decreased. The visually estimated ejection fraction is between 20 25%. There is severe global hypokinesis. Abnormal diastolic function is noted. Spectral Doppler is indicative of an impaired relaxation filling pattern. Elevated filling pressures. Right Ventricle Normal right ventricular cavity size and systolic function. Atria The left atrium is mildly dilated. There is no evidence of interatrial shunt by color Doppler and contrast. Aortic Valve There is a normal trileaflet aortic valve. There is no aortic valve stenosis. There is no aortic valve regurgitation. Mitral Valve The mitral valve appears normal. There is mild mitral valve regurgitation. There is no mitral valve stenosis. Pulmonic Valve The pulmonic valve is normal. There is trace pulmonic valve regurgitation. Tricuspid Valve Normal tricuspid valve structure. There is no tricuspid valve regurgitation. Tricuspid regurgitation envelope is inadequate for calculation of right ventricular systolic pressure. Normal right atrial pressure. Great Vessels There is mild dilatation of the sinuses of Valsalva measuring 3.80 cm and mild dilatation of the ascending aorta measuring 3.60 cm. The visualized portions of the pulmonary artery and branches are normal. Venous The inferior vena cava is normal in size and collapses greater than 50% with inspiration. Pericardium/Pleural There is no evidence of pericardial effusion. Prior Study Comparison Changes noted compared to prior study dated: 01/16/2024. LV moderately dilated. Measurements 2D Linear Measurements IVSd: 1.21 0.6-0.9/0.6-1.0 cm LVIDd: 6.31 3.9-5.3/4.2-5.9 cm LVIDd Index: 2.84 2.4-3.2/2.2-3.1 cm/m2 LVIDs: 5.34 2.0-3.6 cm LVPWd: 1.12 0.7-1.1 cm LA Diam: 4.30 2.7-3.8/3.0-4.0 cm LAIDs Index: 1.94 1.5-2.3 cm/m2 LV Mass: 409.48 67-162/88-224 g LV Mass Index: 184.45 43-95/49-115 g/m2 LVOT Diam: 2.50 3.0+(-)1.3 cm 2D Systolic Function EF 4C: 28.80 >55% EF 2C: 30.70 >55% EF BiP: 30.70 >55% Mitral Valve MV Pk E: 0.69 MV PK A: 1.06 MV Decel Time: 138.00 E/A: 0.70 E'Lateral: 4.03 E'Medial: 3.92 E/E' Med: 17.70 E/E' Lat: 17.20 PHT: 40.00 MVA PHT: 5.50 Decel [place]: 5.02 Aortic Valve AoV Pk Ozzy: 1.08 AoV Pk Grad: 5.00 FE: 3.84 LVOT LVOT Pk Ozzy: 0.91 LVOT Mn Ozzy: 0.67 LVOT VTI: 0.17 LVOT Pk Grad: 3.00 LVOT Mn Grad: 2.00 LVOT Diam: 2.50 LVOT Area: 4.91 Diastolic Function MV Pk E: 0.69 MV Pk A: 1.06 E/A: 0.70 E'Medial: 3.92 E/E' Med: 17.70 E' Laterial: 4.03 E/E' Lat: 17.20 Right Ventricle TAPSE (mm): 15.80 TVS' Ozzy: 9.36 Tricuspid Valve RA Press: 8.00 Great Vessels Aorta Sinus of Valsalva: 3.80 2.0-3.5 cm Ao Asc: 3.60 2.1-3.4 cm Ao Arch: 3.40 Ao Desc: 2.60 Pulmonary Veins Pulm Vein S/D 1.60 Pulmonary Valve PV Pk Ozzy: 0.86 Peak PV Grad: 3.00 Updated in Other Vendor System with Status of Final Rakesh Thomas MD electronically signed on 01/14/2025 3:54:35 PM with status of Final
== END 2025-01-14 15:45 | disposition home or self-care (01) | DRG 65 ==
LOC: HO.ED 16:22 → HO.EDOVER 18:16 → HO.IMC 01-13 16:25
PROVIDERS: Internal Medicine; Admitting Provider Nurse Practitioner Acute Care; Emergency Provider Emergency Medicine; Visit Provider Internal Medicine
DX: I63.40 Cerebral infarction due to embolism of unspecified cerebral artery (principal); I50.22 Chronic systolic (congestive) heart failure; R29.700 NIHSS score 0; I11.0 Hypertensive heart disease with heart failure; Z23 Encounter for immunization; R47.81 Slurred speech; Z95.818 Presence of other cardiac implants and grafts; Z79.4 Long term (current) use of insulin; Z79.84 Long term (current) use of oral hypoglycemic drugs; Z79.01 Long term (current) use of anticoagulants; Z79.899 Other long term (current) drug therapy
CPT/HCPCS: 36415; 70450; 70496; 70498; 70551; 80048; 80053; 80061; 82947; 83036; 84484; 85025; 85027; 85610; 85730; 90656; 93005; 93306; 97161; 97165; 99212; 99285; Q9957; Q9967

== ENCOUNTER → 2025-01-12 14:52 | Outpatient (BNV) | payer OTHER, SELFPAY | PROVIDERS: Emergency Provider Emergency Medicine; Visit Provider Radiology Diagnostic Radiology | DX: I66.22 Occlusion and stenosis of left posterior cerebral artery (principal); I66.02 Occlusion and stenosis of left middle cerebral artery; I63.81 Other cerebral infarction due to occlusion or stenosis of small artery; R47.81 Slurred speech | CPT/HCPCS: 70450; 70496; 70498; 70551 ==

== ENCOUNTER → 2025-01-12 14:52 | Outpatient (BNV) | payer OTHER, SELFPAY | PROVIDERS: Admitting Provider Nurse Practitioner Acute Care; Emergency Provider Emergency Medicine; Visit Provider Internal Medicine Cardiovascular Disease | DX: R94.31 Abnormal electrocardiogram [ECG] [EKG] (principal); I63.9 Cerebral infarction, unspecified | CPT/HCPCS: 93010 ==

== ENCOUNTER → 2025-01-12 16:04 | Outpatient (BNV) | payer OTHER, SELFPAY | PROVIDERS: Emergency Provider Emergency Medicine; Visit Provider Nurse Practitioner Acute Care | DX: G45.9 Transient cerebral ischemic attack, unspecified (principal) | CPT/HCPCS: 99223; 99231; 99239 ==

== ENCOUNTER 2025-01-12 18:16 | Outpatient (BNV) | payer OTHER, SELFPAY | END 2025-01-14 16:00 | PROVIDERS: Admitting Provider Nurse Practitioner Acute Care; Emergency Provider Emergency Medicine; Visit Provider Internal Medicine Cardiovascular Disease | DX: I51.89 Other ill-defined heart diseases (principal); I77.810 Thoracic aortic ectasia | CPT/HCPCS: 93306 ==

== ENCOUNTER 2025-01-22 09:08 | Outpatient (REF) | payer OTHER, SELFPAY ==
--- OUTSIDE RECORDS SUMMARY | 2025-01-22 09:59 | XMS_ITS | Patient Health Record ---
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 10/11/2016 Insurance Providers Payer Name Payer Address Payer Phone Subscriber Number Group Number Insured Name Patient Relationship to Insured Coverage Start Date Coverage End Date [facility] [address] [address] [place], [place] [id number] CANDACE SILVA Self - patient is the insured Medical (General) History Medical History History ICD Code Denies AR,CVA,Lung disease,renal disease Diabetes HTN Hyperlipidemia Hepatitis C Surgical History Surgery Date(Month/Year) eye surgery-left--cataract 2013
[2025-01-22 10:47] LABS: Alanine Aminotransferase 32 U/L (0-40); Albumin Level 4.6 g/dL (3.5-5.0); Alkaline Phosphatase 68 U/L (39-117); Anion Gap 12 (12-20); Aspartate Amino Transferase 30 U/L (5-37); Blood Urea Nitrogen 15 mg/dL (9-16); Calcium 9.2 mg/dL (8.4-10.2); Carbon Dioxide 27 mmol/L (22-29); Chloride 108 mmol/L (96-108); Cholesterol 135 mg/dL (<200); Estimated Glomerular Filt Rate > 60; HDL Cholesterol 42 mg/dL (>40); Potassium 3.4 mmol/L (3.3-5.1); Sodium 144 mmol/L (135-145); Total Protein 7.3 g/dL (6.5-8.0); Triglycerides 140 mg/dL (<150)
== END 2025-01-22 09:09 | disposition home or self-care (01) ==
LOC: HO.LAB 09:08
DX: Z00.00 Encounter for general adult medical examination without abnormal findings (principal); E11.65 Type 2 diabetes mellitus with hyperglycemia; E78.00 Pure hypercholesterolemia, unspecified; Z79.4 Long term (current) use of insulin
CPT/HCPCS: 36415; 80053; 80061

== ENCOUNTER → 2025-03-09 14:44 | Outpatient (BNV) | payer OTHER, SELFPAY | PROVIDERS: Visit Provider Internal Medicine Cardiovascular Disease | DX: I49.3 Ventricular premature depolarization (principal); R00.0 Tachycardia, unspecified | CPT/HCPCS: 93298 ==